=== PATIENT | female | born 1955 | race Two or more races ===

== ENCOUNTER 2020-05-06 10:06 | Outpatient (REF) | payer MEDICARE, MEDICAID, SELFPAY ==
[2020-05-06 11:04] LABS: Alanine Aminotransferase 47 U/L (0-31); Albumin Level 4.4 g/dL (3.5-5.0); Alkaline Phosphatase 72 U/L (39-117); Anion Gap 12 (12-20); Aspartate Amino Transferase 46 U/L (5-31); Bilirubin Total 0.6 mg/dL (0.0-1.0); Blood Urea Nitrogen 14 mg/dL (9-16); Calcium 9.7 mg/dL (8.4-10.2); Carbon Dioxide 29 mmol/L (22-29); Chloride 102 mmol/L (96-108); Cholesterol 144 mg/dL; Estimated Glomerular Filt Rate > 60; Glucose Fasting 126 mg/dL (60-99); HDL Cholesterol 34 mg/dL; LDL Cholesterol Calculated 71 mg/dl; Potassium 3.6 mmol/l (3.3-5.1); Sodium 139 mmol/L (135-145); Total Protein 7.8 g/dL (6.5-8.0); Triglycerides 195 mg/dL
[2020-05-06 11:25] LABS: Creatinine Urine 193.25 mg/dL; Microalbum/Creatinine Ratio Ur 5.6 ug/mg cr
[2020-05-06 11:26] LABS: Vitamin D 25-OH Total 25.1 ng/mL (>30)
== END 2020-05-06 10:07 | disposition home or self-care (01) ==
LOC: HO.LAB 10:06
PROVIDERS: PCP Internal Medicine; Visit Provider Internal Medicine
DX: E55.9 Vitamin D deficiency, unspecified (principal); E11.9 Type 2 diabetes mellitus without complications
CPT/HCPCS: 36415; 80053; 80061; 82043; 82306

== ENCOUNTER → 2020-06-09 14:46 | Outpatient (BNVA) | payer MEDICARE, MEDICAID, SELFPAY | PROVIDERS: PCP Internal Medicine; Visit Provider Urology | DX: Z76.89 Persons encountering health services in other specified circumstances (principal) | CPT/HCPCS: 99212 ==

== ENCOUNTER 2020-09-18 11:05 | Outpatient (REF) | payer MEDICARE, MEDICAID, SELFPAY | END 2020-09-18 11:06 | disposition home or self-care (01) | LOC: HO.LAB 11:05 | PROVIDERS: PCP Internal Medicine; Visit Provider Internal Medicine | DX: Z20.822 Contact with and (suspected) exposure to COVID-19 (principal) | CPT/HCPCS: 36415; C9803; U0003; U0005 ==

== ENCOUNTER 2020-09-23 10:14 | Outpatient (REF) | payer MEDICARE, MEDICAID, SELFPAY ==
--- NOTE | ~2020-09-23 | MM_ITS ---
EXAMINATION: MM SCREENING DIGITAL BREAST TOMOSYNTHESIS, BILATERAL CLINICAL INFORMATION: Screening. Asymptomatic. Benign left stereotactic biopsy for calcifications 09/30/2018 (fibrocystic changes with associated microcalcifications). Prior history benign right excisional biopsy. The lifetime risk of breast cancer based on the Tyrer-Cuzick Model is 5%. COMPARISON: Mammography: 09/18/2019, 09/25/2018, 09/12/2018, 08/23/2017, 06/26/2016 TECHNIQUE: Digital breast tomosynthesis is performed in both the craniocaudal and mediolateral oblique views along with computer-aided detection (CAD). Synthesized 2D images are generated from the tomosynthesis. FINDINGS: There are scattered areas of fibroglandular density (ACR BI-RADS breast composition Category b). Parenchymal pattern is similar to prior studies. There is biopsy clip marker again noted mid upper outer left breast. There is no interval mass or architectural abnormality or interval abnormal calcifications. The axilla and skin contours are unremarkable. No significant changes. MM/MM tomosynthesis screening BI IMPRESSION: No mammographic evidence of malignancy. ASSESSMENT: BI-RADS 2: Benign RECOMMENDATION: Routine annual mammography screening. This patient's information was entered into a reminder system with a target due date for their next mammogram.
== END 2020-09-23 10:15 | disposition home or self-care (01) ==
LOC: HO.MAMMO 10:14
PROVIDERS: PCP Internal Medicine; Visit Provider Internal Medicine
DX: Z12.31 Encounter for screening mammogram for malignant neoplasm of breast (principal)
CPT/HCPCS: 77063; 77067

== ENCOUNTER 2020-10-14 08:47 | Outpatient (REF) | payer MEDICARE, MEDICAID, SELFPAY ==
[2020-10-14 09:38] LABS: Alanine Aminotransferase 29 U/L (0-31); Albumin Level 4.3 g/dL (3.5-5.0); Alkaline Phosphatase 75 U/L (39-117); Anion Gap 14 (12-20); Aspartate Amino Transferase 28 U/L (5-31); Bilirubin Total 0.4 mg/dL (0.0-1.0); Blood Urea Nitrogen 17 mg/dL (9-16); Calcium 9.7 mg/dL (8.4-10.2); Carbon Dioxide 29 mmol/L (22-29); Chloride 101 mmol/L (96-108); Cholesterol 146 mg/dL; Estimated Glomerular Filt Rate 59; Glucose Fasting 125 mg/dL (60-99); HDL Cholesterol 36 mg/dL; LDL Cholesterol Calculated 74 mg/dl; Potassium 3.9 mmol/L (3.3-5.1); Sodium 140 mmol/L (135-145); Total Protein 7.6 g/dL (6.5-8.0); Triglycerides 182 mg/dL
== END 2020-10-14 08:48 | disposition home or self-care (01) ==
LOC: HO.LAB 08:47
PROVIDERS: PCP Internal Medicine; Visit Provider Internal Medicine
DX: E11.9 Type 2 diabetes mellitus without complications (principal)
CPT/HCPCS: 36415; 80053; 80061

== ENCOUNTER 2020-11-06 16:42 | Outpatient (REF) | payer MEDICARE, MEDICAID, SELFPAY ==
--- NOTE | ~2020-11-06 | MR_ITS ---
EXAMINATION: MR BRAIN WITHOUT AND WITH CONTRAST CLINICAL INFORMATION: Right acoustic neuroma and vertigo. COMPARISON: There are no prior studies available for comparison. TECHNIQUE: Multiplanar, multisequence MRI of the brain was obtained before and after the intravenous administration of 7 mL Gadavist. FINDINGS: The VII and VIII cranial nerve complexes are normal in course and caliber. No signal abnormality is visualized within the inner ear structures on the precontrast axial T1-weighted sequence. Fluid signal is preserved within the cochleae, semicircular canals, and vestibules on the high-resolution axial FIESTA sequence. No cerebellopontine angle lesion is noted. There is no abnormal labyrinthine or intracanalicular enhancement on postcontrast imaging. No diffusion abnormality is seen. There are scattered areas of increased FLAIR signal in the periventricular and subcortical white matter, most consistent with chronic microvascular ischemic changes. There is mild commensurate prominence of the ventricles and sulci consistent with diffuse volume loss. No mass effect or midline shift is evident. No extra-axial fluid collections are noted. The brainstem and cerebellum are normal. On postcontrast imaging, there is no abnormal parenchymal or leptomeningeal enhancement. There is a 0.9 cm area of low gradient signal which appears extra-axial in the anterolateral left frontal region. This does not demonstrate abnormal signal on other sequences or enhancement, and may be consistent with a small osteoma. Marrow signal, and midline structures are normal. The cerebellar tonsils have normal contour and position. There is asymmetry of the longus colli muscles, more prominent on the left. There is atlanto-occipital assimilation and basilar invagination. There is mild distortion of the ventral medulla from a tortuous left vertebral artery. The visualized portions of the major intracranial flow-voids at the level of the [place] of [place] are preserved. The dural venous sinus flow-voids are maintained. The mastoid air cells and paranasal sinuses are well-aerated. MR/MR head/brain wo/w con IMPRESSION: 1. There are no acute bleeds or infarcts. The CP angles and internal auditory canals appear normal. There are no intracranial masses or areas of abnormal enhancement. 2. There is diffuse volume loss, and there are chronic microvascular ischemic changes. 3. There is asymmetry of the longus colli muscles, more prominent on the left. There is atlanto-occipital assimilation and basilar invagination. There are spondylitic changes in the upper cervical spine. These findings may be consistent with sequelae of prior cervical spinal trauma. Correlate with prior clinical history.
== END 2020-11-06 16:43 | disposition home or self-care (01) ==
LOC: HO.MRI 16:42
PROVIDERS: Visit Provider Otolaryngology
DX: D33.3 Benign neoplasm of cranial nerves (principal); H81.4 Vertigo of central origin
CPT/HCPCS: 70553; A9585

== ENCOUNTER 2020-11-22 08:51 | Outpatient (REF) | payer MEDICARE, MEDICAID, SELFPAY ==
--- NOTE | 2020-11-22 15:18 | MHC.AU.HAS ---
Hearing Aid Evaluation Date of Visit: 11/22/20 Machinist Supervisor Used: Patient's family assisted with interpretation Historical Information: Description of Hearing: Left: Normal from 250-3000 Hz, mild at 1830-8563 Hz Right: Moderate rising to mild sensorineural hearing loss Summary: Patient has not previously worn amplification. She was referred to our clinic by ENT, Dr. Boyd. Patient reports that in May 2020, her right ear began to hurt. She started to experience right-sided hearing difficulty and tinnitus, which have persisted. Hearing aid options were discussed. Patient's family feels a rechargeable option would be best for her, as she would be able to handle it easier and would not have to worry about remembering to change the batteries. Hearing Aid Prescription: Based on the individual?s shared listening needs, communication environments, dexterity, desire for connectivity, and personal preferences, the following prescription for amplification has been made: Right ear: Smt Technician: etouches Model: [employer] P70-R Battery Size: Rechargeable Color: 01 Beige Peanut Picker: Size 1M Action Taken/Action Needed: Hearing Fitting to be scheduled when materials arrive Dr. Boyd's office was contacted to request a copy of the medical clearance. Primary Diagnosis: H90.3 Bilateral Sensorineural Hearing Loss Signature: Provider: Salvatore Faria, DEVORAH-A
== END 2020-11-22 08:52 | disposition home or self-care (01) ==
LOC: HO.HAP 08:51
PROVIDERS: Visit Provider Internal Medicine
DX: Z46.1 Encounter for fitting and adjustment of hearing aid (principal); H90.3 Sensorineural hearing loss, bilateral
CPT/HCPCS: 92590

== ENCOUNTER 2020-11-30 15:14 | Outpatient (REF) | payer MEDICARE, MEDICAID, SELFPAY ==
--- NOTE | 2020-11-30 16:02 | MHC.AU.HFA ---
Hearing Instrument Fitting- Adult- Binaural Date of Visit: 11/30/20 Roll Tension Tester Used: Family member assisted with Moldovan interpretation Hearing Instruments Dispensed: Right Ear: Tar Chaser: Phonak Model: Audeo P70-R Serial Number: [id number] Repair Warranty: 02/22/2024 Loss and Damage Warranty: 02/22/2024 Battery Size: Rechargeable Color: 01 Beige Informatics Nurse: Size 1M Type of Dome: Small Open Type of Wax Guard: Eve Summary of Fitting: Feedback manager retail run. Verifit performed and levels adjusted to better reach targets. Patient felt 100% target was too loud- lowered to 95% target. Increased occlusion compensation. Patient was pleased with the sound of the instrument. Hearing aid care and maintenance were discussed and practiced. Hearing aid was not paired to her phone at this time, as she is a monaural fitting. Patient reports that so far, the tinnitus in her right ear is less intense. If she does not experience sufficient relief, we will consider adding a tinnitus masking program at the next visit. Tap controls deactivated. Volume control is activated. Recommendations: Recommendations: A hearing instrument follow-up was scheduled. Diagnosis Code(s): Primary Diagnosis: H90.3 Bilateral Sensorineural Hearing Loss Signature: Provider: Salvatore Faria, DEVORAH-A
== END 2020-11-30 15:15 | disposition home or self-care (01) ==
LOC: HO.HAP 15:14
PROVIDERS: Visit Provider Otolaryngology
DX: Z46.1 Encounter for fitting and adjustment of hearing aid (principal); H90.3 Sensorineural hearing loss, bilateral
CPT/HCPCS: V5011; V5020; V5241; V5257

== ENCOUNTER 2020-12-15 15:47 | Outpatient (REF) | payer MEDICARE, MEDICAID, SELFPAY ==
--- NOTE | 2020-12-18 11:43 | MHC.AU.HFU ---
Hearing Instrument Follow-Up- Binaural Date of Visit: 12/15/20 Cigarette Machines Mechanic Used: Family member assisted with Tanzanian interpretation Right Ear: Prison Guard: [employer] Model: Audeo P70-R Serial Number: [id number] Repair Warranty: 02/22/2024 Loss and Damage Warranty: 02/22/2024 Battery Size: Rechargeable Color: 01 Beige Draw End Hand: Size 1M Type of Dome: Small Open Type of Wax Guard: [facility] Follow-Up Summary: Patient reports she has been doing well with the new hearing aid. She finds the sound to be clear and comfortable. She reports that it has been helping relieve her tinnitus the majority of the time. She experiences episodes of dizziness and nausea occasionally, which are accompanied by intense tinnitus. She experienced one of these episodes the other day, and found that the hearing aid was not enough to help the ringing. Patient was given a tinnitus masking program with white noise to try during one of those episodes. Demonstrated and practiced hitting the program button to go into/out of the tinnitus program. Recommendations: Recommendations: Hearing instrument follow-up or maintenance as needed. Diagnosis Code(s): Primary Diagnosis: H90.3 Bilateral Sensorineural Hearing Loss Signature: Provider: Salvatore Faria, DEVORAH-A
== END 2020-12-15 15:48 | disposition home or self-care (01) ==
LOC: HO.HAP 15:47
PROVIDERS: Visit Provider Internal Medicine
DX: Z13.89 Encounter for screening for other disorder (principal)

== ENCOUNTER 2021-02-19 07:59 | Outpatient (REF) | payer MEDICARE, MEDICAID, SELFPAY ==
[2021-02-19 09:06] LABS: Alanine Aminotransferase 31 U/L (0-31); Albumin Level 4.4 g/dL (3.5-5.0); Alkaline Phosphatase 72 U/L (39-117); Anion Gap 14 (12-20); Aspartate Amino Transferase 31 U/L (5-31); Bilirubin Total 0.5 mg/dL (0.0-1.0); Blood Urea Nitrogen 14 mg/dL (9-16); Calcium 9.6 mg/dL (8.4-10.2); Carbon Dioxide 25 mmol/L (22-29); Chloride 105 mmol/L (96-108); Cholesterol 122 mg/dL; Estimated Glomerular Filt Rate > 60; Glucose Fasting 133 mg/dL (60-99); HDL Cholesterol 31 mg/dL; LDL Cholesterol Calculated 66 mg/dl; Potassium 3.9 mmol/L (3.3-5.1); Sodium 140 mmol/L (135-145); Total Protein 7.7 g/dL (6.5-8.0); Triglycerides 128 mg/dL
[2021-02-23 06:28] LABS: Vitamin D 25-OH, D2 <4 ng/mL; Vitamin D 25-OH, D3 36 ng/mL; Vitamin D 25-OH, Total 36 ng/mL (30-100)
== END 2021-02-19 08:00 | disposition home or self-care (01) ==
LOC: HO.LAB 07:59
PROVIDERS: PCP Internal Medicine; Visit Provider Internal Medicine
DX: Z01.419 Encounter for gynecological examination (general) (routine) without abnormal findings (principal); E11.65 Type 2 diabetes mellitus with hyperglycemia; E78.5 Hyperlipidemia, unspecified; E55.9 Vitamin D deficiency, unspecified
CPT/HCPCS: 36415; 80053; 80061; 82043; 82306

== ENCOUNTER 2021-04-11 09:01 | Emergency (ER) | payer MEDICARE, MEDICAID, SELFPAY ==
[2021-04-11 09:13] VITALS: BP 129/81; PULSE 71; RESP 18; TEMP 36.9; O2SAT 98; BMI 34.8
--- NOTE | 2021-04-11 09:53 | ED_ITS ---
HPI - Female Genitourinary General Chief complaint: Urogenital-Female Stated complaint: flank pain Time Seen by Provider: 04/11/21 09:53 Source: patient Mode of arrival: ambulatory Limitations: no limitations History of Present Illness HPI Narrative: 65 y/o female with history of obesity, GERD, HTN, DM who presents to the ER c/o left lower and middle back pain for the last 3 days after she took the air conditioner out of the window by herself. She felt her back tense up and has been having pain since. She reports pain is worse with movement, coughing and sneezing. No numbness, tingling, weakness. No dysuria, hematuria, or frequency. fever or SOB. She took motrin this morning with some improvement in the pain. MD elicited complaint: back pain Onset (ago): day(s) (3) Location of symptoms: low back and flank Severity: moderate Severity scale (1-10): 5 Quality of pain: aching Consistency: constant Vaginal discharge: none Vaginal bleeding: none Urinary symptoms: Flank Pain Exacerbating factors: movement and palpation Relieving factors: other (rest, NSAID) Associated symptoms: denies other symptoms Treatment prior to arrival: none Sexual activity: No Related Data Home Medications Medication Instructions Recorded Confirmed latanoprost 0.005 % eye drops 1 drp OPHTHALMIC (EYE) BEDTIME 05/09/20 03/05/21 timolol maleate 0.5 % eye drops 1 drp OPHTHALMIC (EYE) QAM 05/09/20 03/05/21 ammonium lactate 12 % topical cream appl TOPICAL BID 02/22/21 03/05/21 fluocinonide 0.05 % topical TOPICAL BID PRN 02/22/21 03/05/21 ointment Previous Rx's Medication Instructions Recorded aspirin 81 mg tablet,delayed 81 mg PO DAILY 90 Days #90 tab 05/09/20 release lisinopril 2.5 mg tablet 2.5 mg PO DAILY 90 Days #90 tab 05/09/20 multivitamin-ferrous 1 tab PO DAILY 90 Days #90 tab 05/09/20 fumarate-folic acid 18 mg-400 mcg tablet (Centrum Women) lancets 28 gauge #100 ea 06/21/20 oxybutynin chloride 5 mg 5 mg PO DAILY #90 tab 06/27/20 tablet,extended release 24 hr carbamide peroxide 6.5 % ear drops 5 drp OTIC (EAR) LEFT Q12H 5 Days 07/09/20 (Debrox) #15 ml cholecalciferol (vitamin D3) 50 50 mcg PO DAILY #30 tab 07/21/20 mcg (2,000 unit) tablet pantoprazole 40 mg tablet,delayed 40 mg PO DAILY #90 tab 12/25/20 release blood sugar diagnostic (FreeStyle 1 strip MISCELLANEOUS DAILY 90 01/03/21 Lite Strips) Days #100 strip metformin 850 mg tablet 850 mg PO BID 90 Days #180 tab 01/22/21 cyclobenzaprine 5 mg tablet 5 mg PO TID PRN #14 tab 04/11/21 ibuprofen 600 mg tablet 600 mg PO Q8H PRN #14 tab 04/11/21 lidocaine 5 % topical patch 1 patch TOPICAL DAILY #15 ea 04/11/21 (Lidoderm) Allergies Allergy/AdvReac Type Severity Reaction Status Date / Time chlorzoxazone Allergy Intermediate RASH/SWELLING, Verified 03/05/21 10:50 [From Paraericka Spears DSC] rash Iodinated Contrast Media Allergy Intermediate THROAT Verified 03/05/21 10:50 [IV Dye, Iodine Containing] CLOSED Penicillins [PENICILLINS] Allergy Intermediate HIVES Verified 03/05/21 10:50 pollen extracts [POLLEN] Allergy Intermediate RASH Verified 03/05/21 10:50 From KEFLEX Allergy Severe HIVES Uncoded 03/05/21 10:50 Review of Systems Review of Systems: Constitutional: No Fever, No Chills Cardiovascular: No Chest Pain, No SOB Respiratory: No Cough Gastrointestinal: No Nausea, No Vomiting, No Diarrhea, No abdominal Pain Genitourinary: No Dysuria, No Urinary Frequency, No Hematuria Musculoskeletal: No joint pain, + Myalgias Skin: No Skin Lesions, No rash Neuro: No Weakness, No Numbness, No Dizziness, No Headache Psych: No Anxiety/Panic, No Depression Heme/Lymph: No Bruising, No Lymphadenopathy PMFSH Past Medical History Attestation statement: The following information was validated with the patient. Medical History Diabetes mellitus Dry skin Ear congestion Essential hypertension GERD (gastroesophageal reflux disease) Glaucoma Hearing loss in right ear Long-term use of aspirin therapy Obese Post-menopausal Urge urinary incontinence Well woman exam Surgical History (Updated 03/05/21 @ 12:36 by REYNALDO Crenshaw) H/O arthroscopy of right knee History of History of cholecystectomy History of colonoscopy History of knee replacement procedure of right knee History of nasal surgery Tubal ligation status Family History Family History Father Cancer Mother Hypertension Social History Social History Housing: House Alcohol intake: current Alcohol intake frequency: holidays/special occasions only Alcohol type: wine Patient Tobacco Use Status: Never used Tobacco Advance Directives: No Advance Directives Information Provided: No service: No Current occupational status: retired Physical Exam Vital Signs: Vital Signs: Last Vital Signs Temp 98.4 F 04/11/21 09:13 Pulse 71 04/11/21 09:13 Resp 18 04/11/21 09:13 BP 129/81 04/11/21 09:13 Pulse Ox 98 04/11/21 09:13 Body Mass Index 34.8 Appearance: Alert. Oriented X3. No acute distress. Eyes: normal inspection ENT: Pharynx normal. Neck: Normal inspection. Neck supple. CVS: Normal heart rate and rhythm. Pulses normal. Respiratory: No respiratory distress. Breath sounds normal. Abdomen: Soft and nontender. +BS x4 Back: normal inspection. left middle and lower back tenderness and palpable spasm, no spinal tenderness, no ecchymosis Skin: Skin warm and dry. Normal skin color. Normal skin turgor. No rashes. Extremities: No lower extremity edema. Neuro: Oriented X 3. No motor deficit. No sensory deficit. Course Course Course Narrative: 65 y/o female presenting with left middle and lower back pain s/p lifting 3 days ago. UA negative, no urinary symptoms. Palpable spasm and tenderness on exam. Will treat for muscle spasm and strain and have her f/u with PCP. Patient agrees with plan and understands importance of followup. Stable for d/c home. MDM - Female Genitourinary Lab Data Labs: Lab Results 04/11/21 Range/Units 09:45 Urine Color YELLOW Urine Appearance HAZY Urine pH 6.0 (5.0-8.0) Ur Specific Paicines 1.015 (1.005-1.025) Urine Protein NEG (NEG-TRACE) MG/DL Urine Glucose (UA) NEG (NEG) MG/DL Urine Ketones NEG (NEG) MG/DL Urine Blood NEG (NEG) Urine Nitrite NEG (NEG) Ur Leukocyte Esterase NEG (NEG) Discharge Plan Discharge Clinical Impression: Low back strain Qualifiers: Encounter type: initial encounter Qualified Code(s): S39.012A - Strain of muscle, fascia and tendon of lower back, initial encounter Patient Disposition: Home, Self-Care Instructions: Low Back Strain (ED), Lower Back Exercises (ED) Additional Instructions: Your pain is due to a muscle strain in your back. No bending, lifting or twisting. Use ice several times per day for 20 minutes at a time for the next 48 hours and then change to heat. Take medications as prescribed to help with pain and discomfort. Follow up with your Primary Care Doctor this week. If your pain worsens, if you develop new numbness, tingling, weakness, loss of function or incontinence call 911 or come back to the ER right away for evaluation. Prescriptions: New lidocaine [Lidoderm] 5 % adhesive patch,medicated 1 patch topical DAILY Qty: 15 RF: 0 ibuprofen 600 mg tablet 600 mg PO Q8H PRN (Reason: pain) Qty: 14 RF: 0 cyclobenzaprine 5 mg tablet 5 mg PO TID PRN (Reason: muscle spasm) Qty: 14 RF: 0 No Action (DME) lancets 28 gauge misc See Rx Instructions ea Not Applicable DAILY Qty: 100 RF: 2 oxybutynin chloride 5 mg tablet extended release 24hr 5 mg PO DAILY Qty: 90 RF: 2 cholecalciferol (vitamin D3) 50 mcg (2,000 unit) tablet 50 mcg PO DAILY Qty: 30 RF: 11 pantoprazole 40 mg tablet,delayed release (DR/EC) 40 mg PO DAILY Qty: 90 RF: 2 blood sugar diagnostic [FreeStyle Lite Strips] Strip 1 strip miscellaneous DAILY 90 Days Qty: 100 RF: 3 metformin 850 mg tablet 850 mg PO BID 90 Days Qty: 180 RF: 2 latanoprost 0.005 % drops 1 drp ophthalmic (eye) BEDTIME RF: 0 timolol maleate 0.5 % drops 1 drp ophthalmic (eye) QAM RF: 0 Centrum Women 18-400 mg-mcg tablet 1 tab PO DAILY 90 Days Qty: 90 RF: 4 lisinopril 2.5 mg tablet 2.5 mg PO DAILY 90 Days Qty: 90 RF: 4 aspirin 81 mg tablet,delayed release (DR/EC) 81 mg PO DAILY 90 Days Qty: 90 RF: 4 carbamide peroxide [Debrox] 6.5 % drops 5 drp otic (ear) left Q12H 5 Days Qty: 15 RF: 0 fluocinonide 0.05 % ointment topical BID PRNRF: 0 ammonium lactate 12 % cream topical BID RF: 0 Referrals: Melvi Paz MD [Primary Care Provider] - 2 days Interventions: ED Discharge Assessment Last Done: 04/11/21 10:33 Print Language: Upper Sorbian
[2021-04-11 09:55] LABS: Appearance Urine HAZY; Color Urine YELLOW; Glucose Urine UA NEG (NEG); Leukocyte Esterase Urine NEG (NEG); Nitrite Urine NEG (NEG); Specific Gravity - Urine 1.015 (1.005-1.025); Urine Blood NEG (NEG); Urine Ketones NEG (NEG); Urine Protein NEG (NEG-TRACE)
== END 2021-04-11 10:34 | disposition home or self-care (01) ==
PROVIDERS: Emergency Provider Emergency Medicine; PCP Internal Medicine
DX: S39.012A Strain of muscle, fascia and tendon of lower back, initial encounter (principal); R10.9 Unspecified abdominal pain; X58.XXXA Exposure to other specified factors, initial encounter; Y93.9 Activity, unspecified; Y92.9 Unspecified place or not applicable; Y99.9 Unspecified external cause status; Z79.899 Other long term (current) drug therapy
CPT/HCPCS: 81003; 99283

== ENCOUNTER → 2021-05-08 11:28 | Outpatient (BNVA) | payer MEDICARE, MEDICAID, SELFPAY | PROVIDERS: PCP Internal Medicine | DX: N32.81 Overactive bladder (principal) | CPT/HCPCS: 51798; 99212 ==

== ENCOUNTER 2021-07-03 07:10 | Outpatient (REF) | payer MEDICARE, MEDICAID, SELFPAY ==
[2021-07-03 08:56] LABS: Alanine Aminotransferase 42 U/L (0-31); Albumin Level 4.2 g/dL (3.5-5.0); Alkaline Phosphatase 74 U/L (39-117); Anion Gap 13 (12-20); Aspartate Amino Transferase 41 U/L (5-31); Bilirubin Total 0.5 mg/dL (0.0-1.0); Blood Urea Nitrogen 15 mg/dL (9-16); Calcium 9.6 mg/dL (8.4-10.2); Carbon Dioxide 27 mmol/L (22-29); Chloride 103 mmol/L (96-108); Cholesterol 153 mg/dL; Estimated Glomerular Filt Rate > 60; Glucose Fasting 142 mg/dL (60-99); HDL Cholesterol 33 mg/dL; LDL Cholesterol Calculated 85 mg/dl; Potassium 3.8 mmol/L (3.3-5.1); Sodium 139 mmol/L (135-145); Total Protein 7.3 g/dL (6.5-8.0); Triglycerides 175 mg/dL
[2021-07-03 09:12] LABS: Creatinine Urine 207.95 mg/dL; Microalbum/Creatinine Ratio Ur 5.7 ug/mg cr
[2021-07-07 14:51] LABS: Vitamin D 25-OH, D2 <4 ng/mL; Vitamin D 25-OH, D3 26 ng/mL; Vitamin D 25-OH, Total 26 ng/mL (30-100)
== END 2021-07-03 07:11 | disposition home or self-care (01) ==
LOC: HO.LAB 07:10
PROVIDERS: PCP Internal Medicine; Visit Provider Internal Medicine
DX: E11.65 Type 2 diabetes mellitus with hyperglycemia (principal); E55.9 Vitamin D deficiency, unspecified; E78.5 Hyperlipidemia, unspecified
CPT/HCPCS: 36415; 80053; 80061; 82043; 82306

== ENCOUNTER 2021-08-04 17:07 | Emergency (ER) | payer MEDICARE, MEDICAID, SELFPAY ==
--- NOTE | ~2021-08-04 | XR_ITS ---
EXAMINATION: XR CHEST CLINICAL INFORMATION: sob COMPARISON: 05/27/2016 TECHNIQUE: 2 views of the chest were obtained. FINDINGS: Lung volumes are low with bibasilar atelectasis. No consolidation, pneumothorax, or pleural effusion. Cardiac and mediastinal contours are normal. Degenerative spondylosis is present in the thoracic spine. No acute osseous findings. Cholecystectomy clips are present in the right upper quadrant. XR/XR chest 2V IMPRESSION: Low lung volumes with basilar atelectasis. No acute pulmonary findings.
[2021-08-04 17:14] VITALS: BP 166/86; PULSE 79; RESP 18; TEMP 36.4; O2SAT 100; BMI 28.3
--- NOTE | 2021-08-04 19:27 | ED.SOB ---
HPI - SOB/Dyspnea General Chief Complaint: Dyspnea Stated Complaint: covid + diff breathing Time Seen by Provider: 08/04/21 19:27 Source: patient Mode of arrival: ambulatory Limitations: no limitations History of Present Illness HPI Narrative: Patient already been vaccinated against COVID has not received a booster dose been having shortness of breath and home occasional dry cough for last 7 days tested positive 6 days ago for the COVID. Saturating 99% on ambulation no significant lung conditions in the past no fever no chills no loss of taste sensation Related Data Home Medications Medication Instructions Recorded Confirmed latanoprost 0.005 % eye drops 1 drp OPHTHALMIC (EYE) BEDTIME 05/09/20 07/04/21 timolol maleate 0.5 % eye drops 1 drp OPHTHALMIC (EYE) QAM 05/09/20 07/04/21 ammonium lactate 12 % topical cream appl TOPICAL BID 02/22/21 07/04/21 fluocinonide 0.05 % topical TOPICAL BID PRN 02/22/21 07/04/21 ointment Previous Rx's Medication Instructions Recorded lisinopril 2.5 mg tablet 2.5 mg PO DAILY 90 Days #90 tab 05/09/20 multivitamin-ferrous 1 tab PO DAILY 90 Days #90 tab 05/09/20 fumarate-folic acid 18 mg-400 mcg tablet (Centrum Women) cholecalciferol (vitamin D3) 50 50 mcg PO DAILY #30 tab 07/21/20 mcg (2,000 unit) tablet pantoprazole 40 mg tablet,delayed 40 mg PO DAILY #90 tab 12/25/20 release metformin 850 mg tablet 850 mg PO BID 90 Days #180 tab 01/22/21 cyclobenzaprine 5 mg tablet 5 mg PO TID PRN #30 tab 04/18/21 meloxicam 15 mg tablet 15 mg PO DAILY #14 tab 04/18/21 blood sugar diagnostic (FreeStyle 1 strip MISCELLANEOUS DAILY 90 06/11/21 Lite Strips) Days #100 strip lancets 28 gauge #100 ea 06/11/21 cholestyramine-aspartame 4 gram 4 g PO BID 30 Days #231 g 07/06/21 oral powder (Cholestyramine Light) aspirin 81 mg tablet,delayed 81 mg PO DAILY 90 Days #90 tab 07/20/21 release oxybutynin chloride 5 mg 5 mg PO DAILY #90 tab 07/20/21 tablet,extended release 24 hr albuterol sulfate 90 mcg/actuation 2 puff INHALATION Q4-6H PRN #8.5 g 08/04/21 aerosol inhaler (ProAir HFA) dexamethasone 6 mg tablet 6 mg PO DAILY #5 tab 08/04/21 (Decadron) Allergies Allergy/AdvReac Type Severity Reaction Status Date / Time chlorzoxazone Allergy Intermediate RASH/SWELLING, Verified 08/04/21 17:14 [From Parafon Forte DSC] rash Iodinated Contrast Media Allergy Intermediate THROAT Verified 08/04/21 17:14 [IV Dye, Iodine Containing] CLOSED Penicillins [PENICILLINS] Allergy Intermediate HIVES Verified 08/04/21 17:14 pollen extracts [POLLEN] Allergy Intermediate RASH Verified 08/04/21 17:14 From KEFLEX Allergy Severe HIVES Uncoded 07/04/21 10:58 Review of Systems Review of Systems: Yes all other systems are reviewed and are negative PMFSH Past Medical History Medical History Chronic diarrhea Diabetes mellitus Dry skin Ear congestion Essential hypertension Gastroparesis GERD (gastroesophageal reflux disease) Glaucoma Hearing loss in right ear Long-term use of aspirin therapy Obese Post-menopausal Urge urinary incontinence Well woman exam Surgical History H/O arthroscopy of right knee History of History of cholecystectomy History of colonoscopy History of knee replacement procedure of right knee History of nasal surgery Tubal ligation status Family History Family History Father Cancer Mother Hypertension Social History Social History Housing: House Alcohol intake: current Alcohol intake frequency: does not drink Alcohol type: wine Patient Tobacco Use Status: Never used Tobacco e-Cigarette/Vaping Use: Never Used Second Hand Smoke Exposure: No Use of substances other than those prescribed or required for medical reasons: No Advance Directives: No Advance Directives Information Provided: Yes service: No Current occupational status: retired Physical Exam Vital Signs: Vital Signs: Last Vital Signs Temp 98.6 F 08/04/21 19:44 Pulse 85 08/04/21 19:44 Resp 17 08/04/21 19:44 BP 173/83 H 08/04/21 19:44 Pulse Ox 96 08/04/21 19:44 BMI result Body Mass Index 28.3 Appearance: Alert. Oriented X3. No acute distress. ENT: Pharynx normal. Oral Mucosa moist CVS: Normal heart rate and rhythm. Pulses normal. Respiratory: No respiratory distress. Equal air entry bilateral, no wheezing/rales/rhonchi Abdomen: Soft and nontender. Bowel sounds are present, Skin: Skin warm and dry. Normal skin color. Normal skin turgor. Extremities: No lower extremity edema. No calf tenderness Neuro: Oriented X 3. MDM - SOB/Dyspnea MDM Narrative Medical decision making narrative: Patient COVID positive for 6 days subjective shortness of breath and dry cough chest x-ray negative for any infiltrate will discharge her home on albuterol inhaler and Decadron Discharge Plan Discharge Clinical Impression: COVID-19 Patient Disposition: Home, Self-Care Instructions: COVID-19 (Coronavirus Disease 2019) (ED) Additional Instructions: Social distancing as advised Take medication as prescribed Report to the ER if increased shortness of breath Prescriptions: New dexamethasone [Decadron] 6 mg tablet 6 mg PO DAILY Qty: 5 RF: 0 albuterol sulfate [ProAir HFA] 90 mcg/actuation HFA aerosol inhaler 2 puff inhalation Q4-6H PRN (Reason: Wheezing) Qty: 8.5 RF: 0 No Action cholecalciferol (vitamin D3) 50 mcg (2,000 unit) tablet 50 mcg PO DAILY Qty: 30 RF: 11 pantoprazole 40 mg tablet,delayed release (DR/EC) 40 mg PO DAILY Qty: 90 RF: 2 metformin 850 mg tablet 850 mg PO BID 90 Days Qty: 180 RF: 2 FreeStyle Lite Strips Strip 1 strip miscellaneous DAILY 90 Days Qty: 100 RF: 3 (DME) lancets 28 gauge misc See Rx Instructions ea Not Applicable DAILY Qty: 100 RF: 2 Cholestyramine Light 4 gram powder 4 g PO BID 30 Days Qty: 231 RF: 2 oxybutynin chloride 5 mg tablet extended release 24hr 5 mg PO DAILY Qty: 90 RF: 3 aspirin 81 mg tablet,delayed release (DR/EC) 81 mg PO DAILY 90 Days Qty: 90 RF: 4 latanoprost 0.005 % drops 1 drp ophthalmic (eye) BEDTIME RF: 0 timolol maleate 0.5 % drops 1 drp ophthalmic (eye) QAM RF: 0 Centrum Women 18-400 mg-mcg tablet 1 tab PO DAILY 90 Days Qty: 90 RF: 4 lisinopril 2.5 mg tablet 2.5 mg PO DAILY 90 Days Qty: 90 RF: 4 fluocinonide 0.05 % ointment topical BID PRNRF: 0 ammonium lactate 12 % cream topical BID RF: 0 cyclobenzaprine 5 mg tablet 5 mg PO TID PRN (Reason: muscle spasm) Qty: 30 RF: 0 meloxicam 15 mg tablet 15 mg PO DAILY Qty: 14 RF: 0 Print Language: [place]ican
[2021-08-04 19:44] VITALS: BP 173/83; PULSE 85; RESP 17; TEMP 37; O2SAT 96
[2021-08-04] MEDS: dexAMETHasone 6 MG TABLET PO (19:50)
[2021-08-04] MEDS: Albuterol Sulfate 90 MCG 8 GM INHALER 2 PUFF INHALE (19:50)
== END 2021-08-04 19:59 | disposition home or self-care (01) ==
PROVIDERS: Emergency Provider Internal Medicine; PCP Internal Medicine
DX: U07.1 COVID-19 (principal); R06.00 Dyspnea, unspecified; Z79.899 Other long term (current) drug therapy
CPT/HCPCS: 71046; 99284; J8540

== ENCOUNTER → 2021-09-26 07:53 | Outpatient (REF) | payer MEDICARE, MEDICAID, SELFPAY ==
--- NOTE | ~2021-09-26 | NM_ITS ---
EXAMINATION: RADIONUCLIDE SOLID FOOD GASTRIC EMPTYING 4-HOUR STUDY CLINICAL INFORMATION: Gastroparesis. COMPARISON: No previous gastric emptying study is available for comparison. TECHNIQUE: A standard meal consisting of 4 oz of Egg Beaters brand equivalent tagged with 854 microcuries Tc-99m Sulfur Colloid, 8 oz water and 2 slices of toast with jelly was administered orally to the patient. Images were obtained using a dual head gamma camera in the anterior and posterior projections over of the stomach immediately post ingestion and at hourly intervals up to 4 hours post ingestion. The anterior and posterior counts at each time interval were averaged using the geometric mean and expressed as percentage of the immediate post ingestion counts. FINDINGS: There is good visualization of activity in the stomach immediately post ingestion. As the study progresses, there is progressive emptying of the stomach and increasing small bowel activity visualized. However, at the end of the study there is moderate abnormal retention of activity in the stomach at 4 hours. Retention in the stomach at each time interval was: 1 hour 87% (normal 37%-90%) 2 hours 67% (normal 30%-60%) 3 hours 41% 4 hours 28% (normal 0%-10%) NM/NM gastric emptying study IMPRESSION: Abnormal study. There is moderately severe abnormal retention of solid food in the stomach at 4 hours.
== END ==
LOC: HO.NUCMED 07:53
PROVIDERS: PCP Internal Medicine; Visit Provider Internal Medicine
DX: K31.84 Gastroparesis (principal)
CPT/HCPCS: 78264; A9541

== ENCOUNTER 2021-09-29 09:43 | Outpatient (REF) | payer MEDICARE, MEDICAID, SELFPAY ==
--- NOTE | ~2021-09-29 | MM_ITS ---
EXAMINATION: MM SCREENING DIGITAL BREAST TOMOSYNTHESIS, BILATERAL CLINICAL INFORMATION: Screening. Asymptomatic. Benign left stereotactic biopsy for calcifications 09/30/2018 (fibrocystic changes with associated microcalcifications). Prior history benign right excisional biopsy. The lifetime risk of breast cancer based on the Tyrer-Cuzick Model is 4%. COMPARISON: Mammography: 09/23/2020, 09/18/2019, 09/30/2018, 09/25/2018, 09/12/2018, 08/23/2017, 06/26/2016, 05/08/2015. TECHNIQUE: Digital breast tomosynthesis is performed in both the craniocaudal and mediolateral oblique views along with computer-aided detection (CAD). Synthesized 2D images are generated from the tomosynthesis. FINDINGS: There are scattered areas of fibroglandular density (ACR BI-RADS breast composition Category b). There is some minor scarring on right consistent with the history excisional biopsy. Left breast has biopsy clip marker mid upper outer quadrant. Parenchymal pattern is similar to prior studies. There is no developing density or architectural abnormality. Axillary nodes are stable. Skin contours are smooth. There are no significant changes from prior studies. MM/MM tomosynthesis screening BI IMPRESSION: No mammographic evidence of malignancy. ASSESSMENT: BI-RADS 2: Benign RECOMMENDATION: Routine annual mammography screening. This patient's information was entered into a reminder system with a target due date for their next mammogram.
== END 2021-09-29 09:44 | disposition home or self-care (01) ==
LOC: HO.MAMMO 09:43
PROVIDERS: PCP Internal Medicine; Visit Provider Internal Medicine
DX: Z12.31 Encounter for screening mammogram for malignant neoplasm of breast (principal)
CPT/HCPCS: 77063; 77067

== ENCOUNTER → 2021-10-22 12:03 | Outpatient (BNVA) | payer MEDICARE, OTHER, SELFPAY | PROVIDERS: PCP Internal Medicine; Visit Provider Nurse Practitioner | DX: K91.5 Postcholecystectomy syndrome (principal); K31.84 Gastroparesis | CPT/HCPCS: 99202 ==

== ENCOUNTER 2021-11-05 15:39 | Emergency (ER) | payer MEDICARE, OTHER, SELFPAY ==
--- NOTE | ~2021-11-05 | XR_ITS ---
EXAMINATION: XR CHEST CLINICAL INFORMATION: Headache and dizziness COMPARISON: 08/04/2021 TECHNIQUE: 2 views of the chest were obtained. FINDINGS: Lung volumes are symmetric. Streaky retrocardiac left basilar opacity favors atelectasis. No additional consolidation is seen. No evidence of pneumothorax, pleural effusion, or pulmonary edema. The cardiomediastinal contour is unremarkable. Degenerative changes are noted in the spine. XR/XR chest 2V IMPRESSION: Streaky retrocardiac opacity more suggestive of atelectasis. No additional consolidation.
--- NOTE | ~2021-11-05 | CT_ITS ---
EXAMINATION: CT HEAD WITHOUT CONTRAST CLINICAL INFORMATION: Headache, dizziness COMPARISON: 11/06/2020 MRI TECHNIQUE: Contiguous axial imaging was performed from the skull base to vertex without intravenous administration of contrast. This CT examination was performed using dose optimization techniques as appropriate, variously including the following: *Automated exposure control *Adjustment of mA and/or kV according to patient size (this includes techniques or standardized protocols for targeted exams where dose is matched to indication/reason for exam; i.e. extremities or head) *Use of iterative reconstruction technique DLP: 678 mGy-cm FINDINGS: There is no evidence of acute intracranial hemorrhage or territorial infarction. No abnormal mass effect or midline shift is seen. Bone to white matter differentiation is well preserved. No extra-axial fluid collections are identified. The ventricles are normal in size. There is no abnormal attenuation within the brain parenchyma. Age-indeterminate right nasal bone fracture. Partially visualized mucous retention cyst in the right maxillary sinus. The mastoid air cells are well-aerated. CT/CT head/brain wo con IMPRESSION: No acute intracranial findings identified. Age-indeterminate right nasal bone fracture, which may be chronic.
[2021-11-05 17:25] VITALS: BP 169/93; PULSE 98; RESP 16; TEMP 36.6; O2SAT 97; BMI 31.1
[2021-11-05 20:49] LABS: MANUAL DIFF FLAG NO
[2021-11-05 20:51] LABS: Basophils Percent Auto 0.5 % (0-2); Eosinophils Absolute Auto 0.1 X10*3/uL (0.0-0.4); Eosinophils Percent Auto 1.9 % (0-4); Hematocrit 49.5 % (37.0-47.0); Hemoglobin 16.5 g/dl (12.0-16.0); Imm Gran Abs Auto 0.01 X10*3/uL (0.00-0.03); Imm Gran Pct Auto 0.2 % (0.0-0.4); Lymphocytes Absolute Auto 2.4 X10*3/uL (1.2-4.9); Lymphocytes Percent Auto 38.2 % (20-40); Mean Corpuscular HGB Conc 33.3 g/dl (31.0-35.0); Mean Platelet Volume 10.6 fL (9.4-12.3); Monocytes Percent Auto 15.4 % (2-11); Neutrophils Absolute Auto 2.8 x10*3/uL (2.0-8.3); Neutrophils Percent Auto 43.8 % (45-73); Platelet Count 229 X10*3/uL (160-400); Red Blood Count 5.89 X10*6/uL (4.20-5.50); Red Cell Distribution Width 13.2 % (11.0-16.0); White Blood Count 6.3 X10*3/uL (4.8-10.8)
[2021-11-05 20:54] LABS: Glucose, Whole Blood 120 mg/dL (60-115)
[2021-11-05 21:05] LABS: Influenza A Negative (Negative); Influenza B2 Negative (Negative)
[2021-11-05 21:06] LABS: Alanine Aminotransferase 38 U/L (0-31); Albumin Level 4.5 g/dL (3.5-5.0); Alkaline Phosphatase 69 U/L (39-117); Anion Gap 14 (12-20); Aspartate Amino Transferase 40 U/L (5-31); Bilirubin Direct 0.3 mg/dL (0.0-0.5); Bilirubin Total 0.6 mg/dL (0.0-1.0); Blood Urea Nitrogen 21 mg/dL (9-16); Calcium 9.6 mg/dL (8.4-10.2); Carbon Dioxide 19 mmol/L (22-29); Chloride 104 mmol/L (96-108); Creatinine Clr Calc Pharmacy 37.9; Estimated Glomerular Filt Rate 49; Glucose Random 128 mg/dL (60-115); Lipase 50 U/L (8-78); Potassium 4.1 mmol/L (3.3-5.1); Sodium 133 mmol/L (135-145); Total Protein 7.8 g/dL (6.5-8.0)
[2021-11-06 00:52] VITALS: BP 151/85; PULSE 87; RESP 15; TEMP 36.6; O2SAT 96
--- NOTE | 2021-11-06 01:12 | ECG_ITS ---
Test Reason : ABD PAIN Blood Pressure : / mmHG Vent. Rate : 082 BPM Atrial Rate : 082 BPM P-R Int : 146 ms QRS Dur : 066 ms QT Int : 374 ms P-R-T Axes : 031 -13 096 degrees QTc Int : 436 ms Normal sinus rhythm Minimal voltage criteria for LVH, may be normal variant ( R in aVL ) Inferior infarct , age undetermined Abnormal ECG When compared to the previous EKG of Inferior infarct changes noted Referred By: Grecia Campbell Electronically Signed By:BRANDY BEST MD
[2021-11-06 01:57] VITALS: BP 162/89; PULSE 81; RESP 16; O2SAT 96
[2021-11-06 02:57] LABS: Appearance Urine HAZY; Color Urine YELLOW; Glucose Urine UA NEG (NEG); Leukocyte Esterase Urine NEG (NEG); Nitrite Urine NEG (NEG); PH 5.5 (5.0-8.0); Specific Gravity - Urine >= 1.030 (1.005-1.025); Urine Blood NEG (NEG); Urine Ketones 40 MG/DL (NEG); Urine Protein NEG (NEG-TRACE)
[2021-11-06 03:04] VITALS: PULSE 79; RESP 21; O2SAT 94
[2021-11-06 06:07] VITALS: BP 151/84; PULSE 77; RESP 20; TEMP 36.7; O2SAT 98
--- NOTE | 2021-11-06 06:39 | ED.NAVMDI ---
HPI - Nausea/Vomiting/Diarrhea General Chief complaint: Nausea/Vomiting/Diarrhea Stated complaint: headache Time Seen by Provider: 11/06/21 00:33 Source: patient Mode of arrival: ambulatory Limitations: language barrier (Brazilian speaking only, physician vice president used) History of Present Illness HPI Narrative: 66-year-old female who presents emergency department for evaluation of headache, nausea, vomiting, diarrhea. The patient states she has been sick for approximately 3 days. She states that she has had a gradual onset of headache, the headache is located diffusely throughout her head, she describes the headache as a throbbing sensation which is worse with movement of her head. The pain is constant and is 10/10 at its worst. Patient states that she has had multiple episodes of vomiting per day with associated nausea. She states that she has had 6-10 episodes of loose, diarrheal stool. She denies any blood in the emesis or stool. She denied fever but states that she has had shaking chills. She complains of body aches and muscle pain. MD elicited complaint: nausea, vomiting, diarrhea and other (Headache) Onset (ago): day(s) (3) Description of vomiting: watery Description of diarrhea: watery Associated nausea: Yes Associated abdominal pain: Yes Location of pain: diffuse Pain consistency: intermittent Severity: moderate Pain scale (0-10): 5 Quality: cramping Exacerbating factors: none Relieving factors: none Associated symptoms: myalgias, fever/chills, headaches, loss of appetite and nausea/vomiting Related Data Home Medications Medication Instructions Recorded Confirmed latanoprost 0.005 % eye drops 1 drp OPHTHALMIC (EYE) BEDTIME 05/09/20 07/04/21 timolol maleate 0.5 % eye drops 1 drp OPHTHALMIC (EYE) QAM 05/09/20 07/04/21 ammonium lactate 12 % topical cream appl TOPICAL BID 02/22/21 07/04/21 fluocinonide 0.05 % topical TOPICAL BID PRN 02/22/21 07/04/21 ointment Previous Rx's Medication Instructions Recorded lisinopril 2.5 mg tablet 2.5 mg PO DAILY 90 Days #90 tab 05/09/20 multivitamin-ferrous 1 tab PO DAILY 90 Days #90 tab 05/09/20 fumarate-folic acid 18 mg-400 mcg tablet (Centrum Women) metformin 850 mg tablet 850 mg PO BID 90 Days #180 tab 01/22/21 cyclobenzaprine 5 mg tablet 5 mg PO TID PRN #30 tab 04/18/21 meloxicam 15 mg tablet 15 mg PO DAILY #14 tab 04/18/21 blood sugar diagnostic (FreeStyle 1 strip MISCELLANEOUS DAILY 90 06/11/21 Lite Strips) Days #100 strip lancets 28 gauge #100 ea 06/11/21 cholestyramine-aspartame 4 gram 4 g PO BID 30 Days #231 g 07/06/21 oral powder (Cholestyramine Light) aspirin 81 mg tablet,delayed 81 mg PO DAILY 90 Days #90 tab 07/20/21 release oxybutynin chloride 5 mg 5 mg PO DAILY #90 tab 07/20/21 tablet,extended release 24 hr albuterol sulfate 90 mcg/actuation 2 puff INHALATION Q4-6H PRN #8.5 g 08/04/21 aerosol inhaler (ProAir HFA) dexamethasone 6 mg tablet 6 mg PO DAILY #5 tab 08/04/21 (Decadron) cholecalciferol (vitamin D3) 50 50 mcg PO DAILY #30 tab 08/21/21 mcg (2,000 unit) tablet pantoprazole 40 mg tablet,delayed 40 mg PO DAILY #90 tab 09/19/21 release ondansetron 4 mg disintegrating 4 mg PO Q6-8H PRN #14 tab 11/06/21 tablet Allergies Allergy/AdvReac Type Severity Reaction Status Date / Time chlorzoxazone Allergy Intermediate RASH/SWELLING, Verified 11/05/21 17:29 [From Paraericka Spears [facility]] rash Iodinated Contrast Media Allergy Intermediate THROAT Verified 11/05/21 17:29 [IV Dye, Iodine Containing] CLOSED Penicillins [PENICILLINS] Allergy Intermediate HIVES Verified 11/05/21 17:29 pollen extracts [POLLEN] Allergy Intermediate RASH Verified 11/05/21 17:29 From KEFLEX Allergy Severe HIVES Uncoded 11/05/21 17:29 Review of Systems Gastrointestinal: Gastrointestinal: Reports nausea PMFSH Past Medical History Medical History Chronic diarrhea Diabetes mellitus Dry skin Ear congestion Essential hypertension Gastroparesis GERD (gastroesophageal reflux disease) Glaucoma Hearing loss in right ear Long-term use of aspirin therapy Obese Post-menopausal Urge urinary incontinence Well woman exam Surgical History H/O arthroscopy of right knee History of History of cholecystectomy History of colonoscopy History of knee replacement procedure of right knee History of nasal surgery Tubal ligation status Family History Family History Father Cancer Mother Hypertension Social History Social History Housing: House Alcohol intake: current Alcohol intake frequency: does not drink Alcohol type: wine Patient Tobacco Use Status: Never used Tobacco e-Cigarette/Vaping Use: Never Used Second Hand Smoke Exposure: No Advance Directives: No Advance Directives Information Provided: Yes service: No Current occupational status: retired Physical Exam Vital Signs: Vital Signs: Last Vital Signs Temp 98.1 F 11/06/21 06:07 Pulse 77 11/06/21 06:07 Resp 20 11/06/21 06:07 BP 151/84 H 11/06/21 06:07 Pulse Ox 98 11/06/21 06:07 BMI result Body Mass Index 31.1 Const: General: cooperative and no acute distress Orientation/consciousness: oriented to person and oriented to place Limitations: no limitations HEENT: Head: Yes normal to inspection, Yes normocephalic and Yes atraumatic Ears: external ears normal General nose exam: Normal external nose present Face and sinus: Yes normal facial exam Mouth: Normal oral and palatal mucosa present Throat: Yes posterior oropharynx normal Eyes: General: appearance normal, both eyes and all related structures Pupils: Equal, round and reactive pupils present Neck: Neck: Yes normal visual inspection, Yes no lymphadenopathy, Yes trachea midline and Yes supple Chest: Chest palpation & inspection: normal inspection of the chest and normal palpation of entire chest wall Resp: Effort & Inspection: normal respiratory effort and able to speak in complete sentences Auscultation: clear to auscultation bilaterally Cardio: Rate: regular rate Rhythm: regular rhythm Heart sounds: S1 normal heart sound present, S2 normal heart sound present and no murmurs GI: Inspection: Yes normal to inspection Palpation (GI): Soft to palpation, Tenderness to palpation present (GI) in the epigastrum (Moderate) and no guarding Auscultation: normal bowel sounds : General: Yes no CVA tenderness Back/Spine/Pelvis: Back: no CVA tenderness Skin: General skin exam: no rashes or lesions noted Neuro: General: oriented to person and oriented to place Cranial nerves: Yes CN's II-XII intact bilaterally and Yes Equal, round and reactive pupils present Cognition (Neuro): normal cognition Motor exam (neuro): 5/5 motor strength present throughout Extrem: General: Yes normal to inspection Psych: Appearance: grossly normal Speech and movement: Normal speech and movement present Affect: normal affect Attitude: cooperative Thought process: Normal thought process present Thought content: Normal thought content present Course Course Course Narrative: 66-year-old female who presents emergency department for evaluation headache, nausea, vomiting, diarrhea and abdominal pain x3 days. Vital signs did reveal an elevated blood pressure of 169/93 otherwise unremarkable. Patient's exam revealed epigastric tenderness otherwise was unremarkable. Laboratory evaluation: Revealed no significant abnormalities. Radiology evaluation: CT scan of the head was unremarkable. Chest x-ray revealed no acute abnormalities. The patient's presentation and examination is consistent with an acute viral illness. Patient was ordered to get normal saline IV x1 L, Reglan 10 mg IV, Toradol 15 mg IV, Benadryl 50 mg IV and normal saline x1 L. The patient will be discharged home after she receives this treatment. She was advised to take Tylenol and ibuprofen. She was also given a prescription for Zofran. MDM - Nausea/Vomiting/Diarrhea Lab Data Result diagrams: 11/05/21 20:46 11/05/21 20:46 Labs: Lab Results 11/05/21 11/05/21 11/05/21 Range/Units 20:46 20:46 20:46 WBC 6.3 (4.8-10.8) X10*3/uL RBC 5.89 H (4.20-5.50) X10*6/uL Hgb 16.5 H (12.0-16.0) g/dl Hct 49.5 H (37.0-47.0) % MCV 84.0 (80.0-98.0) fL MCH 28.0 (27.0-33.0) pg MCHC 33.3 (31.0-35.0) g/dl RDW 13.2 (11.0-16.0) % Plt Count 229 (160-400) X10*3/uL MPV 10.6 (9.4-12.3) fL Immature Gran % (Auto) 0.2 (0.0-0.4) % Neut % (Auto) 43.8 L (45-73) % Lymph % (Auto) 38.2 (20-40) % [place] % (Auto) 15.4 H (2-11) % Eos % (Auto) 1.9 (0-4) % Baso % (Auto) 0.5 (0-2) % Lymph # (Auto) 2.4 (1.2-4.9) X10*3/uL [place] # (Auto) 1.0 (0.1-1.2) X10*3/uL Eos # (Auto) 0.1 (0.0-0.4) X10*3/uL Baso # (Auto) 0.0 (0.0-0.2) X10*3/uL Abs Immat Gran (auto) 0.01 (0.00-0.03) X10*3/uL Absolute Neuts (auto) 2.8 (2.0-8.3) x10*3/uL Absolute Nucleated RBC 0.000 (0.0-0.012) X10*3/uL Nucleated RBC % (auto) 0.0 (0.0-0.2) /100WBC Sodium 133 L (135-145) mmol/L Potassium 4.1 (3.3-5.1) mmol/L Chloride 104 (96-108) mmol/L Carbon Dioxide 19 L (22-29) mmol/L Anion Gap 14 (12-20) BUN 21 H (9-16) mg/dL Creatinine 1.12 (0.5-1.4) mg/dL Estim Creat Clear Calc 37.9 Estimated GFR 49 POC Glucose (60-115) mg/dL Random Glucose 128 H (60-115) mg/dL Calcium 9.6 (8.4-10.2) mg/dL Total Bilirubin 0.6 (0.0-1.0) mg/dL Direct Bilirubin 0.3 (0.0-0.5) mg/dL AST 40 H (5-31) U/L ALT 38 H (0-31) U/L Alkaline Phosphatase 69 (39-117) U/L Total Protein 7.8 (6.5-8.0) g/dL Albumin 4.5 (3.5-5.0) g/dL Lipase 50 (8-78) U/L Urine Color Urine Appearance Urine pH (5.0-8.0) Ur Specific [place] (1.005-1.025) Urine Protein (NEG-TRACE) MG/DL Urine Glucose (UA) (NEG) MG/DL Urine Ketones (NEG) MG/DL Urine Blood (NEG) Urine Nitrite (NEG) Ur Leukocyte Esterase (NEG) Influenza Type A (ELI) Negative (Negative) Influenza Type B (ELI) Negative (Negative) Influenza A & B Note See Note 11/05/21 11/06/21 Range/Units 20:49 02:39 WBC (4.8-10.8) X10*3/uL RBC (4.20-5.50) X10*6/uL Hgb (12.0-16.0) g/dl Hct (37.0-47.0) % MCV (80.0-98.0) fL MCH (27.0-33.0) pg MCHC (31.0-35.0) g/dl RDW (11.0-16.0) % Plt Count (160-400) X10*3/uL MPV (9.4-12.3) fL Immature Gran % (Auto) (0.0-0.4) % Neut % (Auto) (45-73) % Lymph % (Auto) (20-40) % [place] % (Auto) (2-11) % Eos % (Auto) (0-4) % Baso % (Auto) (0-2) % Lymph # (Auto) (1.2-4.9) X10*3/uL [place] # (Auto) (0.1-1.2) X10*3/uL Eos # (Auto) (0.0-0.4) X10*3/uL Baso # (Auto) (0.0-0.2) X10*3/uL Abs Immat Gran (auto) (0.00-0.03) X10*3/uL Absolute Neuts (auto) (2.0-8.3) x10*3/uL Absolute Nucleated RBC (0.0-0.012) X10*3/uL Nucleated RBC % (auto) (0.0-0.2) /100WBC Sodium (135-145) mmol/L Potassium (3.3-5.1) mmol/L Chloride (96-108) mmol/L Carbon Dioxide (22-29) mmol/L Anion Gap (12-20) BUN (9-16) mg/dL Creatinine (0.5-1.4) mg/dL Estim Creat Clear Calc Estimated GFR POC Glucose 120 H (60-115) mg/dL Random Glucose (60-115) mg/dL Calcium (8.4-10.2) mg/dL Total Bilirubin (0.0-1.0) mg/dL Direct Bilirubin (0.0-0.5) mg/dL AST (5-31) U/L ALT (0-31) U/L Alkaline Phosphatase (39-117) U/L Total Protein (6.5-8.0) g/dL Albumin (3.5-5.0) g/dL Lipase (8-78) U/L Urine Color YELLOW Urine Appearance HAZY Urine pH 5.5 (5.0-8.0) Ur Specific [place] >= 1.030 H (1.005-1.025) Urine Protein NEG (NEG-TRACE) MG/DL Urine Glucose (UA) NEG (NEG) MG/DL Urine Ketones 40 (NEG) MG/DL Urine Blood NEG (NEG) Urine Nitrite NEG (NEG) Ur Leukocyte Esterase NEG (NEG) Influenza Type A (ELI) (Negative) Influenza Type B (ELI) (Negative) Influenza A & B Note Discharge Plan Discharge Clinical Impression: Viral syndrome, Headache, Vomiting, Diarrhea Patient Disposition: Home, Self-Care Instructions: Viral Syndrome (ED) Additional Instructions: Your blood work was unremarkable. The CT scan of your head was normal. Your chest x-ray was normal. Your influenza test was negative. Your symptoms are consistent with a viral illness. Take ibuprofen 200 mg pills, 3 pills every 6 hours as needed for pain. Take Tylenol (acetaminophen) 500 mg pills, 2 pills every 4 to 6 hours as needed for pain. Take Zofran ODT 4 mg pills, 1 pill dissolved in your mouth every 8 hours as needed for nausea and vomiting. For diarrhea I want you to take Imodium 2 mg pills. Take 2 pills after the 1st loose, diarrheal stool then 1 pill after each loose, diarrheal stool up to 8 pills per day. This usually stops diarrhea within 24 hours. Follow-up with your doctor in 2 days. Please return to the emergency department if your symptoms get worse or if you develop any symptoms that are concerning to you. Prescriptions: New ondansetron 4 mg tablet,disintegrating 4 mg PO Q6-8H PRN (Reason: nausea and vomiting) Qty: 14 0RF No Action metformin 850 mg tablet 850 mg PO BID 90 Days Qty: 180 2RF FreeStyle Lite Strips Strip 1 strip miscellaneous DAILY 90 Days Qty: 100 3RF (DME) lancets 28 gauge misc See Rx Instructions ea Not Applicable DAILY Qty: 100 2RF Rx Instructions: Use 1 lancet once a day Cholestyramine Light 4 gram powder 4 g PO BID 30 Days Qty: 231 2RF Rx Instructions: administer w/meal; avoid other meds within 1hr before or 4-6hr after dose oxybutynin chloride 5 mg tablet extended release 24hr 5 mg PO DAILY Qty: 90 3RF aspirin 81 mg tablet,delayed release (DR/EC) 81 mg PO DAILY 90 Days Qty: 90 4RF cholecalciferol (vitamin D3) 50 mcg (2,000 unit) tablet 50 mcg PO DAILY Qty: 30 11RF pantoprazole 40 mg tablet,delayed release (DR/EC) 40 mg PO DAILY Qty: 90 2RF dexamethasone [Decadron] 6 mg tablet 6 mg PO DAILY Qty: 5 0RF albuterol sulfate [ProAir HFA] 90 mcg/actuation HFA aerosol inhaler 2 puff inhalation Q4-6H PRN (Reason: Wheezing) Qty: 8.5 0RF latanoprost 0.005 % drops 1 drp ophthalmic (eye) BEDTIME 0RF timolol maleate 0.5 % drops 1 drp ophthalmic (eye) QAM 0RF Centrum Women 18-400 mg-mcg tablet 1 tab PO DAILY 90 Days Qty: 90 4RF lisinopril 2.5 mg tablet 2.5 mg PO DAILY 90 Days Qty: 90 4RF fluocinonide 0.05 % ointment topical BID PRN0RF ammonium lactate 12 % cream topical BID 0RF cyclobenzaprine 5 mg tablet 5 mg PO TID PRN (Reason: muscle spasm) Qty: 30 0RF meloxicam 15 mg tablet 15 mg PO DAILY Qty: 14 0RF Print Language: Brazilian
[2021-11-06] MEDS: diphenhydrAMINE HCL 50 MG/ML VIAL IVPUSH (07:12)
[2021-11-06] MEDS: Ketorolac Tromethamine 15 MG/ML VIAL IVPUSH (07:12)
[2021-11-06] MEDS: Metoclopramide HCl 10 MG/2 ML VIAL IVPUSH (07:13)
[2021-11-06] MEDS: 0.9 % Sodium Chloride 1,000 ML 999 ML IV (07:17)
[2021-11-06 08:01] VITALS: BP 130/63; PULSE 78; RESP 18; O2SAT 98
[2021-11-06 09:39] VITALS: BP 121/71; PULSE 79; RESP 16; O2SAT 98
== END 2021-11-06 10:00 | disposition home or self-care (01) ==
PROVIDERS: Emergency Provider Emergency Medicine Emergency Medical Services; PCP Internal Medicine
DX: B34.9 Viral infection, unspecified (principal); R11.2 Nausea with vomiting, unspecified; R51.9 Headache, unspecified; R19.7 Diarrhea, unspecified; E11.9 Type 2 diabetes mellitus without complications; I10 Essential (primary) hypertension; Z79.82 Long term (current) use of aspirin; Z79.899 Other long term (current) drug therapy
CPT/HCPCS: 70450; 71046; 80048; 80076; 81003; 82947; 83690; 85025; 87502; 93005; 96361; 96374; 96375; 99284; 99285; J1200; J1885; J2765

== ENCOUNTER → 2021-12-13 15:19 | Outpatient (BNVA) | payer MEDICARE, OTHER, SELFPAY | PROVIDERS: PCP Internal Medicine | DX: N32.81 Overactive bladder (principal) | CPT/HCPCS: 99212 ==

== ENCOUNTER → 2022-01-21 11:53 | Outpatient (BNVA) | payer MEDICARE, OTHER, SELFPAY | PROVIDERS: PCP Internal Medicine; Visit Provider Nurse Practitioner | DX: K91.5 Postcholecystectomy syndrome (principal); K31.84 Gastroparesis; K21.9 Gastro-esophageal reflux disease without esophagitis; Z79.899 Other long term (current) drug therapy | CPT/HCPCS: 99212 ==

== ENCOUNTER 2022-03-22 08:58 | Outpatient (REF) | payer MEDICARE, OTHER, SELFPAY ==
--- NOTE | ~2022-03-22 | MM_ITS ---
EXAMINATION: BONE DENSITOMETRY CLINICAL INDICATION: Menopause. COMPARISON: Previous BD dated 06/22/2019 and baseline BD dated 09/16/2007. TECHNIQUE: Using a [employer] DXA System (software version: 13.1) manufactured by [employer], dual-energy x-ray absorptiometry was performed of the lumbar spine and left hip. The images are of good technical quality. Summary results are attached. FINDINGS: AP SPINE L1-L4: Current: BMD 1.551 g/cm2, Z-score 4.6, T-score 3.1, normal, 7.8% increase from previous, 8.3% increase from baseline (<5% change is not significant). Prior: BMD 1.439 g/cm2. Baseline: BMD 1.432 g/cm2. LEFT FEMUR, NECK: Current: BMD 0.984 g/cm2, Z-score 1.1, T-score -0.4, normal. Prior: BMD 0.916 g/cm2. Baseline: BMD 1.025 g/cm2. LEFT FEMUR, TOTAL: Current: BMD 1.203 g/cm2, Z-score 2.8, T-score 1.6, normal, 7.7% increase from previous, 1.7% decrease from baseline (<5% change is not significant). Prior: BMD 1.117 g/cm2. Baseline: BMD 1.224 g/cm2. IDENTIFIED RISK FACTORS: Menopause. HISTORY OF FRACTURE: None listed. MEDICATIONS: Calcium, vitamin D. MM/XR DEXA axial skeleton IMPRESSION: 1. DIAGNOSIS: Normal bone density based on the lowest T-score value of -0.4 in the femoral neck applying World Health Organization criteria. 2. 10-YEAR FRACTURE RISK PREDICTION, FRAX: According to the guidelines, FRAX calculation should only be performed on patients in the osteopenia bone density category. Therefore, FRAX was not performed on this patient. 3. Treatment Recommendations: NOF guidelines recommend consideration for treatment in postmenopausal women and men age 50 and older presenting with the following: -A hip or vertebral (clinical or morphometric) fracture. -T-score less than or equal to -2.5 at the femoral neck or spine after appropriate evaluation to exclude secondary causes. -Low bone mass at the hip or spine and a 10-year fracture probability by FRAX of greater than or equal to 3% for hip fracture or greater than or equal to 20% for major osteoporotic fracture based on the [place] adapted WHO algorithm. 4. Other Recommendations: All treatment decisions require clinical judgment and consideration of individual patient factors, including patient preferences, comorbidities, previous drug use, risk factors not captured in the FRAX model (e.g. frailty, falls, vitamin D deficiency, increased bone turnover, interval significant decline in bone density) and possible under or overestimation of fracture risk by FRAX. FUTURE SCAN RECOMMENDATION: People with diagnosed cases of osteoporosis or at high risk for fracture should have regular bone mineral density tests. For patients eligible for Medicare, routine testing is allowed once every 2 years. The testing frequency can be increased to one year for patients who have rapidly progressing disease, those who are receiving or discontinuing medical therapy to restore bone mass, or have additional risk factors.
== END 2022-03-22 08:59 | disposition home or self-care (01) ==
LOC: HO.MAMMO 08:58
PROVIDERS: PCP Internal Medicine; Visit Provider Nurse Practitioner Family
DX: Z13.820 Encounter for screening for osteoporosis (principal); Z78.0 Asymptomatic menopausal state
CPT/HCPCS: 77080

== ENCOUNTER 2022-04-13 07:41 | Outpatient (REF) | payer OTHER, SELFPAY ==
[2022-04-13 08:48] LABS: Alanine Aminotransferase 25 U/L (0-31); Albumin Level 4.2 g/dL (3.5-5.0); Alkaline Phosphatase 62 U/L (39-117); Anion Gap 16 (12-20); Aspartate Amino Transferase 22 U/L (5-31); Bilirubin Total 0.4 mg/dL (0.0-1.0); Blood Urea Nitrogen 11 mg/dL (9-16); Calcium 9.4 mg/dL (8.4-10.2); Carbon Dioxide 25 mmol/L (22-29); Chloride 105 mmol/L (96-108); Cholesterol 146 mg/dL; Estimated Glomerular Filt Rate > 60; Glucose Fasting 120 mg/dL (60-99); HDL Cholesterol 35 mg/dL; LDL Cholesterol Calculated 74 mg/dl; Potassium 3.7 mmol/L (3.3-5.1); Sodium 142 mmol/L (135-145); Total Protein 7.2 g/dL (6.5-8.0); Triglycerides 187 mg/dL
[2022-04-13 09:10] LABS: Vitamin D 25-OH Total 34.4 ng/mL (>30)
[2022-04-13 09:21] LABS: Creatinine Urine 192.11 mg/dL; Microalbum/Creatinine Ratio Ur 8.3 ug/mg cr
== END 2022-04-13 07:42 | disposition home or self-care (01) ==
LOC: HO.LAB 07:41
PROVIDERS: PCP Internal Medicine; Visit Provider Internal Medicine
DX: E11.65 Type 2 diabetes mellitus with hyperglycemia (principal); E55.9 Vitamin D deficiency, unspecified; E78.5 Hyperlipidemia, unspecified
CPT/HCPCS: 36415; 80053; 80061; 82043; 82306

== ENCOUNTER → 2022-06-20 11:40 | Outpatient (BNVA) | payer MEDICARE, OTHER, SELFPAY | PROVIDERS: PCP Internal Medicine; Visit Provider Urology | DX: N32.81 Overactive bladder (principal); R35.1 Nocturia | CPT/HCPCS: Q3014 ==

== ENCOUNTER 2022-08-06 13:27 | Outpatient (REF) | payer OTHER, MEDICAID, SELFPAY ==
--- NOTE | ~2022-08-06 | US_ITS ---
EXAMINATION: MM DIAGNOSTIC DIGITAL BREAST TOMOSYNTHESIS, BILATERAL US DIAGNOSTIC ULTRASOUND BREAST, LEFT CLINICAL INFORMATION: Due for yearly. Patient notes recent pain upper outer left breast. No palpable mass or discharge. The lifetime risk of breast cancer based on the Tyrer-Cuzick Model is 5%. COMPARISON: Mammography: 09/29/2021, 09/23/2020, 09/18/2019, 09/30/2018, 09/25/2018, 09/12/2018 TECHNIQUE: Digital breast tomosynthesis is performed in both the craniocaudal and mediolateral oblique views along with computer-aided detection (CAD). Synthesized 2D images are generated from the tomosynthesis. Ultrasound left breast is targeted to the areas of clinical concern upper outer quadrant. Grayscale imaging and color Doppler are performed without and with harmonics. FINDINGS: There are scattered areas of fibroglandular density (ACR BI-RADS breast composition Category b). There are no significant masses, abnormal calcifications, or other abnormalities. Parenchymal pattern is similar to prior studies. There is no developing density or architectural abnormality. There is biopsy clip marker mid upper outer left breast again noted. The axilla and skin contours are unremarkable. No skin thickening or coarsening of the Sergey's ligaments. No significant changes. Ultrasound demonstrates no cystic or solid mass or architectural abnormality. No focal duct ectasia. No skin thickening or edema tracking in soft tissue planes. No hyperemia on color Doppler. Results are discussed with the patient at time of visit, using an automotive parts interpreter. US/US breast LT limited IMPRESSION: -No mammographic evidence of malignancy or inflammatory changes. -Unremarkable targeted left breast ultrasound. ASSESSMENT: BI-RADS 2: Benign RECOMMENDATION: 1. Patient's left breast pain should be managed based on the clinical impression. 2. Otherwise, routine annual screening mammography. This patient's information was entered into a reminder system with a target due date for their next mammogram.
== END 2022-08-06 13:28 | disposition home or self-care (01) ==
LOC: HO.MAMMO 13:27
PROVIDERS: Visit Provider Internal Medicine
DX: N64.4 Mastodynia (principal)
CPT/HCPCS: 76642; 77062; 77066

== ENCOUNTER → 2022-08-16 11:07 | Outpatient (BNVA) | payer OTHER, MEDICAID, SELFPAY | PROVIDERS: PCP Internal Medicine; Visit Provider Nurse Practitioner | DX: K91.5 Postcholecystectomy syndrome (principal); K21.9 Gastro-esophageal reflux disease without esophagitis; K31.84 Gastroparesis; Z86.010 Personal history of colon polyps; Z79.899 Other long term (current) drug therapy | CPT/HCPCS: 99212 ==

== ENCOUNTER → 2022-10-10 09:47 | Outpatient (BNVA) | payer OTHER, MEDICAID, SELFPAY | PROVIDERS: PCP Internal Medicine; Visit Provider Nurse Practitioner Family | DX: R35.1 Nocturia (principal); N32.81 Overactive bladder | CPT/HCPCS: 51798; 99212 ==

== ENCOUNTER 2022-11-13 16:31 | Emergency (ER) | payer OTHER, MEDICAID, SELFPAY ==
--- NOTE | ~2022-11-13 | XR_ITS ---
EXAMINATION: XR SHOULDER, RIGHT CLINICAL INFORMATION: Pain. No injury. COMPARISON: None available. TECHNIQUE: AP external rotation, Grashey, scapular Y, and axillary views of the right shoulder. FINDINGS: There is mild loss of right AC joint space with periarticular spurring. The glenohumeral joint space is maintained. No visible acute fracture, dislocation or subluxation seen. The soft tissues are normal. XR/XR shoulder RT min 2V IMPRESSION: Mild degenerative arthritic changes right AC joint. No visible acute fracture or dislocation seen.
[2022-11-13 16:48] VITALS: BP 201/91; PULSE 79; RESP 18; TEMP 36.3; O2SAT 97; BMI 29.2
--- NOTE | 2022-11-13 16:49 | ED_ITS ---
HPI - Extremity Injury (Upper) General Chief Complaint: Extremity Injury, Upper <Eloina Cheema NP - Last Filed: 11/13/22 16:53> Stated Complaint: shoulder/ arm pain <Eloina Cheema NP - Last Filed: 11/13/22 16:53> Time Seen by Provider: 11/13/22 18:29 <Eloina Cheema NP - Last Filed: 11/13/22 16:53> Source: patient <TIMOTHY De Luna - Last Filed: 11/13/22 20:21> Mode of arrival: ambulatory <TIMOTHY De Luna Last Filed: 11/13/22 20:21> Limitations: no limitations <TIMOTHY De Luna Last Filed: 11/13/22 20:21> History of Present Illness HPI narrative: This is a 67-year-old female past medical history significant for hypertension, diabetes presenting to the emergency department for evaluation of right-sided shoulder pain with radiation to neck worse with movement better rest. Patient tells me she awoke this morning and felt like she had a stiff neck. She feels like she is having muscle spasms overlying her right shoulder region. She is right-hand dominant, denies trauma to the area. Tells me this has never happened to her before. Patient denies fevers, chills, chest pain, shortness of breath, nausea, vomiting, headache, vision changes, dizziness, weakness, numbness, tingling. <TIMOTHY De Luna Last Filed: 11/13/22 20:21> Related Data Home Medications: Home Medications Medication Instructions Recorded Confirmed latanoprost 0.005 % eye drops 1 drp ophthalmic (eye) BEDTIME 05/09/20 07/23/22 timolol maleate 0.5 % eye drops 1 drp ophthalmic (eye) QAM 05/09/20 07/23/22 ammonium lactate 12 % topical cream appl topical BID 02/22/21 07/23/22 cholecalciferol (vitamin D3) 50 50 mcg PO DAILY 03/06/22 07/23/22 mcg (2,000 unit) tablet dorzolamide 22.3 mg-timolol 6.8 1 drp ophthalmic (eye) 10/10/22 mg/mL eye drops Previous Rx's Medication Instructions Recorded blood sugar diagnostic (OneTouch #100 ea 05/17/22 Ultra Test strips) blood-glucose meter (OneTouch #1 ea 05/17/22 Ultra2 Meter kit) [employer] glucometer #1 ea 05/17/22 cholestyramine-aspartame 4 gram 4 g PO BID 30 days #231 grams 08/16/22 oral powder (Cholestyramine Light) lancets (OneTouch UltraSoft #100 ea 08/16/22 Lancets) pantoprazole 40 mg tablet,delayed 40 mg PO DAILY #90 tabs 08/16/22 release multivitamin-ferrous 1 tab PO DAILY 90 days #90 tabs 09/23/22 fumarate-folic acid 18 mg-400 mcg tablet (Centrum Women) lisinopril 20 mg tablet 20 mg PO DAILY 90 days #90 tabs 10/12/22 metformin 850 mg tablet 850 mg PO BID 90 days #180 tabs 10/12/22 aspirin 81 mg tablet,delayed 81 mg PO DAILY 90 days #90 tabs 10/14/22 release oxybutynin chloride 10 mg 10 mg PO DAILY 90 days #90 tabs 11/07/22 tablet,extended release 24 hr cyclobenzaprine 10 mg tablet 10 mg PO BEDTIME PRN muscle spasm 11/13/22 #7 tabs ketorolac 10 mg tablet 10 mg PO TID PRN pain 5 days #15 11/13/22 tabs lidocaine 5 % topical patch 1 patch topical DAILY PRN pain #15 11/13/22 ea <Eloina Cheema NP - Last Filed: 11/13/22 16:53> Allergies/Adverse Reactions: Allergies Allergy/AdvReac Type Severity Reaction Status Date / Time chlorzoxazone Allergy Intermediate RASH/SWELLING, Verified 11/13/22 16:48 [From Parafon Forte DSC] rash Iodinated Contrast Media Allergy Intermediate THROAT Verified 11/13/22 16:48 [IV Dye, Iodine Containing] CLOSED Penicillins [PENICILLINS] Allergy Intermediate HIVES Verified 11/13/22 16:48 pollen extracts [POLLEN] Allergy Intermediate RASH Verified 11/13/22 16:48 From KEFLEX Allergy Severe HIVES Uncoded 10/10/22 10:26 <Eloina Cheema NP - Last Filed: 11/13/22 16:53> Review of Systems Review of Systems: Constitutional : No Weight loss, No Fever, No Chills, No Fatigue, No Malaise ENT/Mouth : No sore throat, No Rhinorrhea Eyes: No Eye Pain, No Swelling, No Redness Cardiovascular : No Chest Pain, No SOB, No Dyspnea on Exertion, No Orthopnea, No Edema, No Palpitations Respiratory : No Cough, No Sputum, No Wheezing Gastrointestinal : No Nausea, No Vomiting, No Diarrhea, No Constipation, No abdominal Pain, No Hematochezia, No Melena Genitourinary : No Dysuria, No Urinary Frequency, No Hematuria, Musculoskeletal : + joint pain, No Myalgias, No Joint Swelling Skin : No Skin Lesions, No rash Neuro : No Weakness, No Numbness, No Dizziness, No Headache Psych : No Anxiety/Panic, No Depression All other systems reviewed and are negative <TIMOTHY De Luna - Last Filed: 11/13/22 20:21> Yes all other systems are reviewed and are negative <TIMOTHY De Luna - Last Filed: 11/13/22 20:21> [facility] Past Medical History Attestation statement: The following information was validated with the patient. <TIMOTHY De Luna - Last Filed: 11/13/22 20:21> Source: old records reviewed and nursing notes reviewed <TIMOTHY De Luna - Last Filed: 11/13/22 20:21> Medical History: Medical History Chronic diarrhea COVID-19 Diabetes mellitus Dry skin Ear congestion Essential hypertension Gastroparesis GERD (gastroesophageal reflux disease) Glaucoma Hearing loss in right ear Hospital discharge follow-up Long-term use of aspirin therapy Obese Post-menopausal Urge urinary incontinence Viral gastroenteritis Well woman exam <Eloina Cheema NP - Last Filed: 11/13/22 16:53> Surgical History: Surgical History H/O arthroscopy of right knee History of History of cholecystectomy History of colonoscopy History of knee replacement procedure of right knee History of nasal surgery Tubal ligation status <Eloina Cheema NP - Last Filed: 11/13/22 16:53> Family History Family History: Family History Father Cancer Mother Hypertension <Eloina Cheema NP - Last Filed: 11/13/22 16:53> Social History Social History: Social History Housing: House Alcohol intake: current Alcohol intake frequency: holidays/special occasions only Alcohol type: wine Patient Tobacco Use Status: Never used Tobacco e-Cigarette/Vaping Use: Never Used Second Hand Smoke Exposure: No Advance Directives: No Advance Directives Information Provided: No service: No Current occupational status: retired Cognitive needs: No Hearing needs: No Vision needs: No <Eloina Cheema NP - Last Filed: 11/13/22 16:53> Physical Exam Vital Signs: Vital Signs: Last Vital Signs Temp 97.4 F 11/13/22 16:48 Pulse 74 11/13/22 18:32 Resp 18 11/13/22 16:48 BP 213/84 H 11/13/22 18:32 Pulse Ox 100 11/13/22 18:32 O2 Del Method Room Air 11/13/22 18:32 BMI result Body Mass Index 29.2 <Eloina Cheema NP - Last Filed: 11/13/22 16:53> Vital Signs: Last Vital Signs Temp 97.4 F 11/13/22 16:48 Pulse 74 11/13/22 18:32 Resp 18 11/13/22 16:48 BP 213/84 H 11/13/22 18:32 Pulse Ox 100 11/13/22 18:32 O2 Del Method Room Air 11/13/22 18:32 BMI result Body Mass Index 29.2 Patient noted to be hypertensive suspected secondary to pain <TIMOTHY De Luna - Last Filed: 11/13/22 20:21> Appearance: Alert.? Oriented X3.? No acute distress.? Head: Normocephalic, atraumatic, no step-offs or deformities Eyes: Pupils equal, round and reactive to light.? Neck: Normal inspection.? + right-sided cervical paraspinous tenderness, going all the way down to right deltoid region. CVS: Normal heart rate and rhythm.? Pulses normal.? Respiratory: No respiratory distress.? Breath sounds normal.? Abdomen: Soft and nontender.? Skin: Skin warm and dry.? Normal skin color.? Normal skin turgor.? Extremities: No lower extremity edema.? No calf ttp. 5/5 strength to bilateral upper and lower extremities +discomfort with range of motion of right shoulder particularly with overhead movements. Back: No midline tenderness, no C-spine tenderness, full range of motion, no CVA tenderness bilaterally Neuro: Oriented X 3.? No motor deficit.? No sensory deficit. CN 2-12 intact . 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 Ambulating with steady gait normal coordination. <TIMOTHY De Luna - Last Filed: 11/13/22 20:21> Course Course Course Narrative: This is a rapid medical exam. deferred additional HPI, ROS, PE to primary provider. 67 yo female w/ history of obesity, GERD, HTN, DM, right hand dominant here with atraumatic right shoulder with radiating to the neck worsened with movement of the right arm and movement of the head. VSS. Will check x-rays. <Eloina Cheema NP - Last Filed: 11/13/22 16:53> Reevaluation(s) Reevaluation #1: For showing mild degenerative arthritic changes to the right AC. No visible acute fracture dislocation. Toradol, morphine and lidocaine ordered. I did also order an EKG although I do not suspect that this is ACS. Educated patient on diagnosis and treatment plan, answered all question, patient verbalizes understanding. At this time patient will be discharged home, advised to return with new or worsening symptoms. Educated on worrisome signs and symptoms and when to return. At this time I feel comfortable discharge home. <TIMOTHY De Luna - Last Filed: 11/13/22 20:21> Time: 18:50 <TIMOTHY De Luna - Last Filed: 11/13/22 20:21> Reevaluation #2: Patient reports that her pain completely resolved with medications given here. <TIMOTHY De Luna - Last Filed: 11/13/22 20:21> Medications Administered Discontinued Medications Generic Name Dose Route Start Last Admin Trade Name Freq PRN Reason Stop Dose Admin Ketorolac Tromethamine 30 mg 11/13/22 18:45 11/13/22 18:59 Ketorolac Tromethamine 15 Mg/Ml Vial IM 11/13/22 18:46 30 mg ONCE ONE Administration Lidocaine 1 patch 11/13/22 18:45 11/13/22 18:58 Lidocaine 4 % Patch Adh..Patch TRANSDERMA 11/13/22 18:46 1 patch ONCE ONE Administration Protocol Morphine Sulfate 15 mg 11/13/22 18:45 11/13/22 18:58 Morphine Sulfate Immed Release 15 Mg Tablet PO 11/13/22 18:46 15 mg ONCE ONE Administration <Eloina Cheema NP - Last Filed: 11/13/22 16:53> Medications Administered Discontinued Medications Generic Name Dose Route Start Last Admin Trade Name Renetta PRN Reason Stop Dose Admin Ketorolac Tromethamine 30 mg 11/13/22 18:45 11/13/22 18:59 Ketorolac Tromethamine 15 Mg/Ml Vial IM 11/13/22 18:46 30 mg ONCE ONE Administration Lidocaine 1 patch 11/13/22 18:45 11/13/22 18:58 Lidocaine 4 % Patch Adh..Patch TRANSDERMA 11/13/22 18:46 1 patch ONCE ONE Administration Protocol Morphine Sulfate 15 mg 11/13/22 18:45 11/13/22 18:58 Morphine Sulfate Immed Release 15 Mg Tablet PO 11/13/22 18:46 15 mg ONCE ONE Administration <TIMOTHY De Luna - Last Filed: 11/13/22 20:21> Medical Decision Making Medical Decision Making [facility] [place] Narrative: 1845 67-year-old female presents with atraumatic right-sided shoulder/neck pain that started this morning and has been worsening, describes as a stiff neck. Physical exam significant for right-sided cervical paraspinous tenderness, going all the way down to right deltoid region. Patient has painful range of motion to right shoulder however it is full range of motion. No step-offs or deformities. No wrist drop. 2+ radial pulses equal bilateral. Neuro nonfocal. 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 Concerns for cervical spasm/spasm of deltoid muscle. Also concern for shoulder sprain/strain versus osteoarthritis versus torticollis. No signs of threatened limb, unlikely that this is an atypical presentation of ACS, unlikely stroke. No signs of fracture dislocations. Plan-imaging will be obtained <TIMOTHY De Luna - Last Filed: 11/13/22 20:21> Differential Diagnosis Differential Diagnoses: The differential diagnosis associated with the presentation includes <TIMOTHY De Luna - Last Filed: 11/13/22 20:21> Concerns for cervical spasm/spasm of deltoid muscle. Also concern for shoulder sprain/strain versus osteoarthritis. No signs of threatened limb, unlikely that this is an atypical presentation of ACS, unlikely stroke. No signs of fracture dislocations. <TIMOTHY De Luna - Last Filed: 11/13/22 20:21> Admission/Observation Consideration of admission/observation: Escalation of care including admission/observation considered <TIMOTHY De Luna - Last Filed: 11/13/22 20:21> Unlikely <TIMOTHY De Luna - Last Filed: 11/13/22 20:21> Lab Data MDM Lab Attestation statement: I reviewed the patient's lab results. <TIMOTHY De Luna - Last Filed: 11/13/22 20:21> Independent Interpretation I performed an independent interpretation of an: EKG (Extraocular rate of 83, NE normal, QRS normal, QT/QTC normal. EKG normal sinus rhythm no ST elevations or inversions concerning for ischemia.) and Plain X-Ray (XR/XR shoulder RT min 2V IMPRESSION: Mild degenerative arthritic changes right AC joint. No visible acute fracture or dislocation seen.) <TIMOTHY De Luna - Last Filed: 11/13/22 20:21> Radiology Impression Discussion of test interpretation with radiology: I have reviewed the radiologist's reading. <TIMOTHY De Luna - Last Filed: 11/13/22 20:21> Chronic Conditions Patient?s care impacted by: Diabetes and Hypertension <TIMOTHY De Luna - Last Filed: 11/13/22 20:21> Core Measures AMI core measures followed: Yes <TIMOTHY De Luna - Last Filed: 11/13/22 20:21> Measure exclusions: not indicated <TIMOTHY De Luna - Last Filed: 11/13/22 20:21> Critical Care Time Critical Care Time Critical Care Time: No <TIMOTHY De Luna - Last Filed: 11/13/22 20:21> Discharge Plan Discharge Clinical Impression: Cervical paraspinal muscle spasm, Osteoarthritis of AC (acromioclavicular) joint <Eloina Cheema NP - Last Filed: 11/13/22 16:53> Patient Disposition: Home, Self-Care <Eloina Cheema NP - Last Filed: 11/13/22 16:53> Instructions: Muscle Spasm (ED) <Eloina Cheema NP - Last Filed: 11/13/22 16:53> Additional Instructions: Take your medications as prescribed. If you were prescribed antibiotics today, it is important that you take your medication to their entirety, do not skip any doses, do not finish them early. Follow-up with your primary care provider this week. Follow-up with orthopedics if pain persists Return to the emergency department with new or worsening symptoms. Such as fevers, chills, chest pain, shortness of breath, nausea, vomiting, dizziness, headache, vision changes, lethargy In case of emergency call 911 Gross cesar medicamentos seg?n lo prescrito. Si le recetaron antibi?ticos hoy, es importante que tome trammell medicamento en trammell totalidad, no se salte ninguna dosis, no los termine antes de tiempo. Seguimiento con trammell proveedor de atenci?n primaria esta semana. Seguimiento con ortopedia si el dolor persiste Regrese al departamento de emergencias con s?ntomas nuevos o que empeoran. Chester fiebre, escalofr?os, dolor de pecho, dificultad para respirar, n?useas, v?mitos, mareos, dolor de joe, cambios en la visi?n, letargo En belinda de emergencia llama al 911 ?XR/XR shoulder RT min 2V IMPRESSION: Mild degenerative arthritic changes right AC joint. No visible acute fracture or dislocation seen. <Eloina Cheema NP - Last Filed: 11/13/22 16:53> Prescriptions: New cyclobenzaprine 10 mg tablet 10 mg PO BEDTIME PRN (Reason: muscle spasm) Qty: 7 0RF ketorolac 10 mg tablet 10 mg PO TID PRN (Reason: pain) 5 Days Qty: 15 0RF lidocaine 5 % adhesive patch,medicated 1 patch topical DAILY PRN (Reason: pain) Qty: 15 0RF Rx Instructions: leave on most painful area for up to 12 hrs No Action (DME) [employer] glucometer See Rx Instructions .Route .MEDSUPPLY Qty: 1 0RF Rx Instructions: As directed (DME) OneTouch Ultra Test Strip See Rx Instructions .Route Qty: 100 3RF Rx Instructions: Use 1 test strip once a day (DME) blood-glucose meter [OneTouch Ultra2 Meter] Kit See Rx Instructions .Route Qty: 1 0RF Rx Instructions: As directed (DME) lancets [OneTouch UltraSoft Lancets] Misc See Rx Instructions .Route Qty: 100 3RF Rx Instructions: Use 1 lancet once a day Centrum Women 18-400 mg-mcg tablet 1 tab PO DAILY 90 Days Qty: 90 4RF metformin 850 mg tablet 850 mg PO BID 90 Days Qty: 180 1RF lisinopril 20 mg tablet 20 mg PO DAILY 90 Days Qty: 90 1RF aspirin 81 mg tablet,delayed release (DR/EC) 81 mg PO DAILY 90 Days Qty: 90 4RF oxybutynin chloride 10 mg tablet extended release 24hr 10 mg PO DAILY 90 Days Qty: 90 1RF latanoprost 0.005 % drops 1 drp ophthalmic (eye) BEDTIME timolol maleate 0.5 % drops 1 drp ophthalmic (eye) QAM cholecalciferol (vitamin D3) 50 mcg (2,000 unit) tablet 50 mcg PO DAILY ammonium lactate 12 % cream topical BID dorzolamide-timolol 22.3-6.8 mg/mL drops 1 drp ophthalmic (eye) pantoprazole 40 mg tablet,delayed release (DR/EC) 40 mg PO DAILY Qty: 90 2RF Cholestyramine Light 4 gram powder 4 g PO BID 30 Days Qty: 231 6RF Rx Instructions: administer w/meal; avoid other meds within 1hr before or 4-6hr after dose <Eloina Cheema NP - Last Filed: 11/13/22 16:53> Referrals: [facility] [place] [facility] Surgeons [Provider Group] - 2 weeks Physician,Unknown J [Primary Care Provider] - 2 days <Eloina Cheema NP - Last Filed: 11/13/22 16:53>
[2022-11-13 18:32] VITALS: BP 213/84; PULSE 74; O2SAT 100
--- NOTE | 2022-11-13 18:44 | ECG_ITS ---
Test Reason : ARM PAIN Blood Pressure : / mmHG Vent. Rate : 073 BPM Atrial Rate : 073 BPM P-R Int : 158 ms QRS Dur : 070 ms QT Int : 382 ms P-R-T Axes : 033 -03 059 degrees QTc Int : 420 ms Normal sinus rhythm Minimal voltage criteria for LVH, may be normal variant ( R in aVL ) Cannot rule out Anterior infarct , age undetermined Abnormal ECG When compared with ECG of 06-NOV-2021 01:24, Criteria for Inferior infarct are no longer Present Referred By: Maikel Fair Electronically Signed By:BRANDY BEST MD
[2022-11-13] MEDS: Morphine Sulfate Immed Release 15 MG TABLET PO (18:58)
[2022-11-13] MEDS: Lidocaine 4 % Patch ADH..PATCH 1 PATCH TRANSDERMA (18:58)
[2022-11-13] MEDS: Ketorolac Tromethamine 15 MG/ML VIAL 30 MG IM (18:59)
--- NOTE | 2022-11-13 19:07 | PC.NURSE ---
pt medicated per OCT for 10 right shoulder pain
[2022-11-13 20:22] VITALS: BP 163/80; PULSE 72; RESP 16; TEMP 36.7; O2SAT 99
== END 2022-11-13 20:27 | disposition home or self-care (01) ==
PROVIDERS: Emergency Provider Emergency Medicine
DX: M19.011 Primary osteoarthritis, right shoulder (principal); M62.838 Other muscle spasm; M25.511 Pain in right shoulder; E11.9 Type 2 diabetes mellitus without complications; I10 Essential (primary) hypertension; K21.9 Gastro-esophageal reflux disease without esophagitis; M54.2 Cervicalgia
CPT/HCPCS: 73030; 93005; 96372; 99284; J1885

== ENCOUNTER 2022-11-23 07:51 | Outpatient (REF) | payer OTHER, MEDICAID, SELFPAY ==
[2022-11-23 08:02] LABS: MANUAL DIFF FLAG NO
[2022-11-23 08:33] LABS: Basophils Absolute Auto 0.1 X10*3/uL (0.0-0.2); Basophils Percent Auto 0.8 % (0-2); Eosinophils Absolute Auto 0.1 X10*3/uL (0.0-0.4); Eosinophils Percent Auto 1.8 % (0-4); Hematocrit 41.4 % (37.0-47.0); Hemoglobin 13.7 g/dl (12.0-16.0); Imm Gran Abs Auto 0.02 X10*3/uL (0.00-0.03); Imm Gran Pct Auto 0.3 % (0.0-0.4); Lymphocytes Percent Auto 44.7 % (20-40); Mean Corpuscular HGB Conc 33.1 g/dl (31.0-35.0); Mean Corpuscular Hemoglobin 28.1 pg (27.0-33.0); Mean Corpuscular Volume 84.8 fL (80.0-98.0); Mean Platelet Volume 11.2 fL (9.4-12.3); Monocytes Absolute Auto 0.5 X10*3/uL (0.1-1.2); Neutrophils Percent Auto 44.4 % (45-73); Platelet Count 245 X10*3/uL (160-400); Red Blood Count 4.88 X10*6/uL (4.20-5.50); Red Cell Distribution Width 13.3 % (11.0-16.0); White Blood Count 6.6 X10*3/uL (4.8-10.8)
[2022-11-23 08:51] LABS: Creatinine Urine 105.18 mg/dL; Microalbum/Creatinine Ratio Ur 17.1 ug/mg cr
[2022-11-23 08:56] LABS: Alanine Aminotransferase 24 U/L (0-31); Albumin Level 4.2 g/dL (3.5-5.0); Alkaline Phosphatase 71 U/L (39-117); Anion Gap 12 (12-20); Aspartate Amino Transferase 26 U/L (5-31); Bilirubin Total 0.5 mg/dL (0.0-1.0); Blood Urea Nitrogen 13 mg/dL (9-16); Calcium 9.2 mg/dL (8.4-10.2); Carbon Dioxide 29 mmol/L (22-29); Chloride 103 mmol/L (96-108); Cholesterol 147 mg/dL; Estimated Glomerular Filt Rate > 60; Glucose Fasting 106 mg/dL (60-99); HDL Cholesterol 33 mg/dL; Iron 92 mcg/dL (30-160); LDL Cholesterol Calculated 73 mg/dl; Percent Iron Saturation 30 % (15-50); Potassium 3.6 mmol/L (3.3-5.1); Sodium 140 mmol/L (135-145); Total Iron Binding Capacity 308 mcg/dL (228-428); Total Protein 7.2 g/dL (6.5-8.0); Triglycerides 205 mg/dL; Unsaturated Iron Binding 216 ug/dL
== END 2022-11-23 07:52 | disposition home or self-care (01) ==
LOC: HO.LAB 07:51
PROVIDERS: PCP Internal Medicine; Visit Provider Internal Medicine
DX: D58.2 Other hemoglobinopathies (principal); E78.5 Hyperlipidemia, unspecified; I10 Essential (primary) hypertension; E11.9 Type 2 diabetes mellitus without complications
CPT/HCPCS: 36415; 80053; 80061; 82043; 83540; 85025

== ENCOUNTER → 2023-01-08 09:33 | Outpatient (BNVA) | payer OTHER, MEDICAID, SELFPAY | PROVIDERS: PCP Internal Medicine; Visit Provider Nurse Practitioner Family | DX: N32.81 Overactive bladder (principal); N39.41 Urge incontinence; R35.1 Nocturia; Z79.899 Other long term (current) drug therapy | CPT/HCPCS: 51798; 99212 ==

== ENCOUNTER 2023-04-01 10:54 | Outpatient (AMB) | payer OTHER, MEDICAID, SELFPAY ==
[2023-04-01 10:59] VITALS: BP 149/77; PULSE 63; BMI 28.9
--- NOTE | 2023-04-01 10:59 | MHC.OFFVIS ---
Intake Vital Signs 04/01/23 10:59 Height 4 ft 11 in Weight 143 lb 4.807 oz BMI 28.9 BP 149/77 H Blood Pressure Location Rt brachial Position Sitting Pulse 63 Intake Visit Reasons: 6 month follow up post jensen Intake Note: Betsey presents in the office as a 6 month follow up of post jensen, and GERD. CC: She states she is no longer the powder any longer because she was getting constipated. She states she still has it in case she needs it. Patient reports feeling like food says in her esophagus and she gets nauseous. She also c/o having a very dry mouth. Business Support Associate Required: Yes Accompanied by: Self / Same As Patient Allergies chlorzoxazone [From Parafon Forte DSC] Allergy (Intermediate, Verified 04/16/23 14:25) RASH/SWELLING, rash Iodinated Contrast Media [IV Dye, Iodine Containing] Allergy (Intermediate, Verified 04/16/23 14:25) THROAT CLOSED Penicillins [PENICILLINS] Allergy (Intermediate, Verified 04/16/23 14:25) HIVES pollen extracts [POLLEN] Allergy (Intermediate, Verified 04/16/23 14:25) RASH From KEFLEX Allergy (Severe, Uncoded 04/16/23 14:25) HIVES HPI 6 month follow up post jensen HPI Details Assessment & Plan (1) Gastroparesis: ?Comment: abnormal study 2021 but pt absolutely denies sx, will watch. ?Code(s): K31.84 - Gastroparesis ?Plan: Japanese #Julienne Live She is not feeing well today my BP went high and it is all over the place, she requests water and we bring it for her. Her GI problems are good, but she is only taking the carafate about twice a week as if she takes it more she will be constipated. This is ok. She continues on her protonix with good GERD control. Had scope in 2018 and will be due again in 2023 r/t HX TA. ROV 6 mos. (2) Post-cholecystectomy syndrome: ?Code(s): K91.5 - Postcholecystectomy syndrome (3) GERD (gastroesophageal reflux disease): ?Code(s): K21.9 - Gastro-esophageal reflux disease without esophagitis ?Qualifiers: ?Esophagitis presence:?esophagitis presence not specified? Qualified Code(s):?K21.9 - Gastro-esophageal reflux disease without esophagitis (4) Tubular adenoma of colon: ?Comment: TA removed [address] Brenner repeat 2023 ?Code(s): D12.6 - Benign neoplasm of colon, unspecified ? ? ? Medications: Refilled pantoprazole 40 mg? PO DAILY 90 tabs 2RF ? ? cholestyramine-asp artame 4 gram (Cho lestyramine Light) ?? administer w/m eal; avoid other m eds within 1hr bef ore or 4-6hr after dose 4 grams? PO BID 30 days 231 grams 6R F K91.5 - Postcholec ystectomy syndrome ? TODAY'S VISIT Japanese #Robyn Live She continues on her protonix and carafate (she takes the carafate prn). BUT she is having sx of dyspepsia and severe GERD and vomiting. We have a GES in 2021 showing abnormal emptying, so I think we need to start a trial of reglan. I will also give her famotidine to take PRN She is complaining of increasing dry mouth recently and she has to carry water with her. I review her medications and this is most likely caused by her oxybutinin bid, I say this to reassure her that this is likely not a serious sx. She had serious nocturnal urination. HOwever, she is having trouble with the anticholinergic effects effecting her vaginal secretions and this is causing trouble with intimacy. I suggest that she ask to see a urologist as they have the most current knowledge about newer OAB medications w/o this s/e profile. ROV 4 weeks. [facility] Medical History Viral gastroenteritis Hospital discharge follow-up COVID-19 Gastroparesis Chronic diarrhea Post-menopausal Hearing loss in right ear Obese Well woman exam Dry skin Ear congestion Long-term use of aspirin therapy Urge urinary incontinence GERD (gastroesophageal reflux disease) Essential hypertension Glaucoma Diabetes mellitus Surgical History History of colonoscopy Tubal ligation status History of knee replacement procedure of right knee History of cholecystectomy H/O arthroscopy of right knee History of nasal surgery History of Family History Father Cancer Mother Hypertension Social History Housing: House Alcohol intake: current Alcohol intake frequency: holidays/special occasions only Alcohol type: wine Patient Tobacco Use Status: Never used Tobacco e-Cigarette/Vaping Use: Never Used Second Hand Smoke Exposure: No service: No Current occupational status: retired Cognitive needs: No Hearing needs: No Vision needs: No Female Reproductive History Menstrual Age of Menarche: 11 Review of Systems Const Denies fatigue, Denies fever(s), Denies night sweats, Reports poor appetite and Denies weight loss ENT Reports Normal hearing present, Denies dental pain, Denies dysphagia, Denies hearing loss, Denies mouth pain, Denies odynophagia, Denies throat swelling, Denies tongue swelling and Reports other (Dentition adequate) Card Reports no additional complaints Resp Reports no additional complaints GI Denies abdominal pain, Denies melena, Denies bloating, Denies hematochezia, Denies constipation, Denies GI cramping, Denies dysphagia, Denies excessive flatus, Reports early satiety, Reports heartburn, Denies diarrhea, Reports nausea, Denies odynophagia, Reports vomiting and Denies hematemesis Skin/Breast Denies pruritus, Denies lesions, Denies rash and Denies jaundice Neuro Reports Normal hearing present and Denies Abnormal speech present Endo Denies fatigue Aller/Immun Denies throat swelling and Denies tongue swelling Physical Exam Vital Signs: Last Vital Signs Pulse 63 04/01/23 10:59 BP 149/77 H 04/01/23 10:59 BMI result Body Mass Index 28.9 Const General: cooperative, no acute distress, well developed and well groomed Nutritional Appearance: average body habitus and well nourished Orientation/consciousness: oriented to person, oriented to place and oriented to time Limitations: language barrier HEENT Head: Yes normocephalic and Yes atraumatic Eyes General: appearance normal, both eyes and all related structures Pupils: Equal, round and reactive pupils present Neck Neck: Yes normal visual inspection and Yes no lymphadenopathy Thyroid: Thyroid normal Resp Effort & Inspection: normal respiratory effort and able to speak in complete sentences Auscultation: clear to auscultation bilaterally Cardio Rate: regular rate Rhythm: regular rhythm Heart sounds: Normal, physiologic split S2 sound present Peripheral pulses: radial pulses present and posterior tibial pulses present GI Inspection: No distended and No Abdominal panniculus present Palpation (GI): Soft to palpation, nontender, no guarding, not rigid and No hepatosplenomegaly present Percussion: Yes normal to percussion Auscultation: normal bowel sounds Rectal Exam - Female: deferred Skin General skin exam: no rashes or lesions noted, turgor normal, skin not dry, no jaundice, No spider nevi and no striae Rashes: no rashes Nails: normal Neuro General: oriented to person, oriented to place and oriented to time Cranial nerves: Yes Equal, round and reactive pupils present and Yes Normal hearing present Speech: No Abnormal speech present Extrem General: Yes normal to inspection, No clubbing, No cyanosis and No edema Psych Appearance: grossly normal and well kempt Mental Status: mental status grossly normal Speech and movement: Normal speech and movement present Affect: normal affect Attitude: cooperative Thought process: Normal thought process present and not confabulating Thought content: Normal thought content present Insight: Limited insight present (Psych) Judgement: Limited judgement present (Psych) Assessment & Plan Assessment & Plan (1) Post-cholecystectomy syndrome: Code(s): K91.5 - Postcholecystectomy syndrome Plan: Japanese #Robyn Live She continues on her protonix and carafate (she takes the carafate prn). BUT she is having sx of dyspepsia and severe GERD and vomiting. We have a GES in 2021 showing abnormal emptying, so I think we need to start a trial of reglan. I will also give her famotidine to take PRN She is complaining of increasing dry mouth recently and she has to carry water with her. I review her medications and this is most likely caused by her oxybutinin bid, I say this to reassure her that this is likely not a serious sx. She had serious nocturnal urination. HOwever, she is having trouble with the anticholinergic effects effecting her vaginal secretions and this is causing trouble with intimacy. I suggest that she ask to see a urologist as they have the most current knowledge about newer OAB medications w/o this s/e profile. ROV 4 weeks. (2) Gastroparesis: Comment: abnormal study 2021 but pt absolutely denies sx, will watch. Code(s): K31.84 - Gastroparesis (3) GERD (gastroesophageal reflux disease): Code(s): K21.9 - Gastro-esophageal reflux disease without esophagitis Qualifiers: Esophagitis presence: esophagitis presence not specified Qualified Code(s): K21.9 - Gastro-esophageal reflux disease without esophagitis (4) Overactive bladder: Code(s): N32.81 - Overactive bladder (5) Adverse effect of anticholinergic: Comment: dry mouth and vaginal secretions, consider changing oab medication Code(s): T44.3X5A - Adverse effect of other parasympatholytics [anticholinergics and antimuscarinics] and spasmolytics, initial encounter Medications: New famotidine (Pepcid) 40 mg PO DAILY PRN 30 tabs 3RF heartburn metoclopramide HCl (Reglan) 5 mg PO .tidac 90 tabs 3RF K31.84 - Gastroparesis, K21.9 - Gastro-esophageal reflux disease without esophagitis Coding Level of Care Code Est Pt Level 3 (78129) Diagnoses Post-cholecystectomy syndrome K91.5 Gastroparesis K31.84 Gastroesophageal reflux disease, unspecified whether esophagitis present K21.9 Esophagitis presence: esophagitis presence not specified Overactive bladder N32.81 Adverse effect of anticholinergic T44.3X5A
== END 2023-04-01 11:38 | disposition home or self-care (01) ==
PROVIDERS: PCP Internal Medicine; Visit Provider Nurse Practitioner
DX: K91.5 Postcholecystectomy syndrome (principal); K31.84 Gastroparesis; K21.9 Gastro-esophageal reflux disease without esophagitis; N32.81 Overactive bladder; T44.3X5A Adverse effect of other parasympatholytics [anticholinergics and antimuscarinics] and spasmolytics, initial encounter
CPT/HCPCS: 99213

== ENCOUNTER → 2023-04-01 10:54 | Outpatient (BNVA) | payer OTHER, MEDICAID, SELFPAY | PROVIDERS: PCP Internal Medicine; Visit Provider Nurse Practitioner | DX: K91.5 Postcholecystectomy syndrome (principal); K31.84 Gastroparesis; K21.9 Gastro-esophageal reflux disease without esophagitis; N32.81 Overactive bladder; R68.2 Dry mouth, unspecified; T44.3X5A Adverse effect of other parasympatholytics [anticholinergics and antimuscarinics] and spasmolytics, initial encounter | CPT/HCPCS: 99212 ==

== ENCOUNTER 2023-04-16 14:18 | Outpatient (AMB) | payer OTHER, MEDICAID, SELFPAY ==
[2023-04-16 14:20] VITALS: BP 132/74; BMI 29.1
--- NOTE | 2023-04-16 14:20 | A.OFFVIS_ITS ---
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 Central Office Equipment Installer Required: Yes Central Office Equipment Installer Language: Mineralogy Professor Name: Lilly Art Information Interpreted: non-clinical & clinical Psychology Intern: Psychology Intern Present (Lilly) Allergies chlorzoxazone [From Parafon Forte DSC] Allergy (Intermediate, Verified 04/16/23 14:25) RASH/SWELLING, rash Iodinated Contrast Media [IV Dye, Iodine Containing] Allergy (Intermediate, Verified 04/16/23 14:25) THROAT CLOSED Penicillins [PENICILLINS] Allergy (Intermediate, Verified 04/16/23 14:25) HIVES pollen extracts [POLLEN] Allergy (Intermediate, Verified 04/16/23 14:25) RASH From KEFLEX Allergy (Severe, Uncoded 04/16/23 14:25) HIVES Is last menstrual period known: No Post menopausal: Yes HPI HPI Comments History of Present Illness Details Presenting for annual exam. No complaints. Last Pap/HPV was in 12/19 was negative, no history of abnormal Pap smear last 25 years Last Mammogram was in 08/26 was BI-RADS 2 Last Colonoscopy was 4 years ago, next screening colonoscopy will be due in a year according to the patient Last DEXA scan was in in 03/25, no evidence of osteoporosis PFSH Medical History Viral gastroenteritis Hospital discharge follow-up COVID-19 Gastroparesis Chronic diarrhea Post-menopausal Hearing loss in right ear Obese Well woman exam Dry skin Ear congestion Long-term use of aspirin therapy Urge urinary incontinence GERD (gastroesophageal reflux disease) Essential hypertension Glaucoma Diabetes mellitus Surgical History History of colonoscopy Tubal ligation status History of knee replacement procedure of right knee History of cholecystectomy H/O arthroscopy of right knee History of nasal surgery History of Family History Father Cancer Mother Hypertension Social History Housing: House Alcohol intake: current Alcohol intake frequency: holidays/special occasions only Alcohol type: wine Patient Tobacco Use Status: Never used Tobacco e-Cigarette/Vaping Use: Never Used Second Hand Smoke Exposure: No service: No Current occupational status: retired Cognitive needs: No Hearing needs: No Vision needs: No Female Reproductive History Menstrual Age of Menarche: 11 control method: permanent sterilization Total pregnancies: 3 Full term: 3 Number of Living Children: 3 Date of last pap smear: 12/05/17 (negative) History of abnormal pap smear: No Date of Mammogram: 08/06/22 Date of last Bone Density Screenin03/22/22 Review of Systems Const All systems reviewed & are unremarkable except as noted in HPI and below Card Reports as per HPI Resp Reports as per HPI GI Reports as per HPI and Reports no additional complaints Reports as per HPI Physical Exam Vital Signs: Last Vital Signs BP 132/74 04/16/23 14:20 BMI result Body Mass Index 29.1 Const General: cooperative, healthy appearing and comfortable Chest Chest palpation & inspection: normal inspection of the chest and normal palpation of entire chest wall Breast/axilla inspection: normal inspection of the breasts and normal inspection of the axillae Breast/axilla palpation: normal palpation of the breasts, normal palpation of the axillae and no axillary lymphadenopathy Resp Effort & Inspection: normal respiratory effort Auscultation: clear to auscultation bilaterally Percussion: percussion normal Cardio Palpation: normal PMI Rate: regular rate Rhythm: regular rhythm Heart sounds: no murmurs and no rubs Peripheral pulses: Peripheral pulses 2+ throughout GI Inspection: Yes normal to inspection Palpation (GI): Soft to palpation, nontender, no guarding, not rigid and No hepatosplenomegaly present Percussion: Yes normal to percussion Auscultation: normal bowel sounds Rectal Exam - Female: deferred General: Yes bladder normal to palpation External Female Exam: No lesion Speculum Exam - Vagina: normal appearance of the vagina, normal palpation, normal vaginal discharge and not erythematous Speculum Exam - Cervix: normal appearance of the cervix and normal palpation Bimanual exam- vagina & uterus: normal bimanual exam, normal palpation, uterine size normal, bladder normal to palpation, consistency normal and normal palpation Bimanual Exam- Adnexa, other: normal adnexae, no masses and no tenderness Assessment & Plan Assessment & Plan (1) Well woman exam: Code(s): Z01.419 - Encounter for gynecological examination (general) (routine) without abnormal findings Plan: Co testing not indicated since the patient 's age is above 65 with no history of abnormal Pap smears last 25 years. Counseled the patient about the recommended dietary allowance of 1200 mg of Calcium & 800 IU of vitamin D. instructions given the patient to schedule next screen Mammogram in 08/27, The patient was instructed to perform monthly self-breast exams and to schedule an annual exam in a year; all questions answered and the patient verbalized understanding. Orders: Orders MM screening mammo BI 4 Months Z12.31 - Encounter for screening mammogram for malignant neoplasm of breast Coding Level of Care Code Est Pt Prev Care >65y(97807) Diagnoses Well woman exam Z01.419
== END 2023-04-16 15:50 | disposition home or self-care (01) ==
PROVIDERS: Visit Provider Obstetrics & Gynecology
DX: Z01.419 Encounter for gynecological examination (general) (routine) without abnormal findings (principal)
CPT/HCPCS: G0101

== ENCOUNTER → 2023-04-16 14:18 | Outpatient (BNVA) | payer OTHER, SELFPAY | PROVIDERS: Visit Provider Obstetrics & Gynecology | DX: Z01.419 Encounter for gynecological examination (general) (routine) without abnormal findings (principal) | CPT/HCPCS: G0101 ==

== ENCOUNTER 2023-05-20 08:42 | Emergency (ER) | payer OTHER, MEDICAID, SELFPAY ==
[2023-05-20 08:53] VITALS: BP 190/96; PULSE 78; RESP 16; TEMP 36.8; O2SAT 96; BMI 29.0
--- NOTE | 2023-05-20 09:35 | ED_ITS ---
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 She reports on 05/17 she was having upper back pain and a stiff neck on the left side when she woke up. She took some medicine, it got better but then moved to the right side. She reports significant increase in pain with any ROM of the neck or palpation of the area. She denies any headache, fever, chills, radiation of pain to her extremities. She reports history of similar pain a few months ago for which she got muscle relaxers and used a heating pad with resolution. MD complaint: neck pain and upper back pain Onset (ago): day(s) Place: home Radiation: right lateral Severity: severe Quality: sharp, aching and spasming Duration: progressively worsening Relieving factors: heat therapy and remaining still Exacerbating factors: movement of neck Context: unknown Associated symptoms: none Treatments prior to arrival: none Related Data Home Medications Medication Instructions Recorded Confirmed latanoprost 0.005 % eye drops 1 drp ophthalmic (eye) BEDTIME 05/09/20 11/26/22 ammonium lactate 12 % topical cream appl topical BID 02/22/21 11/26/22 dorzolamide 22.3 mg-timolol 6.8 1 drp ophthalmic (eye) 10/10/22 11/26/22 mg/mL eye drops Previous Rx's Medication Instructions Recorded blood-glucose meter ([employer] #1 ea 05/17/22 Ultra2 Meter kit) cholestyramine-aspartame 4 gram 4 g PO BID 30 days #231 grams 08/16/22 oral powder (Cholestyramine Light) lancets ([employer] UltraSoft #100 ea 08/16/22 Lancets) lisinopril 20 mg tablet 20 mg PO DAILY 90 days #90 tabs 10/12/22 aspirin 81 mg tablet,delayed 81 mg PO DAILY 90 days #90 tabs 10/14/22 release rosuvastatin 5 mg tablet 5 mg PO DAILY 90 days #90 tabs 11/26/22 oxybutynin chloride 10 mg 10 mg PO BID 90 days #180 tabs 01/08/23 tablet,extended release 24 hr famotidine 40 mg tablet (Pepcid) 40 mg PO DAILY PRN heartburn #30 04/01/23 tabs metoclopramide HCl 5 mg tablet 5 mg PO .tidac #90 tabs 04/01/23 (Reglan) metformin 850 mg tablet 850 mg PO BID 90 days #180 tabs 04/03/23 blood sugar diagnostic (OneTouch #100 strips 04/27/23 Ultra Test strips) pantoprazole 40 mg tablet,delayed 40 mg PO DAILY #90 tabs 05/13/23 release cyclobenzaprine 10 mg tablet 10 mg PO TID PRN muscle spasm #14 05/20/23 tabs ibuprofen 600 mg tablet 600 mg PO Q8H PRN pain #10 tabs 05/20/23 lidocaine 5 % topical patch 1 patch topical DAILY #15 ea 05/20/23 Allergies Allergy/AdvReac Type Severity Reaction Status Date / Time chlorzoxazone Allergy Intermediate RASH/SWELLING, Verified 04/16/23 14:25 [From Parafon Forte DSC] rash Iodinated Contrast Media Allergy Intermediate THROAT Verified 04/16/23 14:25 [IV Dye, Iodine Containing] CLOSED Penicillins [PENICILLINS] Allergy Intermediate HIVES Verified 04/16/23 14:25 pollen extracts [POLLEN] Allergy Intermediate RASH Verified 04/16/23 14:25 From KEFLEX Allergy Severe HIVES Uncoded 04/16/23 14:25 Review of Systems Review of Systems: Yes all other systems are reviewed and are negative [facility] Past Medical History Medical History Viral gastroenteritis Hospital discharge follow-up COVID-19 Gastroparesis Chronic diarrhea Post-menopausal Hearing loss in right ear Obese Well woman exam Dry skin Ear congestion Long-term use of aspirin therapy Urge urinary incontinence GERD (gastroesophageal reflux disease) Essential hypertension Glaucoma Diabetes mellitus Surgical History History of colonoscopy Tubal ligation status History of knee replacement procedure of right knee History of cholecystectomy H/O arthroscopy of right knee History of nasal surgery History of Family History Family History Father Cancer Mother Hypertension Social History Social History Housing: House Alcohol intake: current Alcohol intake frequency: holidays/special occasions only Alcohol type: wine Patient Tobacco Use Status: Never used Tobacco e-Cigarette/Vaping Use: Never Used Second Hand Smoke Exposure: No Advance Directives: Yes Advance Directives Information Provided: No Advance Directives on File: No service: No Current occupational status: retired Cognitive needs: No Hearing needs: No Vision needs: No Physical Exam Vital Signs: Vital Signs: Last Vital Signs Temp 98.2 F 05/20/23 08:53 Pulse 76 05/20/23 09:53 Resp 16 05/20/23 08:53 BP 174/93 H 05/20/23 09:53 Pulse Ox 96 05/20/23 08:53 O2 Del Method Room Air 05/20/23 08:53 BMI result Body Mass Index 29.0 Appearance: Alert. Oriented X3. No acute distress. HEENT: normal inspection Neck: appears stiff with limited ROM due to pain. right lateral neck w/ soft tissue tenderness and palpable spasm. no midline tenderness. very limited ROM. upper trapezius bilaterally w/ tenderness and spasm CVS: Normal heart rate and rhythm. Pulses normal. Respiratory: No respiratory distress. Lungs CTAB Skin: Skin warm and very dry. no acute rashes Extremities: no joint swelling. normal passive and active ROM of bilateral shoulders and elbows Neuro: Oriented X 3. No motor deficit. No sensory deficit. Course Reevaluation(s) Reevaluation #1: pain improved on re-evaluation stable for d/c home Medications Administered Discontinued Medications Generic Name Dose Route Start Last Admin Trade Name Freq PRN Reason Stop Dose Admin Acetaminophen 975 mg 05/20/23 09:29 05/20/23 09:44 Acetaminophen 325 Mg Tablet PO 05/20/23 09:30 975 mg ONCE ONE Administration Cyclobenzaprine HCl 10 mg 05/20/23 09:29 05/20/23 09:45 Cyclobenzaprine Hcl 10 Mg Tablet PO 05/20/23 09:30 10 mg ONCE ONE Administration Lidocaine 1 patch 05/20/23 09:29 05/20/23 09:43 Lidocaine 4 % Patch Adh..Patch TRANSDERMA 05/20/23 09:30 1 patch ONCE ONE Administration Protocol Medical Decision Making Medical Decision Making MDM Narrative: 67 yo female presenting with acute onset of right sided neck pain and stiffness x4 days. No trauma. Exam and clinical presentation are c/w muscle strain/spasm. will treat accordingly w/ muscle relaxer, nsaid and topical agents. stable for d/c home. encouraged f/u with PCP Differential Diagnosis Differential Diagnoses: The differential diagnosis associated with the presentation includes cervical strain, cervical spasm, lymphadenopathy, cervical fracture, osteoarthritis, DJD, no clinical evidence of meningitis Independent Historian Clinical information obtained from an independent historian. History obtained from or confirmed by: Other (adult daughter at bedside) External Record Review External record reviewed: Outpatient record, Prior outpatient labs and Prior outpatient radiology Tests considered The following testing was considered but not selected: XR neck considered but no evidence of cervical radiculopathy or trauma Prescription Management I considered prescription management with: Pain Medication and Other (muscle relaxer) Critical Care Time Critical Care Time Critical Care Time: No Discharge Plan Discharge Clinical Impression: Cervical muscle strain Qualifiers: Encounter type: initial encounter Qualified Code(s): S16.1XXA - Strain of muscle, fascia and tendon at neck level, initial encounter Patient Disposition: Home, Self-Care Instructions: Cervical Strain (DC) Additional Instructions: Your pain is most likely due to muscle strain and spasm. Use a heating pad to the area on low-medium heat several times per day Gently massage the area and work on range of motion of the neck as able. Take medications as prescribed to help with pain and discomfort. Follow up with your Primary Care Doctor this week. If you develop new or worsening symptoms call 911 or come back to the ER for further evaluation. Lo m?s probable es que trammell dolor se deba a tensi?n y espasmos musculares. Use phoebe almohadilla t?rmica en el ?maria elena a massimo medio-bajo varias veces al d?a. Masajee suavemente el ?maria elena y trabaje en el rango de movimiento del rui tanto raimundo pueda. Power los medicamentos recetados para ayudar con el dolor y el malestar. Hillary un seguimiento con trammell m?dico de atenci?n primaria esta semana. Si desarrolla s?ntomas nuevos o que empeoran, llame al 911 o regrese a la sylvia de emergencias para phoebe evaluaci?n adicional. Prescriptions: New cyclobenzaprine 10 mg tablet 10 mg PO TID PRN (Reason: muscle spasm) Qty: 14 0RF ibuprofen 600 mg tablet 600 mg PO Q8H PRN (Reason: pain) Qty: 10 0RF lidocaine 5 % adhesive patch,medicated 1 patch topical DAILY Qty: 15 0RF Rx Instructions: leave on most painful area for up to 12 hrs No Action (DME) blood-glucose meter [OneTouch Ultra2 Meter] Kit See Rx Instructions .Route Qty: 1 0RF Rx Instructions: As directed (DME) lancets [OneTouch UltraSoft Lancets] Misc See Rx Instructions .Route Qty: 100 3RF Rx Instructions: Use 1 lancet once a day lisinopril 20 mg tablet 20 mg PO DAILY 90 Days Qty: 90 1RF aspirin 81 mg tablet,delayed release (DR/EC) 81 mg PO DAILY 90 Days Qty: 90 4RF metformin 850 mg tablet 850 mg PO BID 90 Days Qty: 180 1RF (DME) OneTouch Ultra Test Strip See Rx Instructions .ROUTE .COMPLEX Qty: 100 0RF Dose Instruction: USE TO TEST ONCE DAILY Rx Instructions: USE TO TEST ONCE DAILY pantoprazole 40 mg tablet,delayed release (DR/EC) 40 mg PO DAILY Qty: 90 3RF latanoprost 0.005 % drops 1 drp ophthalmic (eye) BEDTIME ammonium lactate 12 % cream topical BID rosuvastatin 5 mg tablet 5 mg PO DAILY 90 Days Qty: 90 1RF dorzolamide-timolol 22.3-6.8 mg/mL drops 1 drp ophthalmic (eye) oxybutynin chloride 10 mg tablet extended release 24hr 10 mg PO BID 90 Days Qty: 180 6RF Cholestyramine Light 4 gram powder 4 g PO BID 30 Days Qty: 231 6RF Rx Instructions: administer w/meal; avoid other meds within 1hr before or 4-6hr after dose famotidine [Pepcid] 40 mg tablet 40 mg PO DAILY PRN (Reason: heartburn) Qty: 30 3RF metoclopramide HCl [Reglan] 5 mg tablet 5 mg PO .tidac Qty: 90 3RF Referrals: Melvi Paz MD [Primary Care Provider] - Stand Alone Forms: Work/School Release Interventions: ED Discharge Assessment Last Done: 05/20/23 10:18 Discharge Date/Time: 05/20/23 10:19 Print Language: [place]
[2023-05-20] MEDS: Lidocaine 4 % Patch ADH..PATCH 1 PATCH TRANSDERMA (09:43)
[2023-05-20] MEDS: Acetaminophen 325 MG TABLET 975 MG PO (09:44)
[2023-05-20] MEDS: Cyclobenzaprine HCl 10 MG TABLET PO (09:45)
[2023-05-20 09:53] VITALS: BP 174/93; PULSE 76
== END 2023-05-20 10:19 | disposition home or self-care (01) ==
PROVIDERS: Emergency Provider Emergency Medicine Emergency Medical Services; PCP Internal Medicine
DX: S16.1XXA Strain of muscle, fascia and tendon at neck level, initial encounter (principal); X58.XXXA Exposure to other specified factors, initial encounter; E11.9 Type 2 diabetes mellitus without complications; I10 Essential (primary) hypertension; E78.5 Hyperlipidemia, unspecified; Z79.82 Long term (current) use of aspirin; Y93.9 Activity, unspecified; Y92.9 Unspecified place or not applicable; Y99.9 Unspecified external cause status; Z79.84 Long term (current) use of oral hypoglycemic drugs; Z79.899 Other long term (current) drug therapy
CPT/HCPCS: 99283

== ENCOUNTER 2023-06-05 12:43 | Outpatient (AMB) | payer OTHER, MEDICAID, SELFPAY ==
[2023-06-05 12:52] VITALS: BP 130/70; PULSE 71; O2SAT 98; BMI 28.3
--- NOTE | 2023-06-05 12:52 | MHC.PC.OV ---
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: No Accompanied by: Grand Child Allergies chlorzoxazone [From Parafon Forte DSC] Allergy (Intermediate, Verified 06/05/23 13:05) RASH/SWELLING, rash Iodinated Contrast Media [IV Dye, Iodine Containing] Allergy (Intermediate, Verified 06/05/23 13:05) THROAT CLOSED Penicillins [PENICILLINS] Allergy (Intermediate, Verified 06/05/23 13:05) HIVES pollen extracts [POLLEN] Allergy (Intermediate, Verified 06/05/23 13:05) RASH From KEFLEX Allergy (Severe, Uncoded 06/05/23 13:05) HIVES Medication List - Last Reconciled 06/05/23 by Melvi Lawrence MD ammonium lactate 12% appl topical BID aspirin 81 mg PO DAILY 90 days blood sugar diagnostic ([employer] Ultra Test strips) USE TO TEST ONCE DAILY blood-glucose meter ([employer] Ultra2 Meter kit) As directed cholestyramine-aspartame 4 gram (Cholestyramine Light) 4 grams PO BID 30 days cyclobenzaprine 10 mg PO TID PRN dorzolamide-timolol 22.3-6.8 mg/mL 1 drp ophthalmic (eye) famotidine (Pepcid) 40 mg PO DAILY PRN ibuprofen 600 mg PO Q8H PRN lancets ([employer] UltraSoft Lancets) Use 1 lancet once a day latanoprost 0.005% 1 drp ophthalmic (eye) BEDTIME lidocaine 5% 1 patch topical DAILY lisinopril 20 mg PO DAILY 90 days metformin 850 mg PO BID 90 days metoclopramide HCl (Reglan) 5 mg PO .tidac oxybutynin chloride ER 10 mg PO BID 90 days pantoprazole 40 mg PO DAILY rosuvastatin 5 mg PO DAILY 90 days Tobacco use date assessed: 11/26/22 Fall risk assessment: No Falls in past year Last assessed Fall Risk: 06/05/23 Dental Screening Dental Screen Date: 06/05/23 Did you have a dental visit in the last 12 months?: No Did you have a dental problem in the last 6 months where you did not have access to dental care?: No Was dental information given to patient?: Patient has dentist HPI HPI Comments History of Present Illness Details This is a 67-year-old female with diabetes mellitus type 2, hypertension and hyperlipidemia that comes accompanied by granddaughter complaining of neck pain and spasm that happens occasionally. A1c within goal. Blood pressure stable. LDL within goal. Neck pain has been relief in the past by muscle relaxer. Went to ER due to this matter and at the moment neck pain has improved. No chest pain or shortness of breath. [facility] Medical History (Updated 06/06/23 @ 13:32 by Melvi Lawrence MD) Viral gastroenteritis Hospital discharge follow-up COVID-19 Gastroparesis Chronic diarrhea Post-menopausal Hearing loss in right ear Obese Well woman exam Dry skin Ear congestion Long-term use of aspirin therapy Urge urinary incontinence GERD (gastroesophageal reflux disease) Essential hypertension Glaucoma Diabetes mellitus Surgical History History of colonoscopy Tubal ligation status History of knee replacement procedure of right knee History of cholecystectomy H/O arthroscopy of right knee History of nasal surgery History of Family History Father Cancer Mother Hypertension Social History Housing: House Alcohol intake: current Alcohol intake frequency: holidays/special occasions only Alcohol type: wine Patient Tobacco Use Status: Never used Tobacco e-Cigarette/Vaping Use: Never Used Second Hand Smoke Exposure: No service: No Current occupational status: retired Cognitive needs: No Hearing needs: No Vision needs: No Female Reproductive History Menstrual Age of Menarche: 11 Questionnaire Thrive Questionnaire Date Thrive assessed: 11/26/22 DIANE-7 AMB Questionnaire DIANE-7 Date DIANE - 7 assessed: 11/26/22 Source: Developed by Drs. Travon Rosales, Toña Wood, Francisco Marie and colleagues, with an educational yu from [employer]. Review of Systems Const All systems reviewed & are unremarkable except as noted in HPI and below Eyes Reports no additional complaints, Denies change in vision and Denies other visual disturbances Card Denies chest pain at rest, Denies chest pain with activity, Denies edema, Denies irregular heart rhythm, Denies claudication, Denies dyspnea, Denies dyspnea on exertion, Denies orthopnea, Denies paroxysmal nocturnal dyspnea and Denies slow heart rate Resp Denies cough, Denies dyspnea and Denies dyspnea on exertion GI Denies abdominal pain, Denies change in bowel habits, Denies excessive flatus, Denies nausea and Denies vomiting Denies urinary incontinence, Denies urinary hesitancy and Denies urinary urgency Musc Denies abnormal gait, Denies atrophy, Denies deformity and Denies limited range of motion Skin/Breast Denies bleeding lesions, Denies changing lesions and Denies rash Neuro Denies abnormal gait and Denies lack of coordination Physical exam (Primary Care) Vital Signs: Last Vital Signs Pulse 71 06/05/23 12:52 BP 130/70 06/05/23 12:52 Pulse Ox 98 06/05/23 12:52 Oxygen Delivery Method Room Air 06/05/23 12:52 BMI result Body Mass Index 28.3 Tobacco/Smoking Status: Tobacco use Status Tobacco use date assessed 11/26/22 06/05/23 12:55 Patient Tobacco Use Status Never used Tobacco 06/05/23 12:55 e-Cigarette/Vaping Use Never Used 06/05/23 12:55 Thrive Assessment: Date of Thrive Assessment Date Thrive assessed 11/26/22 06/05/23 12:55 Eyes General: appearance normal, both eyes and all related structures Eyelids: Yes eyelids normal Conjunctivae: conjunctivae normal Neck Neck: Yes normal visual inspection and Yes supple Resp Effort & Inspection: normal respiratory effort Auscultation: clear to auscultation bilaterally Cardio Jugular venous distension: no JVD Rate: regular rate Rhythm: regular rhythm Heart sounds: S1 normal heart sound present and S2 normal heart sound present Extrem General: Yes full ROM Office Procedures Flu Questionnaire Does the patient have a severe egg allergy?: No Does the patient have severe life threatening allergies?: No Does the patient have a fever or illness today?: No Has the patient ever had Guillain-Kemmerer Syndrome?: No Has the patient ever had any past reaction to a flu shot?: No Results AMB Hemoglobin A1c AMB Hemoglobin A1c 6.8 % Last Edit by YOUSIF Aguilar on 06/05/23 12:59 Immunizations flu vacc [id number] 6mos up(PF) 60 mcg(15 mcgx4)/0.5 mL IM syringe Performing Provider: Melvi Lawrence MD [facility] [place] [facility] Administered by: YOUSIF Aguilar on 06/05/23 13:13 Dose Route Admin Location Dispensed Lot Number Expiration Date NDC Pickle Water Pump Operator 0.5 mL IM Left Deltoid 0.5 mL [id number] 02/01/24 [id number] QCoefficient VIS Given Date VIS Provided VIS Publication Date 06/05/23 Single Vaccine 21 Eligibility Eligibility Date Funding Source Not VFC Eligible 06/05/23 Private Results Reviewed Results Reviewed: Laboratory Last Values Hgb A1c (Clinic) 6.8 % (4.0-6.0) H 06/05/23 12:56 Assessment and Plan Assessment & Plan (1) Diabetes mellitus: Code(s): E11.9 - Type 2 diabetes mellitus without complications Qualifiers: Diabetes mellitus type: type 2 Diabetes mellitus clinical research management associate insulin use: without clinical research management associate use Diabetes mellitus complication status: with hyperglycemia Qualified Code(s): E11.65 - Type 2 diabetes mellitus with hyperglycemia Plan: Continue metformin. A1c goal is equal or less than 7%. (2) Essential hypertension: Code(s): I10 - Essential (primary) hypertension Plan: Continue lisinopril. Blood pressure goal is equal or less than 130/80. (3) Hyperlipidemia LDL goal <70: Code(s): E78.5 - Hyperlipidemia, unspecified Plan: Continue statins. LDL goal is less than 70. (4) Neck muscle spasm: Code(s): M62.838 - Other muscle spasm Plan: Continue cyclobenzaprine as needed. Orders: Orders Influenza [id number] Immunization 06/05/23 Z23 - Encounter for immunization AMB Hemoglobin A1c 06/05/23 E11.9 - Type 2 diabetes mellitus without complications Medications: Refilled cyclobenzaprine 10 mg PO TID PRN 14 tabs 0RF muscle spasm Coding Level of Care Code Est Pt Level 4 (70707) Diagnoses Type 2 diabetes mellitus with hyperglycemia, without long-term current use of insulin E11.65 Diabetes mellitus type: type 2 Diabetes mellitus fpc insulin use: without fpc use Diabetes mellitus complication status: with hyperglycemia Essential hypertension I10 Hyperlipidemia LDL goal <70 E78.5 Neck muscle spasm M62.838 Time Spent (min) 22
== END 2023-06-05 13:17 | disposition home or self-care (01) ==
PROVIDERS: PCP Internal Medicine; Visit Provider Internal Medicine
DX: E11.9 Type 2 diabetes mellitus without complications (principal); Z23 Encounter for immunization
CPT/HCPCS: 83036; 90471; 90686; 99214

== ENCOUNTER 2023-08-12 12:49 | Outpatient (REF) | payer OTHER, SELFPAY ==
--- NOTE | ~2023-08-12 | MM_ITS ---
EXAMINATION: MM SCREENING DIGITAL BREAST TOMOSYNTHESIS, BILATERAL CLINICAL INFORMATION: Screening. Asymptomatic. COMPARISON: Mammography: This study is compared with prior exams dating back to 2019. TECHNIQUE: Digital breast tomosynthesis is performed in both the craniocaudal and mediolateral oblique views along with computer-aided detection (CAD). Synthesized 2D images are generated from the tomosynthesis. FINDINGS: There are scattered areas of fibroglandular density (ACR BI-RADS breast composition Category b). There are no significant masses, abnormal calcifications, or other abnormalities. There is tissue marker present in the left breast from prior benign percutaneous biopsy. MM/MM tomosynthesis screening BI IMPRESSION: No mammographic evidence of malignancy. ASSESSMENT: BI-RADS BI-RADS 2 - Benign Findings RECOMMENDATION: Routine annual mammography screening. 1 year F/U This examination should not preclude the clinical evaluation of a suspicious palpable abnormality. This patient's information was entered into a reminder system with a target due date for their next mammogram.
== END 2023-08-12 12:50 | disposition home or self-care (01) ==
LOC: HO.MAMMO 12:49
PROVIDERS: PCP Internal Medicine; Referring Provider Obstetrics & Gynecology; Visit Provider Internal Medicine
DX: Z12.31 Encounter for screening mammogram for malignant neoplasm of breast (principal)
CPT/HCPCS: 77063; 77067

== ENCOUNTER → 2023-08-12 13:00 | Outpatient (BNV) | payer OTHER, SELFPAY | PROVIDERS: PCP Internal Medicine; Referring Provider Obstetrics & Gynecology; Visit Provider Radiology Diagnostic Radiology | DX: Z12.31 Encounter for screening mammogram for malignant neoplasm of breast (principal) | CPT/HCPCS: 77063; 77067 ==

== ENCOUNTER 2023-09-27 13:40 | Emergency (ER) | payer OTHER, MEDICAID, SELFPAY ==
--- NOTE | ~2023-09-27 | XR_ITS ---
EXAMINATION: XR CHEST CLINICAL INFORMATION: Shortness of breath COMPARISON: 11/06/2022 chest radiograph TECHNIQUE: 2 views of the chest were obtained. FINDINGS: Again there is streaky left basilar opacity, likely atelectasis. No pleural effusion. No pneumothorax. Degenerative changes of the midthoracic spine. XR/XR chest 2V IMPRESSION: Unchanged streaky left basilar opacity, likely atelectasis.
[2023-09-27 13:43] VITALS: BP 192/104; PULSE 75; RESP 48; TEMP 36.4; O2SAT 99; BMI 27.0
--- NOTE | 2023-09-27 13:48 | ECG_ITS ---
Test Reason : SOB Blood Pressure : / mmHG Vent. Rate : 069 BPM Atrial Rate : 069 BPM P-R Int : 166 ms QRS Dur : 064 ms QT Int : 386 ms P-R-T Axes : 048 003 072 degrees QTc Int : 413 ms Normal sinus rhythm Normal ECG When compared with ECG of 13-NOV-2022 18:50, No significant change was found Referred By: Generic ED Physician Electronically Signed By:BRANDY BEST MD
--- NOTE | 2023-09-27 13:57 | ED_ITS ---
HPI - General Adult General Chief complaint: General Medical Stated complaint: unable to breathe Time Seen by Provider: 09/27/23 16:12 Source: patient, family, RN notes reviewed, old records reviewed and paraprofessional interpreter Mode of arrival: ambulatory Limitations: language barrier History of Present Illness HPI narrative: 68-year-old female with past medical history significant for hypertension, diabetes, GERD, hyperlipidemia presents for evaluation of shortness of breath. Patient reports around noon today she had a sudden onset shortness of breath She states that time she was ?doing nothing. ? She denied any other associated symptoms including chest pain, fevers, chills, cough, abdominal pain, leg swelling Patient states her symptoms lasted for about 2 hours before completely resolving. Patient states that she did notice that her blood pressure was high as well She has been brought to the hospital in the past for elevated blood pressure Currently the patient states that she has no complaints and feels well Denies any recent travel Denies any history of DVT or PE Related Data Home Medications Medication Instructions Recorded Confirmed latanoprost 0.005 % eye drops 1 drp ophthalmic (eye) BEDTIME 05/09/20 06/05/23 ammonium lactate 12 % topical cream appl topical BID 02/22/21 06/05/23 dorzolamide 22.3 mg-timolol 6.8 1 drp ophthalmic (eye) 10/10/22 06/05/23 mg/mL eye drops Previous Rx's Medication Instructions Recorded blood-glucose meter ([employer] #1 ea 05/17/22 Ultra2 Meter kit) cholestyramine-aspartame 4 gram 4 g PO BID 30 days #231 grams 08/16/22 oral powder (Cholestyramine Light) lancets ([employer] UltraSoft #100 ea 08/16/22 Lancets) aspirin 81 mg tablet,delayed 81 mg PO DAILY 90 days #90 tabs 10/14/22 release oxybutynin chloride 10 mg 10 mg PO BID 90 days #180 tabs 01/08/23 tablet,extended release 24 hr metoclopramide HCl 5 mg tablet 5 mg PO .tidac #90 tabs 04/01/23 (Reglan) metformin 850 mg tablet 850 mg PO BID 90 days #180 tabs 04/03/23 pantoprazole 40 mg tablet,delayed 40 mg PO DAILY #90 tabs 05/13/23 release ibuprofen 600 mg tablet 600 mg PO Q8H PRN pain #10 tabs 05/20/23 lidocaine 5 % topical patch 1 patch topical DAILY #15 ea 05/20/23 cyclobenzaprine 10 mg tablet 10 mg PO TID PRN muscle spasm #14 06/05/23 tabs famotidine 40 mg tablet 40 mg PO DAILY PRN for heartburn 07/29/23 #30 tabs blood sugar diagnostic (OneTouch #100 strips 08/12/23 Ultra Test strips) lisinopril 20 mg tablet 20 mg PO DAILY 90 days #90 tabs 08/30/23 rosuvastatin 5 mg tablet 5 mg PO DAILY 90 days #90 tabs 08/30/23 Allergies Allergy/AdvReac Type Severity Reaction Status Date / Time chlorzoxazone Allergy Intermediate RASH/SWELLING, Verified 09/27/23 13:43 [From Parafon Forte DSC] rash Iodinated Contrast Media Allergy Intermediate THROAT Verified 09/27/23 13:43 [IV Dye, Iodine Containing] CLOSED Penicillins [PENICILLINS] Allergy Intermediate HIVES Verified 09/27/23 13:43 pollen extracts [POLLEN] Allergy Intermediate RASH Verified 09/27/23 13:43 From KEFLEX Allergy Severe HIVES Uncoded 06/05/23 13:05 Review of Systems 2 Constitutional: Constitutional: Denies chills and Denies fever(s) Eyes: Eyes: Denies blurry vision ENT: Denies vertigo Cardiovascular: Cardiovascular: Denies chest pain and Reports dyspnea Respiratory: Respiratory: Denies chest congestion, Denies cough and Reports dyspnea Gastrointestinal: Gastrointestinal: Denies abdominal pain, Denies nausea and Denies vomiting Musculoskeletal: Musculoskeletal: Denies back pain Integumentary/Breasts: Skin/Breast: Denies rash Neurologic: Denies vertigo PMFSH Past Medical History Medical History Viral gastroenteritis Hospital discharge follow-up COVID-19 Gastroparesis Chronic diarrhea Post-menopausal Hearing loss in right ear Obese Well woman exam Dry skin Ear congestion Long-term use of aspirin therapy Urge urinary incontinence GERD (gastroesophageal reflux disease) Essential hypertension Glaucoma Diabetes mellitus Surgical History History of colonoscopy Tubal ligation status History of knee replacement procedure of right knee History of cholecystectomy H/O arthroscopy of right knee History of nasal surgery History of Family History Family History Father Cancer Mother Hypertension Social History Social History Housing: House Alcohol intake: never Patient Tobacco Use Status: Never used Tobacco Smoked in Last 30 Days: No e-Cigarette/Vaping Use: Never Used Second Hand Smoke Exposure: No Use of substances other than those prescribed or required for medical reasons: No Advance Directives: No Advance Directives Information Provided: Yes service: No Current occupational status: retired Cognitive needs: No Hearing needs: No Vision needs: No Physical Exam ED Vital Signs: Vital Signs - 24 hr 09/27/23 13:43 09/27/23 14:24 Temperature 97.6 F Pulse Rate 75 69 Respiratory Rate 48 H Blood Pressure 192/104 H 149/113 H Pulse Oximetry 99 98 Oxygen Delivery Method Room Air Room Air BMI result Body Mass Index 27.0 Const General: healthy appearing, comfortable, no acute distress, alert and awake Nutritional Appearance: well nourished Orientation/consciousness: patient oriented x3 HENMT Head: Yes normocephalic and Yes atraumatic Eyes Eyelids: Yes eyelids normal Conjunctivae: conjunctivae normal Sclerae: sclerae normal Corneas: corneas normal Pupils: Equal, round and reactive pupils present EOM: EOMs intact bilaterally Resp Effort & Inspection: normal respiratory effort, able to speak in complete sentences and not labored Auscultation: wheezes (Very faint expiratory wheeze) Cardio Rate: regular rate Rhythm: regular rhythm GI Inspection: No distended Palpation (GI): Soft to palpation, not firm, nontender, no guarding and not rigid Skin General skin exam: elasticity normal Neuro General: patient oriented x3 Cranial nerves: Yes Equal, round and reactive pupils present and Yes Bilaterally intact EOM present Cognition (Neuro): normal cognition Extrem Other: Moving all extremities well without any obvious deformities Course Course Course Narrative: This is an RME: Additional HPI, ROS, PE not included below will be deferred to primary provider. Patient is a 68-year-old female who presents to the emergency department being carried in by her . Reports that before she got into the shower she began feeling suddenly short of breath which progressed and has associated nausea. She called for her who then brought her to the emergency department. She reports feeling weak and dizzy. She denies any chest pain. She is noted to be tachypneic, taking short shallow respirations when instructed for slow deep breathing she does not follow these instructions, is noted to be hyperventilating. No hypoxia. Lung sounds are clear. Difficulty in obtaining much more history from patient. Plan: Labs, viral testing, EKG, CXR Reevaluation(s) Reevaluation #1: Patient remains asymptomatic, repeat troponin was still undetectable. Chest x- ray shows no focal infiltrates but some chronic atelectasis is unchanged. The patient is stable for discharge time Time: 17:43 Medical Decision Making Medical Decision Making [facility] Narrative: 68-year-old female presents for evaluation of sudden-onset shortness of breath. At time of my evaluation, her symptoms have completely resolved, her vital signs have been stable. She was tachypneic to 40 on arrival but this resolved without any intervention. It is possible that anxiety is the cause of her symptoms. Her EKG is nonischemic, initial troponin was negative, we will get a repeat troponin despite the fact that she has never had any chest pain. Her D- dimer was negative so less likely be PE. She has no risk factors for DVT/PE as well. Plan for chest x-ray however low suspicion for fluid overload or focal infiltrate Differential Diagnosis Differential Diagnoses: The differential diagnosis associated with the presentation includes Dyspnea Anxiety ACS less likely PE less likely Pneumonia CHF Lab Data [facility] Lab Attestation statement: I reviewed the patient's lab results. No leukocytosis or anemia. Normal platelet count. No significant electrolyte abnormalities. The patient's CO2 is low at 21 which is likely related to the patient's hyperventilating. Renal function within normal limits. Troponin less than 2.7, D-dimer less than 150 09/27/23 14:04 09/27/23 14:04 Labs: Lab Results 09/27/23 09/27/23 Range/Units 14:04 17:00 WBC 8.9 (4.8-10.8) X10*3/uL RBC 5.57 H (4.20-5.50) X10*6/uL Hgb 15.8 (12.0-16.0) g/dl Hct 45.8 (37.0-47.0) % MCV 82.2 (80.0-98.0) fL MCH 28.4 (27.0-33.0) pg MCHC 34.5 (31.0-35.0) g/dl RDW 13.4 (11.0-16.0) % Plt Count 237 (160-400) X10*3/uL MPV 11.6 (9.4-12.3) fL Immature Gran % (Auto) 0.2 (0.0-0.4) % Neut % (Auto) 43.0 L (45-73) % Lymph % (Auto) 46.9 H (20-40) % [place] % (Auto) 8.2 (2-11) % Eos % (Auto) 1.1 (0-4) % Baso % (Auto) 0.6 (0-2) % Lymph # (Auto) 4.2 (1.2-4.9) X10*3/uL [place] # (Auto) 0.7 (0.1-1.2) X10*3/uL Eos # (Auto) 0.1 (0.0-0.4) X10*3/uL Baso # (Auto) 0.1 (0.0-0.2) X10*3/uL Abs Immat Gran (auto) 0.02 (0.00-0.03) X10*3/uL Absolute Neuts (auto) 3.8 (2.0-8.3) x10*3/uL Absolute Nucleated RBC 0.000 (0.0-0.012) X10*3/uL Nucleated RBC % (auto) 0.0 (0.0-0.2) /100WBC PT 14.3 H (11.1-13.3) SEC INR 1.2 H (0.9-1.1) D-Dimer High Sensitivty < 150 NG/ML Sodium 143 (135-145) mmol/L Potassium 3.4 (3.3-5.1) mmol/L Chloride 105 (96-108) mmol/L Carbon Dioxide 21 L (22-29) mmol/L Anion Gap 20 (12-20) BUN 13 (9-16) mg/dL Creatinine 0.98 (0.5-1.4) mg/dL Estim Creat Clear Calc 41.5 Estimated GFR 56 Random Glucose 131 H (60-115) mg/dL Calcium 10.4 H D (8.4-10.2) mg/dL Total Bilirubin 0.4 (0.0-1.0) mg/dL Direct Bilirubin 0.2 (0.0-0.5) mg/dL AST 19 (5-31) U/L ALT 17 (0-31) U/L Alkaline Phosphatase 65 (39-117) U/L Troponin I High Sens < 2.7 < 2.7 (<3.5-17.0) ng/L Total Protein 8.4 H (6.5-8.0) g/dL Albumin 4.7 (3.5-5.0) g/dL Influenza Type A (PCR) NEGATIVE (Negative) Influenza Type B (PCR) NEGATIVE (Negative) RSV RNA Qual (PCR) NEGATIVE (Negative) SARS-CoV-2 RNA (RT-PCR) NEGATIVE (Negative) Independent Interpretation I performed an independent interpretation of an: EKG (Normal sinus rhythm with rate of [address] segment elevation or depressions, no ectopy.) and Plain X-Ray (No infiltrates or overt fluid overload) Radiology Impression Discussion of test interpretation with radiology: I have reviewed the radiologist's reading. (Unchanged atelectasis) Discharge Plan Discharge Clinical Impression: Acute dyspnea, Hypertension Patient Disposition: Home, Self-Care Instructions: Dyspnea (ED), Chronic Hypertension (ED) Additional Instructions: Your workup in the ER today was reassuring. Include your blood work, EKG, chest x-ray. You tested negative for influenza and COVID-19 Your blood pressure was elevated on arrival but this improved without any treatment in the ER Fall this up with your primary doctor Return for new or worsening symptoms Prescriptions: No Action (DME) blood-glucose meter [OneTouch Ultra2 Meter] Kit See Rx Instructions .Route Qty: 1 0RF Rx Instructions: As directed (DME) lancets [OneTouch UltraSoft Lancets] Misc See Rx Instructions .Route Qty: 100 3RF Rx Instructions: Use 1 lancet once a day aspirin 81 mg tablet,delayed release (DR/EC) 81 mg PO DAILY 90 Days Qty: 90 4RF metformin 850 mg tablet 850 mg PO BID 90 Days Qty: 180 1RF pantoprazole 40 mg tablet,delayed release (DR/EC) 40 mg PO DAILY Qty: 90 3RF famotidine 40 mg tablet 40 mg PO DAILY PRN (Reason: for heartburn) Qty: 30 3RF (DME) OneTouch Ultra Test Strip See Rx Instructions .ROUTE .COMPLEX Qty: 100 0RF Dose Instruction: USE TO TEST ONCE DAILY Rx Instructions: USE TO TEST ONCE DAILY rosuvastatin 5 mg tablet 5 mg PO DAILY 90 Days Qty: 90 1RF lisinopril 20 mg tablet 20 mg PO DAILY 90 Days Qty: 90 1RF ibuprofen 600 mg tablet 600 mg PO Q8H PRN (Reason: pain) Qty: 10 0RF lidocaine 5 % adhesive patch,medicated 1 patch topical DAILY Qty: 15 0RF Rx Instructions: leave on most painful area for up to 12 hrs latanoprost 0.005 % drops 1 drp ophthalmic (eye) BEDTIME ammonium lactate 12 % cream topical BID cyclobenzaprine 10 mg tablet 10 mg PO TID PRN (Reason: muscle spasm) Qty: 14 0RF dorzolamide-timolol 22.3-6.8 mg/mL drops 1 drp ophthalmic (eye) oxybutynin chloride 10 mg tablet extended release 24hr 10 mg PO BID 90 Days Qty: 180 6RF Cholestyramine Light 4 gram powder 4 g PO BID 30 Days Qty: 231 6RF Rx Instructions: administer w/meal; avoid other meds within 1hr before or 4-6hr after dose metoclopramide HCl [Reglan] 5 mg tablet 5 mg PO .tidac Qty: 90 3RF
[2023-09-27 14:07] LABS: MANUAL DIFF FLAG NO
[2023-09-27 14:09] LABS: Basophils Absolute Auto 0.1 X10*3/uL (0.0-0.2); Basophils Percent Auto 0.6 % (0-2); Eosinophils Absolute Auto 0.1 X10*3/uL (0.0-0.4); Eosinophils Percent Auto 1.1 % (0-4); Hematocrit 45.8 % (37.0-47.0); Hemoglobin 15.8 g/dl (12.0-16.0); Imm Gran Abs Auto 0.02 X10*3/uL (0.00-0.03); Imm Gran Pct Auto 0.2 % (0.0-0.4); Lymphocytes Absolute Auto 4.2 X10*3/uL (1.2-4.9); Lymphocytes Percent Auto 46.9 % (20-40); Mean Corpuscular HGB Conc 34.5 g/dl (31.0-35.0); Mean Corpuscular Hemoglobin 28.4 pg (27.0-33.0); Mean Corpuscular Volume 82.2 fL (80.0-98.0); Mean Platelet Volume 11.6 fL (9.4-12.3); Monocytes Absolute Auto 0.7 X10*3/uL (0.1-1.2); Monocytes Percent Auto 8.2 % (2-11); Neutrophils Absolute Auto 3.8 x10*3/uL (2.0-8.3); Platelet Count 237 X10*3/uL (160-400); Red Blood Count 5.57 X10*6/uL (4.20-5.50); Red Cell Distribution Width 13.4 % (11.0-16.0); White Blood Count 8.9 X10*3/uL (4.8-10.8)
[2023-09-27 14:14] LABS: INTERNATIONAL NORM RATIO 1.2 (0.9-1.1); Prothrombin Time 14.3 SEC (11.1-13.3)
[2023-09-27 14:24] VITALS: BP 149/113; PULSE 69; O2SAT 98
[2023-09-27 14:27] LABS: Alanine Aminotransferase 17 U/L (0-31); Albumin Level 4.7 g/dL (3.5-5.0); Alkaline Phosphatase 65 U/L (39-117); Anion Gap 20 (12-20); Aspartate Amino Transferase 19 U/L (5-31); Bilirubin Direct 0.2 mg/dL (0.0-0.5); Bilirubin Total 0.4 mg/dL (0.0-1.0); Blood Urea Nitrogen 13 mg/dL (9-16); Calcium 10.4 mg/dL (8.4-10.2); Carbon Dioxide 21 mmol/L (22-29); Chloride 105 mmol/L (96-108); Creatinine Clr Calc Pharmacy 41.5; Estimated Glomerular Filt Rate 56; Glucose Random 131 mg/dL (60-115); Potassium 3.4 mmol/L (3.3-5.1); Sodium 143 mmol/L (135-145); Total Protein 8.4 g/dL (6.5-8.0)
[2023-09-27 14:39] LABS: Troponin-I High Sensitivity < 2.7 ng/L (<3.5-17.0)
[2023-09-27 14:46] LABS: Influenza A PCR NEGATIVE (Negative); Influenza B PCR NEGATIVE (Negative); Resp Syncy Virus RNA Qual PCR NEGATIVE (Negative); SARS COV2 PCR INHOUSE NEGATIVE (Negative)
[2023-09-27 14:50] LABS: D Dimer High Sensitivity < 150 NG/ML
[2023-09-27 16:00] VITALS: BP 142/98; PULSE 64; RESP 16; O2SAT 98
[2023-09-27 17:35] LABS: Troponin-I High Sensitivity < 2.7 ng/L (<3.5-17.0)
[2023-09-27 18:00] VITALS: BP 137/84; PULSE 69; RESP 16; O2SAT 99
== END 2023-09-27 18:20 | disposition home or self-care (01) ==
PROVIDERS: Nurse Practitioner Family; Physician Assistant; Emergency Provider Emergency Medicine; PCP Internal Medicine
DX: R06.00 Dyspnea, unspecified (principal); I10 Essential (primary) hypertension; R06.02 Shortness of breath; E11.9 Type 2 diabetes mellitus without complications; Z11.52 Encounter for screening for COVID-19; Z20.828 Contact with and (suspected) exposure to other viral communicable diseases
CPT/HCPCS: 0241U; 36415; 71046; 80048; 80076; 84484; 85025; 85379; 85610; 93005; 99284

== ENCOUNTER → 2023-09-27 13:48 | Outpatient (BNV) | payer OTHER, SELFPAY | PROVIDERS: Emergency Provider Emergency Medicine; PCP Internal Medicine; Visit Provider Internal Medicine Cardiovascular Disease | DX: R06.02 Shortness of breath (principal) | CPT/HCPCS: 93010 ==

== ENCOUNTER 2023-10-14 16:19 | Outpatient (AMB) | payer OTHER, SELFPAY ==
[2023-10-14 16:37] VITALS: BP 162/82; PULSE 66; RESP 17; O2SAT 100; BMI 29.0
--- NOTE | 2023-10-14 16:37 | MHC.PC.OV ---
Vital Signs 10/14/23 16:37 10/14/23 18:08 Height 4 ft 10.7 in Weight 142 lb 4 oz BMI 29.0 BP 162/82 H 160/80 H Blood Pressure Location Lt brachial Lt brachial Position Sitting Sitting Respiration 17 Pulse 66 Pulse Source Pulse Oximeter Pulse Oximetry (%) 100 Oxygen Delivery Method Room Air Intake Visit Reasons: [facility] [place] trouble breathing Intake Note: Patient is here to follow-up after a visit the emergency department at [facility] [place] on 09/27/23. Repeater Operator Required: No Accompanied by: Spouse Allergies chlorzoxazone [From Parafon Forte DSC] Allergy (Intermediate, Verified 10/14/23 16:39) RASH/SWELLING, rash Iodinated Contrast Media [IV Dye, Iodine Containing] Allergy (Intermediate, Verified 10/14/23 16:39) THROAT CLOSED Penicillins [PENICILLINS] Allergy (Intermediate, Verified 10/14/23 16:39) HIVES pollen extracts [POLLEN] Allergy (Intermediate, Verified 10/14/23 16:39) RASH From KEFLEX Allergy (Severe, Uncoded 10/14/23 16:39) HIVES Medication List - Last Reconciled 10/14/23 by Melvi Lawrence MD ammonium lactate 12% appl topical BID aspirin 81 mg PO DAILY 90 days blood sugar diagnostic ([employer] Ultra Test strips) USE TO TEST ONCE DAILY blood-glucose meter ([employer] Ultra2 Meter kit) As directed cholestyramine-aspartame 4 gram (Cholestyramine Light) 4 grams PO BID 30 days cyclobenzaprine 10 mg PO TID PRN dorzolamide-timolol 22.3-6.8 mg/mL 1 drp ophthalmic (eye) famotidine 40 mg PO DAILY PRN ibuprofen 600 mg PO Q8H PRN lancets ([employer] UltraSoft Lancets) Use 1 lancet once a day latanoprost 0.005% 1 drp ophthalmic (eye) BEDTIME lidocaine 5% 1 patch topical DAILY lisinopril 20 mg PO DAILY 90 days metformin 850 mg PO BID 90 days metoclopramide HCl (Reglan) 5 mg PO .tidac oxybutynin chloride ER 10 mg PO BID 90 days pantoprazole 40 mg PO DAILY rosuvastatin 5 mg PO DAILY 90 days Tobacco use date assessed: 10/14/23 Fall risk assessment: No Falls in past year Last assessed Fall Risk: 10/14/23 Dental Screening Dental Screen Date: 10/14/23 Did you have a dental visit in the last 12 months?: No Did you have a dental problem in the last 6 months where you did not have access to dental care?: No Was dental information given to patient?: Patient has dentist HPI HPI Comments History of Present Illness Details This is a 68-year-old female with diabetes mellitus type 2, hypertension, hyperlipidemia and GERD that comes today complaining of headaches associated with elevated blood pressure. I will increase lisinopril from mg to 30 mg. A1c within goal. LDL within goal. GERD stable with PPIs. She is accompanied by . COUNTS INCLUDE 234 BEDS AT THE [facility] Medical History Viral gastroenteritis Hospital discharge follow-up COVID-19 Gastroparesis Chronic diarrhea Post-menopausal Hearing loss in right ear Obese Well woman exam Dry skin Ear congestion Long-term use of aspirin therapy Urge urinary incontinence GERD (gastroesophageal reflux disease) Essential hypertension Glaucoma Diabetes mellitus Surgical History History of colonoscopy Tubal ligation status History of knee replacement procedure of right knee History of cholecystectomy H/O arthroscopy of right knee History of nasal surgery History of Family History Father Cancer Mother Hypertension Social History Housing: House Alcohol intake: never Patient Tobacco Use Status: Never used Tobacco e-Cigarette/Vaping Use: Never Used Second Hand Smoke Exposure: No service: No Current occupational status: retired Cognitive needs: No Hearing needs: No Vision needs: No Female Reproductive History Menstrual Age of Menarche: 11 Questionnaire PHQ-9 Over the last 2 weeks, how often have you been bothered by any of the following problems? 1. Little interest or pleasure in doing things: not at all 2. Feeling down, depressed, or hopeless: not at all 3. Trouble falling or staying asleep, or sleeping too much: not at all 4. Feeling tired or having little energy: not at all 5. Poor appetite or overeating: not at all 6. Feeling bad about yourself - or that you are a failure or have let yourself or your family down: not at all 7. Trouble concentrating on things, such as reading the newspaper or watching television: not at all 8. Moving or speaking so slowly that other people could have noticed. Or the opposite - being so fidgety or restless that you have been moving around a lot more than usual: not at all 9. Thoughts that you would be better off or of hurting yourself in some way: not at all Total score: 0 Depression Screening Interpretation: Negative Depression Screening Done: Yes 05110 - PHQ-9 Billing: Yes Source: Developed by Drs. Travon Rosales, Toña Wood, Francisco Marie and colleagues, with an educational yu from [employer]. Thrive Questionnaire Date Thrive assessed: 10/14/23 I am a: Patient What is your living situation today?: I have a steady place to live Within the past 12 months, did the food you bought not last and you didn't have the money to get more?: Never true Within the past 12 months, did you worry whether your food would run out before you got money to buy more?: Never true Do you have trouble paying for medicines?: No Do you have trouble getting transportation to medical appointments?: No Do you have trouble paying your heating and electricity bill?: No Do you have trouble taking care of your child, family member or friend?: No Do you have trouble with day-to-day activities such as bathing, preparing meals, shopping, managing finances, etc.?: No Are you currently unemployed and looking for a job?: No Are you interested in more education?: No Please select the resources that you would like help with: None Currently or been in a relationship where the following occur: no concerns reported THRIVE Score: 0 AUDIT C Alcohol Use Questionnaire (AUDIT-C) 1. How often do you have a drink containing alcohol?: Monthly or less 2. How many drinks containing alcohol do you have on a typical day when you are drinking?: 1 or 2 3. How often do you have six or more drinks on one occasion?: Never Total Score: 1 Score Reviewed/Action Taken: No DIANE-7 AMB Questionnaire DIANE-7 Date DIANE - 7 assessed: 10/14/23 Feeling nervous, anxious, or on edge: 0 = Not at all Not being able to stop or control worryin = Not at all Worrying too much about different things: 0 = Not at all Trouble relaxin = Not at all Being so restless that it is hard to sit still: 0 = Not at all Becoming easily annoyed or irritable: 0 = Not at all Feeling afraid as if something awful might happen: 0 = Not at all Total DIANE-7 score (0-4 normal; 5-9 mild; 10-14 moderate; 15-21 severe): 0 Source: Developed by Drs. Travon Rosales, Toña Wood, Francisco Marie and colleagues, with an educational yu from [employer]. DIANE-7 Assessment Billing DIANE-7 Assessment Tool: DIANE-7 Assessment 14428 Review of Systems Const All systems reviewed & are unremarkable except as noted in HPI and below Eyes Reports no additional complaints, Denies change in vision and Denies other visual disturbances Card Denies chest pain at rest, Denies chest pain with activity, Denies edema, Denies irregular heart rhythm, Denies claudication, Denies dyspnea, Denies dyspnea on exertion, Denies orthopnea, Denies paroxysmal nocturnal dyspnea and Denies slow heart rate Resp Denies cough, Denies dyspnea and Denies dyspnea on exertion GI Denies abdominal pain, Denies change in bowel habits, Denies excessive flatus, Denies nausea and Denies vomiting Denies urinary incontinence, Denies urinary hesitancy and Denies urinary urgency Musc Denies abnormal gait, Denies atrophy, Denies deformity and Denies limited range of motion Skin/Breast Denies bleeding lesions, Denies changing lesions and Denies rash Neuro Denies abnormal gait and Denies lack of coordination Physical exam (Primary Care) Vital Signs: Last Vital Signs Pulse 66 10/14/23 16:37 Resp 17 10/14/23 16:37 BP 162/82 H 10/14/23 16:37 Pulse Ox 100 10/14/23 16:37 Oxygen Delivery Method Room Air 10/14/23 16:37 BMI result Body Mass Index 29.0 Tobacco/Smoking Status: Tobacco use Status Tobacco use date assessed 10/14/23 10/14/23 16:46 Patient Tobacco Use Status Never used Tobacco 10/14/23 16:43 e-Cigarette/Vaping Use Never Used 10/14/23 16:43 PHQ-9: PHQ-9 Score PHQ-9: Total score 0 10/14/23 17:13 Depression Screening Interpretation: Negative Thrive Assessment: Date of Thrive Assessment Date Thrive assessed 10/14/23 10/14/23 16:46 Currently or been in a relationship where the following occur: no concerns reported Eyes General: appearance normal, both eyes and all related structures Eyelids: Yes eyelids normal Conjunctivae: conjunctivae normal Neck Neck: Yes normal visual inspection and Yes supple Resp Effort & Inspection: normal respiratory effort Auscultation: clear to auscultation bilaterally Cardio Jugular venous distension: no JVD Rate: regular rate Rhythm: regular rhythm Heart sounds: S1 normal heart sound present and S2 normal heart sound present Extrem General: Yes full ROM Assessment and Plan Assessment & Plan (1) Diabetes mellitus: Code(s): E11.9 - Type 2 diabetes mellitus without complications Qualifiers: Diabetes mellitus type: type 2 Diabetes mellitus snf insulin use: without snf use Diabetes mellitus complication status: with hyperglycemia Qualified Code(s): E11.65 - Type 2 diabetes mellitus with hyperglycemia Plan: Continue metformin. A1c goal is equal or less than 7%. (2) Essential hypertension: Code(s): I10 - Essential (primary) hypertension Plan: Increase lisinopril from 20 mg to 30 mg. Blood pressure goal is equal or less than 130/80. (3) GERD (gastroesophageal reflux disease): Code(s): K21.9 - Gastro-esophageal reflux disease without esophagitis Qualifiers: Esophagitis presence: esophagitis presence not specified Qualified Code(s): K21.9 - Gastro-esophageal reflux disease without esophagitis Plan: Continue PPIs. (4) Hyperlipidemia LDL goal <70: Code(s): E78.5 - Hyperlipidemia, unspecified Plan: Continue statins. LDL goal is less than 70. Orders: Orders Lipid Panel Today E78.5 - Hyperlipidemia, unspecified Microalbumin, Random (w Creat) Today E11.9 - Type 2 diabetes mellitus without complications Comprehensive [place]. Panel Fast Today R35.1 - Nocturia Medications: New lisinopril 30 mg PO DAILY 90 tabs 0RF 90 days Discontinued lisinopril Discontinued Reason: No Longer Medically Relevant 20 mg PO DAILY 90 days 90 tabs 1RF Coding Level of Care Code Est Pt Level 4 (70352) Diagnoses Type 2 diabetes mellitus with hyperglycemia, without long-term current use of insulin E11.65 Diabetes mellitus type: type 2 Diabetes mellitus snf insulin use: without continuous churn buttermaker use Diabetes mellitus complication status: with hyperglycemia Essential hypertension I10 Gastroesophageal reflux disease, unspecified whether esophagitis present K21.9 Esophagitis presence: esophagitis presence not specified Hyperlipidemia LDL goal <70 E78.5 Additional Codes DIANE-7 Assessment Billing - DIANE-7 Assessment Tool: DIANE-7 Assessment 28344 ([id number]) Time Spent (min) 25
[2023-10-14 18:08] VITALS: BP 160/80
== END 2023-10-14 17:04 | disposition home or self-care (01) ==
PROVIDERS: PCP Internal Medicine; Visit Provider Internal Medicine
DX: E11.65 Type 2 diabetes mellitus with hyperglycemia (principal); I10 Essential (primary) hypertension; K21.9 Gastro-esophageal reflux disease without esophagitis; E78.5 Hyperlipidemia, unspecified
CPT/HCPCS: 99214

== ENCOUNTER 2023-11-17 07:56 | Outpatient (REF) | payer OTHER, SELFPAY ==
[2023-11-17 09:05] LABS: Alanine Aminotransferase 12 U/L (0-31); Albumin Level 4.2 g/dL (3.5-5.0); Alkaline Phosphatase 50 U/L (39-117); Anion Gap 15 (12-20); Aspartate Amino Transferase 15 U/L (5-31); Bilirubin Total 0.5 mg/dL (0.0-1.0); Blood Urea Nitrogen 16 mg/dL (9-16); Calcium 9.3 mg/dL (8.4-10.2); Carbon Dioxide 28 mmol/L (22-29); Chloride 103 mmol/L (96-108); Cholesterol 96 mg/dL (<200); Estimated Glomerular Filt Rate > 60; Glucose Fasting 125 mg/dL (60-99); HDL Cholesterol 34 mg/dL (>40); LDL Cholesterol Calculated 40 mg/dL (<100); Potassium 3.5 mmol/L (3.3-5.1); Sodium 142 mmol/L (135-145); Total Protein 7.5 g/dL (6.5-8.0); Triglycerides 114 mg/dL (<150)
[2023-11-17 09:14] LABS: Creatinine Urine 101.77 mg/dL; Microalbum/Creatinine Ratio Ur 8.8 ug/mg cr (<30)
[2023-11-17 09:21] LABS: Vitamin D 25-OH Total 27.5 ng/mL (>30)
== END 2023-11-17 07:57 | disposition home or self-care (01) ==
LOC: HO.LAB 07:56
PROVIDERS: PCP Internal Medicine; Visit Provider Internal Medicine
DX: E78.5 Hyperlipidemia, unspecified (principal); E55.9 Vitamin D deficiency, unspecified; E11.9 Type 2 diabetes mellitus without complications; R35.1 Nocturia
CPT/HCPCS: 36415; 80053; 80061; 82043; 82306; 82570

== ENCOUNTER 2023-11-18 10:48 | Outpatient (AMB) | payer OTHER, MEDICAID, SELFPAY ==
--- NOTE | 2023-11-18 10:55 | MHC.PC.OV ---
Vital Signs 11/18/23 11:01 Height 4 ft 10.7 in Weight 142 lb BMI 29.0 BP 136/88 Blood Pressure Location Lt brachial Position Sitting Intake Visit Reasons: pe Intake Note: Patient here for a physical exam Reticle Printer Required: No Accompanied by: Karsten/ Spouse Allergies chlorzoxazone [From Parafon Forte DSC] Allergy (Intermediate, Verified 11/18/23 11:13) RASH/SWELLING, rash Iodinated Contrast Media [IV Dye, Iodine Containing] Allergy (Intermediate, Verified 11/18/23 11:13) THROAT CLOSED Penicillins [PENICILLINS] Allergy (Intermediate, Verified 11/18/23 11:13) HIVES pollen extracts [POLLEN] Allergy (Intermediate, Verified 11/18/23 11:13) RASH From KEFLEX Allergy (Severe, Uncoded 11/18/23 11:13) HIVES Medication List - Last Reconciled 11/18/23 by Melvi Lawrence MD ammonium lactate 12% appl topical BID aspirin 81 mg PO DAILY 90 days blood sugar diagnostic ([employer] Ultra Test strips) USE TO TEST ONCE DAILY blood-glucose meter (Girls Guide To Ultra2 Meter kit) As directed cholestyramine-aspartame 4 gram (Cholestyramine Light) 4 grams PO BID 30 days cyclobenzaprine 10 mg PO TID PRN dorzolamide-timolol 22.3-6.8 mg/mL 1 drp ophthalmic (eye) famotidine 40 mg PO DAILY PRN ibuprofen 600 mg PO Q8H PRN lancets (Pax8Touch Delica Plus Lancet) USE 1 LANCET ONCE A DAY latanoprost 0.005% 1 drp ophthalmic (eye) BEDTIME lidocaine 5% 1 patch topical DAILY lisinopril 30 mg PO DAILY 90 days metformin 850 mg PO BID 90 days metoclopramide HCl (Reglan) 5 mg PO .tidac oxybutynin chloride ER 10 mg PO BID 90 days pantoprazole 40 mg PO DAILY rosuvastatin 5 mg PO DAILY 90 days Tobacco use date assessed: 10/14/23 Fall risk assessment: No Falls in past year Last assessed Fall Risk: 11/18/23 Dental Screening Dental Screen Date: 10/14/23 HPI HPI Comments History of Present Illness Details This is a 68-year-old female with diabetes mellitus type 2 that comes for her physical exam accompanied by her . A1c within goal. Last mammogram was August 2023 and was normal. Last colonoscopy was 2018 showing tubular adenoma and will be referred to Gastroenterology this year for that matter. Last bone density was March 2022 that will be repeated March 2024. Denies any chest pain or shortness of breath. Complains of dry eyes and dry mouth. Last diabetic eye exam was less than a year ago. Has persistent headaches almost every day for over 2 weeks and she said it is associated with some elevated blood pressure. I will increase lisinopril from 30 mg to 40 mg due to blood pressure at home being over 140/90. Blood pressure will be recheck in 3 weeks by nurse navigator. [facility] Medical History (Updated 11/18/23 @ 11:41 by Melvi Lawrence MD) Elevated hemoglobin Viral gastroenteritis Hospital discharge follow-up COVID-19 Gastroparesis Chronic diarrhea Post-menopausal Hearing loss in right ear Obese Well woman exam Dry skin Ear congestion Long-term use of aspirin therapy Urge urinary incontinence GERD (gastroesophageal reflux disease) Essential hypertension Glaucoma Diabetes mellitus Surgical History History of colonoscopy Tubal ligation status History of knee replacement procedure of right knee History of cholecystectomy H/O arthroscopy of right knee History of nasal surgery History of Family History Father Cancer Mother Hypertension Social History (Updated 11/18/23 @ 11:17 by Melvi Lawrence MD) Housing: House Alcohol intake: never Patient Tobacco Use Status: Never used Tobacco e-Cigarette/Vaping Use: Never Used Second Hand Smoke Exposure: No service: No Current occupational status: retired Cognitive needs: No Hearing needs: No Vision needs: No Female Reproductive History Menstrual Age of Menarche: 11 Questionnaire Thrive Questionnaire Date Thrive assessed: 10/14/23 AUDIT C Alcohol Use Questionnaire (AUDIT-C) 1. How often do you have a drink containing alcohol?: Monthly or less 2. How many drinks containing alcohol do you have on a typical day when you are drinking?: 1 or 2 3. How often do you have six or more drinks on one occasion?: Never Total Score: 1 Score Reviewed/Action Taken: No DIANE-7 AMB Questionnaire DIANE-7 Date DIANE - 7 assessed: 10/14/23 Source: Developed by Drs. Travon Rosales, Toña Wood, Francisco Marie and colleagues, with an educational yu from [employer]. Review of Systems Const All systems reviewed & are unremarkable except as noted in HPI and below Eyes Reports no additional complaints, Denies change in vision and Denies other visual disturbances Card Denies chest pain at rest, Denies chest pain with activity, Denies edema, Denies irregular heart rhythm, Denies claudication, Denies dyspnea, Denies dyspnea on exertion, Denies orthopnea, Denies paroxysmal nocturnal dyspnea and Denies slow heart rate Resp Denies cough, Denies dyspnea and Denies dyspnea on exertion GI Denies abdominal pain, Denies change in bowel habits, Denies excessive flatus, Denies nausea and Denies vomiting Denies urinary incontinence, Denies urinary hesitancy and Denies urinary urgency Physical exam (Primary Care) Vital Signs: Last Vital Signs BP 136/88 11/18/23 11:01 BMI result Body Mass Index 29.0 Tobacco/Smoking Status: Tobacco use Status Tobacco use date assessed 10/14/23 11/18/23 10:56 Patient Tobacco Use Status Never used Tobacco 11/18/23 10:56 e-Cigarette/Vaping Use Never Used 11/18/23 10:56 Thrive Assessment: Date of Thrive Assessment Date Thrive assessed 10/14/23 11/18/23 10:56 Const Orientation/consciousness: patient oriented x3 HENUT Head: Yes normal to inspection, Yes normocephalic and Yes atraumatic Ears: external ears normal Eyes General: appearance normal, both eyes and all related structures Eyelids: Yes eyelids normal Conjunctivae: conjunctivae normal Neck Neck: Yes normal visual inspection and Yes supple Resp Effort & Inspection: normal respiratory effort Auscultation: clear to auscultation bilaterally Cardio Jugular venous distension: no JVD Rate: regular rate Rhythm: regular rhythm Heart sounds: S1 normal heart sound present and S2 normal heart sound present GI Inspection: Yes normal to inspection Palpation (GI): Soft to palpation and nontender Auscultation: normal bowel sounds Skin General skin exam: no rashes or lesions noted Neuro General: patient oriented x3 and no focal motor deficits Extrem General: Yes full ROM Psych Appearance: grossly normal Results AMB Hemoglobin A1c AMB Hemoglobin A1c 6.8 % Last Edit by YOUSIF Aguilar on 11/18/23 11:06 Results Reviewed Results Reviewed: Laboratory Last Values Hgb A1c (Clinic) 6.8 % (4.0-6.0) H 11/18/23 10:55 Assessment and Plan Assessment & Plan (1) Adult general medical exam: Code(s): Z00.00 - Encounter for general adult medical examination without abnormal findings Plan: Repeat in a year. (2) Diabetes mellitus: Code(s): E11.9 - Type 2 diabetes mellitus without complications Qualifiers: Diabetes mellitus type: type 2 Diabetes mellitus shelter insulin use: without shelter use Diabetes mellitus complication status: with hyperglycemia Qualified Code(s): E11.65 - Type 2 diabetes mellitus with hyperglycemia Plan: Continue metformin. A1c goal is equal or less than 7%. Orders: Orders Sjogren's Antibodies 4 Months R68.2 - Dry mouth, unspecified Lipid Panel 4 Months E11.65 - Type 2 diabetes mellitus with hyperglycemia, E78.5 - Hyperlipidemia, unspecified Comprehensive Gustavus. Panel Fast 4 Months E11.65 - Type 2 diabetes mellitus with hyperglycemia AMB Hemoglobin A1c Today E11.65 - Type 2 diabetes mellitus with hyperglycemia MR head/brain wo con Today R51.9 - Headache, unspecified Microalbumin, Random (w Creat) 4 Months E11.65 - Type 2 diabetes mellitus with hyperglycemia, E11.9 - Type 2 diabetes mellitus without complications Vitamin D 25-OH Total 4 Months E55.9 - Vitamin D deficiency, unspecified XR DEXA axial skeleton 4 Months N95.9 - Unspecified menopausal and perimenopausal disorder Referrals Neurology Referral R51.9 - Headache, unspecified Gastroenterology Referral D12.6 - Benign neoplasm of colon, unspecified Medications: New lisinopril 40 mg PO DAILY 30 days 30 tabs 2RF Refilled aspirin 81 mg PO DAILY 90 days 90 tabs 4RF Z79.82 - vermin exterminator (current) use of aspirin Discontinued lisinopril Discontinued Reason: Order 30 mg PO DAILY 90 days 90 tabs 0RF Coding Level of Care Code Est Pt Prev Care >65y(28267) Diagnoses Adult general medical exam Z00.00 Type 2 diabetes mellitus with hyperglycemia, without long-term current use of insulin E11.65 Diabetes mellitus type: type 2 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
[2023-11-18 11:01] VITALS: BP 136/88; BMI 29.0
== END 2023-11-18 11:31 | disposition home or self-care (01) ==
PROVIDERS: PCP Internal Medicine; Visit Provider Internal Medicine
DX: Z00.00 Encounter for general adult medical examination without abnormal findings (principal); E11.65 Type 2 diabetes mellitus with hyperglycemia
CPT/HCPCS: 83036; 99397

== ENCOUNTER 2023-12-26 13:10 | Outpatient (REF) | payer OTHER, SELFPAY ==
--- NOTE | ~2023-12-26 | MR_ITS ---
EXAMINATION: MR BRAIN WITHOUT CONTRAST CLINICAL INFORMATION: Headache COMPARISON: MRI of the brain with and without contrast 11/06/2020 TECHNIQUE: Multiplanar multisequence MR imaging of the brain was obtained without intravenous contrast. FINDINGS: There is no acute infarct on diffusion-weighted imaging. There is no intracranial hemorrhage on iron-sensitive imaging. No extra-axial collection or mass effect/herniation. Patchy periventricular and deep white matter T2 FLAIR hyperintensities consistent with mild to moderate underlying microangiopathy. No hydrocephalus. Mild generalized cerebral volume loss with commensurate sulcal and ventricular prominence. The major flow voids at the skull base are preserved. The midline structures are normal. The cerebellar tonsils are normally positioned. 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 Degenerative changes in the upper cervical spine. Marrow signal is within normal limits. The visualized soft tissues are without significant abnormality. No signal abnormality within the paranasal sinuses or within the mastoid air cells. MR/MR head/brain wo con IMPRESSION: 1. No acute intracranial abnormality. 2. Mild to moderate chronic white matter microangiopathy and mild generalized cerebral volume loss. 3. 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
== END 2023-12-26 13:11 | disposition home or self-care (01) ==
LOC: HO.MRI 13:10
PROVIDERS: PCP Internal Medicine; Visit Provider Internal Medicine
DX: R51.9 Headache, unspecified (principal)
CPT/HCPCS: 70551

== ENCOUNTER 2024-01-13 09:37 | Outpatient (AMB) | payer OTHER, MEDICAID, SELFPAY ==
--- NOTE | 2024-01-13 09:52 | MHC.OFFVIS ---
Intake Visit Reasons: 1 year PVR Intake Note: Patient presents for follow up visit on : OAB and Incontinence Urology Medications: Oxybutynin Blood Thinner: aspirin PVR: 0ml's Electric Operator Required: Yes Electric Operator Name: TERE LOZADADARWIN Accompanied by: Self / Same As Patient Allergies chlorzoxazone [From Parafon Forte DSC] Allergy (Intermediate, Verified 01/13/24 10:18) RASH/SWELLING, rash Iodinated Contrast Media [IV Dye, Iodine Containing] Allergy (Intermediate, Verified 01/13/24 10:18) THROAT CLOSED Penicillins [PENICILLINS] Allergy (Intermediate, Verified 01/13/24 10:18) HIVES pollen extracts [POLLEN] Allergy (Intermediate, Verified 01/13/24 10:18) RASH From KEFLEX Allergy (Severe, Uncoded 01/13/24 10:18) HIVES Medication List - Last Reconciled 01/13/24 by REYNALDO Perez-OH ammonium lactate 12% appl topical BID aspirin 81 mg PO DAILY 90 days blood sugar diagnostic ([employer] Ultra Test strips) USE TO TEST ONCE DAILY blood-glucose meter ([employer] Ultra2 Meter kit) As directed cholestyramine-aspartame 4 gram (Cholestyramine Light) 4 grams PO BID 30 days cyclobenzaprine 10 mg PO TID PRN dorzolamide-timolol 22.3-6.8 mg/mL 1 drp ophthalmic (eye) famotidine 40 mg PO DAILY PRN ibuprofen 600 mg PO Q8H PRN lancets (ResiModelTouch Delica Plus Lancet) USE 1 LANCET ONCE A DAY latanoprost 0.005% 1 drp ophthalmic (eye) BEDTIME lidocaine 5% 1 patch topical DAILY lisinopril 40 mg PO DAILY 30 days metformin 850 mg PO BID 90 days metoclopramide HCl (Reglan) 5 mg PO .tidac oxybutynin chloride ER 10 mg PO BID 90 days pantoprazole 40 mg PO DAILY rosuvastatin 5 mg PO DAILY 90 days HPI Comments Details: Betsey is a very pleasant 68-year-old Latvian-speaking female patient of Dr. Conor Lawrence. She has a past medical history of gastroparesis, GERD, hypertension, glaucoma, diabetes, and hearing loss. She presents to the office today for follow-up of her over active bladder symptoms. In discussion with the patient today she reports to be doing and feeling well. She discusses her compliance with oxybutynin 10 mg b.i.d. she reports to be happy with current voiding parameters on oxybutynin. She otherwise offers no issues or concerns at this time. In office urinalysis results reviewed with the patient today. PVR 0 mL. When asked she denies urinary urgency, urinary frequency, incontinence, nocturia, hematuria, dysuria, foul smelling urine, changes to urinary stream, flank pain, fever, and or chills. She is happy with her current voiding parameters while on oxybutynin. Discussed and stressed the importance of managing diabetes for improvement in urinary symptoms as well as overall health and well-being. She otherwise offers no other issues or concerns at this time. [facility] Medical History Elevated hemoglobin Viral gastroenteritis Hospital discharge follow-up COVID-19 Gastroparesis Chronic diarrhea Post-menopausal Hearing loss in right ear Obese Well woman exam Dry skin Ear congestion Long-term use of aspirin therapy Urge urinary incontinence GERD (gastroesophageal reflux disease) Essential hypertension Glaucoma Diabetes mellitus Surgical History History of colonoscopy Tubal ligation status History of knee replacement procedure of right knee History of cholecystectomy H/O arthroscopy of right knee History of nasal surgery History of Family History Father Cancer Mother Hypertension Social History Housing: House Alcohol intake: never Patient Tobacco Use Status: Never used Tobacco e-Cigarette/Vaping Use: Never Used Second Hand Smoke Exposure: No service: No Current occupational status: retired Cognitive needs: No Hearing needs: No Vision needs: No Female Reproductive History Menstrual Age of Menarche: 11 Review of Systems Const Reports no additional complaints Eyes Reports as per HPI ENT Reports as per HPI Card Reports as per HPI Resp Reports no additional complaints GI Reports as per HPI Reports as per HPI Musc Reports no additional complaints Neuro Reports no additional complaints Psych Reports no additional complaints Endo Reports as per HPI Nuno/Lymph Reports no additional complaints Aller/Immun Reports no additional complaints Physical Exam Const General: cooperative, healthy appearing, comfortable, no acute distress, well developed, alert and awake Orientation/consciousness: patient oriented x3 Limitations: no limitations HEENT Head: Yes normal to inspection, Yes normocephalic and Yes atraumatic Ears: hearing grossly normal bilaterally Eyes General: appearance normal, both eyes and all related structures Neck Neck: Yes normal visual inspection and Yes trachea midline Chest Chest palpation & inspection: normal inspection of the chest Resp Effort & Inspection: normal respiratory effort and able to speak in complete sentences Cardio Rate: regular rate GI Inspection: Yes normal to inspection General: Yes no CVA tenderness Back/Spine/Pelvis Back: no CVA tenderness Skin General skin exam: no rashes or lesions noted Neuro General: patient oriented x3 Extrem General: Yes normal to inspection Psych Appearance: grossly normal and well kempt Mental Status: mental status grossly normal Speech and movement: Normal speech and movement present and Clear speech present Affect: normal affect Attitude: cooperative Thought process: Normal thought process present Thought content: Normal thought content present Insight: Fair insight present (Psych) Judgement: Fair judgement present (Psych) Office Procedures Post Void Residual Post Residual Void Post Void Residual (PVR): 0 [id number]-[id number] Void Residual by ultrasound Results AMB Urinalysis, Automated UA Leukoctes 0 Tapan/uL Last Edit by [employer] on 01/13/24 10:04 UA Nitrite Negative Last Edit by [employer] on 01/13/24 10:04 UA Urobilinogen 0.2 mg/dL Last Edit by [employer] on 01/13/24 10:04 UA Protein 0 mg/dL Last Edit by [employer] on 01/13/24 10:04 UA pH 6.0 Last Edit by [employer] on 01/13/24 10:04 UA Blood 0 Adama/uL Last Edit by [employer] on 01/13/24 10:04 UA Specific Ayr 1.015 Last Edit by [employer] on 01/13/24 10:04 UA Ketone Negative Last Edit by [employer] on 01/13/24 10:04 UA Bilirubin 0 mg/dL Last Edit by [employer] on 01/13/24 10:04 UA Glucose 0 mg/dL Last Edit by [employer] on 01/13/24 10:04 Results Reviewed Results Reviewed: Laboratory Last Values Urine pH (Auto) 6.0 06/11/24 09:54 Specific Ayr (Auto) 1.015 01/13/24 09:54 Urine Protein (Auto) 0 mg/dL 01/13/24 09:54 Glucose (UA)(Auto) 0 mg/dL 01/13/24 09:54 Urine Ketones (Auto) Negative 01/13/24 09:54 Urine Blood (Auto) 0 Adama/uL 01/13/24 09:54 Urine Nitrite (Auto) Negative 01/13/24 09:54 Urine Bilirubin (Auto) 0 mg/dL 01/13/24 09:54 Urine Urobilinogen (Auto) 0.2 mg/dL 01/13/24 09:54 Leukocyte Esterase (Auto) 0 Tapan/uL 01/13/24 09:54 Assessment & Plan Assessment & Plan (1) Overactive bladder: Code(s): N32.81 - Overactive bladder Category: Medical (2) Urge urinary incontinence: Code(s): N39.41 - Urge incontinence Category: Medical Plan In office urinalysis results reviewed with the patient today; as noted above. PVR 0 mL. Patient reports be happy with current voiding parameters with current medication measurement of oxybutynin 10 mg b.i.d.; refill provided. She currently denies any bothersome urinary issues or concerns. Discussed at length importance of managing diabetes for improvement in lower urinary tract symptoms as well as overall health and well-being. Follow-up in 1 year with PVR; or sooner with any issues, concerns, and or questions. Orders: Orders AMB Post Void Residual by ultrasound Today N32.81 - Overactive bladder AMB Urinalysis Automated Today Z13.9 - Encounter for screening, unspecified Medications: Refilled oxybutynin chloride ER 10 mg PO BID 90 days 180 tabs 4RF N32.81 - Overactive bladder Patient Instructions: The patient had an opportunity to ask questions regarding the treatment plan. All questions were answered. Physical exam, labs, and imaging were discussed and reviewed in detail. As well as risks, benefits, and discussion of treatment choices. No major barriers to understanding were identified. The patient expressed understanding and agreement with the above treatment plan. The patient was made aware they should contact our office by phone for worsening of their current condition, the appearance of new symptoms, or with any questions or concerns. Compliance is encouraged with any medications and follow up testing that is ordered. It is a privilege to be allowed the opportunity to participate in? your urological care.? Again, if you have any questions or concerns If you have any questions or concerns please do not hesitate to contact me. The office is [phone]. This note is constructed using voice recognition software. While every effort has been made to ensure accuracy medical billing and coding specialist errors may have been included. Yours sincerely, MELISSA Perez Coding Level of Care Code Est Pt Level 3 (68573) Diagnoses Overactive bladder N32.81 Urge urinary incontinence N39.41 CPT Codes Post Residual Void - PVR CPT Code: 47938-Yknf Void Residual by ultrasound ([id number])
== END 2024-01-13 10:28 | disposition home or self-care (01) ==
PROVIDERS: PCP Internal Medicine; Visit Provider Nurse Practitioner Family
DX: N32.81 Overactive bladder (principal); N39.41 Urge incontinence; Z13.9 Encounter for screening, unspecified
CPT/HCPCS: 99213

== ENCOUNTER → 2024-01-13 09:37 | Outpatient (BNVA) | payer OTHER, MEDICAID, SELFPAY | PROVIDERS: PCP Internal Medicine; Visit Provider Nurse Practitioner Family | DX: N32.81 Overactive bladder (principal); N39.41 Urge incontinence; Z79.82 Long term (current) use of aspirin; Z79.899 Other long term (current) drug therapy | CPT/HCPCS: 51798; 81003; 99212 ==

== ENCOUNTER 2024-03-24 10:43 | Outpatient (REF) | payer OTHER, SELFPAY ==
--- NOTE | ~2024-03-24 | MM_ITS ---
EXAMINATION: BONE DENSITOMETRY CLINICAL INDICATION: Menopause. COMPARISON: Previous BD dated 03/22/2022 and baseline BD dated 09/16/2007. TECHNIQUE: Using a [employer] DXA System (software version: 13.1) manufactured by [employer], dual-energy x-ray absorptiometry was performed of the lumbar spine and left hip. The images are of good technical quality. Summary results are attached. FINDINGS: LEFT FEMUR, NECK: Current: BMD 0.999 g/cm2, Z-score 1.4, T-score -0.3, normal. Prior: BMD 0.984 g/cm2. Baseline: BMD 1.025 g/cm2. LEFT FEMUR, TOTAL: Current: BMD 1.236 g/cm2, Z-score 3.2, T-score 1.8, normal, 2.7% increase from previous, 1.0% increase from baseline (<5% change is not significant). Prior: BMD 1.203 g/cm2. Baseline: BMD 1.224 g/cm2. AP SPINE L1-L4: Current: BMD 1.596 g/cm2, Z-score 5.1, T-score 3.4, normal, 2.9% increase from previous, 11.5% increase from baseline (<5% change is not significant). Prior: BMD 1.551 g/cm2. Baseline: BMD 1.432 g/cm2. IDENTIFIED RISK FACTORS: Early menopause, secondary osteoporosis. HISTORY OF FRACTURE: None listed. MEDICATIONS: None listed. MM/XR DEXA axial skeleton IMPRESSION: 1. DIAGNOSIS: Normal bone density based on the lowest T-score value of -0.3 in the femoral neck applying World Health Organization criteria. 2. 10-YEAR FRACTURE RISK PREDICTION, FRAX: According to the guidelines, FRAX calculation should only be performed on patients in the osteopenia bone density category. Therefore, FRAX was not performed on this patient. 3. Treatment Recommendations: NOF guidelines recommend consideration for treatment in postmenopausal women and men age 50 and older presenting with the following: -A hip or vertebral (clinical or morphometric) fracture. -T-score less than or equal to -2.5 at the femoral neck or spine after appropriate evaluation to exclude secondary causes. -Low bone mass at the hip or spine and a 10-year fracture probability by FRAX of greater than or equal to 3% for hip fracture or greater than or equal to 20% for major osteoporotic fracture based on the [place] adapted WHO algorithm. 4. Other Recommendations: All treatment decisions require clinical judgment and consideration of individual patient factors, including patient preferences, comorbidities, previous drug use, risk factors not captured in the FRAX model (e.g. frailty, falls, vitamin D deficiency, increased bone turnover, interval significant decline in bone density) and possible under or overestimation of fracture risk by FRAX. FUTURE SCAN RECOMMENDATION: People with diagnosed cases of osteoporosis or at high risk for fracture should have regular bone mineral density tests. For patients eligible for Medicare, routine testing is allowed once every 2 years. The testing frequency can be increased to one year for patients who have rapidly progressing disease, those who are receiving or discontinuing medical therapy to restore bone mass, or have additional risk factors. Electronically signed by: Antonio Ardon MD 03/31/2024 08:59 AM EDT
== END 2024-03-24 10:44 | disposition home or self-care (01) ==
LOC: HO.MAMMO 10:43
PROVIDERS: PCP Internal Medicine; Visit Provider Internal Medicine
DX: Z13.820 Encounter for screening for osteoporosis (principal); Z78.0 Asymptomatic menopausal state
CPT/HCPCS: 77080

== ENCOUNTER 2024-03-25 10:41 | Outpatient (AMB) | payer OTHER, SELFPAY ==
--- NOTE | 2024-03-25 10:44 | MHC.PC.OV ---
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 Accompanied by: Self / Same As Patient Allergies chlorzoxazone [From Parafon Forte DSC] Allergy (Intermediate, Verified 03/25/24 11:04) RASH/SWELLING, rash Iodinated Contrast Media [IV Dye, Iodine Containing] Allergy (Intermediate, Verified 03/25/24 11:04) THROAT CLOSED Penicillins [PENICILLINS] Allergy (Intermediate, Verified 03/25/24 11:04) HIVES pollen extracts [POLLEN] Allergy (Intermediate, Verified 03/25/24 11:04) RASH From KEFLEX Allergy (Severe, Uncoded 03/25/24 11:04) HIVES Medication List - Last Reconciled 03/25/24 by Melvi Lawrence MD ammonium lactate 12% appl topical BID aspirin 81 mg PO DAILY 90 days blood sugar diagnostic (Bridg Ultra Test strips) USE TO TEST ONCE DAILY blood-glucose meter (Bridg Ultra2 Meter kit) As directed cholestyramine-aspartame 4 gram (Cholestyramine Light) 4 grams PO BID 30 days cyclobenzaprine 10 mg PO TID PRN dorzolamide-timolol 22.3-6.8 mg/mL 1 drp ophthalmic (eye) famotidine 40 mg PO DAILY PRN ibuprofen 600 mg PO Q8H PRN lancets (OctonotcoTouch Delica Plus Lancet) USE 1 LANCET ONCE A DAY latanoprost 0.005% 1 drp ophthalmic (eye) BEDTIME lidocaine 5% 1 patch topical DAILY lisinopril 40 mg PO DAILY 30 days metformin 850 mg PO BID 90 days metoclopramide HCl (Reglan) 5 mg PO .tidac oxybutynin chloride ER 10 mg PO BID 90 days pantoprazole 40 mg PO DAILY rosuvastatin 5 mg PO DAILY 90 days Tobacco use date assessed: 10/14/23 Fall risk assessment: No Falls in past year Last assessed Fall Risk: 03/25/24 Dental Screening Dental Screen Date: 03/25/24 Did you have a dental visit in the last 12 months?: No Did you have a dental problem in the last 6 months where you did not have access to dental care?: No Was dental information given to patient?: Patient has dentist HPI HPI Comments History of Present Illness Details This is a 68-year-old female with diabetes mellitus type 2, hypertension, hyperlipidemia and elevated hemoglobin that comes today complaining of neck muscle spasm. She had atelectasis in last chest x-ray and complains of pain that starts from the mid back to the front of the chest that happens occasionally associated with slight shortness on breath. Will order chest CT. A1c within goal. Blood pressure elevated and I will add amlodipine and recheck in 3 weeks by nurse navigator. Last LDL was within goal and this will be repeated. Last hemoglobin was elevated and this will also be repeated. Brain MRI showed no acute findings. [facility] Medical History (Updated 03/25/24 @ 11:16 by Melvi Lawrence MD) Elevated hemoglobin Viral gastroenteritis Hospital discharge follow-up COVID-19 Gastroparesis Chronic diarrhea Post-menopausal Hearing loss in right ear Obese Well woman exam Dry skin Ear congestion Long-term use of aspirin therapy Urge urinary incontinence GERD (gastroesophageal reflux disease) Essential hypertension Glaucoma Diabetes mellitus Surgical History History of colonoscopy Tubal ligation status History of knee replacement procedure of right knee History of cholecystectomy H/O arthroscopy of right knee History of nasal surgery History of Family History Father Cancer Mother Hypertension Social History (Updated 03/25/24 @ 11:08 by Melvi Lawrence MD) Housing: House Alcohol intake: current Alcohol intake frequency: holidays/special occasions only Alcohol type: wine Patient Tobacco Use Status: Never used Tobacco e-Cigarette/Vaping Use: Never Used Second Hand Smoke Exposure: No service: No Current occupational status: retired Cognitive needs: No Hearing needs: No Vision needs: No Female Reproductive History Menstrual Age of Menarche: 11 Questionnaire Thrive Questionnaire Date Thrive assessed: 10/14/23 DIANE-7 AMB Questionnaire DIANE-7 Date DIANE - 7 assessed: 10/14/23 Source: Developed by Drs. Travon Rosales, Toña Wood, Francisco Marie and colleagues, with an educational yu from [employer]. Review of Systems Const All systems reviewed & are unremarkable except as noted in HPI and below Card Denies chest pain at rest, Denies chest pain with activity, Denies edema, Denies irregular heart rhythm, Denies claudication, Denies dyspnea, Denies dyspnea on exertion, Denies orthopnea, Denies paroxysmal nocturnal dyspnea and Denies slow heart rate Resp Denies cough, Denies dyspnea and Denies dyspnea on exertion GI Denies abdominal pain, Denies change in bowel habits, Denies excessive flatus, Denies nausea and Denies vomiting Denies urinary incontinence, Denies urinary hesitancy and Denies urinary urgency Musc Denies abnormal gait, Denies atrophy, Denies deformity and Denies limited range of motion Skin/Breast Denies bleeding lesions, Denies changing lesions and Denies rash Neuro Denies abnormal gait and Denies lack of coordination Physical exam (Primary Care) Vital Signs: Last Vital Signs BP 154/76 H 03/25/24 10:47 BMI result Body Mass Index 28.6 Tobacco/Smoking Status: Tobacco use Status Tobacco use date assessed 10/14/23 03/25/24 10:45 Patient Tobacco Use Status Never used Tobacco 03/25/24 11:08 e-Cigarette/Vaping Use Never Used 03/25/24 11:08 Thrive Assessment: Date of Thrive Assessment Date Thrive assessed 10/14/23 03/25/24 10:45 Resp Effort & Inspection: normal respiratory effort Auscultation: clear to auscultation bilaterally Cardio Jugular venous distension: no JVD Rate: regular rate Rhythm: regular rhythm Heart sounds: S1 normal heart sound present and S2 normal heart sound present Extrem General: Yes full ROM Results AMB Hemoglobin A1c AMB Hemoglobin A1c 6.7 % Last Edit by YOUSIF Aguilar on 03/25/24 10:56 Results Reviewed Results Reviewed: Laboratory Last Values Hgb A1c (Clinic) 6.7 % (4.0-6.0) H 03/25/24 10:43 Assessment and Plan Assessment & Plan (1) Elevated hemoglobin: Code(s): D58.2 - Other hemoglobinopathies Plan: Repeat hemoglobin. (2) Atelectasis: Code(s): J98.11 - Atelectasis Plan: CT of the chest ordered. (3) Neck muscle spasm: Code(s): M62.838 - Other muscle spasm Plan: Start baclofen as needed. (4) Diabetes mellitus: Code(s): E11.9 - Type 2 diabetes mellitus without complications Qualifiers: Diabetes mellitus type: type 2 Diabetes mellitus custodial insulin use: without custodial use Diabetes mellitus complication status: with hyperglycemia Qualified Code(s): E11.65 - Type 2 diabetes mellitus with hyperglycemia Plan: Continue metformin. A1c goal is equal or less than 7%. (5) Essential hypertension: Code(s): I10 - Essential (primary) hypertension Plan: Continue lisinopril. Start amlodipine. Blood pressure goal is equal less than 130/80. Recheck blood pressure with nurse navigator in 3 weeks. (6) Hyperlipidemia LDL goal <70: Code(s): E78.5 - Hyperlipidemia, unspecified Plan: Continue statins. Repeat lipid panel. LDL goal is less than 70. Orders: Orders AMB Hemoglobin A1c Today E11.65 - Type 2 diabetes mellitus with hyperglycemia Comprehensive [place]. Panel Fast Today E78.5 - Hyperlipidemia, unspecified Lipid Panel Today E78.5 - Hyperlipidemia, unspecified Microalbumin, Random (w Creat) Today E11.9 - Type [address] complications [address] chest wo con - High Res Today J98.11 - Atelectasis Complete Blood Count Auto Diff Today D58.2 - Other hemoglobinopathies Medications: New baclofen 10 mg PO TID 90 tabs 0RF 30 days amlodipine 2.5 mg PO DAILY 90 tabs 0RF 90 days Coding Level of Care Code Est Pt Level 4 (69400) Complex EM visit Add On G2211 Diagnoses Elevated hemoglobin D58.2 Atelectasis J98.11 Neck muscle spasm M62.838 Type 2 diabetes mellitus with hyperglycemia, without long-term current use of insulin E11.65 Diabetes mellitus type: type 2 Diabetes mellitus magazine supervisor insulin use: without magazine supervisor use Diabetes mellitus complication status: with hyperglycemia Essential hypertension I10 Hyperlipidemia LDL goal <70 E78.5 Time Spent (min) 22
[2024-03-25 10:47] VITALS: BP 154/76; BMI 28.6
== END 2024-03-25 11:23 | disposition home or self-care (01) ==
PROVIDERS: PCP Internal Medicine; Visit Provider Internal Medicine
DX: D58.2 Other hemoglobinopathies (principal); J98.11 Atelectasis; M62.838 Other muscle spasm; E11.65 Type 2 diabetes mellitus with hyperglycemia; I10 Essential (primary) hypertension; E78.5 Hyperlipidemia, unspecified
CPT/HCPCS: 83036; 99214; G2211

== ENCOUNTER 2024-04-21 09:40 | Outpatient (AMB) | payer OTHER, SELFPAY ==
--- NOTE | 2024-04-21 10:04 | A.OFFVIS_ITS ---
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 Support Technician Required: Yes Dealer Support Technician Language: Building Construction Inspector Services: Dealer Support Technician Present (in person) Dealer Support Technician Name: Lilly DODD Information Interpreted: non-clinical & clinical Emission Specialist: Emission Specialist Present (Lilly DODD) Accompanied by: Self / Same As Patient Allergies chlorzoxazone [From Parafon Forte DSC] Allergy (Intermediate, Verified 04/21/24 10:14) RASH/SWELLING, rash Iodinated Contrast Media [IV Dye, Iodine Containing] Allergy (Intermediate, Verified 04/21/24 10:14) THROAT CLOSED Penicillins [PENICILLINS] Allergy (Intermediate, Verified 04/21/24 10:14) HIVES pollen extracts [POLLEN] Allergy (Intermediate, Verified 04/21/24 10:14) RASH From KEFLEX Allergy (Severe, Uncoded 04/21/24 10:14) HIVES Post menopausal: Yes HPI Comments Details: Presenting for annual exam. No complaints. Last Pap/HPV was in 12/19 was negative, the patient had 2 normal Paps in 2009 and 2009 Last Mammogram was BI-RADS 2 in 08/27 Last Colonoscopy was in 10/20 Last DEXA scan was in 03/27 with no evidence of osteoporosis [facility] Medical History (Updated 04/21/24 @ 10:24 by Donavon Marc MD) Well woman exam Elevated hemoglobin Viral gastroenteritis Hospital discharge follow-up COVID-19 Gastroparesis Chronic diarrhea Post-menopausal Hearing loss in right ear Obese Dry skin Ear congestion Long-term use of aspirin therapy Urge urinary incontinence GERD (gastroesophageal reflux disease) Essential hypertension Glaucoma Diabetes mellitus Surgical History History of colonoscopy Tubal ligation status History of knee replacement procedure of right knee History of cholecystectomy H/O arthroscopy of right knee History of nasal surgery History of Family History Father Cancer Mother Hypertension Social History Housing: House Alcohol intake: current Alcohol intake frequency: holidays/special occasions only Alcohol type: wine Patient Tobacco Use Status: Never used Tobacco e-Cigarette/Vaping Use: Never Used Second Hand Smoke Exposure: No service: No Current occupational status: retired Cognitive needs: No Hearing needs: No Vision needs: No Female Reproductive History Menstrual Age of Menarche: 11 Date of last pap smear: 12/05/17 Date of Mammogram: 08/12/23 Date of last Bone Density Screenin03/24/24 Review of Systems Const All systems reviewed & are unremarkable except as noted in HPI and below Card Reports as per HPI Resp Reports as per HPI GI Reports as per HPI and Reports no additional complaints Reports as per HPI Physical Exam Vital Signs: Last Vital Signs BP 130/70 04/21/24 10:13 BMI result Body Mass Index 29.3 Const General: cooperative, healthy appearing and comfortable Chest Chest palpation & inspection: normal inspection of the chest and normal palpation of entire chest wall Breast/axilla inspection: normal inspection of the breasts and normal inspection of the axillae Breast/axilla palpation: normal palpation of the breasts, normal palpation of the axillae and no axillary lymphadenopathy Resp Effort & Inspection: normal respiratory effort Auscultation: clear to auscultation bilaterally Percussion: percussion normal Cardio Palpation: normal PMI Rate: regular rate Rhythm: regular rhythm Heart sounds: no murmurs and no rubs Peripheral pulses: Peripheral pulses 2+ throughout GI Inspection: Yes normal to inspection Palpation (GI): Soft to palpation, nontender, no guarding, not rigid and No hepatosplenomegaly present Percussion: Yes normal to percussion Auscultation: normal bowel sounds Rectal Exam - Female: deferred General: Yes bladder normal to palpation External Female Exam: No lesion Speculum Exam - Vagina: normal appearance of the vagina, normal palpation, normal vaginal discharge and not erythematous Speculum Exam - Cervix: normal appearance of the cervix and normal palpation Bimanual exam- vagina & uterus: normal bimanual exam, normal palpation, uterine size normal, bladder normal to palpation, consistency normal and normal palpation Bimanual Exam- Adnexa, other: normal adnexae, no masses and no tenderness Assessment & Plan Assessment & Plan (1) Well woman exam: Code(s): Z01.419 - Encounter for gynecological examination (general) (routine) without abnormal findings Category: Medical Plan: Co testing not indicated since the patient 's age is above 65 with no history of abnormal Pap smears last 25 years. Counseled the patient about the recommended dietary allowance of 1200 mg of Calcium & 800 IU of vitamin D. Instructions given the patient to schedule next screening Mammogram in 08/28. The patient has an appointment in few months for a repeat screening colonoscopy . The patient was instructed to perform monthly self-breast exams and to schedule a 2 week DEXA scan follow-up appointment and an annual exam in a year; All questions answered and the patient verbalized understanding. Coding Level of Care Code Est Pt Prev Care >65y(96627) Diagnoses Well woman exam Z01.419
[2024-04-21 10:13] VITALS: BP 130/70; BMI 29.3
== END 2024-04-21 10:41 | disposition home or self-care (01) ==
LOC: HO.HWS 09:41
PROVIDERS: PCP Internal Medicine; Visit Provider Obstetrics & Gynecology
DX: Z01.419 Encounter for gynecological examination (general) (routine) without abnormal findings (principal)
CPT/HCPCS: 99397

== ENCOUNTER → 2024-04-21 09:40 | Outpatient (BNVA) | payer OTHER, SELFPAY | PROVIDERS: PCP Internal Medicine; Visit Provider Obstetrics & Gynecology ==

== ENCOUNTER 2024-04-30 15:28 | Outpatient (REF) | payer OTHER, SELFPAY ==
--- NOTE | ~2024-04-30 | CT_ITS ---
EXAMINATION: CT CHEST WITHOUT CONTRAST CLINICAL INFORMATION: Atelectasis. COMPARISON: No prior chest CT. Chest x-ray dated 11/06/2021. TECHNIQUE: Multidetector volumetric CT imaging of the chest was done. Axial MIP volume rendering provided. Sagittal and coronal reformatted images were obtained. This CT examination was performed using dose optimization techniques as appropriate, variously including the following: *Automated exposure control *Adjustment of mA and/or kV according to patient size (this includes techniques or standardized protocols for targeted exams where dose is matched to indication/reason for exam; i.e. extremities or head) *Use of iterative reconstruction technique DLP: 134 mGy-cm FINDINGS: Of note, the study is partially expiratory, and there is moderate respiratory motion artifact present obscuring fine details of the lungs and lower lobes especially. PULMONARY NODULES: -5 mm groundglass nodule subpleural left lower lobe (series 11, image 93). -No additional pulmonary nodules. LUNGS: -There are mosaic changes of attenuation in the lower lobes bilaterally, with respiratory motion artifact, and mild associated changes of air trapping/microatelectasis. -Aside from expiratory state and air trapping, lungs appear clear bilaterally. No consolidations, or effusions. -No pneumothorax. -No pleural effusion or mass. -No evidence of interstitial lung disease grossly. MEDIASTINUM: -There are a few prominent mediastinal lymph nodes present, nonspecific. For example, a prevascular lymph node measures 9 mm in short axis (series 11, image 57). A paratracheal lymph node measures 8 mm in short axis (series 11, image 48). These are nonspecific and presumably reactive. -Remainder of the mediastinal structures are normal in appearance. No mediastinal masses. -Heart size is top normal. No pericardial effusion. CORONARY ARTERY CALCIFICATION: -None visualized on this study. PLEURA: -There is no pleural effusion. No pleural mass or thickening. AXILLA/CHEST WALL: -No masses or lymphadenopathy. UPPER ABDOMEN: -Cholecystectomy. Remainder of upper abdominal structures appear normal. OSSEOUS STRUCTURES: -No suspicious lytic or blastic bone lesion. -Moderate degenerative spondylosis of the spine. CT/CT chest wo con - High Res IMPRESSION: 1. Limited examination due to partial expiratory state and respiratory motion. Mosaic attenuation in the lower lungs predominantly suggests air trapping although may be on the basis of partial expiratory state. Otherwise, differential for mosaic attenuation includes vascular (such as chronic PE, shunting,) and airspace etiologies (obstructive lung disease). If necessary, repeat examination with full inspiration may be of benefit. 2. No evidence of interstitial lung disease. 3. No pleural abnormalities. 4. A few prominent but non-pathologically enlarged mediastinal lymph nodes, presumably reactive. Fleischner guidelines were followed. Electronically signed by: Bronson Copeland MD 07/02/2024 04:00 PM VIDHI
== END 2024-04-30 15:29 | disposition home or self-care (01) ==
LOC: HO.CT 15:28
PROVIDERS: PCP Internal Medicine; Visit Provider Internal Medicine
DX: J98.11 Atelectasis (principal)
CPT/HCPCS: 71250

== ENCOUNTER → 2024-04-30 15:30 | Outpatient (BNV) | payer OTHER, SELFPAY | PROVIDERS: PCP Internal Medicine; Visit Provider Radiology Diagnostic Radiology | DX: J98.11 Atelectasis (principal) | CPT/HCPCS: 71250 ==

== ENCOUNTER 2024-05-25 14:45 | Outpatient (AMB) | payer OTHER, SELFPAY ==
--- NOTE | 2024-05-25 14:50 | MHC.OFFVIS ---
Vital Signs 05/25/24 14:51 Height 4 ft 10 in Weight 145 lb BMI 30.3 BP 126/72 Blood Pressure Location Rt brachial Position Sitting Intake Visit Reasons: INP-Headache, unspecified Intake Note: Patient presents for headache. patient has headaches about once a day as before. she states after hypertension med was increased the headaches decreased. Allergies chlorzoxazone [From Parafon Forte DSC] Allergy (Intermediate, Verified 05/25/24 15:16) RASH/SWELLING, rash Iodinated Contrast Media [IV Dye, Iodine Containing] Allergy (Intermediate, Verified 05/25/24 15:16) THROAT CLOSED Penicillins [PENICILLINS] Allergy (Intermediate, Verified 05/25/24 15:16) HIVES pollen extracts [POLLEN] Allergy (Intermediate, Verified 05/25/24 15:16) RASH From KEFLEX Allergy (Severe, Uncoded 05/25/24 15:16) HIVES Medication List - Last Reconciled 05/25/24 by REYNALDO Bates amlodipine 2.5 mg PO DAILY 90 days ammonium lactate 12% appl topical BID aspirin 81 mg PO DAILY 90 days baclofen 10 mg PO TID 30 days blood sugar diagnostic (Taykey Ultra Test strips) USE TO TEST ONCE DAILY blood-glucose meter (Taykey Ultra2 Meter kit) As directed cholestyramine-aspartame 4 gram (Cholestyramine Light) 4 grams PO BID 30 days cyclobenzaprine 10 mg PO TID PRN dorzolamide-timolol 22.3-6.8 mg/mL 1 drp ophthalmic (eye) famotidine 40 mg PO DAILY PRN ibuprofen 600 mg PO Q8H PRN lancets (RustoriaTouch Delica Plus Lancet) USE 1 LANCET ONCE A DAY latanoprost 0.005% 1 drp ophthalmic (eye) BEDTIME lidocaine 5% 1 patch topical DAILY lisinopril 40 mg PO DAILY 30 days metformin 850 mg PO BID 90 days metoclopramide HCl (Reglan) 5 mg PO .tidac oxybutynin chloride ER 10 mg PO BID 90 days pantoprazole 40 mg PO DAILY rosuvastatin 5 mg PO DAILY 90 days HPI Comments Details: Right-handed 68-yr-old female presents for new pt evaluation of headache disorder. Pt is accompanied by her dtr. Pt reports she started having headaches at age 17 when she was accident struck in the head by a ball of hardened dough (that was being thrown around by some staff at a bakery she was walking by)- she did have dizziness but went onto school, but had to leave when she realized she could not do her math test. She never received tx for this. The headaches worsened over the next couple of years, the headaches worsened. Earlier this year, pt was having very frequent headaches, but once her lisinopril dose was increased, her headaches decreased to one day a week. Dtr notes that pt's BP tends to higher the day after pt has a headache. PMH and ROS are notable for:? General: left eye glaucoma, blurry vision, dysphagia. Musculoskeletal disorders or injury: some neck tightness, tingling in her fingers and toes. difficulty walking s/p right knee surgery. History of concussion/head injury: as above Mood d/o: Anxiety, Depression, CV disease: HTN HLD Endocrine or metabolic d/o: Diabetes : hy/oi kidney stones GI d/o: GERD Family history of migraine or other headache disorder: dtr has menstrual BETANCOURT. Pertinent denials include: Sleep d/o, Respiratory d/o, Clotting or hematology d/o, History of seizure, syncope, or drop attacks, Constipation, Lifestyle considerations: Sleep routine: Usual bedtime: 10pm and wake-up time: 7am Sleep difficulties: some fragmented sleep, nocturia, Snoring Caffeine use: 1 cups per day Substance use: Denies any use of Tobacco, Marijuana, Alcohol Exercise:?none Employment:?n/a Headache questionnaire:? Typical headache characteristics: Prodrome symptoms: Denies Aura: denies Pain intensity: begins moderate and becomes severe Location, quality, characteristics: Right sounding throbbing/pounding. Associated symptoms: photophobia, phonophobia, nausea, a little off-balnce, activity intolerance, Postdrome: denies Triggers: denies Time of day: No specific time of day- but headache can come early in the day and then come back later in the day Duration and Frequency: states 1 hr with tx and rest, 2 hrs w/o tx but w/ rest, but returns later in the day. 1-2 days per week. How does headache impact your life? has to lay down. Current acute medication use/interventions: Using Ibuprofen 200-400mg 2 x's per day. Current preventative medication use: none. Non-pharmacological interventions: rest She has an order for metoclopramide for GI s/s, but she never tried it as she had not had GI work-up. 12/26/23, MR/MR head/brain wo con IMPRESSION: 1. No acute intracranial abnormality. 2. Mild to moderate chronic white matter microangiopathy and mild generalized cerebral volume loss. 3. 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 [facility] Medical History Well woman exam Elevated hemoglobin Viral gastroenteritis Hospital discharge follow-up COVID-19 Gastroparesis Chronic diarrhea Post-menopausal Hearing loss in right ear Obese Dry skin Ear congestion Long-term use of aspirin therapy Urge urinary incontinence GERD (gastroesophageal reflux disease) Essential hypertension Glaucoma Diabetes mellitus Surgical History History of colonoscopy Tubal ligation status History of knee replacement procedure of right knee History of cholecystectomy H/O arthroscopy of right knee History of nasal surgery History of Family History Father Cancer Mother Hypertension Social History Housing: House Alcohol intake: current Alcohol intake frequency: holidays/special occasions only Alcohol type: wine Patient Tobacco Use Status: Never used Tobacco e-Cigarette/Vaping Use: Never Used Second Hand Smoke Exposure: No service: No Current occupational status: retired Cognitive needs: No Hearing needs: No Vision needs: No Female Reproductive History Menstrual Age of Menarche: 11 Physical Exam Vital Signs: Last Vital Signs BP 126/72 05/25/24 14:51 BMI result Body Mass Index 30.3 Const Orientation/consciousness: patient oriented x3 Resp Effort & Inspection: normal respiratory effort and able to speak in complete sentences Neuro Other: No palpable scalp tenderness. Mild forward head posture. Bilateral cervical muscle tightness. General: patient oriented x3 Cranial nerves: Yes CN's II-XII intact bilaterally Cognition (Neuro): normal cognition Gait exam (Neuro): Antalgic gait present Motor exam (neuro): 5/5 motor strength present throughout Deep tendon reflexes (DTR's): Right triceps reflex intensity grade: 2+, Left triceps reflex intensity grade: 2+, Rt Biceps (C5, C6): 2+, Left biceps reflex intensity grade: 2+, Right brachioradialis reflex intensity grade: 2+, Left brachioradialis reflex intensity grade: 2+, Right patellar reflex intensity grade: 1+ and Left patellar reflex intensity grade: 2+ Coordination: [id number] test normal and Romberg test negative Pupils: Normal pupillary reactivity/response: bilateral Psych Appearance: grossly normal Mental Status: mental status grossly normal Speech and movement: Normal speech and movement present Affect: normal affect Attitude: cooperative Thought process: Normal thought process present Assessment & Plan Assessment & Plan (1) Migraine without aura: Code(s): G43.009 - Migraine without aura, not intractable, without status migrainosus Category: Medical (2) Neck muscle spasm: Code(s): M62.838 - Other muscle spasm Category: Medical (3) Atlanto-occipital malformation: Comment: Brain MRI 2023: Stable appearance of the craniocervical junction with atlantooccipital assimilation and mild basilar invagination with indentation of the cervicomedullary junction. Code(s): Q76.49 - Other congenital malformations of spine, not associated with scoliosis Category: Medical Plan Pt advised to undergo: XR c-spine w/ flex/ext to better assess for atlanto-occipital instability. PT eval & tx. Future considerations: HST. For overall headache management: Optimize good self-care, including but not limited to maintaining a healthy diet, adequate fluid intake, adequate sleep, and engaging in regular physical activity. Track headaches, especially after any treatment regimen changes. Track BP on day of and day after migraine attacks to see if there is a relationship between the two. For acute headache treatment: Discussed importance of taking acute medications at the first sign of headache, however stressed importance of avoiding acute medication overuse (especially with combined headache medications). Trial Rimegepant ODT (Nurtec ODT) 75mg, 1 tab at onset of headache.. Max of 1 tabs (75mg) per 24 hours. May adjunct with OTC Tylenol 650-1000mg q 4-6 hours. Potential adverse effects, include but are not limited to fatigue, nausea, dry mouth, constipation. Would limit NSAID use d/t HTN. Previous acute migraine medication trials: Ibuprofen. Acute migraine medication contraindications: All triptans and DHE d/t HTN, HLD. For headache prevention medication: Preventative medications should be taken routinely as prescribed for best effect, it may take several weeks for full effect to take effect. Pt preference is for more conservative tx approach at this time. Start Riboflavin 400mg qam Start Magnesium 400mg qhs- hold for loose stools. Continue Lisinopril 40mg qd- ordered primarily for HTN. Previous migraine prevention medication trials: none other Migraine prevention medication contraindications: Topiramate d/t h/o kidney stones. Will follow-up upon review of above and patient to follow-up in clinic in 6 months or sooner prn. Orders: Orders XR cervical spine w flex/ext Today M54.2 - Cervicalgia PT Evaluation and Treatment Today G43.009 - Migraine without aura, not intractable, without status migrainosus, M62.838 - Other muscle spasm, Q76.49 - Other congenital malformations of spine, not associated with scoliosis Medications: New riboflavin (vitamin B2) 400 mg PO DAILY 30 days 30 tabs 6RF rimegepant (Nurtec ODT) 75 mg PO ONCE 30 days PRN 16 tabs 3RF migraine headache MDD 1 tab magnesium oxide may hold for loose stools 400 mg PO BEDTIME 30 days 30 tabs 6RF Coding Level of Care Code New Pt Level 4 (10137) Diagnoses Migraine without aura G43.009 Neck muscle spasm M62.838 Atlanto-occipital malformation Q76.49
[2024-05-25 14:51] VITALS: BP 126/72; BMI 30.3
== END 2024-05-25 16:32 | disposition home or self-care (01) ==
PROVIDERS: PCP Internal Medicine; Visit Provider Nurse Practitioner Family
DX: G43.009 Migraine without aura, not intractable, without status migrainosus (principal); M62.838 Other muscle spasm; Q76.49 Other congenital malformations of spine, not associated with scoliosis
CPT/HCPCS: 99204

== ENCOUNTER → 2024-05-25 14:45 | Outpatient (BNVA) | payer OTHER, SELFPAY | PROVIDERS: PCP Internal Medicine; Visit Provider Nurse Practitioner Family | DX: G43.009 Migraine without aura, not intractable, without status migrainosus (principal); M62.838 Other muscle spasm; Q76.49 Other congenital malformations of spine, not associated with scoliosis | CPT/HCPCS: 99202 ==

== ENCOUNTER → 2024-05-28 10:04 | Outpatient (BNVA) | payer OTHER, SELFPAY | PROVIDERS: PCP Internal Medicine; Visit Provider Nurse Practitioner ==

== ENCOUNTER 2024-07-09 08:19 | Day surgery (SDC) | payer OTHER, SELFPAY ==
[2024-07-07 16:13] VITALS: BMI 28.9
--- NOTE | 2024-07-08 09:36 | HO.ANESPROP2 ---
Documented by User: Anayeli Addison NP 07/08/24 09:37 HPI - Anesthesia Eval Consult details Narrative: 69yo F for Upper Endoscopy and Colonoscopy PMF Active Problems Active Problems: All Active Problems Atlanto-occipital malformation (Acute) Migraine without aura (Acute) Elevated hemoglobin (Acute) Atelectasis (Acute) Dry mouth (Acute) Persistent headaches (Acute) Neck muscle spasm (Acute) Adverse effect of anticholinergic (Acute) Hyperlipidemia LDL goal <70 (Acute) Tubular adenoma of colon (Acute) Breast pain, left (Acute) Nocturia (Acute) Post-cholecystectomy syndrome (Acute) Gastroparesis (Acute) Chronic diarrhea (Acute) Overactive bladder (Acute) Pain of back and lower extremity (Acute) Post-menopausal (Acute) Hearing loss in right ear (Acute) Obese (Acute) Dry skin (Acute) Urge urinary incontinence (Acute) GERD (gastroesophageal reflux disease) (Acute) Essential hypertension (Acute) Long-term use of aspirin therapy (Acute) Diabetes mellitus (Acute) Past Medical History Medical History Adult general medical exam Ear congestion Well woman exam Viral gastroenteritis Hospital discharge follow-up Elevated hemoglobin COVID-19 Gastroparesis Chronic diarrhea Post-menopausal Hearing loss in right ear Obese Dry skin Long-term use of aspirin therapy Urge urinary incontinence GERD (gastroesophageal reflux disease) Essential hypertension Glaucoma Diabetes mellitus Family History Family History Father Cancer Mother Hypertension Surgical History Surgical History History of colonoscopy Tubal ligation status History of knee replacement procedure of right knee History of cholecystectomy H/O arthroscopy of right knee History of nasal surgery History of Social History Social History Housing: House Are you a primary transition of care specialist to a significant other at home: No Do you presently have visiting nurse or other home services: No Alcohol intake: current Alcohol intake frequency: holidays/special occasions only Alcohol type: wine Patient Tobacco Use Status: Never used Tobacco e-Cigarette/Vaping Use: Never Used Second Hand Smoke Exposure: No service: No Current occupational status: retired Cognitive needs: No Hearing needs: No Vision needs: No Meds Allergies Allergy/AdvReac Type Severity Reaction Status Date / Time chlorzoxazone Allergy Intermediate RASH/SWELLING, Verified 05/28/24 10:16 [From Parafon Forte DSC] rash Iodinated Contrast Media Allergy Intermediate THROAT Verified 05/28/24 10:16 [IV Dye, Iodine Containing] CLOSED Penicillins [PENICILLINS] Allergy Intermediate HIVES Verified 05/28/24 10:16 pollen extracts [POLLEN] Allergy Intermediate RASH Verified 05/28/24 10:16 From KEFLEX Allergy Severe HIVES Uncoded 05/28/24 10:16 Home Medications ?Medication ?Instructions ?Recorded ?Confirmed ?Last Taken ?Type latanoprost 0.005 % eye drops 1 drp ophthalmic (eye) BEDTIME 05/09/20 05/25/24 Unknown History ammonium lactate 12 % topical cream appl topical BID 02/22/21 05/25/24 Unknown History dorzolamide 22.3 mg-timolol 6.8 1 drp ophthalmic (eye) 10/10/22 05/25/24 Unknown History mg/mL eye drops Exam Height,Weight and Vital Signs: Height 4 ft 11 in Weight 64.864 kg Assessment and Plan Assessment Anesthesia Assessment: Chart Reviewed Documented by User: Terrie Stratton MD 07/09/24 09:00 [facility] Past Medical History Medical History Adult general medical exam Ear congestion Well woman exam Viral gastroenteritis Hospital discharge follow-up Elevated hemoglobin COVID-19 Gastroparesis Chronic diarrhea Post-menopausal Hearing loss in right ear Obese Dry skin Long-term use of aspirin therapy Urge urinary incontinence GERD (gastroesophageal reflux disease) Essential hypertension Glaucoma Diabetes mellitus Family History Family History Father Cancer Mother Hypertension Surgical History Surgical History History of colonoscopy Tubal ligation status History of knee replacement procedure of right knee History of cholecystectomy H/O arthroscopy of right knee History of nasal surgery History of History of Problems with Anesthesia: No Social History Social History Housing: House Are you a primary transition of care specialist to a significant other at home: No Do you presently have visiting nurse or other home services: No Alcohol intake: current Alcohol intake frequency: holidays/special occasions only Alcohol type: wine Patient Tobacco Use Status: Never used Tobacco e-Cigarette/Vaping Use: Never Used Second Hand Smoke Exposure: No service: No Current occupational status: retired Cognitive needs: No Hearing needs: No Vision needs: No Meds Allergies Allergy/AdvReac Type Severity Reaction Status Date / Time chlorzoxazone Allergy Intermediate RASH/SWELLING, Verified 05/28/24 10:16 [From Parafon Forte DSC] rash Iodinated Contrast Media Allergy Intermediate THROAT Verified 05/28/24 10:16 [IV Dye, Iodine Containing] CLOSED Penicillins [PENICILLINS] Allergy Intermediate HIVES Verified 05/28/24 10:16 pollen extracts [POLLEN] Allergy Intermediate RASH Verified 05/28/24 10:16 From KEFLEX Allergy Severe HIVES Uncoded 05/28/24 10:16 Home Medications ?Medication ?Instructions ?Recorded ?Confirmed ?Last Taken ?Type latanoprost 0.005 % eye drops 1 drp ophthalmic (eye) BEDTIME 05/09/20 05/25/24 Unknown History ammonium lactate 12 % topical cream appl topical BID 02/22/21 05/25/24 Unknown History dorzolamide 22.3 mg-timolol 6.8 1 drp ophthalmic (eye) 10/10/22 05/25/24 Unknown History mg/mL eye drops Exam Airway Mallampati Class: II TM Dist: >3cm Neck ROM: Full Loose/Missing/Broken Teeth: No Heart: RRR Lungs: CTA Assessment and Plan Assessment Anesthesia Assessment: Anesthesia Plan Discussed Final Anesthetic Review History of Problems with Anesthesia: No NPO: Yes ASA Class: II Final Preanesthetic Review: Meds/Allgs Chart Reviewed, Consent Obtained/Reviewed and Anes Risks/Benef Reviewed Patient Risk: Low Procedure Risk: Intermediate Anesthetic Plan Anesthetic Plan: MAC: Disposition: Standard PACU
[2024-07-09] MEDS: Lactated Ringers 1,000 ML 100 ML IVCONT (08:31)
--- NOTE | 2024-07-09 08:40 | MHC.SHP ---
Pre-Procedural Eval Section A - 24 Hr Update-Section A only Date of Service: 07/09/24 Section B - Complete if H&P > 30 days Chief Complaint: gerd,screening Details of Present Illness: see H&P no changes Relevant Family History (Specify if Yes): No Relevant Social History: None Present Medications: see Short Stay Collaborative assessment Medical History: No relevant PMH History of Previous Operations: No relevant previous surgery Allergies: Allergies Allergy/AdvReac Type Severity Reaction Status Date / Time chlorzoxazone Allergy Intermediate RASH/SWELLING, Verified 05/28/24 10:16 [From Parafon Forte DSC] rash Iodinated Contrast Media Allergy Intermediate THROAT Verified 05/28/24 10:16 [IV Dye, Iodine Containing] CLOSED Penicillins [PENICILLINS] Allergy Intermediate HIVES Verified 05/28/24 10:16 pollen extracts [POLLEN] Allergy Intermediate RASH Verified 05/28/24 10:16 From KEFLEX Allergy Severe HIVES Uncoded 05/28/24 10:16 Review of Systems Sugical H&P ROS: Negative: Constitution, Cardiovascular, Respiratory, Neurological, Psychiatric, Hem-Onc, Allergic/Immunologic, Gastrointestinal, Genitourinary, Musculoskeletal, Integumentary, Endocrine and Eyes/Ears/Nose/Throat Exam Surgical H&P Exam: Normal: HEENT, Normal: Heart, Normal: Lungs, Normal: Extremities, Normal: Abdomen, Normal: Skin and Normal: Neurological Plan Diagnosis/Plan: Unchanged I have reviewed the history and physical and performed a pertinent physical examination on my patient. No changes have occurred unless specified. Time Spent With Patient Time: Total time managing care of this patient today ____ minutes.
[2024-07-09 08:43] VITALS: BP 120/78; PULSE 79; RESP 18; TEMP 36.7; O2SAT 97
[2024-07-09 08:45] VITALS: BMI 28.1
[2024-07-09 08:49] LABS: Glucose, Whole Blood 135 mg/dL (60-115)
[2024-07-09 09:29] VITALS: BP 95/52; PULSE 65; RESP 12; TEMP 36.6; O2SAT 97
[2024-07-09 09:44] VITALS: BP 114/69; PULSE 65; RESP 16; TEMP 36.6; O2SAT 97
--- NOTE | 2024-07-09 09:50 | OP_ITS ---
DATE OF SERVICE: 07/09/2024 SURGEON: Balta Crowe MD INDICATIONS: 1. Gastroesophageal reflux disease. 2. Colon cancer screening. PREOPERATIVE DIAGNOSIS: POSTOPERATIVE DIAGNOSIS: PROCEDURE PERFORMED: Upper endoscopy with biopsy, colonoscopy to the terminal ileum with snare polypectomy and biopsy. ESTIMATED BLOOD LOSS: COMPLICATIONS: ANESTHESIA: Monitored anesthesia care. ASSISTANTS: SPECIMENS: DESCRIPTION OF PROCEDURE: A history and physical was performed. The risks and benefits of the procedure were explained to the patient. Informed consent was obtained. The patient was placed in the left lateral decubitus position. The Olympus video gastroscope was introduced into the esophagus, stomach, and duodenum. Examination was performed. The scope was removed. She was repositioned for colonoscopy. A digital rectal exam was performed and was found to be normal. The Olympus pediatric video colonoscope was introduced into the rectum and advanced to the cecum. The cecum was identified by transillumination, palpation, and identification of ileocecal valve. Examination was performed. The scope was removed. She tolerated the procedure well and was returned to the recovery area in stable condition. FINDINGS: Upper endoscopy: 1. Esophagus: The esophagus was normal. There was an irregular EG junction. This was biopsied. There was no esophagitis. 2. Stomach: The stomach showed no evidence of masses, ulcers, or polyps. Antral biopsies were obtained to rule out H pylori. 3. Duodenum: The bulb and second portion were normal. Colonoscopy: The terminal ileum was examined and appeared normal. The visualized colonic mucosa was within normal limits without evidence of masses or ulcers. A less than 5 mm sessile polyp in the cecum was removed with a biopsy forceps. In the right colon was a 6 mm polyp, which was removed with a hot snare and recovered via suction. In the descending/sigmoid at 35 cm was a 6 mm polyp, which was removed with a snare. This polyp could not be recovered. Retroflexed examination showed small to moderate-sized internal hemorrhoids. IMPRESSION: 1. Gastroesophageal reflux disease. 2. Colon polyps. RECOMMENDATION: Follow up the biopsy results. MD OH Cheng/MARGARITA / [phone]
== END 2024-07-09 10:36 | disposition home or self-care (01) ==
PROVIDERS: PCP Internal Medicine; Visit Provider Internal Medicine Gastroenterology
PROC: (CPT 45385; principal; 2024-07-09 10:00)
DX: Z12.11 Encounter for screening for malignant neoplasm of colon (principal); D12.0 Benign neoplasm of cecum; D12.2 Benign neoplasm of ascending colon; K64.8 Other hemorrhoids; Z86.0101 Personal history of adenomatous and serrated colon polyps; K22.89 Other specified disease of esophagus; K21.9 Gastro-esophageal reflux disease without esophagitis; E11.9 Type 2 diabetes mellitus without complications; I10 Essential (primary) hypertension; Z79.82 Long term (current) use of aspirin; Z79.84 Long term (current) use of oral hypoglycemic drugs; Z79.02 Long term (current) use of antithrombotics/antiplatelets; Z79.899 Other long term (current) drug therapy
CPT/HCPCS: 45385; 45380; 43239; 82947; 88305; 88313; 88342; J2003; J2704

== ENCOUNTER 2024-08-16 13:50 | Outpatient (AMB) | payer MEDICARE, MEDICAID, SELFPAY ==
--- NOTE | 2024-08-16 13:57 | A.OFFPC_ITS ---
Vital Signs 08/16/24 13:58 Height 4 ft 11 in Weight 142 lb BMI 28.7 BP 108/70 Blood Pressure Location Lt brachial Position Sitting Intake Visit Reasons: 4 month follow up DM Intake Note: Patient here for a 4 month follow up DM Christmas Bell Ringer Required: No Accompanied by: Self / Same As Patient Allergies chlorzoxazone [From Parafon Forte DSC] Allergy (Intermediate, Verified 08/16/24 14:20) RASH/SWELLING, rash Iodinated Contrast Media [IV Dye, Iodine Containing] Allergy (Intermediate, Verified 08/16/24 14:20) THROAT CLOSED Penicillins [PENICILLINS] Allergy (Intermediate, Verified 08/16/24 14:20) HIVES pollen extracts [POLLEN] Allergy (Intermediate, Verified 08/16/24 14:20) RASH From KEFLEX Allergy (Severe, Uncoded 08/16/24 14:20) HIVES Medication List - Last Reconciled 08/16/24 by Melvi Lawrence MD amlodipine 2.5 mg PO DAILY 90 days ammonium lactate 12% appl topical BID aspirin 81 mg PO DAILY 90 days baclofen 10 mg PO TID 30 days blood sugar diagnostic (HItviews Ultra Test strips) USE TO TEST ONCE DAILY blood-glucose meter (HItviews Ultra2 Meter kit) As directed cholestyramine-aspartame 4 gram (Cholestyramine Light) 4 grams PO BID 30 days cyclobenzaprine 10 mg PO TID PRN dorzolamide-timolol 22.3-6.8 mg/mL 1 drp ophthalmic (eye) famotidine 40 mg PO DAILY PRN ibuprofen 600 mg PO Q8H PRN lancets (PenboostTouch Delica Plus Lancet) USE 1 LANCET ONCE A DAY latanoprost 0.005% 1 drp ophthalmic (eye) BEDTIME lidocaine 5% 1 patch topical DAILY lisinopril 40 mg PO DAILY 30 days magnesium oxide 400 mg PO BEDTIME 30 days metformin 850 mg PO BID 90 days metoclopramide HCl (Reglan) 5 mg PO .tidac oxybutynin chloride ER 10 mg PO BID 90 days pantoprazole 40 mg PO DAILY riboflavin (vitamin B2) 400 mg PO DAILY 30 days rimegepant (Nurtec ODT) 75 mg PO ONCE PRN 30 days MDD 1 tab rosuvastatin 5 mg PO DAILY 90 days Tobacco use date assessed: 08/16/24 Fall risk assessment: No Falls in past year Last assessed Fall Risk: 08/16/24 Dental Screening Dental Screen Date: 08/16/24 Did you have a dental visit in the last 12 months?: No Did you have a dental problem in the last 6 months where you did not have access to dental care?: No Was dental information given to patient?: Patient has dentist HPI HPI Comments History of Present Illness Details The patient is a 69-year-old female presenting with a follow-up visit for management of type 2 diabetes mellitus, hypertension, GERD, and hyperlipidemia. She reports previous treatment with oral hypoglycemic agents, noting her most recent glycated hemoglobin (A1c) level was 6.4%, improved from 6.7% previously. She has hypertension managed with amlodipine and lisinopril but reports a lapse in medication access due to insurance issues. Her last cholesterol panel showed well-controlled levels with an LDL of 40 mg/dL on rosuvastatin 5 mg. She experiences chronic diarrhea, typically managed with cholestyramine powder, but notes she is not currently taking it. Gastroesophageal reflux disease is treated with pantoprazole, although she has experienced sensitivity in her stomach recently. Urinary incontinence is managed with oxybutinin, which she describes taking irregularly due to disrupted sleep patterns. The patient also discusses a history of migraines, previously treated but complicated by a lack of insurance. She reports an increased frequency of nausea but confirms normal gastroenterology evaluations. Environmental allergies include pollen, and drug allergies include chlorzoxazone, contrast agents, penicillin, and Keflex. There is no current availability of medical coverage, resulting in difficulties maintaining medication regimens and follow-up plans. [facility] Medical History Adult general medical exam Ear congestion Well woman exam Viral gastroenteritis Hospital discharge follow-up Elevated hemoglobin COVID-19 Gastroparesis Chronic diarrhea Post-menopausal Hearing loss in right ear Obese Dry skin Long-term use of aspirin therapy Urge urinary incontinence GERD (gastroesophageal reflux disease) Essential hypertension Glaucoma Diabetes mellitus Surgical History History of colonoscopy Tubal ligation status History of knee replacement procedure of right knee History of cholecystectomy H/O arthroscopy of right knee History of nasal surgery History of Family History Father Cancer Mother Hypertension Social History Housing: House Are you a primary career development coordinator/teacher to a significant other at home: No Do you presently have visiting nurse or other home services: No Alcohol intake: current Alcohol intake frequency: holidays/special occasions only Alcohol type: wine Patient Tobacco Use Status: Never used Tobacco e-Cigarette/Vaping Use: Never Used Second Hand Smoke Exposure: No service: No Current occupational status: retired Cognitive needs: No Hearing needs: No Vision needs: No Female Reproductive History Menstrual Age of Menarche: 11 Questionnaire PHQ-9 Over the last 2 weeks, how often have you been bothered by any of the following problems? 1. Little interest or pleasure in doing things: not at all 2. Feeling down, depressed, or hopeless: not at all 3. Trouble falling or staying asleep, or sleeping too much: not at all 4. Feeling tired or having little energy: not at all 5. Poor appetite or overeating: not at all 6. Feeling bad about yourself - or that you are a failure or have let yourself or your family down: not at all 7. Trouble concentrating on things, such as reading the newspaper or watching television: not at all 8. Moving or speaking so slowly that other people could have noticed. Or the opposite - being so fidgety or restless that you have been moving around a lot more than usual: not at all 9. Thoughts that you would be better off or of hurting yourself in some way: not at all Total score: 0 Depression Screening Interpretation: Negative Depression Screening Done: Yes 76420 - PHQ-9 Billing: Yes Source: Developed by Drs. Travon Rosales, Toña Wood, Francisco Marie and colleagues, with an educational yu from [employer]. Thrive Questionnaire Date Thrive assessed: 08/16/24 I am a: Patient What is your living situation today?: I have a steady place to live Within the past 12 months, did the food you bought not last and you didn't have the money to get more?: Never true Within the past 12 months, did you worry whether your food would run out before you got money to buy more?: Never true Do you have trouble paying for medicines?: No Do you have trouble getting transportation to medical appointments?: No Do you have trouble paying your heating and electricity bill?: No Do you have trouble taking care of your child, family member or friend?: No Do you have trouble with day-to-day activities such as bathing, preparing meals, shopping, managing finances, etc.?: No Are you currently unemployed and looking for a job?: No Are you interested in more education?: No Please select the resources that you would like help with: None Currently or been in a relationship where the following occur: No concerns reported THRIVE Score: 0 AUDIT C Alcohol Use Questionnaire (AUDIT-C) 1. How often do you have a drink containing alcohol?: Monthly or less 2. How many drinks containing alcohol do you have on a typical day when you are drinking?: 1 or 2 3. How often do you have six or more drinks on one occasion?: Never Total Score: 1 Score Reviewed/Action Taken: No DIANE-7 AMB Questionnaire DIANE-7 Date DIANE - 7 assessed: 08/16/24 Feeling nervous, anxious, or on edge: 0 = Not at all Not being able to stop or control worryin = Not at all Worrying too much about different things: 0 = Not at all Trouble relaxin = Not at all Being so restless that it is hard to sit still: 0 = Not at all Becoming easily annoyed or irritable: 0 = Not at all Feeling afraid as if something awful might happen: 0 = Not at all Total DIANE-7 score (0-4 normal; 5-9 mild; 10-14 moderate; 15-21 severe): 0 Source: Developed by Drs. Travon Rosales, Toña Wood, Francisco Marie and colleagues, with an educational yu from [employer]. DIANE-7 Assessment Billing DIANE-7 Assessment Tool: DIANE-7 Assessment 78767 Review of Systems Const All systems reviewed & are unremarkable except as noted in HPI and below Card Denies chest pain at rest, Denies chest pain with activity, Denies edema, Denies irregular heart rhythm, Denies claudication, Denies dyspnea, Denies dyspnea on exertion, Denies orthopnea, Denies paroxysmal nocturnal dyspnea and Denies slow heart rate Resp Denies cough, Denies dyspnea and Denies dyspnea on exertion GI Denies abdominal pain, Denies change in bowel habits, Denies excessive flatus, Denies nausea and Denies vomiting Neuro Denies behavioral changes and Denies lack of coordination Psych Denies behavioral changes Physical exam (Primary Care) Vital Signs: Last Vital Signs BP 108/70 08/16/24 13:58 BMI result Body Mass Index 28.7 Tobacco/Smoking Status: Tobacco use Status Tobacco use date assessed 08/16/24 08/16/24 14:07 Patient Tobacco Use Status Never used Tobacco 08/16/24 14:07 e-Cigarette/Vaping Use Never Used 08/16/24 14:07 PHQ-9: PHQ-9 Score PHQ-9: Total score 0 08/16/24 14:21 Depression Screening Interpretation: Negative Thrive Assessment: Date of Thrive Assessment Date Thrive assessed 08/16/24 08/16/24 14:07 Currently or been in a relationship where the following occur: No concerns reported Resp Effort & Inspection: normal respiratory effort Auscultation: clear to auscultation bilaterally Cardio Jugular venous distension: no JVD Rate: regular rate Rhythm: regular rhythm Heart sounds: S1 normal heart sound present and S2 normal heart sound present Extrem General: Yes full ROM Office Procedures Flu Questionnaire Does the patient have a severe egg allergy?: No Results AMB Hemoglobin A1c AMB Hemoglobin A1c 6.4 % Last Edit by YOUSIF Aguilar on 08/16/24 14:2 2 Immunizations Fluarix Triv [id number] (PF) 45 mcg (15 mcg x 3)/0.5 mL IM syringe Performing Provider: Melvi Lawrence MD [facility] Documented (not given) by: YOUSIF Aguilar on 08/16/24 14:21 Reason Not Given: Patient Refused Results Reviewed Results Reviewed: Laboratory Last Values Hgb A1c (Clinic) 6.4 % (4.0-6.0) H 08/16/24 13:56 Coding Level of Care Code Est Pt Level 4 (37726) Complex EM visit Add On G2211 Diagnoses Type 2 diabetes mellitus with hyperglycemia, without long-term current use of insulin E11.65 Diabetes mellitus type: type 2 Diabetes mellitus intermediate teacher insulin use: without intermediate teacher use Diabetes mellitus complication status: with hyperglycemia Essential hypertension I10 Gastroesophageal reflux disease, unspecified whether esophagitis present K21.9 Esophagitis presence: esophagitis presence not specified Hyperlipidemia LDL goal <70 E78.5 Additional Codes DIANE-7 Assessment Billing - DIANE-7 Assessment Tool: DIANE-7 Assessment 49906 ([id number]) PHQ-9 - 01003 - PHQ-9 Billing: Yes ([id number]) Time Spent (min) 22 Assessment & Plan Assessment & Plan (1) Diabetes mellitus: Code(s): E11.9 - Type 2 diabetes mellitus without complications Category: Medical Qualifiers: Diabetes mellitus type: type 2 Diabetes mellitus penitentiary insulin use: without intermediate teacher use Diabetes mellitus complication status: with hyperg lycemia Qualified Code(s): E11.65 - Type 2 diabetes mellitus with hyperglycemia (2) Essential hypertension: Code(s): I10 - Essential (primary) hypertension Category: Medical (3) GERD (gastroesophageal reflux disease): Code(s): K21.9 - Gastro-esophageal reflux disease without esophagitis Category: Medical Qualifiers: Esophagitis presence: esophagitis presence not specified Qualified Code(s): K21.9 - Gastro-esophageal reflux disease without esophagitis (4) Hyperlipidemia LDL goal <70: Code(s): E78.5 - Hyperlipidemia, unspecified Category: Medical Plan - Evaluate current medication regimen for diabetes to ensure optimal glycemic control. - Adjust antihypertensive therapy to stabilize blood pressure, considering recent medication lapses. - Continue rosuvastatin for hyperlipidemia management with periodic lipid panel monitoring. - Address chronic diarrhea by considering reintroduction of cholestyramine or alternative therapies. - Reinforce consistent use of pantoprazole for GERD symptoms, seeking potential dietary triggers. - Assess necessity for migraine treatment modification pending insurance reinstatement. - Discuss alternative strategies for managing urinary incontinence to minimize sleep disturbances. Patient was informed and verbally consented to the use of an ambient scribe for clinic note documentation during this visit. During our discussion, I emphasized the importance of adherence to current medications and addressed potential barriers, including insurance challenges. We reviewed the benefits and risks of each prescribed medication, particularly in managing chronic conditions like diabetes, hypertension, and hyperlipidemia. I advised the patient to contact her insurance provider to resolve coverage issues and revisit therapy adjustments as needed. We discussed the management challenges related to urinary incontinence and GERD, addressing possible dietary influences. I encouraged open communication regarding changes in symptoms or adherence difficulties, emphasizing ongoing monitoring of her diabetes, blood pressure, and lipid levels. Orders: Orders Influenza [id number] Immunization Today Z23 - Encounter for immunization AMB Hemoglobin A1c Today E11.65 - Type 2 diabetes mellitus with hyperglycemia Lipid Panel Today E78.5 - Hyperlipidemia, unspecified Microalbumin, Random (w Creat) Today R80.9 - Proteinuria, unspecified Vitamin D 25-OH Total Today E55.9 - Vitamin D deficiency, unspecified Comprehensive [place]. 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 - Follow a balanced diet, avoiding trigger foods that may exacerbate GERD. - Regularly monitor blood glucose and blood pressure at home if possible. - Contact insurance provider to clarify coverage eligibility. - Return for follow-up in November to reassess management plans and lab work. - Report any signs of medication intolerance or worsening symptoms immediately. - Implement lifestyle modifications addressing both migraines and sleep patterns.
[2024-08-16 13:58] VITALS: BP 108/70; BMI 28.7
== END 2024-08-16 14:33 | disposition home or self-care (01) ==
PROVIDERS: PCP Internal Medicine; Visit Provider Internal Medicine
DX: E11.65 Type 2 diabetes mellitus with hyperglycemia (principal); I10 Essential (primary) hypertension; K21.9 Gastro-esophageal reflux disease without esophagitis; E78.5 Hyperlipidemia, unspecified; Z23 Encounter for immunization

== ENCOUNTER → 2024-08-16 13:50 | Outpatient (BNVA) | payer MEDICARE, MEDICAID, SELFPAY | PROVIDERS: PCP Internal Medicine; Visit Provider Internal Medicine | DX: E11.65 Type 2 diabetes mellitus with hyperglycemia (principal); I10 Essential (primary) hypertension; K21.9 Gastro-esophageal reflux disease without esophagitis; E78.5 Hyperlipidemia, unspecified | CPT/HCPCS: 83036; 90471; 96127; 99212 ==

== ENCOUNTER 2024-11-03 13:00 | Outpatient (REF) | payer OTHER, SELFPAY ==
--- OUTSIDE RECORDS SUMMARY | 2024-11-03 15:36 | XMS_ITS ---
Author Organization [facility] Address [address] [place] [address] Care Team Providers Care Assembler Seat Name Role Phone Melvi Paz Primary Care Provider Unavailab Balta Anglin Jr Unavailable Allergies Allergen (clinical drug ingredient) [...] Problem Status W/U Status Risk Notes Problem 982229949 Gastroesophageal reflux disease, unspecified whether esophagitis present (K21.9) Active confirmed Problem 791161053 Colon cancer screening (Z12.11) Active confirmed Vital Signs Temperature 97.5 degrees Fahrenheit 05/31/20 24 Blood pressure systolic 000 mm Hg 05/31/20 24 Blood pressure diastolic 00 mm Hg 024 Height 59 in 05/31/2024 Weight 143 lbs 05/31/2024 BMI 28.88 kg/m2 05/31/2024 Encounters Encounter Location Date Provider Diagnosis [facility] [address] [place] [address] 05/31/2024 Balta Crowe Jr Gastroesophageal reflux disease, [...] AWAIS GRAY VDOB: [birth year] (68 yo F)Acc No.[id number]:05/31/2024 Progress Notes Patient:?AWAIS GRAY V Provider:?Balta Crowe MD :1955???Age:68 Y???Sex:Female D ate:05/31/2024 Address:[address] [place], [place] [id number] Pcp:Melvi Lawrence Subjective: * Chief Complaints: * [...] MD Date:?1 Generated for Immanuel vidal/Jose Antonio/eTransmitting on:?11/03/2024 03:36 PM EDT History and Physical Notes * [...]
--- OUTSIDE RECORDS SUMMARY | 2024-11-03 15:36 | XMS_ITS ---
Author Organization [facility] Address [address] [place] [address] Care Team Providers Care Radar Operator Name Role Phone Melvi Paz Primary Care Provider Unavailab Balta Anglin Jr REASON FOR VISIT pathology Encounters Encounter Location Date Provider Diagnosis [facility] [address] [place] [address] 07/20/2024 Balta Crowe Jr Plan Of Treatment No Information Progress Notes * AWAIS GRAY VDOB: [birth year] (69 yo F)Acc No.[id number]:07/20/2024 Patient:?AWAIS GRAY V :1955???Age:69 Y???Sex:Female Address:[address] [place] [id number] * true * Date:? Generated for Immanuel vidal/Jose Antonio/eTransmitting on:?11/03/2024 03:36 PM EDT
--- OUTSIDE RECORDS SUMMARY | 2024-11-03 15:36 | XMS_ITS | Encounter Summary ---
Author Organization [employer] Address [address] [facility] 7 [place] [address] Care Team Providers Care Manager Hospice Name Role Phone Unavailable Primary Care Provider Unavailabl e Encounter Details Date Type Department Care Team (Latest Contact Info) Description 08/18/2018 Abstract [facility] CON[facility] Dental, Provider, DDS Social History [...]
--- OUTSIDE RECORDS SUMMARY | 2024-11-03 15:37 | XMS_ITS | Encounter Summary ---
Author Organization [employer] Address [address] [facility] 7 [place] [address] Care Team Providers Care Marble Installer Supervisor Name Role Phone Unavailable Primary Care Provider Unavailabl e Encounter Details Date Type Department Care Team (Latest Contact Info) Description 06/17/2022 Abstract [facility] CONVERSIONS Dental, Provider, DDS Social History Tobacco [...]
--- OUTSIDE RECORDS SUMMARY | 2024-11-03 15:37 | XMS_ITS | Patient Health Record ---
Author Organization [facility] Address [address] [place] [address] Care Team Providers Care Green Building Design Specialist Name Role Phone Melvi Paz Primary Care Provider Balta Rosen Jr Unavailable Allergies Allergen (clinical drug ingredient) Drug/Non Drug Allergy documented on EMR Reaction Allergy Type Onset Date Status Parafon Forte DSC Unknown Drug Allergy Active chlorzoxazone Chlorzoxazone Unknown Drug Allergy Active cephalexin Cephalexin Unknown Drug Allergy Activ e IVP dye (uncoded) Unknown Allergy Ac tive Results Component Value Reference Range Notes Glucose, Whole Blood Reviewed date:07/09/2024 02:59:54 PM Interpretation: Performing Lab:[facility], [address] [place] [phone] Notes/Report: Glucose, Whole Blood 135 60-115 mg/dL METER # : [id number] Pathology Reviewed date:07/14/2024 08:33:38 AM Interpretation: Performing Lab:[facility], [address] [place] [phone] Notes/Report: ------ Name: Awais Stout Age/Sex: 69/F : 1955 Unit#: [id number] Attend Dr: Balta Crowe MD Re07/09/24 Status : [facility] Location: [facility] Disch: ------ SPEC : [id number] REC STATUS: SUSANA GUZMÁN NUM: [id number] GRACE: 07/09/[address] [facility] [address]: Balta Crowe MD ENTERED: 07/09/24 53 [...] Awais Stout Age/Sex: 69/F : 1955 Unit#: [id number] Attend Dr: Balta Crowe MD Re07/09/24 Status : [facility] Location: [facility] Disch: ------ SPEC : [id number] RECD : 07/09/24 STATUS: SUSANA GUZMÁN NUM: [id number] GRACE: 07/09/[address] [facility] [address]: Balta Crowe MD ENTERED: 07/09/24- 53 [...] on B1. Copies To: Balta Crowe MD [facility] [address] [place] [address] Melvi Paz MD [facility] [place] Primary Care,[place] [address] [place] [address] ------ Signed (signature on file) Jackelyn [place] 07/12/24 1304 ------ END OF REPORT Pathology Reviewed date:07/20/2024 03:48:54 PM Interpretation: Performing Lab:[facility], [address] [place] [phone] Notes/Report: ------ Name: Bright CorralestadeoAwais branham Age/Sex: 69/F : 1955 Unit#: [id number] Attend Dr: Balta Croew MD Re07/09/24 Status : [facility] Location: [facility] Disch: ------ SPEC : [id number] RECD : 07/09/24 STATUS: SUSANA GUZMÁN NUM: [id number] GRACE: 07/09/[address] [facility] [address]: Balta Crowe MD ENTERED: 07/09/24 53 [...] appropriately. Addendum Signed (signature on file) Jackelyn [place] 07/14/241741 ------ Diagnosis A. Gastric antrum, b [...] Awais Stout Age/Sex: 69/F : 1955 Unit#: [id number] Attend Dr: Balta Crowe MD Re07/09/24 Status : [facility] Location: [facility] Disch: ------ SPEC : [id number] RECD : 07/09/24 STATUS: SUSANA GUZMÁN NUM: [id number] GRACE: 07/09/[address] [facility] [address]: Balta Crowe MD ENTERED: 07/09/24-10 53 [...] on B1. Copies To: Balta Crowe MD [facility] [address] [place] [address] Melvi Paz MD [facility] Primary Care,[place] [address] [place] [address] CONTINUED ON NEXT PAGE ------ Name: Awais Stout Age/Sex: 69/F : 1955 Unit#: [id number] Attend Dr: Balta Crowe MD Re07/09/24 Status : [facility] Location: [facility] Disch: ------ SPEC : [id number] RECD : 07/09/24 STATUS: SUSANA GUZMÁN NUM: [id number] GRACE: 07/09/[address] [facility] [address]: Balta Crowe MD ENTERED: 07/09/24 53 SP TYPE: Surgical OTHR DR: Melvi Paz MD ORDERED: HE Stain/12 , Gross Micro L4/4, IHC, Special st. 2, H. pylori, AB/PAS ------ Signed (signature on file) Jackelyn [place] 07/12/24 1304 ------ END OF REPORT Reason [...] Problem Status W/U Status Risk Notes Problem 607100289 Colon cancer screening (Z12.11) Active confirmed Problem 25212108 Rectal bleeding (K62.5) Active confirmed Problem 563780034 snf curren t use of aspirin (Z79.82) Active confirmed Problem Gastroesophageal reflux disease (535565984) Gastroesophageal reflux disease (K21.9) Active confirmed Problem 183852631 Encounter for long-term (current) use of high-risk medication (Z79.899) Active confirmed Problem 563866404 Gastroesophageal reflux disease, unspecified whether esophagitis present (K21.9) Active confirmed Vital Signs Temperature 97.5 degrees Fahrenheit 05/31/2024 Blood pressure diastolic 00 mm Hg 05/31/2024 Height 59 in 05/31/2024 Blood pressure systolic 000 mm Hg 05/31/2024 Weight 143 lbs 05/31/2024 BMI 28.88 kg/m2 05/31/2024 Encounters Encounter Location Date Provider Diagnosis [facility] Outpatient [address] [place] [phone] 07/09/2024 Balta Crowe Jr Colon cancer screening Z12.11 ; Personal history of colonic polyps Z86.0100 ; Colon polyps K63.5 and Gastroesophageal reflux disease K21.9 [facility] [address] [place] [phone] 05/31/2024 Balta Crowe Jr Gastroesophageal reflux disease, unspecified whether esophagitis present K21.9 and Colon cancer screening Z12.11 [facility] [address] [place] [phone] 01/01/2024 Balta Crowe Jr [facility] [address] [place] [phone] 02/18/2024 Balta rCowe Jr [facility] [address] [place] [phone] 07/20/2024 Balta Hillord Assessments Encounter Date Diagnosis [...] Insured Coverage Start Date Coverage End Date [facility] [address] [address] [place] [phone] [id number] AWAIS GRAY Self - patient is the insured Medical (General) History Medical History History ICD Code Colonoscopy 2019, tubular adenoma, five- year followup glaucoma benign breast biopsy onychomycosis urinary incontinence diabetes mellitus hypertension esophageal reflux Surgical History Surgery Date(Month/Year) right knee replacement
--- OUTSIDE RECORDS SUMMARY | 2024-11-03 15:37 | XMS_ITS | Encounter Summary ---
Author Organization [employer] Address [address] [facility] 7 [place] [address] Care Team Providers Care Geriatric Nurse Assistant Name Role Phone Unavailable Primary Care Provider Unavailabl e Encounter Details Date Type Department Care Team (Latest Contact Info) Description 06/01/2021 Abstract [facility] CONVERSIONS Dental, Provider, DDS Social History Tobacco [...]
--- OUTSIDE RECORDS SUMMARY | 2024-11-03 15:37 | XMS_ITS | Clinical Summary ---
Author Organization [employer] Address [address] [place] [address] 7[address] [place] [address] Care Team Providers Care Bead Cutter Name Role Phone Unavailable Primary Care Provider [...]
--- OUTSIDE RECORDS SUMMARY | 2024-11-03 15:37 | XMS_ITS ---
Author Organization [facility] Address [address] [place] [address] Care Team Providers Care Paper Bag Machine Operator Name Role Phone Melvi Paz Primary Care Provider Balta Rosen Jr REASON FOR VISIT screening,gerd Problems Problem Type SNOMED Code ICD Code Onset Dates Problem Status W/U Status Risk Notes Problem Gastroesophageal reflux disease (783055751) Gastroesophageal reflux disease (K21.9) Active confirmed Encounters Encounter Location Date Provider Diagnosis [facility] Out[place] [address], [place] [phone] 07/09/2024 Balta Crowe Jr Colon cancer screening [...] AWAIS GRAY VDOB: [birth year] (69 yo F)Acc No.[id number]:07/09/2024 EGD and COL/MAC Patient:?AWAIS GRAY V Provider:?Balta Crowe MD :1955???Age:69 Y???Sex:Female D ate:07/09/2024 Address:[address] [place] [address], [facility] Pcp:Melvi Lawrence Subjective: * Chief Complaints: * ???1. Screening,gerd. * Medical History:? Objective: * Vitals:? Assessment: * Assessment: 1.?Colon cancer screening - Z12.11 (Primary)???2.?Personal history of colonic polyps - Z86.0100???3.?Colon polyps - K63.5???4.?Gastroesophageal reflux disease - K21.9??? Plan: * Treatment: * Procedure Codes:?05111 LESIO N REMOVAL COLONOSCOPY, 16841 COLONOSCOPY AND BIOPSY, Modifiers: 58 , 0529F INTRVL 3+YRS PTS CLNSCP DOCD, 45060 UPPER GI ENDOSCOPY, BIOPSY * * The named appointment provid er may or may not be the originator of this progress note, and it is not deemed complete until electronically signed by the appointment provider. Sign off status: Pending * Provider:?Balta Crowe MD Date:?1 09/09/2023 Generated for Immanuel vidal/Jose Antonio/eTransmitting on:?11/03/2024 03:36 PM EDT
== END 2024-11-03 13:01 | disposition home or self-care (01) ==
LOC: HO.MAMMO 13:00
PROVIDERS: PCP Internal Medicine; Visit Provider Internal Medicine
DX: Z12.31 Encounter for screening mammogram for malignant neoplasm of breast (principal)
CPT/HCPCS: 77063; 77067

== ENCOUNTER → 2024-11-03 13:15 | Outpatient (BNV) | payer OTHER, SELFPAY | PROVIDERS: PCP Internal Medicine; Visit Provider Internal Medicine | DX: Z12.31 Encounter for screening mammogram for malignant neoplasm of breast (principal) | CPT/HCPCS: 77063; 77067 ==

== ENCOUNTER 2024-11-23 08:16 | Outpatient (REF) | payer OTHER, SELFPAY ==
--- OUTSIDE RECORDS SUMMARY | 2024-11-23 08:34 | XMS_ITS ---
Author Organization [facility] Address [address] [place] [address] Care Team Providers Care Senior Copywriter Name Role Phone Melvi Paz Primary Care [...] Problem Status W/U Status Risk Notes Problem 945436912 Gastroesophageal reflux disease, unspecified whether esophagitis present (K21.9) Active confirmed Problem 270939099 Colon cancer screening (Z12.11) Active confirmed Vital Signs Temperature 97.5 degrees Fahrenheit 05/31/20 24 Blood pressure systolic 000 mm Hg 05/31/20 24 Blood pressure diastolic 00 mm Hg 024 Height 59 in 05/31/2024 Weight 143 lbs 05/31/2024 BMI 28.88 kg/m2 05/31/2024 Encounters Encounter Location Date Provider Diagnosis [facility] [address] [place] [address] 05/31/2024 Balta Crowe Jr Gastroesophageal reflux disease, [...] AWAIS GRAY VDOB: [birth year] (68 yo F)Acc No.[id number]:05/31/2024 Progress Notes Patient:?AWAIS GRAY V Provider:?Balta Crowe MD :1955???Age:68 Y???Sex:Female D ate:05/31/2024 Address:[address] [place], [place] [phone] Pcp:Melvi Lawrence Subjective: * Chief Complaints: * [...] MD Date:?1 Generated for Immanuel vidal/Jose Antonio/eTransmitting on:?11/23/2024 08:34 AM EDT History and Physical Notes * HPI [...]
--- OUTSIDE RECORDS SUMMARY | 2024-11-23 08:34 | XMS_ITS | Encounter Summary ---
Author Organization [employer] Address [address] [facility] 7 [place] [address] Care Team Providers Care Client Delivery Manager Name Role Phone Unavailable Primary Care Provider Unavailabl e Encounter Details Date Type Department Care Team (Latest Contact Info) Description 08/18/[address] [facility] CONVERSIONS Dental, Provider, DDS Social History [...]
--- OUTSIDE RECORDS SUMMARY | 2024-11-23 08:34 | XMS_ITS ---
Author Organization [facility] Address [address] [place] [address] Care Team Providers Care Extractor Machine Operator Name Role Phone Melvi Paz Primary Care Provider Unavailab Balta Anglin Jr [phone] REASON FOR VISIT pathology Encounters Encounter Location Date Provider Diagnosis [facility] [address] [place] [address] 07/20/2024 Balta Crowe Jr Plan Of Treatment No Information Progress Notes * AWAIS GRAY VDOB: [birth year] (69 yo F)Acc No.[id number]:07/20/2024 Patient:?AWAIS GRAY V :1955???Age:69 Y???Sex:Female Address:[address] [place] [address] * true * Date:? Generated for Alleni young/Jose Antonio/eTransmitting on:?11/23/2024 08:33 AM EDT
--- OUTSIDE RECORDS SUMMARY | 2024-11-23 08:34 | XMS_ITS | Patient Health Record ---
Author Organization [facility] Address [address] [place] [address] Care Team Providers Care Radiological Technician Name Role Phone Melvi Paz Primary [...] Blood Reviewed date:07/09/2024 02:59:54 PM Interpretation: Performing Lab:[facility], [address] [place] [phone] Notes/Report: Glucose, Whole Blood 135 60-115 mg/dL METER # : [id number] Pathology Reviewed date:07/14/2024 08:33:38 AM Interpretation: Performing Lab:[facility], [address] [place] [phone] Notes/Report: ------ Name: Awais Stout Age/Sex: 69/F : 1955 Unit#: [id number] Attend Dr: Balta Crowe MD Re07/09/24 Status : [facility] Location: [facility] Disch: ------ SPEC : [id number] REC STATUS: SUSANA GUZMÁN NUM: [id number] GRACE: 07/09/[address] [facility] [address]: Balta Crowe MD ENTERED: [...] Awais Stout Age/Sex: 69/F : 1955 Unit#: [id number] Attend Dr: Balta Crowe MD Re07/09/24 Status : [facility] Location: [facility] Disch: ------ SPEC : [id number] RECD : 07/09/24 STATUS: SUSANA GUZMÁN NUM: [id number] GRACE: 07/09/[address] [facility] [address]: Balta Crowe MD ENTERED: [...] on B1. Copies To: Balta Crowe MD [facility] [address] [place] [address] Melvi Paz MD [facility] [place] [address] [place] [address] ------ Signed (signature on file) Jackelyn Ringwood 07/12/24 1304 ------ END OF REPORT Pathology Reviewed date:07/20/2024 03:48:54 PM Interpretation: Performing Lab:[facility], [address] [place] [phone] Notes/Report: ------ Name: Bright CorralestadeoAwais branham Age/Sex: 69/F : 1955 Unit#: [id number] Attend Dr: Balta Crowe MD Re07/09/24 Status : [facility] [place]: [facility] Disch: ------ SPEC : [id number] RECD : 07/09/24 STATUS: SUSANA GUZMÁN NUM: [id number] GRACE: 07/09/[address] [facility] [address]: Balta Crowe MD ENTERED: [...] appropriately. Addendum Signed (signature on file) Jackelyn Ringwood 07/14/241741 ------ Diagnosis A. Gastric antrum, b [...] Awais Stout Age/Sex: 69/F : 1955 Unit#: [id number] Attend Dr: Balta Crowe MD Re07/09/24 Status : [facility] Location: [facility] Disch: ------ SPEC : [id number] RECD : 07/09/24 STATUS: SUSANA GUZMÁN NUM: [id number] GRACE: 07/09/[address] [facility] [address]: Balta Crowe MD ENTERED: [...] on B1. Copies To: Balta Crowe MD [facility] [address] [place] [address] Melvi Paz MD [facility] Primary Care,[place] [address] [place] [address] CONTINUED ON NEXT PAGE ------ Name: Awais Stout Age/Sex: 69/F : 1955 Unit#: [id number] Attend Dr: Balta Crowe MD Re07/09/24 Status : [facility] Location: [facility] Disch: ------ SPEC : [id number] RECD : 07/09/24 STATUS: SUSANA GUZMÁN NUM: [id number] GRACE: 07/09/[address] [facility] [address]: Balta Crowe MD ENTERED: 07/09/24 53 SP TYPE: Surgical OTHR DR: Melvi Paz MD ORDERED: HE Stain/12 , Gross Micro L4/4, IHC, Special st. 2, H. pylori, AB/PAS ------ Signed (signature on file) Jackelyn Ringwood 07/12/24 1304 ------ END OF REPORT Reason [...] Problem Status W/U Status Risk Notes Problem 205922827 Colon cancer screening (Z12.11) Active confirmed Problem 61261186 Rectal bleeding (K62.5) Active confirmed Problem 818309085 meterman curren t use of aspirin (Z79.82) Active confirmed Problem Gastroesophageal reflux disease (104284900) Gastroesophageal reflux disease (K21.9) Active confirmed Problem 331686627 Encounter for long-term (current) use of high-risk medication (Z79.899) Active confirmed Problem 161755754 Gastroesophageal reflux disease, unspecified whether esophagitis present (K21.9) Active confirmed Vital Signs Temperature 97.5 degrees Fahrenheit 05/31/2024 Blood pressure diastolic 00 mm Hg 05/31/2024 Height 59 in 05/31/2024 Blood pressure systolic 000 mm Hg 05/31/2024 Weight 143 lbs 05/31/2024 BMI 28.88 kg/m2 05/31/2024 Encounters Encounter Location Date Provider Diagnosis [facility] Out[place] [address] [place] [phone] 07/09/2024 Balta Crowe Jr Colon cancer screening Z12.11 ; Personal history of colonic polyps Z86.0100 ; Colon polyps K63.5 and Gastroesophageal reflux disease K21.9 [facility] [address] [place] [address] 05/31/2024 Balta Crowe Jr Gastroesophageal reflux disease, unspecified whether esophagitis present K21.9 and Colon cancer screening Z12.11 [facility] [address] [place] [address] 01/01/2024 Balta Crowe Jr [facility] [address] [place] [address] 02/18/2024 Balta Crowe Jr [facility] [address] [place] [address] 07/20/2024 Balta Hillord Assessments Encounter Date Diagnosis [...] Insured Coverage Start Date Coverage End Date [facility] [address] [address] [place] [address] [id number] AWAIS GRAY Self - patient is the insured Medical (General) History Medical History History ICD Code Colonoscopy 2019, tubular adenoma, five- year followup glaucoma benign breast biopsy onychomycosis urinary incontinence diabetes mellitus hypertension esophageal reflux Surgical History Surgery Date(Month/Year) right knee replacement
--- OUTSIDE RECORDS SUMMARY | 2024-11-23 08:34 | XMS_ITS | Encounter Summary ---
Author Organization [employer] Address [address] [facility] 7 [place] [address] Care Team Providers Care Inside Sales Advisor Name Role Phone Unavailable Primary Care Provider Unavailabl e Encounter Details Date Type Department Care Team (Latest Contact Info) Description 06/01/2021 Abstract [facility] CONVERSIONS Dental, Provider, DDS Social History [...]
--- OUTSIDE RECORDS SUMMARY | 2024-11-23 08:34 | XMS_ITS | Clinical Summary ---
Author Organization [employer] Address [address] [place] [address] [address] [place] [address] Care Team Providers Care Stitch Cleaner Name Role Phone Unavailable Primary Care Provider [...]
--- OUTSIDE RECORDS SUMMARY | 2024-11-23 08:34 | XMS_ITS | Encounter Summary ---
Author Organization [employer] Address [address] [facility] 7 [place] [address] Care Team Providers Care Coke Drawer Name Role Phone Unavailable Primary Care Provider Unavailabl e Encounter Details Date Type Department Care Team (Latest Contact Info) Description 06/17/2022 Abstract [facility] CONVERSIONS Dental, Provider, DDS Social History Tobacco [...]
--- OUTSIDE RECORDS SUMMARY | 2024-11-23 08:34 | XMS_ITS ---
Author Organization [facility] Address [address] [place] [address] Care Team Providers Care Manager Pulmonary Name Role Phone Melvi Paz Primary Care Provider Balta Rosen Jr REASON FOR VISIT screening,gerd Problems Problem Type SNOMED Code ICD Code Onset Dates Problem Status W/U Status Risk Notes Problem Gastroesophageal reflux disease (409859032) Gastroesophageal reflux disease (K21.9) Active confirmed Encounters Encounter Location Date Provider Diagnosis [facility] Out[place] [address] [place], [place] [phone] 07/09/2024 Balta Crowe Jr Colon cancer screening [...] AWAIS GRAY VDOB: [birth year] (69 yo F)Acc No.[id number]:07/09/2024 EGD and COL/MAC Patient:?AWAIS GRAY V Provider:?Balta Crowe MD :1955???Age:69 Y???Sex:Female D ate:07/09/2024 Address:[address] [place] [address], [facility] Pcp:Melvi Lawrence Subjective: * Chief Complaints: * ???1. Screening,gerd. * Medical History:? Objective: * Vitals:? Assessment: * Assessment: 1.?Colon cancer screening - Z12.11 (Primary)???2.?Personal history of colonic polyps - Z86.0100???3.?Colon polyps - K63.5???4.?Gastroesophageal reflux disease - K21.9??? Plan: * Treatment: * Procedure Codes:?57966 LESIO N REMOVAL COLONOSCOPY, 28543 COLONOSCOPY AND BIOPSY, Modifiers: 58 , 0529F INTRVL 3+YRS PTS CLNSCP DOCD, 69832 UPPER GI ENDOSCOPY, BIOPSY * * The named appointment provid er may or may not be the originator of this progress note, and it is not deemed complete until electronically signed by the appointment provider. Sign off status: Pending * Provider:?Balta Crowe MD Date:?1 09/09/2023 Generated for Immanuel vidal/Jose Antonio/eTransmitting on:?11/23/2024 08:34 AM EDT
[2024-11-23 08:41] LABS: MANUAL DIFF FLAG NO
[2024-11-23 09:05] LABS: Basophils Percent Auto 0.6 % (0-2); Eosinophils Absolute Auto 0.1 X10*3/uL (0.0-0.4); Eosinophils Percent Auto 2.1 % (0-4); Hematocrit 41.9 % (37.0-47.0); Hemoglobin 14.1 g/dl (12.0-16.0); Imm Gran Abs Auto 0.01 X10*3/uL (0.00-0.03); Imm Gran Pct Auto 0.2 % (0.0-0.4); Lymphocytes Absolute Auto 2.7 X10*3/uL (1.2-4.9); Lymphocytes Percent Auto 43.6 % (20-40); Mean Corpuscular HGB Conc 33.7 g/dl (31.0-35.0); Mean Corpuscular Hemoglobin 28.7 pg (27.0-33.0); Mean Corpuscular Volume 85.2 fL (80.0-98.0); Monocytes Absolute Auto 0.7 X10*3/uL (0.1-1.2); Monocytes Percent Auto 10.9 % (2-11); Neutrophils Absolute Auto 2.7 x10*3/uL (2.0-8.3); Neutrophils Percent Auto 42.6 % (45-73); Platelet Count 237 X10*3/uL (160-400); Red Blood Count 4.92 X10*6/uL (4.20-5.50); Red Cell Distribution Width 13.5 % (11.0-16.0); White Blood Count 6.2 X10*3/uL (4.8-10.8)
[2024-11-23 10:03] LABS: Alanine Aminotransferase 20 U/L (0-31); Albumin Level 4.4 g/dL (3.5-5.0); Alkaline Phosphatase 57 U/L (39-117); Anion Gap 12 (12-20); Aspartate Amino Transferase 26 U/L (5-31); Bilirubin Total 0.4 mg/dL (0.0-1.0); Blood Urea Nitrogen 16 mg/dL (9-16); Calcium 9.7 mg/dL (8.4-10.2); Carbon Dioxide 25 mmol/L (22-29); Chloride 106 mmol/L (96-108); Cholesterol 80 mg/dL (<200); Estimated Glomerular Filt Rate > 60; Glucose Fasting 125 mg/dL (60-99); HDL Cholesterol 29 mg/dL (>40); LDL Cholesterol Calculated 27 mg/dL (<100); Potassium 4.1 mmol/L (3.3-5.1); Sodium 139 mmol/L (135-145); Total Protein 7.5 g/dL (6.5-8.0); Triglycerides 122 mg/dL (<150); Vitamin D 25-OH Total 28.6 ng/mL (>30)
[2024-11-23 10:03] LABS: Creatinine Urine 172.43 mg/dL; Microalbum/Creatinine Ratio Ur 6.3 ug/mg cr (<30)
[2024-11-24 21:59] LABS: Antibody to SS-A Antigen <1.0 NEG AI (<1.0 NEG); Antibody to SS-B Antigen <1.0 NEG AI (<1.0 NEG)
== END 2024-11-23 08:17 | disposition home or self-care (01) ==
LOC: HO.LAB 08:16
PROVIDERS: PCP Internal Medicine; Visit Provider Internal Medicine
DX: Q80.9 Congenital ichthyosis, unspecified (principal); E78.5 Hyperlipidemia, unspecified; D58.2 Other hemoglobinopathies; R80.9 Proteinuria, unspecified; E55.9 Vitamin D deficiency, unspecified; R68.2 Dry mouth, unspecified; K31.84 Gastroparesis; R11.0 Nausea; K91.5 Postcholecystectomy syndrome; K21.9 Gastro-esophageal reflux disease without esophagitis
CPT/HCPCS: 36415; 80053; 80061; 82043; 82306; 82570; 85025; 86235; 99212

== ENCOUNTER 2024-11-23 14:01 | Outpatient (AMB) | payer OTHER, SELFPAY ==
[2024-11-23 14:03] VITALS: BP 136/72; PULSE 84; BMI 28.7
--- NOTE | 2024-11-23 14:03 | A.OFFVIS_ITS ---
Vital Signs 11/23/24 14:03 Height 4 ft 11 in Weight 141 lb 15.643 oz BMI 28.7 BP 136/72 Blood Pressure Location Lt brachial Position Sitting Pulse 84 Intake Visit Reasons: GERD follow up Intake Note: Betsey presents to in office follow up of GERD. CC: Patient states that she did not come any longer to follow up because her doctor sent her to Dr. Crowe's office to have colonoscopy and EGD done. Per patient they did not follow up with her after that. She also describes her stools to be pasty and frequent. Patient also c/o burning sensation from esophagus and sometimes having nausea after drinking water. Design Studio Consultant Required: Yes Accompanied by: Self / Same As Patient Allergies chlorzoxazone [From Parafon Forte DSC] Allergy (Intermediate, Verified 11/23/24 14:18) RASH/SWELLING, rash Iodinated Contrast Media [IV Dye, Iodine Containing] Allergy (Intermediate, Verified 11/23/24 14:18) THROAT CLOSED Penicillins [PENICILLINS] Allergy (Intermediate, Verified 11/23/24 14:18) HIVES pollen extracts [POLLEN] Allergy (Intermediate, Verified 11/23/24 14:18) RASH From KEFLEX Allergy (Severe, Uncoded 08/16/24 14:20) HIVES HPI HPI GERD follow up: Details: English #Robyn Live SHe continues on her protonix and carafate (she takes the carafate prn). BUT she is having sx of dyspepsia and severe GERD and vomiting. We have a GES in 2021 showing abnormal emptying, so I think we need to start a trial of reglan. I will also give her famotidine to take PRN She is complaining of increasing dry mouth recently and she has to carry water with her. I review her medications and this is most likely caused by her oxybutinin bid, I say this to reassure her that this is likely not a serious sx. She had serious nocturnal urination. HOwever, she is having trouble with the anticholinergic effects effecting her vaginal secretions and this is caus ing trouble with intimacy. I suggest that she ask to see a urologist as they have the most current knowlege about newer OAB medications w/o this s/e profile. ROV 4 weeks. ? Assessment & Plan (1) Post-cholecystectomy syndrome: Code(s): K91.5 - Postcholecystectomy syndrome (2) Gastroparesis: Comment: abnormal study 2021 but pt absolutely denies sx, will watch. Code(s): K31.84 - Gastroparesis (3) GERD (gastroesophageal reflux disease): Code(s): K21.9 - Gastro-esophageal reflux disease without esophagitis Qualifiers: Esophagitis presence: esophagitis presence not specified Qualified Code(s): K21.9 - Gastro-esophageal reflux disease without esophagitis (4) Overactive bladder: Code(s): N32.81 - Overactive bladder (5) Adverse effect of anticholinergic: Comment: dry mouth and vaginal secretions, consider changing oab medication Code(s): T44.3X5A - Adverse effect of other parasympatholytics [anticholinergics and antimuscarinics] and spasmolytics, initial encounter Medications: New famotidine (Pepcid) 40 mg PO DAILY PRN 30 tabs 3RF heartburn metoclopramide HCl (Reglan) 5 mg PO .tidac 90 tabs 3RF K21.9 - Gastro-esophageal reflux disease without esophagitis, K31.84 - Gastroparesis EGD/colonoscopy 07/14/24 FINDINGS: Upper endoscopy: 1. Esophagus: The esophagus was normal. There was an irregular EG junction. This was biopsied. There was no esophagitis. 2. Stomach: The stomach showed no evidence of masses, ulcers, or polyps. Antral biopsies were obtained to rule out H pylori. 3. Duodenum: The bulb and second portion were normal. Colonoscopy: The terminal ileum was examined and appeared normal. The visualized colonic mucosa was within normal limits without evidence of masses or ulcers. A less than 5 mm sessile polyp in the cecum was removed with a biopsy forceps. In the right colon was a 6 mm polyp, which was removed with a hot snare and recovered via suction. In the descending/sigmoid at 35 cm was a 6 mm polyp, which was removed with a snare. This polyp could not be recovered. Retroflexed examination showed small to moderate-sized internal hemorrhoids. IMPRESSION: 1. Gastroesophageal reflux disease. 2. Colon polyps. Addendum #1 Immunostain for H. pylori on A is negative. Additional level with AB/PAS on B is negative for intestinal metaplasia. Controls stain appropriately. Electronically Signed By: Jackelyn Begum 07/14/24 [id number] Diagnosis A. Gastric antrum, biopsy: Gastric antral mucosa with mild reactive changes and minimal chronic inactive gastritis; negative for intestinal metaplasia and dysplasia. B. Esophagogastric junction, biopsy: Squamocolumnar mucosa with mild inflammation and multilayered epithelium; no intestinal metaplasia seen on initial levels; negative for dy splasia (see comment). C. Colon, cecal polyp: Tubular adenoma; negative for high-grade dysplasia and carcinoma. D. Colon, right, polyp: Tubular adenoma; negative for high-grade dysplasia and carcinoma. Comment: (A): Immunostain for H. pylori pending; addendum to follow. (B): Multilayered epithelium may be associated with Pichardo's esophagus and follow-up is warranted. Additional level with AB/PAS stain pending; addendum to follow TODAY'S VISIT English #Melvi Live PATIENT HAS BEEN LOST TO FOLLOW-UP SINCE 03/2023. It appears that she has had an EGD/colonoscopy in the interim with Dr. Crowe 07/2024, but she was disappointed that they did not follow up with me to help my sx. She says her PCP sent her to The wrong doctor. She has been having nausea with everything that she eats and even water, but this is on and off and not related to type of food eaten. She feels like she has a ball in her gastric area. She has been told in the past that the food stays in my stomach. She is also c/o dry mouth like I can't produce saliva. But she does produce saliva when she eats. She thought it was her GB, but now she does not have a GB. She has generally soft stools but only will move a small amount at a time. All of her sx are c/w gastroparesis which we have evidence of in her GES performed in the past. Will start reglan 5mg qid. She also has intermittent sharp, brief pain in the RLQ that she can not tie to BM or eating, but will occur even if she is sitting. It is difficult to say if this is bowel or musculoskeletal given the brief timing of the pain. ROV 3 weeks. [facility] Medical History Adult general medical exam Ear congestion Well woman exam Viral gastroenteritis Hospital discharge follow-up Elevated hemoglobin COVID-19 Gastroparesis Chronic diarrhea Post-menopausal Hearing loss in right ear Obese Dry skin Long-term use of aspirin therapy Urge urinary incontinence GERD (gastroesophageal reflux disease) Essential hypertension Glaucoma Diabetes mellitus Surgical History History of esophagogastroduodenoscopy (EGD) History of colonoscopy Tubal ligation status History of knee replacement procedure of right knee History of cholecystectomy H/O arthroscopy of right knee History of nasal surgery History of Family History Father Cancer Mother Hypertension Social History Housing: House Are you a primary medical care evaluation specialist to a significant other at home: No Do you presently have visiting nurse or other home services: No Alcohol intake: current Alcohol intake frequency: holidays/special occasions only Alcohol type: wine Patient Tobacco Use Status: Never used Tobacco e-Cigarette/Vaping Use: Never Used Second Hand Smoke Exposure: No service: No Current occupational status: retired Cognitive needs: No Hearing needs: No Vision needs: No Female Reproductive History Menstrual Age of Menarche: 11 Review of Systems Const Denies fatigue, Denies fever(s), Denies night sweats, Denies poor appetite and Denies weight loss Eyes Reports requires corrective lenses ENT Reports Normal hearing present, Denies dental pain, Denies dysphagia, Denies hearing loss, Denies mouth pain, Denies odynophagia, Denies throat swelling, Denies tongue swelling and Reports other (Dentition adequate) GI Details: Denies abdominal pain, Denies melena, Denies bloating, Denies hematochezia, Denies constipation, Denies GI cramping, Denies dysphagia, Denies excessive flatus, Denies early satiety, Denies heartburn, Denies diarrhea, Denies nausea, Denies odynophagia, Denies vomiting and Denies hematemesis Skin/Breast Denies pruritus, Denies lesions, Denies rash and Denies jaundice Neuro Reports Normal hearing present and Denies Abnormal speech present Endo Denies fatigue Aller/Immun Denies throat swelling and Denies tongue swelling Physical Exam Vital Signs: Last Vital Signs Pulse 84 11/23/24 14:03 BP 136/72 11/23/24 14:03 BMI result Body Mass Index 28.7 Const General: cooperative, no acute distress, well developed and well groomed Nutritional Appearance: well nourished, obese and overweight Orientation/consciousness: oriented to person, oriented to place and oriented to time Limitations: No language barrier, ambulation with cane, ambulation with walker and wheelchair HEENT Head: Yes normocephalic and Yes atraumatic Eyes General: appearance normal, both eyes and all related structures Pupils: Equal, round and reactive pupils present Neck Neck: Yes normal visual inspection and Yes no lymphadenopathy Thyroid: Thyroid normal Resp Effort & Inspection: normal respiratory effort and able to speak in complete sentences Auscultation: clear to auscultation bilaterally Cardio Rate: regular rate Rhythm: regular rhythm Heart sounds: Normal, physiologic split S2 sound present Peripheral pulses: radial pulses present and posterior tibial pulses present GI Inspection: No distended, No Abdominal panniculus present and Yes obesity Palpation (GI): Soft to palpation, Tenderness to palpation present (GI) in the epigastrum, no guarding, not rigid and No hepatosplenomegaly present Percussion: Yes normal to percussion Auscultation: normal bowel sounds Rectal Exam - Female: deferred Skin Other: ichtiosis patterns of skin General skin exam: decreased turgor, dry skin, no jaundice, No spider nevi and no striae Rashes: no rashes Nails: normal Neuro General: oriented to person, oriented to place and oriented to time Cranial nerves: Yes Equal, round and reactive pupils present and Yes Normal hearing present Speech: No Abnormal speech present Extrem General: Yes normal to inspection, No clubbing, No cyanosis and No edema Psych Thought process: Normal thought process present and not confabulating Thought content: Normal thought content present Insight: Good insight present (Psych) Judgement: Good judgement present (Psych) Results Reviewed Results Reviewed: EGD/colonoscopy 07/14/24 FINDINGS: Upper endoscopy: 1. Esophagus: The esophagus was normal. There was an irregular EG junction. This was biopsied. There was no esophagitis. 2. Stomach: The stomach showed no evidence of masses, ulcers, or polyps. Antral biopsies were obtained to rule out H pylori. 3. Duodenum: The bulb and second portion were normal. Colonoscopy: The terminal ileum was examined and appeared normal. The visualized colonic mucosa was within normal limits without evidence of masses or ulcers. A less than 5 mm sessile polyp in the cecum was removed with a biopsy forceps. In the right colon was a 6 mm polyp, which was removed with a hot snare and recovered via suction. In the descending/sigmoid at 35 cm was a 6 mm polyp, which was removed with a snare. This polyp could not be recovered. Retroflexed examination showed small to moderate-sized internal hemorrhoids. IMPRESSION: 1. Gastroesophageal reflux disease. 2. Colon polyps. Addendum #1 Immunostain for H. pylori on A is negative. Additional level with AB/PAS on B is negative for intestinal metaplasia. Controls stain appropriately. Electronically Signed By: Jackelyn Begum 07/14/24 [id number] Diagnosis A. Gastric antrum, biopsy: Gastric antral mucosa with mild reactive changes and minimal chronic inactive gastritis; negative for intestinal metaplasia and dysplasia. B. Esophagogastric junction, biopsy: Squamocolumnar mucosa with mild inflammation and multilayered epithelium; no intestinal metaplasia seen on initial levels; negative for dysplasia (see comment). C. Colon, cecal polyp: Tubular adenoma; negative for high-grade dysplasia and carcinoma. D. Colon, right, polyp: Tubular adenoma; negative for high-grade dysplasia and carcinoma. Comment: (A): Immunostain for H. pylori pending; addendum to follow. (B): Multilayered epithelium may be associated with Pichardo's esophagus and follow-up is warranted. Additional level with AB/PAS stain pending; addendum to follow Assessment & Plan Assessment & Plan (1) Gastroparesis: Comment: abnormal study 2021 but pt absolutely denies sx, will watch. Code(s): K31.84 - Gastroparesis Category: Medical (2) Nausea: Code(s): R11.0 - Nausea Category: Medical (3) Post-cholecystectomy syndrome: Code(s): K91.5 - Postcholecystectomy syndrome Category: Medical (4) GERD (gastroesophageal reflux disease): Code(s): K21.9 - Gastro-esophageal reflux disease without esophagitis Category: Medical Qualifiers: Esophagitis presence: esophagitis presence not specified Qualified Code(s): K21.9 - Gastro-esophageal reflux disease without esophagitis (5) Ichthyosis: Code(s): Q80.9 - Congenital ichthyosis, unspecified Category: Medical Plan English #Melvi Live PATIENT HAS BEEN LOST TO FOLLOW-UP SINCE 03/2023. It appears that she has had an EGD/colonoscopy in the interim with Dr. Crowe 07/2024, but she was disappointed that they did not follow up with me to help my sx. She says her PCP sent her to The wrong doctor. She has been having nausea with everything that she eats and even water, but this is on and off and not related to type of food eaten. She feels like she has a ball in her gastric area. She has been told in the past that the food stays in my stomach. She is also c/o dry mouth like I can't produce saliva. But she does produce saliva when she eats. She thought it was her GB, but now she does not have a GB. She has generally soft stools but only will move a small amount at a time. All of her sx are c/w gastroparesis which we have evidence of in her GES performed in the past. Will start reglan 5mg qid. She also has intermittent sharp, brief pain in the RLQ that she can not tie to BM or eating, but will occur even if she is sitting. It is difficult to say if this is bowel or musculoskeletal given the brief timing of the pain. ROV 3 weeks. Orders: Orders Rheumatoid Factor Today Q80.9 - Congenital ichthyosis, unspecified MELVI Reflex Titer and Pattern Today Q80.9 - Congenital ichthyosis, unspecified C Reactive Protein Today Q80.9 - Congenital ichthyosis, unspecified Erythrocyte Sedimentation Rate Today Q80.9 - Congenital ichthyosis, unspecified Cyclic Citrullinated Peptide Today Q80.9 - Congenital ichthyosis, unspecified Medications: Refilled metoclopramide HCl (Reglan) 5 mg PO .tidac 120 tabs 6RF K21.9 - Gastro- esophageal reflux disease without esophagitis, K31.84 - Gastroparesis pantoprazole 40 mg PO DAILY 90 tabs 0RF Coding Level of Care Code Est Pt Level 4 (41708) Diagnoses Gastroparesis K31.84 Nausea R11.0 Post-cholecystectomy syndrome K91.5 Gastroesophageal reflux disease, unspecified whether esophagitis present K21.9 Esophagitis presence: esophagitis presence not specified Ichthyosis Q80.9 Time Spent (min) 40
--- OUTSIDE RECORDS SUMMARY | 2024-11-23 16:49 | XMS_ITS | Encounter Summary ---
Author Organization [employer] Address [address] [facility] 7 [place] [address] Care Team Providers Care Mcat Tutor Name Role Phone Unavailable Primary Care Provider Unavailabl e Encounter Details Date Type Department Care Team (Latest Contact Info) Description 06/01/2021 Abstract [facility] CONVERSIONS Dental, Provider, DDS Social History [...]
--- OUTSIDE RECORDS SUMMARY | 2024-11-23 16:49 | XMS_ITS | Encounter Summary ---
Author Organization [facility] Address [address] [facility] [address] [place] [address] Care Team Providers Care Pressure Tester Name Role Phone Unavailable Primary Care Provider Unavailabl e Encounter Details Date Type Department Care Team (Latest Contact Info) Description 08/18/2018 Abstract [facility] CONVERSIONS Dental, Provider, DDS Social History [...]
--- OUTSIDE RECORDS SUMMARY | 2024-11-23 16:49 | XMS_ITS | Encounter Summary ---
Author Organization [facility] Address [address] [facility] [address] [place] [address] Care Team Providers Care Clinical Trials Nurse Name Role Phone Unavailable Primary Care Provider Unavailabl e Encounter Details Date Type Department Care Team (Latest Contact Info) Description 06/17/2022 Abstract [facility] CONVERSIONS Dental, Provider, DDS Social History [...]
--- OUTSIDE RECORDS SUMMARY | 2024-11-23 16:49 | XMS_ITS | Clinical Summary ---
Author Organization [facility] Address [address] [place] [address] [address] [place] [address] Care Team Providers Care Medical Care Administrator Name Role Phone Unavailable Primary Care Provider [...]
== END 2024-11-23 15:20 | disposition home or self-care (01) ==
LOC: HO.HGI 14:02
PROVIDERS: PCP Internal Medicine; Visit Provider Nurse Practitioner
DX: K31.84 Gastroparesis (principal); R11.0 Nausea; K91.5 Postcholecystectomy syndrome; K21.9 Gastro-esophageal reflux disease without esophagitis; Q80.9 Congenital ichthyosis, unspecified
CPT/HCPCS: 99214

== ENCOUNTER 2024-11-25 09:43 | Outpatient (AMB) | payer OTHER, SELFPAY ==
[2024-11-25 09:58] VITALS: BP 116/74; BMI 28.3
--- NOTE | 2024-11-25 09:58 | A.OFFPC_ITS ---
Vital Signs 11/25/24 09:58 Height 4 ft 11 in Weight 140 lb BMI 28.3 BP 116/74 Blood Pressure Location Lt brachial Position Sitting Intake Visit Reasons: Annual Exam Intake Note: Patient here for an annual physical exam Nylon Hot Wire Cutter Required: No Accompanied by: Self / Same As Patient Allergies chlorzoxazone [From Parafon Forte DSC] Allergy (Intermediate, Verified 11/25/24 10:20) RASH/SWELLING, rash Iodinated Contrast Media [IV Dye, Iodine Containing] Allergy (Intermediate, Verified 11/25/24 10:20) THROAT CLOSED Penicillins [PENICILLINS] Allergy (Intermediate, Verified 11/25/24 10:20) HIVES pollen extracts [POLLEN] Allergy (Intermediate, Verified 11/25/24 10:20) RASH From KEFLEX Allergy (Severe, Uncoded 11/25/24 10:20) HIVES Medication List - Last Reconciled 11/25/24 by Melvi Lawrence MD amlodipine 2.5 mg PO DAILY 90 days ammonium lactate 12% appl topical BID aspirin 81 mg PO DAILY 90 days baclofen 10 mg PO TID 30 days blood sugar diagnostic (Zevan Limiteduch Ultra Test strips) USE TO TEST ONCE DAILY blood-glucose meter (Enviable Abode Ultra2 Meter kit) As directed dorzolamide-timolol 22.3-6.8 mg/mL 1 drp ophthalmic (eye) famotidine 40 mg PO DAILY PRN lancets (Concur TechnologiesTouch Delica Plus Lancet) USE 1 LANCET ONCE A DAY latanoprost 0.005% 1 drp ophthalmic (eye) BEDTIME lidocaine 5% 1 patch topical DAILY lisinopril 40 mg PO DAILY 30 days magnesium oxide 400 mg PO BEDTIME 30 days metformin 850 mg PO BID 90 days metoclopramide HCl (Reglan) 5 mg PO .tidac oxybutynin chloride ER 10 mg PO BID 90 days pantoprazole 40 mg PO DAILY rosuvastatin 5 mg PO DAILY 90 days Tobacco use date assessed: 08/16/24 Fall risk assessment: No Falls in past year Last assessed Fall Risk: 11/25/24 Dental Screening Dental Screen Date: 08/16/24 HPI HPI Comments History of Present Illness Details The patient is a 69-year-old female presenting for her annual physical examination. She has a medical history of well-controlled essential hypertension, type 2 diabetes mellitus with a recent Hemoglobin A1c of 6.6%, and managed hyperlipidemia with an LDL level below 50 mg/dL. She experienced gastroesophageal reflux disease, managed with pantoprazole, and urinary incontinence, treated with oxybutynin. Her surgical history includes a colonoscopy last year that identified a tubular adenoma, right knee replacement, and prior arthroscopy. Also has elevated hemoglobin that has been stable. The patient reported allergies to several substances including paraffin, contras t agents, penicillin, pollen, and cephalexin. She discontinued magnesium supplements due to associated insomnia, noting it disrupted her sleep pattern. Socially, she infrequently consumes alcohol and prefers wine during special occasions. Planned cataract surgery is scheduled for April. - Annual physical examination conducted - Recent Hemoglobin A1c at 6.6% - LDL cholesterol level below 50 mg/dL - Mammogram completed this month with no rmal results - DEXA scan in 2023 demonstrated normal results; follow-up requested in 2025 - Cataract surgery planned for April - Colonoscopy last year with tubular sydnee noma finding - Vaccination updates needed (pneumonia and tetanus) - Discussed discontinuation of magnesium due to insomnia [facility] Medical History (Updated 11/25/24 @ 12:54 by Melvi Lawrence MD) Adult general medical exam Ear congestion Well woman exam Viral gastroenteritis Hospital discharge follow-up Elevated hemoglobin COVID-19 Gastroparesis Chronic diarrhea Post-menopausal Hearing loss in right ear Obese Dry skin Long-term use of aspirin therapy Urge urinary incontinence GERD (gastroesophageal reflux disease) Essential hypertension Glaucoma Diabetes mellitus Surgical History History of esophagogastroduodenoscopy (EGD) History of colonoscopy Tubal ligation status History of knee replacement procedure of right knee History of cholecystectomy H/O arthroscopy of right knee History of nasal surgery History of Family History Father Cancer Mother Hypertension Social History Housing: House Are you a primary professional healthcare representative to a significant other at home: No Do you presently have visiting nurse or other home services: No Alcohol intake: current Alcohol intake frequency: holidays/special occasions only Alcohol type: wine Patient Tobacco Use Status: Never used Tobacco e-Cigarette/Vaping Use: Never Used Second Hand Smoke Exposure: No service: No Current occupational status: retired Cognitive needs: No Hearing needs: No Vision needs: No Female Reproductive History Menstrual Age of Menarche: 11 Questionnaire PHQ-9 Over the last 2 weeks, how often have you been bothered by any of the following problems? 1. Little interest or pleasure in doing things: not at all 2. Feeling down, depressed, or hopeless: not at all 3. Trouble falling or staying asleep, or sleeping too much: not at all 4. Feeling tired or having little energy: not at all 5. Poor appetite or overeating: not at all 6. Feeling bad about yourself - or that you are a failure or have let yourself or your family down: not at all 7. Trouble concentrating on things, such as reading the newspaper or watching television: not at all 8. Moving or speaking so slowly that other people could have noticed. Or the opposite - being so fidgety or restless that you have been moving around a lot more than usual: not at all 9. Thoughts that you would be better off or of hurting yourself in some way: not at all Total score: 0 Depression Screening Interpretation: Negative Depression Screening Done: Yes 85902 - PHQ-9 Billing: Yes Source: Developed by Toña Cooper Kurt Kroenke and colleagues, with an educational yu from [employer]. Thrive Questionnaire Date Thrive assessed: 08/16/24 DIANE-7 AMB Questionnaire DIANE-7 Date DIANE - 7 assessed: 08/16/24 Source: Developed by Toña Cooper Kurt Kroenke and colleagues, with an educational yu from [employer]. Review of Systems Const All systems reviewed & are unremarkable except as noted in HPI and below Card Denies chest pain at rest, Denies chest pain with activity, Denies edema, Denies irregular heart rhythm, Denies claudication, Denies dyspnea, Denies dyspnea on exertion, Denies orthopnea, Denies paroxysmal nocturnal dyspnea and Denies slow heart rate Resp Denies cough, Denies dyspnea and Denies dyspnea on exertion GI Denies abdominal pain, Denies change in bowel habits, Denies excessive flatus, Denies nausea and Denies vomiting Neuro Denies lack of coordination Physical exam (Primary Care) Vital Signs: Last Vital Signs BP 116/74 11/25/24 09:58 BMI result Body Mass Index 28.3 Tobacco/Smoking Status: Tobacco use Status Tobacco use date assessed 08/16/24 11/25/24 10:07 Patient Tobacco Use Status Never used Tobacco 11/25/24 10:07 e-Cigarette/Vaping Use Never Used 11/25/24 10:07 PHQ-9: PHQ-9 Score PHQ-9: Total score 0 11/25/24 10:42 Depression Screening Interpretation: Negative Thrive Assessment: Date of Thrive Assessment Date Thrive assessed 08/16/24 11/25/24 10:07 HENMT Head: Yes normal to inspection, Yes normocephalic and Yes atraumatic Ears: external ears normal Eyes General: appearance normal, both eyes and all related structures Eyelids: Yes eyelids normal Conjunctivae: conjunctivae normal Neck Neck: Yes normal visual inspection and Yes supple Resp Effort & Inspection: normal respiratory effort Auscultation: clear to auscultation bilaterally Cardio Jugular venous distension: no JVD Rate: regular rate Rhythm: regular rhythm Heart sounds: S1 normal heart sound present and S2 normal heart sound present GI Inspection: Yes normal to inspection Palpation (GI): Soft to palpation and nontender Auscultation: normal bowel sounds Skin General skin exam: no rashes or lesions noted Neuro General: no focal motor deficits Extrem General: Yes full ROM Psych Appearance: grossly normal Results AMB Hemoglobin A1c AMB Hemoglobin A1c 6.6 % Last Edit by YOUSIF Aguilar on 11/25/24 10:0 9 Immunizations pneumoc 20-felicita conj-dip cr(PF) 0.5 mL IM syringe Performing Provider: Melvi Lawrence MD Per[facility] Administered by: YOUSIF Aguilar on 11/25/24 10:43 Dose Route Admin Location Dispensed Lot Number Expiration Date [facility] Blood Bank Calendar Control Clerk 0.5 mL IM Right Deltoid 0.5 mL [id number] 09/04/25 eVropaETH/PFIZER VIS Given Date VIS Provided VIS Publication Date 11/25/24 Single Vaccine 22 Eligibility Eligibility Date Funding Source Not [facility] Eligible 11/25/24 Private Boostrix Tdap 2.5 Lf unit-8 mcg-5 Lf/0.5 mL intramuscular syringe Performing Provider: Melvi Lawrence MD Performing Location: [facility] Administered by: YOUSIF Aguilar on 11/25/24 10:43 Dose Route Admin Location Dispensed Lot Number Expiration Date NDC Blood Bank Calendar Control Clerk 0.5 mL IM Left Deltoid 0.5 mL [id number] 03/30/27 [id number] [employer] VIS Given Date VIS Provided VIS Publication Date 11/25/24 Single Vaccine 24 Eligibility Eligibility Date Funding Source Not [facility] Eligible 11/25/24 Private Results Reviewed Results Reviewed: Laboratory Last Values Hgb A1c (Clinic) 6.6 % (4.0-6.0) H 11/25/24 09:57 Coding Level of Care Code Est Pt Prev Care >65y(79203) Diagnoses Physical exam Z00.00 Type 2 diabetes mellitus with hyperglycemia, without long-term current use of insulin E11.65 Diabetes mellitus type: type 2 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 insulin use: without long-term use Diabetes mellitus complication status: with hyperglycemia Elevated hemoglobin D58.2 Additional Codes PHQ-9 - 27891 - PHQ-9 Billing: Yes ([id number]) Time Spent (min) 32 Assessment & Plan Assessment & Plan (1) Physical exam: Code(s): Z00.00 - Encounter for general adult medical examination without abnormal findings Category: Medical (2) Diabetes mellitus: Code(s): E11.9 - Type 2 diabetes mellitus without complications Category: Medical Qualifiers: Diabetes mellitus type: type 2 Diabetes mellitus long-term insulin use: without long-term use Diabetes mellitus complication status: with hyperglycemia Qualified Code(s): E11.65 - Type 2 diabetes mellitus with hyperglycemia (3) Elevated hemoglobin: Code(s): D58.2 - Other hemoglobinopathies Category: Medical Plan The patient's chronic conditions?type 2 diabetes, hypertension, and hyperlipidemia?are currently managed well with medication, and no changes to the regimen are recommended at this time. Cataract surgery is confirmed for April. Future colonoscopy due to the prior adenoma was discussed. Until then, the management continues with attentiveness to symptom changes. Magnesium supplementation was discontinued due to its impact on sleep. Attention to vaccinations is necessary, specifically pneumonia and tetanus. Adjustments to continue as needed based on follow-ups and additional vaccines discussed. Patient was informed and verbally consented to the use of an ambient scribe for clinic note documentation during this visit. During the consultation, the patient and I discussed the ongoing management of her chronic conditions, notably type 2 diabetes, hypertension, and hyperlipidemia. I emphasized the current stability of her glucose levels and lipid profile. The scheduled cataract surgery was reaffirmed with a comprehensive explanation of procedure details and expectations. Attention was given to her history of colon adenoma, underlining the relevance of timely follow-up procedures. Concern regarding magnesium supplementation and its contribution to insomnia led to a consensus to discontinue its use. We addressed the importance of updated immunization, specifically discussing options for pneumonia and tetanus vaccination, balancing convenience and patient preference. The patient expressed understanding and agreement with the current management plan and potential interventions discussed during the visit. Follow-up plans and cautionary advice regarding symptom emergence were outlined. Orders: Orders TDaP Immunization Today Z23 - Encounter for immunization Pneumococcal 20 Immunization Today Z23 - Encounter for immunization AMB Hemoglobin A1c Today E11.65 - Type 2 diabetes mellitus with hyperglycemia Medications: Refilled rosuvastatin 5 mg PO DAILY 90 tabs 1RF 90 days E78.5 - Hyperlipidemia, unspecified Discontinued magnesium oxide may hold for loose stools Discontinued Reason: Patient Refused 400 mg PO BEDTIME 30 days 30 tabs 6RF Patient Instructions: - Continue current medications for diabetes, hypertension, and hyperlipidemia as prescribed - Scheduled cataract surgery into April; ensure pre-operative instructions are followed - Discontinue magnesium supplements due to sleep disturbances - Schedule for pneumonia and tetanus vaccinations; decide if both will be administered together or at separate visits - Monitor for any changes in symptoms or side effects of medications; report any concerning symptoms immediately - Plan for regular follow-up visits for ongoing management and preventive care
--- OUTSIDE RECORDS SUMMARY | 2024-11-25 10:49 | XMS_ITS | Encounter Summary ---
Author Organization [employer] Address [address] [facility] 7 [place] [address] Care Team Providers Care Hack Saw Operator Name Role Phone Unavailable Primary Care Provider Unavailabl e Encounter Details Date Type Department Care Team (Latest Contact Info) Description 08/18/2018 Abstract [facility] CONVERSIONS Dental, Provider, DDS Social History [...]
--- OUTSIDE RECORDS SUMMARY | 2024-11-25 10:49 | XMS_ITS | Encounter Summary ---
Author Organization [employer] Address [address] [facility] 7 [place] [address] Care Team Providers Care Conversion Developer Name Role Phone Unavailable Primary Care Provider Unavailabl e Encounter Details Date Type Department Care Team (Latest Contact Info) Description 06/01/2021 Abstract [facility] CONVERSIONS Dental, Provider, DDS Social [...]
--- OUTSIDE RECORDS SUMMARY | 2024-11-25 10:49 | XMS_ITS | Clinical Summary ---
Author Organization [employer] Address [address] [place] [address] 7[address] [place] [address] Care Team Providers Care Punchboard Assembler Name Role Phone Unavailable Primary Care Provider [...]
--- OUTSIDE RECORDS SUMMARY | 2024-11-25 10:49 | XMS_ITS ---
Author Organization [facility] Address [address] [place] [address] Care Team Providers Care Check Viewer Name Role Phone Melvi Paz Primary Care Provider Unavailab Balta Anglin Jr [phone] REASON FOR VISIT pathology Encounters Encounter Location Date Provider Diagnosis [facility] [address] [place] [address] 07/20/2024 Balta Crowe Jr Plan Of Treatment No Information Progress Notes * AWAIS GRAY VDOB: [birth year] (69 yo F)Acc No.[id number]:07/20/2024 Patient:?AWAIS GRAY V :1955???Age:69 Y???Sex:Female Address:[address] [place] [address] * true * Date:? Generated for Alleni young/Jose Antonio/eTransmitting on:?11/25/2024 10:48 AM EDT
--- OUTSIDE RECORDS SUMMARY | 2024-11-25 10:49 | XMS_ITS | Encounter Summary ---
Author Organization [employer] Address [address] [facility] 7 [place] [address] Care Team Providers Care Software Developer Name Role Phone Unavailable Primary Care Provider Unavailabl e Encounter Details Date Type Department Care Team (Latest Contact Info) Description 06/17/2022 Abstract [facility] CONVERSIONS Dental, Provider, DDS Social History Tobacco [...]
--- OUTSIDE RECORDS SUMMARY | 2024-11-25 10:49 | XMS_ITS ---
Author Organization [facility] Address [address] [place] [address] Care Team Providers Care Staff Development Educator Name Role Phone Melvi Paz Primary Care Provider Balta Rosen Jr REASON FOR VISIT screening,gerd Problems Problem Type SNOMED Code ICD Code Onset Dates Problem Status W/U Status Risk Notes Problem Gastroesophageal reflux disease (196326483) Gastroesophageal reflux disease (K21.9) Active confirmed Encounters Encounter Location Date Provider Diagnosis [facility] Outpatient [address] [place], [place] [id number] 07/09/2024 Balta Crowe Jr Colon cancer screening [...] AWAIS GRAY VDOB: [birth year] (69 yo F)Acc No.[id number]:07/09/2024 EGD and COL/MAC Patient:?AWAIS GRAY V Provider:?Balta Crowe MD :1955???Age:69 Y???Sex:Female D ate:07/09/2024 Address:[address] [place] [address], [facility] Pcp:Melvi Lawrence Subjective: * Chief Complaints: * ???1. Screening,gerd. * Medical History:? Objective: * Vitals:? Assessment: * Assessment: 1.?Colon cancer screening - Z12.11 (Primary)???2.?Personal history of colonic polyps - Z86.0100???3.?Colon polyps - K63.5???4.?Gastroesophageal reflux disease - K21.9??? Plan: * Treatment: * Procedure Codes:?40472 LESIO N REMOVAL COLONOSCOPY, 38158 COLONOSCOPY AND BIOPSY, Modifiers: 58 , 0529F INTRVL 3+YRS PTS CLNSCP DOCD, 39222 UPPER GI ENDOSCOPY, BIOPSY * * The named appointment provid er may or may not be the originator of this progress note, and it is not deemed complete until electronically signed by the appointment provider. Sign off status: Pending * Provider:?Balta Crowe MD Date:?1 09/09/2023 Generated for Immanuel vidal/Jose Antonio/eTransmitting on:?11/25/2024 10:48 AM EDT
--- OUTSIDE RECORDS SUMMARY | 2024-11-25 10:49 | XMS_ITS | Patient Health Record ---
Author Organization [facility] Address [address] [place] [address] Care Team Providers Care Butt Presser Name Role Phone Melvi Paz Primary Care Provider Balta Rosen Jr Unavailable [phone] Allergies Allergen (clinical drug ingredient) Drug/Non Drug Allergy documented on EMR Reaction Allergy Type Onset Date Status Parafon Forte DSC Unknown Drug Allergy Active chlorzoxazone Chlorzoxazone Unknown Drug Allergy Active cephalexin Cephalexin Unknown Drug Allergy Activ e IVP dye (uncoded) Unknown Allergy Ac tive Results Component Value Reference Range Notes Glucose, Whole Blood Reviewed date:07/09/2024 02:59:54 PM Interpretation: Performing Lab:[facility], [address] [place] [phone] Notes/Report: Glucose, Whole Blood 135 60-115 mg/dL METER # : [id number] Pathology Reviewed date:07/14/2024 08:33:38 AM Interpretation: Performing Lab:[facility], [address] [place] [phone] Notes/Report: ------ Name: Awais Stout Age/Sex: 69/F : 1955 Unit#: [id number] Attend Dr: Balta Crowe MD Re07/09/24 Status : [facility] Location: [facility] Disch: ------ SPEC : [id number] REC STATUS: SUASNA GUZMÁN NUM: [id number] GRACE: 07/09/24 [facility] DR: Balta Crowe MD ENTERED: [...] Awais Stout Age/Sex: 69/F : 1955 Unit#: [id number] Attend Dr: Balta Crowe MD Re07/09/24 Status : [facility] Location: [facility] Disch: ------ SPEC : [id number] RECD : 07/09/24 STATUS: SUSANA GUZMÁN NUM: [id number] GRACE: 07/09/24 [facility] DR: Balta Crowe MD ENTERED: [...] on B1. Copies To: Balta Crowe MD [facility] [address] [place] [address] Melvi Paz MD [facility] Primary Care,[place] [address] [place] [address] ------ Signed (signature on file) Jackelyn Lancaster 07/12/24 1304 ------ END OF REPORT Pathology Reviewed date:07/20/2024 03:48:54 PM Interpretation: Performing Lab:[facility], [address] [place] [phone] Notes/Report: ------ Name: Bright CorralestadeoAwais branham Age/Sex: 69/F : 1955 Unit#: [id number] Attend Dr: Balta Crowe MD Re07/09/24 Status : [facility] Location: [facility] Disch: ------ SPEC : [id number] RECD : 07/09/24 STATUS: SUSANA GUZMÁN NUM: [id number] GRACE: 07/09/24 [facility] DR: Balta Crowe MD ENTERED: [...] appropriately. Addendum Signed (signature on file) Jackelyn Lancaster 07/14/241741 ------ Diagnosis A. Gastric antrum, b [...] Awais Stout Age/Sex: 69/F : 1955 Unit#: [id number] Attend Dr: Balta Crowe MD Re07/09/24 Status : [facility] Location: [facility] Disch: ------ SPEC : [id number] RECD : 07/09/24 STATUS: SUSANA GUZMÁN NUM: [id number] GRACE: 07/09/24 [facility] DR: Balta Crowe MD ENTERED: [...] Copies To: Balta Crowe MD [facility] [address] [place] [address] Melvi Paz MD [facility] Primary Care,[place] [address] [place] [address] CONTINUED ON NEXT PAGE ------ Name: Awais Stout Age/Sex: 69/F : 1955 Unit#: [id number] Attend Dr: Balta Crowe MD Re07/09/24 Status : [facility] Location: [facility] Disch: ------ SPEC : [id number] RECD : 07/09/24 STATUS: SUSANA GUZMÁN NUM: [id number] GRACE: 07/09/24 [facility] DR: Balta Crowe MD ENTERED: 07/09/24 53 SP TYPE: Surgical OTHR DR: Melvi Paz MD ORDERED: HE Stain/12 , Gross Micro L4/4, IHC, Special st. 2, H. pylori, AB/PAS ------ Signed (signature on file) Jackelyn Lancaster 07/12/24 1304 ------ END OF REPORT Reason [...] Problem Status W/U Status Risk Notes Problem 856749355 Colon cancer screening (Z12.11) Active confirmed Problem 56187774 Rectal bleeding (K62.5) Active confirmed Problem 792146700 electronic tester curren t use of aspirin (Z79.82) Active confirmed Problem Gastroesophageal reflux disease (555338518) Gastroesophageal reflux disease (K21.9) Active confirmed Problem 244053887 Encounter for long-term (current) use of high-risk medication (Z79.899) Active confirmed Problem 961699853 Gastroesophageal reflux disease, unspecified whether esophagitis present (K21.9) Active confirmed Vital Signs Temperature 97.5 degrees Fahrenheit 05/31/2024 Blood pressure diastolic 00 mm Hg 05/31/2024 Height 59 in 05/31/2024 Blood pressure systolic 000 mm Hg 05/31/2024 Weight 143 lbs 05/31/2024 BMI 28.88 kg/m2 05/31/2024 Encounters Encounter Location Date Provider Diagnosis [facility] Outpatient [address] [place] [phone] 07/09/2024 Balta Crowe Jr Colon cancer screening Z12.11 ; Personal history of colonic polyps Z86.0100 ; Colon polyps K63.5 and Gastroesophageal reflux disease K21.9 [facility] [address] [place] [phone] 05/31/2024 Balta Crowe Jr Gastroesophageal reflux disease, unspecified whether esophagitis present K21.9 and Colon cancer screening Z12.11 [facility] [address] [place] [phone] 01/01/2024 Balta Crowe Jr [facility] [address] [place] [phone] 02/18/2024 Balta Crowe Jr [facility] [address] [place] [phone] 07/20/2024 Balta Hillord Assessments Encounter Date Diagnosis [...] Insured Coverage Start Date Coverage End Date [facility] [address] [address] [place] [phone] AWAIS GRAY Self - patient is the insured Medical (General) History Medical History History ICD Code Colonoscopy 2019, tubular adenoma, five- year followup glaucoma benign breast biopsy onychomycosis urinary incontinence diabetes mellitus hypertension esophageal reflux Surgical History Surgery Date(Month/Year) right knee replacement
--- OUTSIDE RECORDS SUMMARY | 2024-11-25 10:49 | XMS_ITS ---
Author Organization [facility] Address [address] [place] [address] Care Team Providers Care Gearcase Assembler Name Role Phone Melvi Paz Primary Care [...] Problem Status W/U Status Risk Notes Problem [id number] Gastroesophageal reflux disease, unspecified whether esophagitis present (K21.9) Active confirmed Problem 790552387 Colon cancer screening (Z12.11) Active confirmed Vital Signs Temperature 97.5 degrees Fahrenheit 05/31/20 24 Blood pressure systolic 000 mm Hg 05/31/20 24 Blood pressure diastolic 00 mm Hg 024 Height 59 in 05/31/2024 Weight 143 lbs 05/31/2024 BMI 28.88 kg/m2 05/31/2024 Encounters Encounter Location Date Provider Diagnosis [facility] [address] [place] [address] 05/31/2024 Balta Crowe Jr Gastroesophageal reflux disease, [...] Follow Up: prn, Reason: Progress Notes * AWIAS GRAY VDOB: [birth year] (68 yo F)Acc No.[id number]:05/31/2024 Progress Notes Patient:?AWAIS GRAY V Provider:?Balta Crowe MD :1955???Age:68 Y???Sex:Female D ate:05/31/2024 Address:[address] [place], [place] [id number] Pcp:Melvi Lawrence Subjective: * Chief Complaints: * [...] MD Date:?1 Generated for Immanuel vidal/Jose Antonio/eTransmitting on:?11/25/2024 10:48 AM EDT History and Physical Notes * [...]
== END 2024-11-25 10:43 | disposition home or self-care (01) ==
PROVIDERS: PCP Internal Medicine; Visit Provider Internal Medicine
DX: Z00.00 Encounter for general adult medical examination without abnormal findings (principal); E11.65 Type 2 diabetes mellitus with hyperglycemia; D58.2 Other hemoglobinopathies; Z23 Encounter for immunization

== ENCOUNTER → 2024-11-25 09:43 | Outpatient (BNVA) | payer OTHER, SELFPAY | PROVIDERS: PCP Internal Medicine; Visit Provider Internal Medicine | DX: I10 Essential (primary) hypertension (principal); E11.9 Type 2 diabetes mellitus without complications; E78.5 Hyperlipidemia, unspecified; K21.9 Gastro-esophageal reflux disease without esophagitis; R32 Unspecified urinary incontinence; E11.65 Type 2 diabetes mellitus with hyperglycemia; D58.2 Other hemoglobinopathies; Z23 Encounter for immunization; Z79.899 Other long term (current) drug therapy | CPT/HCPCS: 83036; 90471; 90472; 90677; 90715; 96127 ==

== ENCOUNTER 2024-11-26 09:08 | Outpatient (REF) | payer OTHER, SELFPAY ==
[2024-11-26 10:20] LABS: Alanine Aminotransferase 24 U/L (0-31); Albumin Level 4.6 g/dL (3.5-5.0); Alkaline Phosphatase 67 U/L (39-117); Anion Gap 11 (12-20); Aspartate Amino Transferase 25 U/L (5-31); Bilirubin Total 0.5 mg/dL (0.0-1.0); Blood Urea Nitrogen 14 mg/dL (9-16); C Reactive Protein < 0.10 mg/dL (< or = 0.50); Calcium 10.3 mg/dL (8.4-10.2); Carbon Dioxide 26 mmol/L (22-29); Chloride 106 mmol/L (96-108); Cholesterol 88 mg/dL (<200); Estimated Glomerular Filt Rate > 60; Glucose Fasting 169 mg/dL (60-99); HDL Cholesterol 33 mg/dL (>40); LDL Cholesterol Calculated 24 mg/dL (<100); Potassium 3.9 mmol/L (3.3-5.1); Sodium 139 mmol/L (135-145); Triglycerides 156 mg/dL (<150)
[2024-11-26 10:25] LABS: Rheumatoid Factor < 13.0 IU/mL (<15.0)
[2024-11-26 10:36] LABS: Erythrocyte Sedimentation Rate 13 MM/HR (0-20)
[2024-11-26 10:43] LABS: Vitamin D 25-OH Total 28.9 ng/mL (>30)
[2024-11-26 10:51] LABS: Creatinine Urine 143.01 mg/dL; Microalbum/Creatinine Ratio Ur 6.2 ug/mg cr (<30)
[2024-11-28 12:48] LABS: Anti Nuclear Antibody Screen NEGATIVE (NEGATIVE)
[2024-12-02 15:18] LABS: Cyclic Citrullinated Peptide <16 UNITS
== END 2024-11-26 09:09 | disposition home or self-care (01) ==
LOC: HO.LAB 09:08
PROVIDERS: PCP Internal Medicine; Visit Provider Nurse Practitioner
DX: E78.5 Hyperlipidemia, unspecified (principal); E55.9 Vitamin D deficiency, unspecified; Q80.9 Congenital ichthyosis, unspecified; E11.65 Type 2 diabetes mellitus with hyperglycemia
CPT/HCPCS: 36415; 80053; 80061; 82043; 82306; 82570; 85652; 86038; 86140; 86200; 86431

== ENCOUNTER 2024-12-15 10:35 | Outpatient (AMB) | payer OTHER, SELFPAY ==
--- NOTE | 2024-12-15 10:45 | MHC.OFFVIS ---
Vital Signs 12/15/24 10:46 Height 4 ft 11 in Weight 144 lb 2.917 oz BMI 29.1 Intake Visit Reasons: 3wks db per november Intake Note: Patient presents for follow up Install And Repair Technician Services: Install And Repair Technician Offered & Declined Install And Repair Technician Name: Karsten Information Interpreted: non-clinical & clinical Allergies chlorzoxazone [From Parafon Forte DSC] Allergy (Intermediate, Verified 12/15/24 10:47) RASH/SWELLING, rash Iodinated Contrast Media [IV Dye, Iodine Containing] Allergy (Intermediate, Verified 12/15/24 10:47) THROAT CLOSED Penicillins [PENICILLINS] Allergy (Intermediate, Verified 12/15/24 10:47) HIVES pollen extracts [POLLEN] Allergy (Intermediate, Verified 12/15/24 10:47) RASH From KEFLEX Allergy (Severe, Uncoded 12/15/24 10:47) HIVES HPI HPI 3wks db per november: Details: Assessment & Plan (1) Gastroparesis: Comment: abnormal study 2021 but pt absolutely denies sx, will watch. 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 It appears that she has had an EGD/colonoscopy in the interim with Dr. Crowe 07/2024, but she was disappointed that they did not follow up with me to help my sx. She says her PCP sent her to The wrong doctor. She has been having nausea with everything that she eats and even water, but this is on and off and not related to type of food eaten. She feels like she has a ball in her gastric area. She has been told in the past that the food stays in my stomach. She is also c/o dry mouth like I can't produce saliva. But she does produce saliva when she eats. She thought it was her GB, but now she does not have a GB. She has generally soft stools but only will move a small amount at a time. All of her sx are c/w gastroparesis which we have evidence of in her GES performed in the past. Will start reglan 5mg qid. She also has intermittent sharp, brief pain in the RLQ that she can not tie to BM or eating, but will occur even if she is sitting. It is difficult to say if this is bowel or musculoskeletal given the brief timing of the pain. ROV 3 weeks. Orders: Orders Rheumatoid Factor Today Q80.9 - Congenital ichthyosis, unspecified MELVI Reflex Titer and Pattern Today Q80.9 - Congenital ichthyosis, unspecified C Reactive Protein Today Q80.9 - Congenital ichthyosis, unspecified Erythrocyte Sedimentation Rate Today Q80.9 - Congenital ichthyosis, unspecified Cyclic Citrullinated Peptide Today Q80.9 - Congenital ichthyosis, unspecified Medications: Refilled metoclopramide HCl (Reglan) 5 mg PO .tidac 120 tabs 6RF K21.9 - Gastro-esophageal reflux disease without esophagitis, K31.84 - Gastroparesis pantoprazole 40 mg PO DAILY 90 tabs 0RF LABS: Laboratory Tests 08/16/24 11/23/24 11/26/24 13:56 08:38 09:21 ESR 13 Estimated GFR > 60 Fasting Glucose 125 H Hgb A1c (Clinic) 6.4 H Calcium 9.7 Total Bilirubin 0.4 AST 26 ALT 20 Alkaline Phosphatase 57 Rheumatoid Factor < 13.0 Cycl Citrul Peptide IgG <16 MELVI Screen NEGATIVE TODAY'S VISIT [place] # translates per pt request. No signs of rheum disease, so RLQ pain is of uncertain cause. Will give trial of bentyl to see if it is bowel spasm. Her sx resolved with reglan 5mg and her GERD is well controlled, she also continues on her pantoprazole. ROV 3 mos. [facility] Medical History (Updated 12/15/24 @ 11:30 by RONAL Roa) Post-cholecystectomy syndrome Chronic diarrhea Nausea Physical exam Adult general medical exam Ear congestion Well woman exam Viral gastroenteritis Hospital discharge follow-up Elevated hemoglobin COVID-19 Gastroparesis Post-menopausal Hearing loss in right ear Obese Dry skin Long-term use of aspirin therapy Urge urinary incontinence GERD (gastroesophageal reflux disease) Essential hypertension Glaucoma Diabetes mellitus Surgical History History of esophagogastroduodenoscopy (EGD) History of colonoscopy Tubal ligation status History of knee replacement procedure of right knee History of cholecystectomy H/O arthroscopy of right knee History of nasal surgery History of Family History Father Cancer Mother Hypertension Social History Housing: House Are you a primary restorative care technician to a significant other at home: No Do you presently have visiting nurse or other home services: No Alcohol intake: current Alcohol intake frequency: holidays/special occasions only Alcohol type: wine Patient Tobacco Use Status: Never used Tobacco e-Cigarette/Vaping Use: Never Used Second Hand Smoke Exposure: No service: No Current occupational status: retired Cognitive needs: No Hearing needs: No Vision needs: No Female Reproductive History Menstrual Age of Menarche: 11 Review of Systems Const Denies fatigue, Denies fever(s), Denies night sweats, Denies poor appetite and Denies weight loss ENT Reports Normal hearing present, Denies dental pain, Denies dysphagia, Denies hearing loss, Denies mouth pain, Denies odynophagia, Denies throat swelling, Denies tongue swelling and Reports other (Dentition adequate) Card Reports no additional complaints Resp Reports no additional complaints GI Details: Reports abdominal pain, Denies melena, Denies bloating, Denies hematochezia, Denies constipation, Denies GI cramping, Denies dysphagia, Denies excessive flatus, Reports early satiety, Reports heartburn, Denies diarrhea, Denies nausea, Denies odynophagia, Denies vomiting and Denies hematemesis Skin/Breast Denies pruritus, Denies lesions, Denies rash and Denies jaundice Neuro Reports Normal hearing present and Denies Abnormal speech present Endo Denies fatigue Aller/Immun Denies throat swelling and Denies tongue swelling Physical Exam Vital Signs: BMI result Body Mass Index 29.1 Const General: cooperative, no acute distress, well developed and well groomed Nutritional Appearance: well nourished and obese Orientation/consciousness: oriented to person, oriented to place and oriented to time Limitations: language barrier HEENT Head: Yes normocephalic and Yes atraumatic Eyes General: appearance normal, both eyes and all related structures Pupils: Equal, round and reactive pupils present Neck Neck: Yes normal visual inspection and Yes no lymphadenopathy Thyroid: Thyroid normal Resp Effort & Inspection: normal respiratory effort and able to speak in complete sentences Auscultation: clear to auscultation bilaterally Cardio Rate: regular rate Rhythm: regular rhythm Heart sounds: Normal, physiologic split S2 sound present Peripheral pulses: radial pulses present and posterior tibial pulses present GI Inspection: No distended, No Abdominal panniculus present and Yes obesity Palpation (GI): Soft to palpation, nontender, no guarding, not rigid and No hepatosplenomegaly present Percussion: Yes normal to percussion Auscultation: normal bowel sounds Rectal Exam - Female: deferred Skin General skin exam: no rashes or lesions noted, turgor normal, skin not dry, no jaundice, No spider nevi and no striae Rashes: no rashes Nails: normal Neuro General: oriented to person, oriented to place and oriented to time Cranial nerves: Yes Equal, round and reactive pupils present and Yes Normal hearing present Speech: No Abnormal speech present Extrem General: Yes normal to inspection, No clubbing, No cyanosis and No edema Psych Appearance: grossly normal and well kempt Mental Status: mental status grossly normal Speech and movement: Normal speech and movement present Affect: normal affect Attitude: cooperative Thought process: Normal thought process present and not confabulating Thought content: Normal thought content present Insight: Fair insight present (Psych) Judgement: Fair judgement present (Psych) Results Reviewed Results Reviewed: Laboratory Tests 08/16/24 11/23/24 11/26/24 13:56 08:38 09:21 ESR 13 Estimated GFR > 60 Fasting Glucose 125 H Hgb A1c (Clinic) 6.4 H Calcium 9.7 Total Bilirubin 0.4 AST 26 ALT 20 Alkaline Phosphatase 57 Rheumatoid Factor < 13.0 Cycl Citrul Peptide IgG <16 MELVI Screen NEGATIVE Assessment & Plan Assessment & Plan (1) Abdominal cramping: Code(s): R10.9 - Unspecified abdominal pain Category: Medical (2) Gastroparesis: Comment: abnormal study 2021 but pt absolutely denies sx, will watch. Code(s): K31.84 - Gastroparesis Category: Medical (3) GERD (gastroesophageal reflux disease): Code(s): K21.9 - Gastro-esophageal reflux disease without esophagitis Category: Medical Qualifiers: Esophagitis presence: esophagitis presence not specified Qualified Code(s): K21.9 - Gastro-esophageal reflux disease without esophagitis Plan [place] # translates per pt request. No signs of rheum disease, so RLQ pain is of uncertain cause. Will give trial of bentyl to see if it is bowel spasm. Her sx resolved with reglan 5mg and her GERD is well controlled, she also continues on her pantoprazole. ROV 3 mos. Medications: New dicyclomine 20 mg PO QID PRN 120 tabs 3RF abdominal pain 30 days R10.9 - Unspecified abdominal pain Refilled metoclopramide HCl (Reglan) 5 mg PO .tidac 120 tabs 6RF K21.9 - Gastro-esophageal reflux disease without esophagitis, K31.84 - Gastroparesis pantoprazole 40 mg PO DAILY 90 tabs 0RF Discontinued famotidine Discontinued Reason: Doctor's Order 40 mg PO DAILY PRN 30 tabs 3RF for heartburn Coding Level of Care Code Est Pt Level 3 (07070) Diagnoses Abdominal cramping R10.9 Gastroparesis K31.84 Gastroesophageal reflux disease, unspecified whether esophagitis present K21.9 Esophagitis presence: esophagitis presence not specified
[2024-12-15 10:46] VITALS: BMI 29.1
--- OUTSIDE RECORDS SUMMARY | 2024-12-15 11:39 | XMS_ITS | Patient Health Record ---
Author Organization [facility] Address [address] [place] [address] Care Team Providers Care Electronic Health Records Specialist Name Role Phone Melvi Paz Primary [...] Blood Reviewed date:07/09/2024 02:59:54 PM Interpretation: Performing Lab:[facility], [address] [place] [phone] Notes/Report: Glucose, Whole Blood 135 60-115 mg/dL METER # : [id number] Pathology Reviewed date:07/14/2024 08:33:38 AM Interpretation: Performing Lab:[facility], [address] [place] [phone] Notes/Report: ------ Name: Awais Stout Age/Sex: 69/F : 1955 Unit#: [id number] Attend Dr: Balta Crowe MD Re07/09/24 Status : [facility] Location: [facility] Disch: ------ SPEC : [id number] STATUS: SUSANA GUZMÁN NUM: [id number] GRACE: 07/09/[address] [facility] [address]: Balta Crowe MD ENTERED: 07/09/24 [...] Awais Stout Age/Sex: 69/F : 1955 Unit#: [id number] Attend Dr: Balta Crowe MD Re07/09/24 Status : [facility] Location: [facility] Disch: ------ SPEC : [id number] RECD : 07/09/24 STATUS: SUSANA GUZMÁN NUM: [id number] GRACE: 07/09/[address] [facility] [address]: Balta Crowe MD ENTERED: 07/09/24- [...] on B1. Copies To: Balta Crowe MD [facility] [address] [place] [address] Melvi Paz MD [facility] Primary Care,[place] [address] [place] [address] ------ Signed (signature on file) Jackelyn Hugoton 07/12/24 1304 ------ END OF REPORT Pathology Reviewed date:07/20/2024 03:48:54 PM Interpretation: Performing Lab:[facility], [address] [place] [phone] Notes/Report: ------ Name: Bright CorralestadeoAwais branham Age/Sex: 69/F : 1955 Unit#: [id number] Attend Dr: Balta Crowe MD Re07/09/24 [place] : [facility] [place] [facility] Disch: ------ SPEC : [id number] RECD : 07/09/24 STATUS: SUSANA GUZMÁN NUM: [id number] GRACE: 07/09/[address] [facility] [address]: Balta Crowe MD ENTERED: 07/09/24 [...] appropriately. Addendum Signed (signature on file) Jackelyn Kel 07/14/241741 ------ Diagnosis A. Gastric antrum, b [...] Awais Stout Age/Sex: 69/F : 1955 Unit#: [id number] Attend Dr: Balta Crowe MD Re07/09/24 Status : [facility] Location: [facility] Disch: ------ SPEC : [id number] RECD : 07/09/24 STATUS: SUSANA GUMZÁN NUM: [id number] GRACE: 07/09/[address] [facility] [address]: Balta Crowe MD ENTERED: 07/09/24-10 [...] on B1. Copies To: Balta Crowe MD [facility] [address] [place] [address] Melvi Paz MD [facility] Primary Care,[place] [address] [place] [address] CONTINUED ON NEXT PAGE ------ Name: Awais Stout Age/Sex: 69/F : 1955 Unit#: [id number] Attend Dr: Balta Crowe MD Re07/09/24 Status : [facility] Location: [facility] Disch: ------ SPEC : [id number] RECD : 07/09/24 STATUS: SUSANA GUZMÁN NUM: [id number] GRACE: 07/09/[address] [facility] [address]: Balta Crowe MD ENTERED: 07/09/24 53 SP TYPE: Surgical OTHR DR: Melvi Paz MD ORDERED: HE Stain/12 , Gross Micro L4/4, IHC, Special st. 2, H. pylori, AB/PAS ------ Signed (signature on file) Jackelyn Hugoton 07/12/24 1304 ------ END OF REPORT Reason [...] Problem Status W/U Status Risk Notes Problem 081565766 Colon cancer screening (Z12.11) Active confirmed Problem 61736495 Rectal bleeding (K62.5) Active confirmed Problem 582757211 skilled nursing curren t use of aspirin (Z79.82) Active confirmed Problem Gastroesophageal reflux disease (K21.9) Active confirmed Problem 556070758 Encounter for long-term (current) use of high-risk medication (Z79.899) Active confirmed Problem 321265588 Gastroesophageal reflux disease, unspecified whether esophagitis present (K21.9) Active confirmed Vital Signs Temperature 97.5 degrees Fahrenheit 05/31/2024 Blood pressure diastolic 00 mm Hg 05/31/2024 Height 59 in 05/31/2024 Blood pressure systolic 000 mm Hg 05/31/2024 Weight 143 lbs 05/31/2024 BMI 28.88 kg/m2 05/31/2024 Encounters Encounter Location Date Provider Diagnosis [facility] Outpatient [address] [place] [phone] 07/09/2024 Balta Crowe Jr Colon cancer screening Z12.11 ; Personal history of colonic polyps Z86.0100 ; Colon polyps K63.5 and Gastroesophageal reflux disease K21.9 [facility] [address] [place] [phone] 05/31/2024 Balta Crowe Jr Gastroesophageal reflux disease, unspecified whether esophagitis present K21.9 and Colon cancer screening Z12.11 [facility] [address] [place] [phone] 01/01/2024 Balta Crowe Jr [facility] [address] [place] [phone] 02/18/2024 Balta Crowe Jr [facility] [address] [place] [phone] 07/20/2024 Balta Crowe Jr Assessments Encounter Date Diagnosis (ICD Code) Assessment [...] Insured Coverage Start Date Coverage End Date [facility] [address] [place] [phone] [id number] AWAIS GRAY Self - patient is the insured Medical (General) History Medical History History ICD Code Colonoscopy 2019, tubular adenoma, five- year followup glaucoma benign breast biopsy onychomycosis urinary incontinence diabetes mellitus hypertension esophageal reflux Surgical History Surgery Date(Month/Year) right knee replacement
--- OUTSIDE RECORDS SUMMARY | 2024-12-15 11:39 | XMS_ITS ---
Author Organization [facility] Address [address] [place] [address] Care Team Providers Care Branch Store Manager Name Role Phone Melvi Paz Primary Care [...] Problem Status W/U Status Risk Notes Problem 066611190 Gastroesophageal reflux disease, unspecified whether esophagitis present (K21.9) Active confirmed Problem 986083340 Colon cancer screening (Z12.11) Active confirmed Vital Signs Temperature 97.5 degrees Fahrenheit 05/31/20 24 Blood pressure systolic 000 mm Hg 05/31/20 24 Blood pressure diastolic 00 mm Hg 024 Height 59 in 05/31/2024 Weight 143 lbs 05/31/2024 BMI 28.88 kg/m2 05/31/2024 Encounters Encounter Location Date Provider Diagnosis [facility] [address] [place] [address] 05/31/2024 Balta Crowe Jr Gastroesophageal reflux disease, [...] AWAIS GRAY VDOB: [birth year] (68 yo F)Acc No.[id number]:05/31/2024 Progress Notes Patient:?AWAIS GRAY V Provider:?Balta Crowe MD :1955???Age:68 Y???Sex:Female D ate:05/31/2024 Address:[address] [place], [place] [id number] Pcp:Melvi Lawrence Subjective: * Chief Complaints: * [...] MD Date:?1 Generated for Immanuel vidal/Jose Antonio/eTransmitting on:?12/15/2024 11:38 AM EDT History and Physical Notes * [...]
--- OUTSIDE RECORDS SUMMARY | 2024-12-15 11:39 | XMS_ITS ---
Author Organization [facility] Address [address] [place] [address] Care Team Providers Care Artificial Snow Making Machine Operator Name Role Phone Melvi Paz Primary Care Provider Unavailab Balta Anglin Jr REASON FOR VISIT pathology Encounters Encounter Location Date Provider Diagnosis [facility] [address] [place] [address] 07/20/2024 Balta Crowe Jr Plan Of Treatment No Information Progress Notes * AWAIS GRAY VDOB: [birth year] (69 yo F)Acc No.[id number]:07/20/2024 Patient:?AWAIS GRAY V :1955???Age:69 Y???Sex:Female Address:[address] [place] [address] * true * Date:? Generated for Immanuel vidal/Jose Antonio/eTransmitting on:?12/15/2024 11:38 AM EDT
--- OUTSIDE RECORDS SUMMARY | 2024-12-15 11:39 | XMS_ITS ---
Author Organization [facility] Address [address] [place] [address] Care Team Providers Care Agricultural Adviser Name Role Phone Melvi Paz Primary Care Provider Balta oRsen Jr REASON FOR VISIT screening,gerd Problems Problem Type SNOMED Code ICD Code Onset Dates Problem Status W/U Status Risk Notes Problem Gastroesophageal reflux disease (K21.9) Active confirmed Encounters Encounter Location Date Provider Diagnosis [facility] Outpatient [address] [place], [place] [phone] 07/09/2024 Balta Crowe Jr Colon cancer screening [...] AWAIS GRAY VDOB: [birth year] (69 yo F)Acc No.[id number]:07/09/2024 EGD and COL/MAC Patient:?AWAIS GRAY V Provider:?Balta Crowe MD :1955???Age:69 Y???Sex:Female D ate:07/09/2024 Address:[address] [place] [address], [facility] [id number] Pcp:Melvi Lawrence Subjective: * Chief Complaints: * ???1. Screening,gerd. * Medical History:? Objective: * Vitals:? Assessment: * Assessment: 1.?Colon cancer screening - Z12.11 (Primary)???2.?Personal history of colonic polyps - Z86.0100???3.?Colon polyps - K63.5???4.?Gastroesophageal reflux disease - K21.9??? Plan: * Treatment: * Procedure Codes:?10105 LESIO N REMOVAL COLONOSCOPY, 11512 COLONOSCOPY AND BIOPSY, Modifiers: 59 , 0529F INTRVL 3+YRS PTS CLNSCP DOCD, 42120 UPPER GI ENDOSCOPY, BIOPSY * * The named appointment provid er may or may not be the originator of this progress note, and it is not deemed complete until electronically signed by the appointment provider. Sign off status: Pending * Provider:?Balta Crowe MD Date:?1 09/09/2023 Generated for Immanuel vidal/Jose Antonio/eTransmitting on:?12/15/2024 11:38 AM EDT
== END 2024-12-15 11:33 | disposition home or self-care (01) ==
LOC: HO.HGI 10:36
PROVIDERS: PCP Internal Medicine; Visit Provider Nurse Practitioner
DX: R10.9 Unspecified abdominal pain (principal); K31.84 Gastroparesis; K21.9 Gastro-esophageal reflux disease without esophagitis
CPT/HCPCS: 99213

== ENCOUNTER → 2024-12-15 10:35 | Outpatient (BNVA) | payer OTHER, SELFPAY | PROVIDERS: PCP Internal Medicine; Visit Provider Nurse Practitioner | DX: G43.009 Migraine without aura, not intractable, without status migrainosus (principal); M62.838 Other muscle spasm; Q76.49 Other congenital malformations of spine, not associated with scoliosis; M54.2 Cervicalgia; R11.0 Nausea; K31.84 Gastroparesis; K91.5 Postcholecystectomy syndrome; K21.9 Gastro-esophageal reflux disease without esophagitis; Q80.9 Congenital ichthyosis, unspecified; R10.9 Unspecified abdominal pain | CPT/HCPCS: 99212 ==

== ENCOUNTER 2024-12-15 14:42 | Outpatient (AMB) | payer OTHER, SELFPAY ==
--- NOTE | 2024-12-15 15:18 | A.OFFVIS_ITS ---
Vital Signs 12/15/24 15:20 Height 4 ft 11 in Weight 145 lb BMI 29.3 BP 124/68 Blood Pressure Location Rt brachial Position Sitting Pulse 76 Pulse Source Pulse Oximeter Pulse Oximetry (%) 96 Oxygen Delivery Method Room Air Intake Visit Reasons: Follow up General Operations Manager Required: No General Operations Manager Name: Daughter translated Allergies chlorzoxazone [From Parafon Forte DSC] Allergy (Intermediate, Verified 12/15/24 15:22) RASH/SWELLING, rash Iodinated Contrast Media [IV Dye, Iodine Containing] Allergy (Intermediate, Verified 12/15/24 15:22) THROAT CLOSED Penicillins [PENICILLINS] Allergy (Intermediate, Verified 12/15/24 15:22) HIVES pollen extracts [POLLEN] Allergy (Intermediate, Verified 12/15/24 15:22) RASH cephalexin Allergy (Mild, Verified 12/15/24 15:22) Rash From KEFLEX Allergy (Severe, Uncoded 12/15/24 10:47) HIVES Medication List - Last Reconciled 12/15/24 by REYNALDO Bates amlodipine 2.5 mg PO DAILY 90 days ammonium lactate 12% appl topical BID aspirin 81 mg PO DAILY 90 days baclofen 10 mg PO TID 30 days blood sugar diagnostic (Sun[employer]uch Ultra Test strips) USE TO TEST ONCE DAILY blood-glucose meter (Sunseauch Ultra2 Meter kit) As directed dicyclomine 20 mg PO QID PRN 30 days dorzolamide-timolol 22.3-6.8 mg/mL 1 drp ophthalmic (eye) lancets (OneTouch Delica Plus Lancet) USE 1 LANCET ONCE A DAY latanoprost 0.005% 1 drp ophthalmic (eye) BEDTIME lidocaine 5% 1 patch topical DAILY lisinopril 40 mg PO DAILY 30 days metformin 850 mg PO BID 90 days metoclopramide HCl (Reglan) 5 mg PO .tidac oxybutynin chloride ER 10 mg PO BID 90 days pantoprazole 40 mg PO DAILY rosuvastatin 5 mg PO DAILY 90 days HPI Comments Details: Right-handed 69-year-old female presents for follow-up of migraine. The headaches have improved, she is having only an occasional headache proximally 4 times a month. She never started as needed Nurtec. Pt reports the Magnesium prevents her from sleeping. She states the Riboflavin is helpful, but has not had recently as she needs a refill. She states she always has neck tightness. She has not have the neck x-ray yet. She has not started PT yet. 05/25/2024 initial HPI: Right-handed 68-yr-old female presents for new pt evaluation of headache disorder. Pt is accompanied by her dtr. Pt reports she started having headaches at age 17 when she was accident struck in the head by a ball of hardened dough (that was being thrown around by some staff at a bakery she was walking by)- she did have dizziness but went onto school, but had to leave when she realized she could not do her math test. She never received tx for this. The headaches worsened over the next couple of years, the headaches worsened. Earlier this year, pt was having very frequent headaches, but once her lisinopril dose was increased, her headaches decreased to one day a week. Dtr notes that pt's BP tends to higher the day after pt has a headache. PMH and ROS are notable for:? General: left eye glaucoma, blurry vision, dysphagia. Musculoskeletal disorders or injury: some neck tightness, tingling in her fingers and toes. difficulty walking s/p right knee surgery. History of concussion/head injury: as above Mood d/o: Anxiety, Depression, CV disease: HTN HLD Endocrine or metabolic d/o: Diabetes : hy/oi kidney stones GI d/o: GERD Family history of migraine or other headache disorder: dtr has menstrual BETANCOURT. Pertinent denials include: Sleep d/o, Respiratory d/o, Clotting or hematology d/o, History of seizure, syncope, or drop attacks, Constipation, Lifestyle considerations: Sleep routine: Usual bedtime: 10pm and wake-up time: 7am Sleep difficulties: some fragmented sleep, nocturia, Snoring Caffeine use: 1 cups per day Substance use: Denies any use of Tobacco, Marijuana, Alcohol Exercise:?none Employment:?n/a Headache questionnaire:? Typical headache characteristics: Prodrome symptoms: Denies Aura: denies Pain intensity: begins moderate and becomes severe Location, quality, characteristics: Right sounding throbbing/pounding. Associated symptoms: photophobia, phonophobia, nausea, a little off-balance, activity intolerance, Postdrome: denies Triggers: denies Time of day: No specific time of day- but headache can come early in the day and then come back later in the day Duration and Frequency: states 1 hr with tx and rest, 2 hrs w/o tx but w/ rest, but returns later in the day. 1-2 days per week. How does headache impact your life? has to lay down. Current acute medication use/interventions: Using Ibuprofen 200-400mg 2 x's per day. Current preventative medication use: none. Non-pharmacological interventions: rest She has an order for metoclopramide for GI s/s, but she never tried it as she had not had GI work-up. 12/26/23, MR/MR head/brain wo con IMPRESSION: 1. No acute intracranial abnormality. 2. Mild to moderate chronic white matter microangiopathy and mild generalized cerebral volume loss. 3. 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 [facility] Medical History (Updated 12/17/24 @ 15:15 by REYNALDO Bates) Post-cholecystectomy syndrome Chronic diarrhea Nausea Physical exam Adult general medical exam Ear congestion Well woman exam Viral gastroenteritis Hospital discharge follow-up Elevated hemoglobin COVID-19 Gastroparesis Post-menopausal Hearing loss in right ear Obese Dry skin Long-term use of aspirin therapy Urge urinary incontinence GERD (gastroesophageal reflux disease) Essential hypertension Glaucoma Diabetes mellitus Surgical History History of esophagogastroduodenoscopy (EGD) History of colonoscopy Tubal ligation status History of knee replacement procedure of right knee History of cholecystectomy H/O arthroscopy of right knee History of nasal surgery History of Family History Father Cancer Mother Hypertension Social History Housing: House Are you a primary occasional caregiver to a significant other at home: No Do you presently have visiting nurse or other home services: No Alcohol intake: current Alcohol intake frequency: holidays/special occasions only Alcohol type: wine Patient Tobacco Use Status: Never used Tobacco e-Cigarette/Vaping Use: Never Used Second Hand Smoke Exposure: No service: No Current occupational status: retired Cognitive needs: No Hearing needs: No Vision needs: No Female Reproductive History Menstrual Age of Menarche: 11 Physical Exam Vital Signs: Last Vital Signs Pulse 76 12/15/24 15:20 BP 124/68 12/15/24 15:20 Pulse Ox 96 12/15/24 15:20 Oxygen Delivery Method Room Air 12/15/24 15:20 BMI result Body Mass Index 29.3 Const Orientation/consciousness: patient oriented x3 Resp Effort & Inspection: normal respiratory effort and able to speak in complete sentences Neuro General: patient oriented x3 Cranial nerves: Yes CN's II-XII intact bilaterally Cognition (Neuro): normal cognition Gait exam (Neuro): Antalgic gait present Motor exam (neuro): 5/5 motor strength present throughout Pupils: Normal pupillary reactivity/response: bilateral Psych Appearance: grossly normal Mental Status: mental status grossly normal Speech and movement: Normal speech and movement present Affect: normal affect Attitude: cooperative Thought process: Normal thought process present Assessment & Plan Assessment & Plan (1) Migraine without aura: Code(s): G43.009 - Migraine without aura, not intractable, without status migrainosus Category: Medical Qualifiers: Status migrainosus presence: without status migrainosus Intractability: not intractable Qualified Code(s): G43.009 - Migraine without aura, not intractable, without status migrainosus (2) Neck muscle spasm: Code(s): M62.838 - Other muscle spasm Category: Medical (3) Atlanto-occipital malformation: Comment: Brain MRI 2023: Stable appearance of the craniocervical junction with atlantooccipital assimilation and mild basilar invagination with indentation of the cervicomedullary junction. Code(s): Q76.49 - Other congenital malformations of spine, not associated with scoliosis Category: Medical Plan Pt is again advised to undergo: XR c-spine w/ flex/ext to better assess for atlanto-occipital instability. PT eval & tx. Future considerations: HST. For overall headache management: * Optimize good self-care, including but not limited to maintaining a healthy diet, adequate fluid intake, adequate sleep, and engaging in regular physical activity. * Track headaches, especially after any treatment regimen changes. * Track BP on day of and day after migraine attacks to see if there is a relationship between the two. For acute headache treatment: Discussed importance of taking acute medications at the first sign of headache, however stressed importance of avoiding acute medication overuse (especially with combined headache medications). Trial Rimegepant ODT (Nurtec ODT) 75mg, 1 tab at onset of headache.. Max of 1 tabs (75mg) per 24 hours. May adjunct with OTC Tylenol 650-1000mg q 4-6 hours. Potential adverse effects, include but are not limited to fatigue, nausea, dry mouth, constipation. Limit NSAID use d/t HTN. Previous acute migraine medication trials: Ibuprofen. Acute migraine medication contraindications: All triptans and DHE d/t unstable HTN, HLD. For headache prevention medication: Preventative medications should be taken routinely as prescribed for best effect, it may take several weeks for full effect to take effect. Pt preference is for more conservative tx approach at this time. Resume Riboflavin 400mg qam Try taking Magnesium 400mg daily in the morning- hold for loose stools. Continue Lisinopril 40mg qd- ordered primarily for HTN. Previous migraine prevention medication trials: none other Migraine prevention medication contraindications: Topiramate d/t h/o kidney stones. Will follow-up upon review of above and patient to follow-up in clinic in 6 months or sooner prn. Orders: Orders XR cervical spine w flex/ext 12/15/24 M54.2 - Cervicalgia PT Evaluation and Treatment 12/15/24 G43.009 - Migraine without aura, not intractable, without status migrainosus, Q76.49 - Other congenital malformations of spine, not associated with scoliosis Medications: Changed From riboflavin (vitamin B2) 400 mg PO DAILY 30 days 30 tabs 6RF To riboflavin (vitamin B2) 400 mg PO DAILY 90 tabs 3RF 90 days From magnesium oxide may hold for loose stools 400 mg PO BEDTIME 30 days 30 tabs 6RF To magnesium oxide In the morning per pt preference. may hold for loose stools 400 mg PO DAILY 90 tabs 3RF 90 days Refilled rimegepant (Nurtec ODT) 75 mg PO ONCE PRN 16 tabs 6RF migraine headache 30 days MDD 1 tab Coding Level of Care Code Est Pt Level 4 (50267) Diagnoses Migraine without aura and without status migrainosus, not intractable G43.009 Status migrainosus presence: without status migrainosus Intractability: not intractable Neck muscle spasm M62.838 Atlanto-occipital malformation Q76.49
[2024-12-15 15:20] VITALS: BP 124/68; PULSE 76; O2SAT 96; BMI 29.3
== END 2024-12-15 15:54 | disposition home or self-care (01) ==
LOC: HO.HSMS 14:43
PROVIDERS: PCP Internal Medicine; Visit Provider Nurse Practitioner Family
DX: G43.009 Migraine without aura, not intractable, without status migrainosus (principal); M62.838 Other muscle spasm; Q76.49 Other congenital malformations of spine, not associated with scoliosis
CPT/HCPCS: 99214

== ENCOUNTER 2025-01-10 10:29 | Outpatient (AMB) | payer OTHER, MEDICAID, SELFPAY ==
--- NOTE | 2025-01-10 10:30 | A.OFFVIS_ITS ---
Intake Visit Reasons: 1YR/PVR Intake Note: Patient presents for follow up visit on : OAB and Incontinence Urology Medications: Oxybutynin Blood Thinner: aspirin PVR: 10ml's Magnet Maker Required: Yes Magnet Maker Services: Magnet Maker Present Magnet Maker Name: LUDY ECKERTCONNOR Accompanied by: Unknown Allergies chlorzoxazone [From Parafon Forte DSC] Allergy (Intermediate, Verified 01/10/25 10:48) RASH/SWELLING, rash Iodinated Contrast Media [IV Dye, Iodine Containing] Allergy (Intermediate, Verified 01/10/25 10:48) THROAT CLOSED Penicillins [PENICILLINS] Allergy (Intermediate, Verified 01/10/25 10:48) HIVES pollen extracts [POLLEN] Allergy (Intermediate, Verified 01/10/25 10:48) RASH cephalexin Allergy (Mild, Verified 01/10/25 10:48) Rash From KEFLEX Allergy (Severe, Uncoded 01/10/25 10:48) HIVES Medication List - Last Reconciled 01/10/25 by REYNALDO Perez- amlodipine 2.5 mg PO DAILY 90 days ammonium lactate 12% appl topical BID aspirin 81 mg PO DAILY 90 days baclofen 10 mg PO TID 30 days blood sugar diagnostic ([employer] Ultra Test strips) USE TO TEST ONCE DAILY blood-glucose meter ([employer] Ultra2 Meter kit) As directed dicyclomine 20 mg PO QID PRN 30 days dorzolamide-timolol 22.3-6.8 mg/mL 1 drp ophthalmic (eye) lancets (TribeTouch Delica Plus Lancet) USE 1 LANCET ONCE A DAY latanoprost 0.005% 1 drp ophthalmic (eye) BEDTIME lidocaine 5% 1 patch topical DAILY lisinopril 40 mg PO DAILY 30 days magnesium oxide 400 mg PO DAILY 90 days metformin 850 mg PO BID 90 days metoclopramide HCl (Reglan) 5 mg PO .tidac oxybutynin chloride ER 10 mg PO BID 90 days pantoprazole 40 mg PO DAILY riboflavin (vitamin B2) 400 mg PO DAILY 90 days rimegepant (Nurtec ODT) 75 mg PO ONCE PRN 30 days MDD 1 tab rosuvastatin 5 mg PO DAILY 90 days HPI Comments Details: Betsey is a very pleasant 69-year-old Latvian-speaking female patient of Dr. Conor Lawrence. She has a past medical history of gastroparesis, GERD, hypertension, glaucoma, diabetes, and hearing loss. She presents to the office today for follow-up of her over active bladder symptoms. In discussion with the patient today she reports to be doing and feeling well. She discusses her compliance wit h oxybutynin 10 mg b.i.d. she reports to be happy with current voiding parameters on oxybutynin. She otherwise offers no issues or concerns at this time. In office urinalysis results reviewed with the patient today. PVR 10 mL. When asked she denies urinary urgency, urinary frequency, incontinence, nocturia, hematuria, dysuria, foul smelling urine, changes to urinary stream, flank pain, fever, and or chills. She is happy with her current voiding parameters while on oxybutynin. Discussed and stressed the importance of managing diabetes for improvement in urinary symptoms as well as overall health and well-being. She otherwise offers no other issues or concerns at this time. [facility] Medical History Post-cholecystectomy syndrome Chronic diarrhea Nausea Physical exam Adult general medical exam Ear congestion Well woman exam Viral gastroenteritis Hospital discharge follow-up Elevated hemoglobin COVID-19 Gastroparesis Post-menopausal Hearing loss in right ear Obese Dry skin Long-term use of aspirin therapy Urge urinary incontinence GERD (gastroesophageal reflux disease) Essential hypertension Glaucoma Diabetes mellitus Surgical History History of esophagogastroduodenoscopy (EGD) History of colonoscopy Tubal ligation status History of knee replacement procedure of right knee History of cholecystectomy H/O arthroscopy of right knee History of nasal surgery History of Family History Father Cancer Mother Hypertension Social History Housing: House Are you a primary healthcare insurance sales agent to a significant other at home: No Do you presently have visiting nurse or other home services: No Alcohol intake: current Alcohol intake frequency: holidays/special occasions only Alcohol type: wine Patient Tobacco Use Status: Never used Tobacco e-Cigarette/Vaping Use: Never Used Second Hand Smoke Exposure: No service: No Current occupational status: retired Cognitive needs: No Hearing needs: No Vision needs: No Female Reproductive History Menstrual Age of Menarche: 11 Review of Systems Const Reports no additional complaints Eyes Reports as per HPI ENT Reports as per HPI Card Reports as per HPI Resp Reports no additional complaints GI Reports as per HPI Reports as per HPI Musc Reports no additional complaints Neuro Reports no additional complaints Psych Reports no additional complaints Endo Reports as per HPI Nuno/Lymph Reports no additional complaints Aller/Immun Reports no additional complaints Physical Exam Const General: cooperative, healthy appearing, comfortable, no acute distress, well developed, alert and awake Orientation/consciousness: patient oriented x3 Limitations: language barrier HEENT Head: Yes normal to inspection, Yes normocephalic and Yes atraumatic Ears: hearing grossly normal bilaterally Eyes General: appearance normal, both eyes and all related structures Neck Neck: Yes normal visual inspection and Yes trachea midline Chest Chest palpation & inspection: normal inspection of the chest Resp Effort & Inspection: normal respiratory effort and able to speak in complete sentences Cardio Rate: regular rate GI Inspection: Yes normal to inspection General: Yes no CVA tenderness Back/Spine/Pelvis Back: no CVA tenderness Skin General skin exam: no rashes or lesions noted Neuro General: patient oriented x3 Extrem General: Yes normal to inspection Psych Appearance: grossly normal and well kempt Mental Status: mental status grossly normal Speech and movement: Normal speech and movement present and Clear speech present Affect: normal affect Attitude: cooperative Thought process: Normal thought process present Thought content: Normal thought content present Insight: Fair insight present (Psych) Judgement: Fair judgement present (Psych) Office Procedures Post Void Residual Post Residual Void Post Void Residual (PVR): 10 03688-Pilw Void Residual by ultrasound Results AMB Urinalysis, Automated UA Leukoctes 0 Tapan/uL Last Edit by ROBLES Barahona on 01/10/25 10:56 UA Nitrite Last Edit by ROBLES Barahona on 01/10/25 10:56 UA Urobilinogen 0.2 mg/dL Last Edit by [facility]ined[facility], [facility] on 01/10/25 10:5 6 UA Protein 0 mg/dL Last Edit by Isreal Mckeon, [facility] on 01/10/25 10:56 UA pH 6.0 Last Edit by Isreal Mckeon, [facility] on 01/10/25 10:56 UA Blood 0 Adama/uL [facility], [facility] on 01/10/25 10:56 UA Specific [place] 1.010 Last Edit by [facility], [facility] on 01/10/25 10: 56 UA Ketone Last Edit [facility], [facility] on 01/10/25 10:56 UA Bilirubin 0 mg/dL Last Edit by Isreal Mckeon, [facility] on 01/10/25 10:56 UA Glucose 0 mg/dL Last Edit [facility], [facility] on 01/10/25 10:56 Assessment & Plan Assessment & Plan (1) Nocturia: Code(s): R35.1 - Nocturia Category: Medical (2) Overactive bladder: Code(s): N32.81 - Overactive bladder Category: Medical (3) Urge urinary incontinence: Code(s): N39.41 - Urge incontinence Category: Medical Plan In office urinalysis results reviewed with the patient today; as noted above. PVR 10 mL. She currently denies any bothersome urinary issues or concerns. She reports be happy with current voiding parameters. We discussed importance of management and diabetes for improvement in lower urinary tract symptoms as well as overall health and well-being. Will continue with surveillance monitoring. Continue oxybutynin as discussed and prescribed; refill provided. All questions were answered. Follow-up in 1 year with PVR; or sooner with any issues, concerns, and or questions. Orders: Orders AMB Post Void Residual by ultrasound Today R35.1 - Nocturia AMB Urinalysis Automated Today Z13.9 - Encounter for screening, unspecified Patient Instructions: The patient had an opportunity to ask questions regarding the treatment plan. All questions were answered. Physical exam, labs, and imaging were discussed and reviewed in detail. As well as risks, benefits, and discussion of treatment choices. No major barriers to understanding were identified. The patient expressed understanding and agreement with the above treatment plan. The patient was made aware they should contact our office by phone for worsening of their current condition, the appearance of new symptoms, or with any questions or concerns. Compliance is encouraged with any medications and follow up testing that is ordered. It is a privilege to be allowed the opportunity to participate in? your urological care.? Again, if you have any questions or concerns If you have any questions or concerns please do not hesitate to contact me. The office is [phone]. This note is constructed using voice recognition software. While every effort has been made to ensure accuracy heel molder errors may have been included. Yours sincerely, MELISSA Perez Coding Level of Care Code Est Pt Level 3 (84899) Complex EM visit Add On G2211 Diagnoses Nocturia R35.1 Overactive bladder N32.81 Urge urinary incontinence N39.41 CPT Codes Post Residual Void - PVR CPT Code: 55588-Pdec Void Residual by ultrasound ([id number])
--- OUTSIDE RECORDS SUMMARY | 2025-01-10 11:47 | XMS_ITS ---
Author Organization [facility] Address [address] [place] [id number] Care Team Providers Care Nonprofit Financial Controller Name Role Phone Melvi Paz Primary Care Provider Unavailab Balta Anglin Jr [phone] REASON FOR VISIT pathology Encounters Encounter Location Date Provider Diagnosis [facility] [address] [place] [address] 07/20/2024 Balta Crowe Jr Plan Of Treatment No Information Progress Notes * AWAIS GRAY VDOB: [birth year] (69 yo F)Acc No.[id number]:07/20/2024 Patient:?AWAIS GRAY V :1955???Age:69 Y???Sex:Female Address:[address] [place] [id number] * true * Date:? Generated for Immanuel vidal/Jose Antonio/eTransmitting on:?01/10/2025 11:47 AM EDT
== END 2025-01-10 10:57 | disposition home or self-care (01) ==
LOC: HO.HUSH 10:30
PROVIDERS: PCP Internal Medicine; Visit Provider Nurse Practitioner Family
DX: R35.1 Nocturia (principal); N32.81 Overactive bladder; N39.41 Urge incontinence; Z13.9 Encounter for screening, unspecified
CPT/HCPCS: 99213; G2211

== ENCOUNTER → 2025-01-10 10:29 | Outpatient (BNVA) | payer OTHER, SELFPAY | PROVIDERS: PCP Internal Medicine; Visit Provider Nurse Practitioner Family | DX: R35.1 Nocturia (principal) | CPT/HCPCS: 51798; 81003 ==

== ENCOUNTER 2025-01-20 00:24 | Emergency (ER) | payer OTHER, MEDICAID, SELFPAY ==
--- OUTSIDE RECORDS SUMMARY | 2024-07-20 11:47 | XMS_ITS ---
Author Organization [facility] Address [address] [place] [id number] Care Team Providers Care Air Quality Technician Name Role Phone Melvi Paz Primary Care Provider Unavailab Balta Anglin Jr REASON FOR VISIT pathology Encounters Encounter Location Date Provider Diagnosis [facility] [address] [place] [address] 07/20/2024 Blata Crowe Jr Plan Of Treatment No Information Progress Notes * AWAIS GRAY VDOB: [birth year] (69 yo F)Acc No.[id number]:07/20/2024 Patient: Gisela AWAIS DISLA V :1955 A ge:69 Y S ex:Female Address:[address] [place] [id number] * true * Date: Generated for Immanuel vidal/Jose Antonio/eTransmitting on: 0 01/20/2025 01:09 AM EDT
--- NOTE | ~2025-01-20 | CT_ITS ---
CLINICAL HISTORY: pain CT cervical spine without contrast Comparison: None Findings: There is minimal degenerative anterolisthesis of C4 on C5 due to facet osteoarthritis. There is no fracture. There is moderate to severe C3-4 degenerative disc disease and multilevel mild degenerative disc disease. Posterior disc osteophyte complex at C3-4 probably causes mild central canal stenosis. There is multilevel facet and uncovertebral joint osteoarthritis with associated neuroforaminal stenoses. 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 There is a subcentimeter left thyroid nodule which does not meet size criteria for follow-up. IMPRESSION: 1. No acute findings. 2. Cervical spondylosis. This document has been electronically signed by: Galen Garcia MD on 01/20/2025 03:00:15
[2025-01-20 00:39] VITALS: BP 159/78; PULSE 104; RESP 20; TEMP 36.8; O2SAT 94; BMI 28.1
--- NOTE | 2025-01-20 03:09 | ED_ITS ---
HPI - General Adult General Chief complaint: Neck Pain/Injury Stated complaint: Neck Pain Time Seen by Provider: 01/20/25 03:11 Source: patient Limitations: language barrier History of Present Illness ED Provider: Kimberly De Jesus PA-C HPI narrative: 69 year old female with a known chronic neck pain, migraine, hyperlipidemia, hypertension, diabetes, GERD presents with acute on chronic neck pain x3 days. Patient states she woke Friday morning with pain. She has been attending physical therapy for her neck pain and migraines, she received some relief. Patient states she is prescribed baclofen, this medication is not helping her symptoms. No heavy lifting, or trauma that could have exacerbated her symptoms. Denies radiation of pain down either extremity, no paresthesia or weakness. Denies headache or visual changes. Related Data Home Medications ?Medication ?Instructions ?Recorded ?Confirmed latanoprost 0.005 % eye drops 1 drp ophthalmic (eye) B EDTIME 05/09/20 01/10/25 ammonium lactate 12 % topical cream appl topical BID 0 02/22/21 01/10/25 dorzolamide 22.3 mg-timolol 6.8 1 drp ophthalmic (eye) 10/10/22 01/10/25 mg/mL eye drops Previous Rx's ?Medication ?Instructions ?Recorded blood-glucose meter (OATSystemsuch #1 ea 05/17/22 Ultra2 Meter kit) lidocaine 5 % topical patch 1 patch topical DAILY #15 ea 05/20/23 aspirin 81 mg tablet,delayed 81 mg PO DAILY 90 days #9 0 tabs 12/04/23 release oxybutynin chloride 10 mg 10 mg PO BID 90 days #180 ta bs 01/13/24 tablet,extended release 24 hr blood sugar diagnostic (SymcircleTouch #100 strips 01/28/24 Ultra Test strips) baclofen 10 mg tablet 10 mg PO TID 30 days #90 tab s 03/25/24 metformin 850 mg tablet 850 mg PO BID 90 days #180 t abs 10/15/24 lisinopril 40 mg tablet 40 mg PO DAILY 30 days #30 t abs 11/14/24 rosuvastatin 5 mg tablet 5 mg PO DAILY 90 days #90 ta bs 12/01/24 dicyclomine 20 mg tablet 20 mg PO QID PRN abdominal p ain 30 12/15/24 days #120 tabs magnesium oxide 400 mg (241.3 mg 400 mg PO DAILY 90 da ys #90 tabs 12/15/24 magnesium) tablet metoclopramide HCl 5 mg tablet 5 mg PO .tidac #120 tab s 12/15/24 (Reglan) pantoprazole 40 mg tablet,delayed 40 mg PO DAILY #90 t abs 12/15/24 release riboflavin (vitamin B2) 400 mg 400 mg PO DAILY 90 days #90 tabs 12/15/24 tablet rimegepant 75 mg disintegrating 75 mg PO ONCE PRN migr janeth 12/15/24 tablet (Nurtec ODT) headache 30 days #16 tabs amlodipine 2.5 mg tablet 2.5 mg PO DAILY 90 days #90 tabs 12/20/24 lancets 30 gauge (OneTouch Delica #100 ea 12/26/24 Plus Lancet) diazepam 5 mg tablet (Valium) 5 mg PO BID PRN muscle s pasm #10 01/20/25 tabs ketorolac 10 mg tablet 10 mg PO Q6H PRN pain #20 ta bs 01/20/25 Allergies Allergy/AdvReac Type Severity Reaction Status Date / Time chlorzoxazone (From Parafon Allergy Intermediate RASH/SWELLING, Verified 01/20/25 00:42 Forte DSC) rash Iodinated Contrast Media (IV Allergy Intermediate THROAT Verified 01/20/25 00:42 Dye, Iodine Containing) CLOSED Penicillins (PENICILLINS) Allergy Intermediate HIVES Verified 01/20/25 00:42 pollen extracts (POLLEN) Allergy Intermediate RASH Verified 01/20/25 00:42 cephalexin Allergy Mild Rash Verified 01/20/25 00:42 From KEFLEX Allergy Severe HIVES Uncoded 01/20/25 00:42 Review of Systems Review of Systems: Yes all other systems are reviewed and are negative Constitutional: Constitutional: Denies fatigue, Denies fever(s) and Denies headache(s) ENT: Denies dizziness, Denies headache(s) and Reports neck pain Cardiovascular: Cardiovascular: Denies chest pain Gastrointestinal: Gastrointestinal: Denies abdominal pain, Denies nausea and Denies vomiting Musculoskeletal: Musculoskeletal: Denies muscle weakness, Reports neck pain, Denies numbness and Denies tingling Neurologic: Denies dizziness, Denies headache(s), Denies numbness and Denies tingling Endocrine: Endocrine: Denies fatigue PMFSH Past Medical History Attestation statement: The following information was validated with the patient. Medical History Post-cholecystectomy syndrome Chronic diarrhea Nausea Physical exam Adult general medical exam Ear congestion Well woman exam Viral gastroenteritis Hospital discharge follow-up Elevated hemoglobin COVID-19 Gastroparesis Post-menopausal Hearing loss in right ear Obese Dry skin Long-term use of aspirin therapy Urge urinary incontinence GERD (gastroesophageal reflux disease) Essential hypertension Glaucoma Diabetes mellitus Surgical History History of esophagogastroduodenoscopy (EGD) History of colonoscopy Tubal ligation status History of knee replacement procedure of right knee History of cholecystectomy H/O arthroscopy of right knee History of nasal surgery History of Family History Family History Father Cancer Mother Hypertension Social History Social History Housing: House Are you a primary transitions rn care coordinator to a significant other at home: No Do you presently have visiting nurse or other home services: No Alcohol intake: current Alcohol intake frequency: holidays/special occasions only Alcohol type: wine Patient Tobacco Use Status: Never used Tobacco e-Cigarette/Vaping Use: Never Used Second Hand Smoke Exposure: No Advance Directives Date on File: 02/17/17 service: No Current occupational status: retired Cognitive needs: No Hearing needs: No Vision needs: No Physical Exam ED Vital Signs: Vital Signs - 24 hr 01/20/25 00:39 01/20/25 04:07 Temperature 98.2 F 98.2 F Pulse Rate 104 H 104 H Respiratory Rate 20 20 Blood Pressure 159/78 H 154/78 H Pulse Oximetry 94 94 Oxygen Delivery Method Room Air Room Air BMI result Body Mass Index 28.1 Const Other: Alert, appears uncomfortable Orientation/consciousness: patient oriented x3 Neck Other: Limited range of motion of the neck, secondary to pain Resp Effort & Inspection: normal respiratory effort Cardio Other: Normal peripheral perfusion Skin Other: Warm dry no rash Neuro General: patient oriented x3, gait normal, no focal motor deficits and CN's II- XI intact bilaterally Psych Other: Cooperative Medications Administered Discontinued Medications Generic Name Dose Route Start Last Admin Trade Name Freq PRN Reason Stop Dose Admin Diazepam 5 mg 01/20/25 03:10 01/20/25 03:16 Diazepam 5 Mg Tablet PO 01/20/25 03:11 5 mg ONCE ONE Administration Ketorolac Tromethamine 15 mg 01/20/25 03:10 01/20/25 03:16 Ketorolac Tromethamine 15 Mg/Ml Vial IM 01/20/25 03:11 15 mg ONCE ONE Administration Medical Decision Making Medical Decision Making MDM Narrative: 69 year old female with a known chronic neck pain, migraine, hyperlipidemia, hypertension, diabetes, GERD presents with acute on chronic neck pain x3 days. Patient states she woke Friday morning with pain. She has been attending physical therapy for her neck pain and migraines, she received some relief. Patient states she is prescribed baclofen, this medication is not helping her symptoms. No heavy lifting, or trauma that could have exacerbated her symptoms. Denies radiation of pain down either extremity, no paresthesia or weakness. Denies headache or visual changes. Problem: Chronic neck pain History: Per patient I have considered the following differential diagnoses: Cervical strain, cervical radiculopathy, VAD, torticollis, compression fracture Plan: Patient has known chronic neck pain, she is currently attending physical therapy, perhaps a physical therapy was too much in exacerbated her pain. We will give her Toradol and Valium. She is not having any radicular symptoms. She has movement of the neck this is not torticollis. Thought about VAD, however she is neurologically intact and there was no preceding heavy lifting mechanism. CT scan of the neck was ordered from triage. I have independently reviewed the following tests: CT cervical spine:Findings: There is minimal degenerative anterolisthesis of C4 on C5 due to facet osteoarthritis. There is no fracture. There is moderate to severe C3-4 degenerative disc disease and multilevel mild degenerative disc disease. Posterior disc osteophyte complex at C3-4 probably causes mild central canal stenosis. There is multilevel facet and uncovertebral joint osteoarthritis with associated neuroforaminal stenoses. 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 There is a subcentimeter left thyroid nodule which does not meet size criteria for follow-up. IMPRESSION: 1. No acute findings. 2. Cervical spondylosis. Discharge Plan Discharge Clinical Impression: Cervicalgia Patient Disposition: Home, Self-Care Instructions: Chronic Neck Pain (DC) Additional Instructions: The CT scan revealed that you have significant arthritis of your cervical spine, see home care instructions. Use the ketorolac as directed this is an anti- inflammatory take it with food. Use the Valium as needed this is a muscle relaxant, it will cause drowsiness, do not drive while taking the medication. Continue to follow up with your primary care provider, continue to attend physical therapy. I am also providing you with the contact for our orthopedic service, you can have discussion with the specialist about potential joint injections for your arthritis. Prescriptions: New diazepam [Valium] 5 mg tablet 5 mg PO BID PRN (Reason: muscle spasm) Qty: 10 0RF ketorolac 10 mg tablet 10 mg PO Q6H PRN (Reason: pain) Qty: 20 0RF Rx Instructions: maximum total duration of 5 days from all oral, intranasal, or parenteral formulations. The patient received an intramuscular dose of Toradol here in the emergency department No Action (DME) blood-glucose meter [SymcircleTouch Ultra2 Meter] Kit See Rx Instructions .Route Qty: 1 0RF Rx Instructions: As directed aspirin 81 mg tablet,delayed release (DR/EC) 81 mg PO DAILY 90 Days Qty: 90 4RF (DME) OneTouch Ultra Test Strip See Rx Instructions .ROUTE .COMPLEX Qty: 100 11RF Dose Instruction: USE TO TEST ONCE DAILY Rx Instructions: USE TO TEST ONCE DAILY metformin 850 mg tablet 850 mg PO BID 90 Days Qty: 180 1RF lisinopril 40 mg tablet 40 mg PO DAILY 30 Days Qty: 30 2RF rosuvastatin 5 mg tablet 5 mg PO DAILY 90 Days Qty: 90 1RF amlodipine 2.5 mg tablet 2.5 mg PO DAILY 90 Days Qty: 90 0RF (DME) lancets [OneTouch Delica Plus Lancet] 30 gauge misc See Rx Instructions .ROUTE .COMPLEX Qty: 100 0RF Dose Instruction: USE 1 LANCET ONCE A DAY Rx Instructions: USE 1 LANCET ONCE A DAY lidocaine 5 % adhesive patch,medicated 1 patch topical DAILY Qty: 15 0RF Rx Instructions: leave on most painful area for up to 12 hrs latanoprost 0.005 % drops 1 drp ophthalmic (eye) BEDTIME ammonium lactate 12 % cream topical BID baclofen 10 mg tablet 10 mg PO TID 30 Days Qty: 90 0RF dorzolamide-timolol 22.3-6.8 mg/mL drops 1 drp ophthalmic (eye) riboflavin (vitamin B2) 400 mg tablet 400 mg PO DAILY 90 Days Qty: 90 3RF magnesium oxide 400 mg (241.3 mg magnesium) tablet 400 mg PO DAILY 90 Days Qty: 90 3RF Rx Instructions: In the morning per pt preference. may hold for loose stools Nurtec ODT 75 mg tablet,disintegrating 75 mg PO ONCE MDD 1 tab PRN (Reason: migraine headache) 30 Days Qty: 16 6RF metoclopramide HCl [Reglan] 5 mg tablet 5 mg PO .tidac Qty: 120 6RF pantoprazole 40 mg tablet,delayed release (DR/EC) 40 mg PO DAILY Qty: 90 0RF dicyclomine 20 mg tablet 20 mg PO QID PRN (Reason: abdominal pain) 30 Days Qty: 120 3RF oxybutynin chloride 10 mg tablet extended release 24hr 10 mg PO BID 90 Days Qty: 180 4RF Referrals: Emerson Glass MD [Physician, Orthopedics] Referral Note: Cervicalgia, potential cortisone injections Interventions: ED Discharge Assessment Last Done: 01/20/25 04:07 Discharge Date/Time: 01/20/25 04:08 Print Language: Ukrainian
[2025-01-20] MEDS: Ketorolac Tromethamine 15 MG/ML VIAL IM (03:16)
[2025-01-20] MEDS: diazePAM 5 MG TABLET PO (03:16)
[2025-01-20 04:07] VITALS: BP 154/78; PULSE 104; RESP 20; TEMP 36.8; O2SAT 94
== END 2025-01-20 04:08 | disposition home or self-care (01) ==
PROVIDERS: Emergency Provider Emergency Medicine; PCP Internal Medicine
DX: G43.909 Migraine, unspecified, not intractable, without status migrainosus (principal); M54.2 Cervicalgia; I10 Essential (primary) hypertension; Z79.899 Other long term (current) drug therapy
CPT/HCPCS: 72125; 96372; 99284; J1885

== ENCOUNTER → 2025-01-20 01:34 | Outpatient (BNV) | payer OTHER, MEDICAID, SELFPAY | PROVIDERS: Emergency Provider Emergency Medicine; PCP Internal Medicine; Visit Provider Radiology Diagnostic Radiology | DX: M47.812 Spondylosis without myelopathy or radiculopathy, cervical region (principal) | CPT/HCPCS: 72125 ==

== ENCOUNTER 2025-01-25 10:00 | Outpatient (RCR) | payer OTHER, SELFPAY ==
--- NOTE | 2025-01-04 15:47 | MHC.PT.EP ---
[facility] [place] Office [place] Office [place] Office [address] Jd Amezquita [address] [phone] F: [phone] F: [phone] F: [phone] F: [phone] Physical Therapy Plan of Care Date of Evaluation: 01/04/25 Date of Surgery: NA Diagnosis: ATLANTO-OCCIPITAL MALFORMATION MIGRAINE Assessment: Pt IS 69 YO F REFERRED TO PT FROM SAL NGUYEN (GRINDER SET UP OPERATOR FROM [facility]) WITH MIGRAINE AND CERVICAL MM TIGHTNESS OF CHRONIC NATURE. Pt PRESENTS WITH POOR POSTURE AND DECREASED CERVICAL ROM AND UPPER BODY STRENGTH. SHOULD BENEFIT FROM PT TO ADDRESS THESE ISSUES Frequency and Duration: The patient will be seen 1X/WK X 6 WKS Short Term Goals: 1. INCREASED POSTURE AWARENESS AND AWARENESS NECK CARE . [facility] Goals: 1. IMPROVED CERV ROM AT LEAST 5 DEGREES T/O 2. I HEP WITH DC EX PLAN 3. DECREASED NECK PAIN AT LEAST 50% WITH ADLS Treatment Plan: Modalities to reduce pain, spasms and effusion. Manual therapy to restore motion and function. Therapeutic exercise to improve strength and flexibility. Neuromuscular re-education for posture and balance. Therapeutic activities to return to functional activities of daily living. Electronically signed by: JERICHO SALAZAR PT Please sign and return to therapist. Thank you for your referral.
--- NOTE | 2025-01-04 15:49 | MHC.PT.EP ---
[facility] [place] Office [place] Office [place] Office [address] Jd Amezquita [address] [phone] F: [phone] F: [phone] F: [phone] F: [phone] Physical Therapy Plan of Care Date of Evaluation: 01/04/25 Date of Surgery: NA Diagnosis: ATLANTO-OCCIPITAL MALFORMATION MIGRAINE Assessment: Pt IS 69 YO F REFERRED TO PT FROM CHERRIE KHALIL(BUSINESS RELATIONS MANAGER FROM [facility]) WITH MIGRAINE AND CERVICAL MM TIGHTNESS OF CHRONIC NATURE. Pt PRESENTS WITH POOR POSTURE AND DECREASED CERVICAL ROM AND UPPER BODY STRENGTH. SHOULD BENEFIT FROM PT TO ADDRESS THESE ISSUES Frequency and Duration: The patient will be seen 1X/WK X 6 WKS Short Term Goals: 1. INCREASED POSTURE AWARENESS AND AWARENESS NECK CARE . [employer] Goals: 1. IMPROVED CERV ROM AT LEAST 5 DEGREES T/O 2. I HEP WITH DC EX PLAN 3. DECREASED NECK PAIN AT LEAST 50% WITH ADLS Treatment Plan: Modalities to reduce pain, spasms and effusion. Manual therapy to restore motion and function. Therapeutic exercise to improve strength and flexibility. Neuromuscular re-education for posture and balance. Therapeutic activities to return to functional activities of daily living. Electronically signed by: JERICHO SALAZAR PT Please sign and return to therapist. Thank you for your referral.
--- NOTE | 2025-03-25 16:24 | MHC.PT.DC ---
[facility] [place] [facility] [place] Office [place] [facility] [address] Jd Amezquita [address] [phone] F: [phone] F: [phone] F: [phone] F: [phone] Physical Therapy Discharge Report Diagnosis: ATLANTO-OCCIPITAL MALFORMATION MIGRAINE Date of Surgery: NA Date of Evaluation: 01/04/25 Date of Discharge: 03/25/25 Treatments to Date: 3 Cancellations to Date: No Shows to Date: Discharge Status: Independent with HEP Patient Elected to Stop Recommend MD Follow-up Discharge Summary: Pt SEEN FOR INIT EVAL AND 2 VISITS. THEN PUT ON HOLD. PER ASSESSMENT FROM LAST SESSION 01/25 pt with tight right UT. Went to ED on 01/20>meds, Cerv CT. Pt was going to [place] until February. PT on hold. NO FURTHER APPTS SCHEDULED Electronically signed by: JERICHO SALAZAR PT Please sign and return to therapist. Thank you for your referral.
== END 2025-03-25 16:24 | disposition home or self-care (01) ==
LOC: HO.PT 10:00
PROVIDERS: PCP Internal Medicine; Visit Provider Nurse Practitioner Family
DX: Q76.49 Other congenital malformations of spine, not associated with scoliosis (principal); G43.009 Migraine without aura, not intractable, without status migrainosus
CPT/HCPCS: 97110; 97140; 97161

== ENCOUNTER 2025-03-15 11:03 | Outpatient (AMB) | payer OTHER, SELFPAY ==
--- OUTSIDE RECORDS SUMMARY | 2024-02-18 05:20 | XMS_ITS ---
Author Organization [facility] Address [address] [place] [phone] Care Team Providers Care Pathology Collector Name Role Phone Melvi Paz Primary Care Provider UnavailBalta Gomez Jr REASON FOR VISIT Patient presents today for a colon screening Encounters Encounter Location Date Provider Diagnosis [facility] [address] [facility] [address] [place] [phone] 02/18/2024 Balta Crowe Jr Plan Of Treatment No Information Progress Notes * ISAAC AWAIS VDOB: [birth year] (69 yo F)Acc No.[id number]:02/18/2024 Progress Notes Patient: AWAIS BARTHOLOMEW V Provider: Juan A Crowe MD :1955 A ge:68 Y S ex:Female Date:02/18/2024 Address:[address] [place], [place] [id number] Pcp:Melvi Lawrence Subjective: * Chief Complaints: * [...] 02/18/2024 Generated for Printi ng/Faxing/eTransmitting on: 0 03/15/2025 12:10 PM EDT
[2025-03-15 11:07] VITALS: BP 137/60; PULSE 58; BMI 27.1
--- NOTE | 2025-03-15 11:07 | A.OFFVIS_ITS ---
Vital Signs 03/15/25 11:07 Height 5 ft Weight 138 lb 14.259 oz BMI 27.1 BP 137/60 Blood Pressure Location Lt brachial Position Sitting Pulse 58 Intake Visit Reasons: paresis, GERD Intake Note: Betsey presents in the office as a follow up for paresis and GERD. CC: She states that she is feeling good and not having any concerns. Customer Engineer Required: Yes Allergies chlorzoxazone (From Parafon Forte DSC) Allergy (Intermediate, Verified 03/15/25 11:08) RASH/SWELLING, rash Iodinated Contrast Media (IV Dye, Iodine Containing) Allergy (Intermediate, Verified 03/15/25 11:08) THROAT CLOSED Penicillins (PENICILLINS) Allergy (Intermediate, Verified 03/15/25 11:08) HIVES pollen extracts (POLLEN) Allergy (Intermediate, Verified 03/15/25 11:08) RASH cephalexin Allergy (Mild, Verified 03/15/25 11:08) Rash From KEFLEX Allergy (Severe, Uncoded 03/15/25 11:08) HIVES HPI HPI paresis, GERD: Details: Assessment & Plan (1) Abdominal cramping: Code(s): R10.9 - Unspecified abdominal pain Category: Medical (2) Gastroparesis: Comment: abnormal study 2021 but pt absolutely denies sx, will watch. Code(s): K31.84 - Gastroparesis Category: Medical (3) GERD (gastroesophageal reflux disease): Code(s): K21.9 - Gastro-esophageal reflux disease without esophagitis Category: Medical Qualifiers: Esophagitis presence: esophagitis presence not specified Qualified Code(s): K21.9 - Gastro-esophageal reflux disease without esophagitis Plan [place] # translates per pt request. No signs of rheum disease, so RLQ pain is of uncertain cause. Will give trial of bentyl to see if it is bowel spasm. Her sx resolved with reglan 5mg and her GERD is well controlled, she also continues on her pantoprazole. ROV 3 mos. Medications: New dicyclomine 20 mg PO QID PRN 120 tabs 3RF abdominal pain 30 days R10.9 - Unspecified abdominal pain Refilled metoclopramide HCl (Reglan) 5 mg PO .tidac 120 tabs 6RF K21.9 - Gastro- esophageal reflux disease without esophagitis, K31.84 - Gastroparesis pantoprazole 40 mg PO DAILY 90 tabs 0RF Discontinued famotidine Discontinued Reason: Doctor's Order 40 mg PO DAILY PRN 30 tabs 3RF for heartburn TODAY'S VISIT [place] #family member translates per pt request. Her current GI regimen consists of reglan 5mg and pantoprazole bid. She received the bentyl but has not taken it because now taking the reglan tid has resolved the RLQ pain. She is not happy with her GI regimen. Return office visit in 6 months [facility] Medical History Post-cholecystectomy syndrome Chronic diarrhea Nausea Physical exam Adult general medical exam Ear congestion Well woman exam Viral gastroenteritis Hospital discharge follow-up Elevated hemoglobin COVID-19 Gastroparesis Post-menopausal Hearing loss in right ear Obese Dry skin Long-term use of aspirin therapy Urge urinary incontinence GERD (gastroesophageal reflux disease) Essential hypertension Glaucoma Diabetes mellitus Surgical History History of esophagogastroduodenoscopy (EGD) History of colonoscopy Tubal ligation status History of knee replacement procedure of right knee History of cholecystectomy H/O arthroscopy of right knee History of nasal surgery History of Family History Father Cancer Mother Hypertension Social History Housing: House Are you a primary customer care consultant to a significant other at home: No Do you presently have visiting nurse or other home services: No Alcohol intake: current Alcohol intake frequency: holidays/special occasions only Alcohol type: wine Patient Tobacco Use Status: Never used Tobacco e-Cigarette/Vaping Use: Never Used Second Hand Smoke Exposure: No Advance Directives Date on File: 02/17/17 service: No Current occupational status: retired Cognitive needs: No Hearing needs: No Vision needs: No Female Reproductive History Menstrual Age of Menarche: 11 Review of Systems Const Denies fatigue, Denies fever(s), Denies night sweats, Denies poor appetite and Denies weight loss ENT Reports Normal hearing present, Denies dental pain, Denies dysphagia, Denies hearing loss, Denies mouth pain, Denies odynophagia, Denies throat swelling, Denies tongue swelling and Reports other (Dentition adequate) Card Reports no additional complaints Resp Reports no additional complaints GI Details: Denies abdominal pain, Denies melena, Denies bloating, Denies hematochezia, Denies constipation, Denies GI cramping, Denies dysphagia, Denies excessive flatus, Reports early satiety, Reports heartburn, Denies diarrhea, Denies nausea, Denies odynophagia, Denies vomiting and Denies hematemesis Skin/Breast Denies pruritus, Denies lesions, Denies rash and Denies jaundice Neuro Reports Normal hearing present and Denies Abnormal speech present Endo Denies fatigue Aller/Immun Denies throat swelling and Denies tongue swelling Physical Exam Vital Signs: Last Vital Signs Pulse 58 03/15/25 11:07 BP 137/60 03/15/25 11:07 BMI result Body Mass Index 27.1 Const General: cooperative, no acute distress, well developed and well groomed Nutritional Appearance: average body habitus and well nourished Orientation/consciousness: oriented to person, oriented to place and oriented to time Limitations: language barrier HEENT Head: Yes normocephalic and Yes atraumatic Eyes General: appearance normal, both eyes and all related structures Pupils: Equal, round and reactive pupils present Neck Neck: Yes normal visual inspection and Yes no lymphadenopathy Thyroid: Thyroid normal Resp Effort & Inspection: normal respiratory effort and able to speak in complete sentences Auscultation: clear to auscultation bilaterally Cardio Rate: regular rate Rhythm: regular rhythm Heart sounds: Normal, physiologic split S2 sound present Peripheral pulses: radial pulses present and posterior tibial pulses present GI Inspection: No distended and No Abdominal panniculus present Palpation (GI): Soft to palpation, nontender, no guarding, not rigid and No hepatosplenomegaly present Percussion: Yes normal to percussion Auscultation: normal bowel sounds Rectal Exam - Female: deferred Skin General skin exam: no rashes or lesions noted, turgor normal, skin not dry, no jaundice, No spider nevi and no striae Rashes: no rashes Nails: normal Neuro General: oriented to person, oriented to place and oriented to time Cranial nerves: Yes Equal, round and reactive pupils present and Yes Normal hearing present Speech: No Abnormal speech present Extrem General: Yes normal to inspection, No clubbing, No cyanosis and No edema Psych Appearance: grossly normal and well kempt Mental Status: mental status grossly normal Speech and movement: Normal speech and movement present Affect: normal affect Attitude: cooperative Thought process: Normal thought process present and not confabulating Thought content: Normal thought content present Insight: Fair insight present (Psych) Judgement: Fair judgement present (Psych) Assessment & Plan Assessment & Plan (1) GERD (gastroesophageal reflux disease): Code(s): K21.9 - Gastro-esophageal reflux disease without esophagitis Category: Medical Qualifiers: Esophagitis presence: esophagitis presence not specified Qualified Code(s): K21.9 - Gastro-esophageal reflux disease without esophagitis (2) Gastroparesis: Comment: abnormal study 2021 but pt absolutely denies sx, will watch. Code(s): K31.84 - Gastroparesis Category: Medical (3) Abdominal cramping: Code(s): R10.9 - Unspecified abdominal pain Category: Medical Plan [place] #family member translates per pt request. Her current GI regimen consists of reglan 5mg and pantoprazole bid. She received the bentyl but has not taken it because now taking the reglan tid has resolved the RLQ pain. She is not happy with her GI regimen. Return office visit in 6 month Medications: Refilled pantoprazole 40 mg PO DAILY 90 tabs 1RF metoclopramide HCl (Reglan) 5 mg PO .tidac 120 tabs 6RF K21.9 - Gastro- esophageal reflux disease without esophagitis, K31.84 - Gastroparesis Discontinued dicyclomine Discontinued Reason: Doctor's Order 20 mg PO QID 30 days PRN 120 tabs 3RF abdominal pain R10.9 - Unspecified abdominal pain Coding Level of Care Code Est Pt Level 3 (16773) Diagnoses Gastroesophageal reflux disease, unspecified whether esophagitis present K21.9 Esophagitis presence: esophagitis presence not specified Gastroparesis K31.84 Abdominal cramping R10.9
== END 2025-03-15 11:39 | disposition home or self-care (01) ==
LOC: HO.HGI 11:04
PROVIDERS: PCP Internal Medicine; Visit Provider Nurse Practitioner
DX: K21.9 Gastro-esophageal reflux disease without esophagitis (principal); K31.84 Gastroparesis; R10.9 Unspecified abdominal pain
CPT/HCPCS: 99213

== ENCOUNTER → 2025-03-15 11:03 | Outpatient (BNVA) | payer OTHER, SELFPAY | PROVIDERS: PCP Internal Medicine; Visit Provider Nurse Practitioner | DX: K21.9 Gastro-esophageal reflux disease without esophagitis (principal); K31.84 Gastroparesis; R10.9 Unspecified abdominal pain; K91.5 Postcholecystectomy syndrome | CPT/HCPCS: 99212 ==

== ENCOUNTER 2025-03-30 10:37 | Outpatient (AMB) | payer OTHER, SELFPAY ==
--- OUTSIDE RECORDS SUMMARY | 2024-02-18 05:20 | XMS_ITS ---
Author Organization [facility] Address [address] [place] [phone] Care Team Providers Care Spectroscopist Name Role Phone Melvi Paz Primary Care Provider UnavailBalta Gomez Jr [phone] REASON FOR VISIT Patient presents today for a colon screening Encounters Encounter Location Date Provider Diagnosis [facility] [address] [facility] [address] [place] [phone] 02/18/2024 Balta Crowe Jr Plan Of Treatment No Information Progress Notes * ISAAC AWAIS VDOB: [birth year] (69 yo F)Acc No.[id number]:02/18/2024 Progress Notes Patient: AWAIS BARTHOLOMEW V Provider: Juan A Crowe MD :1955 A ge:68 Y S ex:Female Date:02/18/2024 Address:[address] [place], [place] [phone] Pcp:Melvi Lawrence Subjective: * Chief Complaints: * [...] 02/18/2024 Generated for Printi ng/Faxing/eTransmitting on: 0 03/30/2025 11:28 AM EDT
--- OUTSIDE RECORDS SUMMARY | 2024-07-09 06:00 | XMS_ITS ---
Author Organization [facility] Address [address] [place] [phone] Care Team Providers Care Agricultural Inspector Name Role Phone Melvi Paz Primary Care Provider UnavailBalta Gomez Jr Unavailable REASON FOR VISIT screening,gerd Problems Problem Type SNOMED Code ICD Code Onset Dates Problem Status W/U Status Risk Notes Problem Gastroesophageal reflux disease (K21.9) Active confirmed Encounters Encounter Location Date Provider Diagnosis [facility] Outpatient [address] [place], [place] [phone] 07/09/2024 Balta Crowe Jr Colon cancer screening [...] AWAIS GRAY VDOB: [birth year] (69 yo F)Acc No.[id number]:07/09/2024 EGD and COL/MAC Patient: Gisela AWAIS DISLA V Provider: Juan A Crowe MD :1955 A ge:69 Y S ex:Female Date:07/09/2024 Address:[address] [place], [place] [phone] Pcp:Melvi Lawrence Subjective: * Chief Complaints: * 1 . Screening,gerd. * Medical History: Objective: * Vitals: Assessment: * Assessment: 1. C olon cancer screening - Z12.11 (Primary) 2 . P ersonal history of colonic polyps - Z86.0100 3 . C olon polyps - K63.5 4 . G astroesophageal reflux disease - K21.9 Plan: * Treatment: * Procedure Codes: 4 5385 LESION REMOVAL COLONOSCOPY, 85500 COLONOSCOPY AND BIOPSY, Modifiers: 59 , 0529F INTRVL 3+YRS PTS CLNSCP DOCD, [address]870 UPPER GI ENDOSCOPY, BIOPSY * * The named appointment provid er may or may not be the originator of this progress note, and it is not deemed complete until electronically signed by the appointment provider. Sign off status: Pending * Provider: Juan A Crowe MD Date: 1 09/09/2023 Generated for Immanuel vidal/Jose Antonio/Joshuaitting on: 0 03/30/2025 11:28 AM EDT
--- NOTE | 2025-03-30 10:43 | MHC.PC.OV ---
Vital Signs 03/30/25 10:44 Height 5 ft Weight 143 lb 4 oz BMI 28.0 BP 120/80 Blood Pressure Location Lt brachial Position Sitting Pulse 65 Pulse Source Pulse Oximeter Pulse Oximetry (%) 97 Oxygen Delivery Method Room Air Intake Visit Reasons: cataract surgery 04/11 and 04/25 Rug Washer Required: No Accompanied by: Self / Same As Patient Allergies chlorzoxazone (From Parafon Forte DSC) Allergy (Intermediate, Verified 03/30/25 10:52) RASH/SWELLING, rash Iodinated Contrast Media (IV Dye, Iodine Containing) Allergy (Intermediate, Verified 03/30/25 10:52) THROAT CLOSED Penicillins (PENICILLINS) Allergy (Intermediate, Verified 03/30/25 10:52) HIVES pollen extracts (POLLEN) Allergy (Intermediate, Verified 03/30/25 10:52) RASH cephalexin Allergy (Mild, Verified 03/30/25 10:52) Rash From KEFLEX Allergy (Severe, Uncoded 03/30/25 10:52) HIVES Medication List - Last Reconciled 03/30/25 by Melvi Lawrence MD amlodipine 2.5 mg PO DAILY 90 days ammonium lactate 12% appl topical BID aspirin 81 mg PO DAILY 90 days baclofen 10 mg PO TID 30 days blood sugar diagnostic (Pongr Ultra Test strips) USE TO TEST ONCE DAILY blood-glucose meter (Pongr Ultra2 Meter kit) As directed diazepam (Valium) 5 mg PO BID PRN dorzolamide-timolol 22.3-6.8 mg/mL 1 drp ophthalmic (eye) ketorolac 10 mg PO Q6H PRN lancets ([employer] Delica Plus Lancet) USE 1 LANCET ONCE A DAY latanoprost 0.005% 1 drp ophthalmic (eye) BEDTIME lidocaine 5% 1 patch topical DAILY lisinopril 40 mg PO DAILY 30 days magnesium oxide 400 mg PO DAILY 90 days metformin 850 mg PO BID 90 days metoclopramide HCl (Reglan) 5 mg PO .tidac oxybutynin chloride ER 10 mg PO BID 90 days pantoprazole 40 mg PO DAILY riboflavin (vitamin B2) 400 mg PO DAILY 90 days rimegepant (Nurtec ODT) 75 mg PO ONCE PRN 30 days MDD 1 tab rosuvastatin 5 mg PO DAILY 90 days Tobacco use date assessed: 03/30/25 Last assessed Fall Risk: 03/30/25 Dental Screening Dental Screen Date: 03/30/25 HPI HPI Comments History of Present Illness Details The patient is a 69-year-old female presenting with a preoperative evaluation for cataract extraction and intraocular lens implant scheduled for April 11 in the left eye and April 25 in the right eye. She has 5-7 Mets of ADLs. This is a low risk surgery and she is a low risk patient. EKG and labs are pending for medical clearance. She has a history of hypertension, currently managed with amlodipine, which is reported to be effective. Additionally, she experiences muscle spasms for which she takes baclofen as needed, a medication initially prescribed during a hospital visit. The patient has diabetes mellitus, managed with metformin, and gastroesophageal reflux disease, for which she takes pantoprazole. She also takes oxybutynin for urinary incontinence. Her A1c is 6.2% which is within goal. She also has hyperlipidemia and her LDL is less than 70 with a low-dose statin. Her migraine condition is treated with Nurtec, although she only uses it when the pain is severe. She is on rosuvastatin for hyperlipidemia, which is reported to be effective. Her surgical history includes knee replacement, cholecystectomy, nasal surgery, and section. She has a family history of cancer and hypertension. The patient does not smoke and consumes alcohol only on special occasions. She is scheduled for laboratory tests and an electrocardiogram as part of her preoperative evaluation. [facility] Medical History (Updated 03/30/25 @ 11:00 by Melvi Lawrence MD) Post-cholecystectomy syndrome Chronic diarrhea Nausea Physical exam Adult general medical exam Ear congestion Well woman exam Viral gastroenteritis Hospital discharge follow-up Elevated hemoglobin COVID-19 Gastroparesis Post-menopausal Hearing loss in right ear Obese Dry skin Long-term use of aspirin therapy Urge urinary incontinence GERD (gastroesophageal reflux disease) Essential hypertension Glaucoma Diabetes mellitus Surgical History History of esophagogastroduodenoscopy (EGD) History of colonoscopy Tubal ligation status History of knee replacement procedure of right knee History of cholecystectomy H/O arthroscopy of right knee History of nasal surgery History of Family History Father Cancer Mother Hypertension Social History Housing: House Are you a primary acute care nursing assistant to a significant other at home: No Do you presently have visiting nurse or other home services: No Alcohol intake: current Alcohol intake frequency: holidays/special occasions only Alcohol type: wine Patient Tobacco Use Status: Never used Tobacco e-Cigarette/Vaping Use: Never Used Second Hand Smoke Exposure: No Advance Directives Date on File: 02/17/17 service: No Current occupational status: retired Cognitive needs: No Hearing needs: No Vision needs: No Female Reproductive History Menstrual Age of Menarche: 11 Questionnaire PHQ-9 Over the last 2 weeks, how often have you been bothered by any of the following problems? 1. Little interest or pleasure in doing things: not at all 2. Feeling down, depressed, or hopeless: not at all 3. Trouble falling or staying asleep, or sleeping too much: not at all 4. Feeling tired or having little energy: not at all 5. Poor appetite or overeating: not at all 6. Feeling bad about yourself - or that you are a failure or have let yourself or your family down: not at all 7. Trouble concentrating on things, such as reading the newspaper or watching television: not at all 8. Moving or speaking so slowly that other people could have noticed. Or the opposite - being so fidgety or restless that you have been moving around a lot more than usual: not at all 9. Thoughts that you would be better off or of hurting yourself in some way: not at all Total score: 0 Depression Screening Interpretation: Negative Depression Screening Done: Yes 18659 - PHQ-9 Billing: Yes Source: Developed by Drs. Travon Rosales, Toña Wood, Francisco Marie and colleagues, with an educational yu from [employer] Thrive Questionnaire Date Thrive assessed: 03/30/25 I am a: Patient What is your living situation today?: I have a steady place to live Within the past 12 months, did the food you bought not last and you didn't have the money to get more?: Never true Within the past 12 months, did you worry whether your food would run out before you got money to buy more?: Never true Do you have trouble paying for medicines?: No Do you have trouble getting transportation to medical appointments?: No Do you have trouble paying your heating and electricity bill?: No Do you have trouble taking care of your child, family member or friend?: No Do you have trouble with day-to-day activities such as bathing, preparing meals, shopping, managing finances, etc.?: No Are you currently unemployed and looking for a job?: No Are you interested in more education?: No Please select the resources that you would like help with: None Currently or been in a relationship where the following occur: No concerns reported THRIVE Score: 0 AUDIT C Alcohol Use Questionnaire (AUDIT-C) 1. How often do you have a drink containing alcohol?: Monthly or less 2. How many drinks containing alcohol do you have on a typical day when you are drinking?: 1 or 2 3. How often do you have six or more drinks on one occasion?: Never Total Score: 1 Score Reviewed/Action Taken: No DIANE-7 AMB Questionnaire DIANE-7 Date DIANE - 7 assessed: 03/30/25 Feeling nervous, anxious, or on edge: 0 = Not at all Not being able to stop or control worryin = Not at all Worrying too much about different things: 0 = Not at all Trouble relaxin = Not at all Being so restless that it is hard to sit still: 0 = Not at all Becoming easily annoyed or irritable: 0 = Not at all Feeling afraid as if something awful might happen: 0 = Not at all Total DIANE-7 score (0-4 normal; 5-9 mild; 10-14 moderate; 15-21 severe): 0 Source: Developed by Drs. Travon Rosales, Toña Wood, Francisco Marie and colleagues, with an educational yu from [employer] DIANE-7 Assessment Billing DIANE-7 Assessment Tool: DIANE-7 Assessment 32743 Review of Systems Const All systems reviewed & are unremarkable except as noted in HPI and below Card Denies chest pain at rest, Denies chest pain with activity, Denies edema, Denies irregular heart rhythm, Denies claudication, Denies dyspnea, Denies dyspnea on exertion, Denies orthopnea, Denies paroxysmal nocturnal dyspnea and Denies slow heart rate Resp Denies cough, Denies dyspnea and Denies dyspnea on exertion Physical exam (Primary Care) Vital Signs: Last Vital Signs Pulse 65 03/30/25 10:44 BP 120/80 03/30/25 10:44 Pulse Ox 97 03/30/25 10:44 Oxygen Delivery Method Room Air 03/30/25 10:44 BMI result Body Mass Index 28.0 Tobacco/Smoking Status: Tobacco use Status Tobacco use date assessed 03/30/25 03/30/25 10:48 Patient Tobacco Use Status Never used Tobacco 03/30/25 10:48 e-Cigarette/Vaping Use Never Used 03/30/25 10:48 PHQ-9: PHQ-9 Score PHQ-9: Total score 0 03/30/25 10:48 Depression Screening Interpretation: Negative Thrive Assessment: Date of Thrive Assessment Date Thrive assessed 03/30/25 03/30/25 10:48 Currently or been in a relationship where the following occur: No concerns reported Resp Effort & Inspection: normal respiratory effort Auscultation: clear to auscultation bilaterally Cardio Jugular venous distension: no JVD Rate: regular rate Rhythm: regular rhythm Heart sounds: S1 normal heart sound present and S2 normal heart sound present Extrem General: Yes full ROM Coding Level of Care Code Est Pt Level 4 (08368) Complex EM visit Add On G2211 Diagnoses Pre-op evaluation Z01.818 Type 2 diabetes mellitus with hyperglycemia, without long-term current use of insulin E11.65 Diabetes mellitus type: type 2 Diabetes mellitus nursing home insulin use: without senior laboratory technician use Diabetes mellitus complication status: with hyperglycemia Essential hypertension I10 Hyperlipidemia LDL goal <70 E78.5 Neck muscle spasm M62.838 Migraine without aura and without status migrainosus, not intractable G43.009 Status migrainosus presence: without status migrainosus Intractability: not intractable Additional Codes PHQ-9 - 64388 - PHQ-9 Billing: Yes ([id number]) DIANE-7 Assessment Billing - DIANE-7 Assessment Tool: DIANE-7 Assessment 40374 ([id number]) Time Spent (min) 23 Assessment & Plan Assessment & Plan (1) Pre-op evaluation: Code(s): Z01.818 - Encounter for other preprocedural examination Category: Medical (2) Diabetes mellitus: Code(s): E11.9 - Type 2 diabetes mellitus without complications Category: Medical Qualifiers: Diabetes mellitus type: type 2 Diabetes mellitus nursing home insulin use: without senior laboratory technician use Diabetes mellitus complication status: with hyperglycemia Qualified Code(s): E11.65 - Type 2 diabetes mellitus with hyperglycemia (3) Essential hypertension: Code(s): I10 - Essential (primary) hypertension Category: Medical (4) Hyperlipidemia LDL goal <70: Code(s): E78.5 - Hyperlipidemia, unspecified Category: Medical (5) Neck muscle spasm: Code(s): M62.838 - Other muscle spasm Category: Medical (6) Migraine without aura: Code(s): G43.009 - Migraine without aura, not intractable, without status migrainosus Category: Medical Qualifiers: Status migrainosus presence: without status migrainosus Intractability: not intractable Qualified Code(s): G43.009 - Migraine without aura, not intractable, without status migrainosus Plan Plan Patient was informed and verbally consented to the use of an ambient scribe for clinic note documentation during this visit. 1. Encounter for other preprocedural examination Z01.818 The patient is scheduled for cataract extraction and intraocular lens implant on April 11 for the left eye and April 25 for the right eye. Preoperative laboratory tests and an electrocardiogram are required to ensure medical clearance for the procedure. 2. Essential (primary) hypertension I10 The patient's hypertension is managed with amlodipine, which is reported to be effective. 3. Other muscle spasm M62.838 Muscle spasms are managed with baclofen as needed, initially prescribed during a hospital visit. 4. Type 2 diabetes mellitus without complications E11.9 HCC 19 Diabetes mellitus is managed with metformin, taken twice daily. 5. Gastro-esophageal reflux disease without esophagitis K21.9 Gastroesophageal reflux disease is managed with pantoprazole. 6. Migraine, unspecified, not intractable, without status migrainosus G43.909 Migraine is treated with Nurtec, used only when the pain is severe. 7. Hyperlipidemia, unspecified E78.5 Hyperlipidemia is managed with rosuvastatin, which is reported to be effective. Orders: Orders Lipid Panel Today E78.5 - Hyperlipidemia, unspecified Microalbumin, Random (w Creat) Today R80.9 - Proteinuria, unspecified Complete Blood Count Auto Diff Today D64.9 - Anemia, unspecified Comprehensive Flushing. Panel Fast Today I10 - Essential (primary) hypertension AMB Hemoglobin A1c Today Z13.9 - Encounter for screening, unspecified ECG 12 lead EKG Today Z01.818 - Encounter for other preprocedural examination Vitamin D 25-OH Total Today E55.9 - Vitamin D deficiency, unspecified Medications: Refilled baclofen 10 mg PO TID 90 tabs 0RF 30 days ketorolac maximum total duration of 5 days from all oral, intranasal, or parenteral formulations. The patient received an intramuscular dose of Toradol here in the emergency department 10 mg PO Q6H PRN 20 tabs 0RF pain
[2025-03-30 10:44] VITALS: BP 120/80; PULSE 65; O2SAT 97; BMI 28.0
--- OUTSIDE RECORDS SUMMARY | 2025-03-30 11:28 | XMS_ITS | Encounter Summary ---
Author Organization [employer] [facility] Address [address] [place] [address] Care Team Providers Care Neuropathologist Name Role Phone Unavailable Primary Care Provider Unavailabl e Encounter Details Date Type Department Care Team (Latest Contact Info) Description 08/18/2018 Abstract [facility] CONVERSIONS Dental, Provider, DDS Social History [...]
--- OUTSIDE RECORDS SUMMARY | 2025-03-30 11:29 | XMS_ITS | Clinical Summary ---
Author Organization [employer] Address [address] [place] [address] Care Team Providers Care Environmental Emergencies Assistant Name Role Phone Unavailable Primary Care [...] FIT DNA/Cologuard 1954 FIT 1954 FOBT 1954 SDOH Screening 1954 Sigmoidoscopy 1954 Alcohol/Substance Use Screening 1966 Tobacco Screening 1966 Hepatitis C Screening 1972 Mammogram 1994 Zoster Vaccines (1 of 2) 2004 COVID-19 Vaccine ( season) 2024 09/03/2021, 11/15/2020, 10/25/2020 Influenza Vaccine (#1) 2025 , 07/23/2022, 05/31/2013, Additional history exists RSV Patients and Patients Aged 60 years or older (1 - 1-dose 75+ series) 2029 DTaP/Tdap/Td Vaccines (3 - Td or Tdap) 11/25/2034 11/25/2024, 09/13/2013, 07/03/2012, Additional history exists Pneumococcal Vaccine: 50+ Years Completed 11/25/2024 HIB Vaccines Aged Out No longer eligi [...] patient's age to complete this topic Meningococcal B Vaccine Aged Out No l onger eligible based on patient's age to complete [...]
--- OUTSIDE RECORDS SUMMARY | 2025-03-30 11:29 | XMS_ITS | Encounter Summary ---
Author Organization [employer] [facility] Address [address] [place] [address] Care Team Providers Care Float Phlebotomist Name Role Phone Unavailable Primary Care Provider Unavailabl e Encounter Details Date Type Department Care Team (Latest Contact Info) Description 06/17/2022 Abstract [facility] CONVERSIONS Dental, Provider, DDS Social History [...]
--- OUTSIDE RECORDS SUMMARY | 2025-03-30 11:29 | XMS_ITS | Encounter Summary ---
Author Organization [employer] [facility] Address [address] [place] [address] Care Team Providers Care Grain Roaster Name Role Phone Unavailable Primary Care Provider [...]
--- OUTSIDE RECORDS SUMMARY | 2025-03-30 11:29 | XMS_ITS | Patient Health Record ---
Author Organization [facility] Address [address] [place] [address] Care Team Providers Care Appeals Board Referee Name Role Phone Melvi Paz Primary Care [...] Blood Reviewed date:07/09/2024 02:59:54 PM Interpretation: Performing Lab:[address] [id number] Notes/Report: Glucose, Whole Blood 135 60-115 mg/dL METER # : [id number] Pathology Reviewed date:07/14/2024 08:33:38 AM Interpretation: Performing Lab:[address] [id number] Notes/Report: Pathology Reviewed date:07/20/2024 03:48:54 PM Interpretation: Performing Lab:[address] [id number] Notes/Report: Reason For Referral No Information Medications Medication [...] Problem Status W/U Status Risk Notes Problem 581758241 Colon cancer screening (Z12.11) Active confirmed Problem 26797224 Rectal bleeding (K62.5) Active confirmed 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 (Z79.82) Active confirmed Problem Gastroesophageal reflux disease (K21.9) Active confirmed Problem 301295757 Encounter for long-term (current) use of high-risk medication (Z79.899) Active confirmed Problem 716905581 Gastroesophageal reflux disease, unspecified whether esophagitis present (K21.9) Active confirmed Vital Signs Temperature 97.5 degrees Fahrenheit 05/31/2024 Blood pressure diastolic 00 mm Hg 05/31/2024 Height 59 in 05/31/2024 Blood pressure systolic 000 mm Hg 05/31/2024 Weight 143 lbs 05/31/2024 BMI 28.88 kg/m2 05/31/2024 Encounters Encounter Location Date Provider Diagnosis [facility] [address], [place] [id number] 07/09/2024 Balta Crowe Jr Colon cancer screening Z12.11 ; Personal history of colonic polyps Z86.0100 ; Colon polyps K63.5 and Gastroesophageal reflux disease K21.9 [facility] [address] [place] [address] 05/31/2024 Balta Crowe Jr Gastroesophageal reflux disease, unspecified whether esophagitis present K21.9 and Colon cancer screening Z12.11 [facility] [address] [place] [address] 07/20/2024 Balta Crowe Jr Assessments Encounter Date [...] Insured Coverage Start Date Coverage End Date [facility] [address] [address] [place] [address] [id number] AWAIS GRAY Self - patient is the insured Medical (General) History Medical History History ICD Code Colonoscopy 2019, tubular adenoma, five- year followup glaucoma benign breast biopsy onychomycosis urinary incontinence diabetes mellitus hypertension esophageal reflux Surgical History Surgery Date(Month/Year) right knee replacement
== END 2025-03-30 11:06 | disposition home or self-care (01) ==
LOC: HO.HMCH 10:37
PROVIDERS: PCP Internal Medicine; Visit Provider Internal Medicine
DX: Z01.818 Encounter for other preprocedural examination (principal); E11.65 Type 2 diabetes mellitus with hyperglycemia; I10 Essential (primary) hypertension; E78.5 Hyperlipidemia, unspecified; M62.838 Other muscle spasm; G43.009 Migraine without aura, not intractable, without status migrainosus

== ENCOUNTER → 2025-03-30 10:37 | Outpatient (BNVA) | payer OTHER, SELFPAY | PROVIDERS: PCP Internal Medicine; Visit Provider Internal Medicine | DX: Z01.818 Encounter for other preprocedural examination (principal); I10 Essential (primary) hypertension; E11.65 Type 2 diabetes mellitus with hyperglycemia; E78.5 Hyperlipidemia, unspecified; M62.838 Other muscle spasm; G43.009 Migraine without aura, not intractable, without status migrainosus; K21.9 Gastro-esophageal reflux disease without esophagitis; G43.909 Migraine, unspecified, not intractable, without status migrainosus; D64.9 Anemia, unspecified; E55.9 Vitamin D deficiency, unspecified; Z79.84 Long term (current) use of oral hypoglycemic drugs | CPT/HCPCS: 96127; 99212 ==

== ENCOUNTER 2025-03-31 08:07 | Outpatient (REF) | payer OTHER, SELFPAY ==
[2025-03-31 08:32] LABS: MANUAL DIFF FLAG NO
--- NOTE | 2025-03-31 08:38 | ECG_ITS ---
Test Reason : preop Blood Pressure : */* mmHG Vent. Rate : 62 BPM Atrial Rate : 62 BPM P-R Int : 174 ms QRS Dur : 72 ms QT Int : 414 ms P-R-T Axes : 47 -2 73 degrees QTcB Int : 420 ms Normal sinus rhythm Normal ECG When compared with ECG of 27-Sep-2023 13:52, No significant change was found Referred By: Melvi Lawrence Electronically Signed By: JANICE MOULTON
[2025-03-31 09:03] LABS: Hematocrit 38.1 % (37.0-47.0); Hemoglobin 12.7 g/dl (12.0-16.0); Imm Gran Abs Auto 0.01 X10*3/uL (0.00-0.03); Imm Gran Pct Auto 0.2 % (0.0-0.4); Lymphocytes Absolute Auto 2.3 X10*3/uL (1.2-4.9); Mean Corpuscular HGB Conc 33.3 g/dl (31.0-35.0); Mean Corpuscular Hemoglobin 28.7 pg (27.0-33.0); Mean Corpuscular Volume 86.2 fL (80.0-98.0); NRBC Abs Auto 0.000 X10*3/uL (0.0-0.012); NRBC Pct Auto 0.0 /100WBC (0.0-0.2); Platelet Count 191 X10*3/uL (160-400); Red Blood Count 4.42 X10*6/uL (4.20-5.50); White Blood Count 5.6 X10*3/uL (4.8-10.8)
[2025-03-31 09:47] LABS: Alanine Aminotransferase 22 U/L (0-31); Albumin Level 4.4 g/dL (3.5-5.0); Alkaline Phosphatase 58 U/L (39-117); Anion Gap 9 (12-20); Aspartate Amino Transferase 22 U/L (5-31); Blood Urea Nitrogen 15 mg/dL (9-16); Calcium 9.0 mg/dL (8.4-10.2); Carbon Dioxide 28 mmol/L (22-29); Chloride 107 mmol/L (96-108); Cholesterol 91 mg/dL (<200); Estimated Glomerular Filt Rate 58; HDL Cholesterol 31 mg/dL (>40); Potassium 3.7 mmol/L (3.3-5.1); Sodium 140 mmol/L (135-145); Total Protein 7.2 g/dL (6.5-8.0); Triglycerides 115 mg/dL (<150)
[2025-03-31 10:32] LABS: Microalbum/Creatinine Ratio Ur 5.2 ug/mg cr (<30)
== END 2025-03-31 08:08 | disposition home or self-care (01) ==
LOC: HO.LAB 08:07
PROVIDERS: PCP Internal Medicine; Visit Provider Internal Medicine
DX: Z01.818 Encounter for other preprocedural examination (principal); I10 Essential (primary) hypertension; E55.9 Vitamin D deficiency, unspecified; E78.5 Hyperlipidemia, unspecified; D64.9 Anemia, unspecified; R80.9 Proteinuria, unspecified
CPT/HCPCS: 36415; 80053; 80061; 82043; 82306; 82570; 85025; 93005

== ENCOUNTER → 2025-03-31 08:38 | Outpatient (BNV) | payer OTHER, SELFPAY | PROVIDERS: PCP Internal Medicine; Visit Provider Internal Medicine | DX: Z01.810 Encounter for preprocedural cardiovascular examination (principal) | CPT/HCPCS: 93010 ==

== ENCOUNTER 2025-04-11 11:05 | Day surgery (SDC) | payer OTHER, SELFPAY ==
--- OUTSIDE RECORDS SUMMARY | 2024-10-13 12:01 | XMS_ITS ---
Author Organization [facility] Address [address] [place] [address] Care Team Providers Care Handkerchief Presser Name Role Phone Melvi Paz Primary Care Provider Unavailab Balta Anglin Jr REASON FOR VISIT pathology Encounters Encounter Location Date Provider Diagnosis [facility] [address] [place] [address] 07/20/2024 Balta Crowe Jr Plan Of Treatment No Information Progress Notes * AWAIS GRAY VDOB: [birth year] (69 yo F)Acc No.[id number]:07/20/2024 Patient:?AWAIS GRAY V :1955???Age:69 Y???Sex:Female Address:[address] [place] [address] * true * Date:? Generated for Immanuel vidal/Jose Antonio/eTransmitting on:?10/13/2024 12:01 PM EDT
--- OUTSIDE RECORDS SUMMARY | 2024-10-13 12:01 | XMS_ITS | Encounter Summary ---
Author Organization [facility] Address [address] [facility] [address] [place] [address] Care Team Providers Care Hand Trimmer Name Role Phone Unavailable Primary Care Provider Unavailabl e Encounter Details Date Type Department Care Team (Latest Contact Info) Description 08/18/2018 Abstract [facility] CONVERSIONS Dental, Provider, DDS Social History Tobacco Use Types Packs/Day Years Used Date Smoking Tobacco: Never Assessed Comments Unknown Sex and Gender Information Value Date Recorded Sex Assigned at Female 06/03/2022 10:15 AM EDT Legal Sex Female 10:15 AM EDT Gender Identity Female 06/03/2022 10:15 AM EDT Sexual Orientation Straight 06/03/2022 10 :15 AM EDT documented as of this encounter Plan of Treatment Not on file documented as of this encounter Visit Diagnoses Not on filedocumented in this encounter
--- OUTSIDE RECORDS SUMMARY | 2024-10-13 12:02 | XMS_ITS ---
Author Organization [facility] Address [address] [place] [address] Care Team Providers Care Expander Name Role Phone Melvi Paz Primary Care Provider Unavailab Balta Anglin Jr Unavailable [phone] 2 Allergies Allergen (clinical drug ingredient) Drug/Non Drug Allergy documented on EMR Reaction Allergy Type Onset Date Status Parafon Forte DSC Unknown Drug Allergy Active chlorzoxazone Chlorzoxazone Unknown Drug Allergy Active cephalexin Cephalexin Unknown Drug Allergy Activ e IVP dye (uncoded) Unknown Allergy Ac tive REASON FOR VISIT Patient presents today for a screening colonoscopy Medications Medication SIG (Take, Route, Frequency, Duration) Notes Start Date End Date Status oxyBUTYnin Chloride ER 10 MG TAKE 1 TABLET BY MOUTH TWICE DAILY Oral for 90 N3281,Unavailab erna Active amLODIPine Besylate 2.5 MG TAKE 1 TABLET BY MOUTH DAILY Oral for 90 Active Baclofen 10 MG Oral for 30 Act migue Dorzolamide HCl-Timolol Mal 2-0.5 % INSTILL 1 DROP IN BOTH EYES TWICE DAILY 12 HOURS APART Ophthalmic for 50 Active Lisinopril 2.5 MG 1 tablet Orally Once a day Active metFORMIN HCl 500 MG 1 tablet with a kory l Orally Once a day Active Ammonium Lactate 12 % APPLY TO TRUNK AND LIMBS TWICE DAILY UP TO FOUR TIMES DAILY External for 30 Active Latanoprost 0.005 % Ophthalmic for 75 Active Rosuvastatin Calcium 5 MG Oral for 90 Active Pantoprazole Sodium 40 MG 1 tablet 1/2 to 1 hour before morning meal Orally Once a day for 30 day(s) Active Aspir-81 81 MG 1 tablet Orally Once a day Active Immunizations Vaccine Route Administration Date Status Comme nts Influenza Unknown 05/31/2024 Refused Problems Problem Type SNOMED Code ICD Code Onset Dates Problem Status W/U Status Risk Notes Problem [id number] Gastroesophageal reflux disease, unspecified whether esophagitis present (K21.9) Active confirmed Problem [id number] Colon cancer screening (Z12.11) Active confirmed Vital Signs Temperature 97.5 degrees Fahrenheit 05/31/20 24 Blood pressure systolic 000 mm Hg 05/31/20 24 Blood pressure diastolic 00 mm Hg 024 Height 59 in 05/31/2024 Weight 143 lbs 05/31/2024 BMI 28.88 kg/m2 05/31/2024 Encounters Encounter Location Date Provider Diagnosis [facility] [address] [place] [address] 05/31/2024 Balta Crowe Jr Gastroesophageal reflux disease, unspecified whether esophagitis present K21.9 and Colon cancer screening Z12.11 Assessments Encounter Date Diagnosis (ICD Code) Assessment Notes Treatment Notes Treatment Clinical Notes Section Notes 05/31/2024 Gastroesophageal reflux disease, unspecified whether esophagitis present (ICD-10 - K21.9) We discussed gastroesophageal reflux disease today. We discussed diet, lifestyle modifications, and medical treatments including proton pump inhibitors. She will have further evaluation with upper endoscopy. She is advised stop metformin the day before the procedure. She is due for followup colonoscopy and this will be arranged. She understands risks and benefits of the procedure and agrees to proceed. She should stop aspirin one week before the procedure. 05/31/2024 Colon cancer screening (ICD-10 - Z12.11) We discussed gastroesophageal reflux disease today. We discussed diet, lifestyle modifications, and medical treatments including proton pump inhibitors. She will have further evaluation with upper endoscopy. She is advised stop metformin the day before the procedure. She is due for followup colonoscopy and this will be arranged. She understands risks and benefits of the procedure and agrees to proceed. She should stop aspirin one week before the procedure. Plan Of Treatment Future Test Test Name Order Date UPPER GI ENDOSCOPY 05/31/2024 COLONOSCOPY 05/31/2024 Next Appt Details Follow Up: prn, Reason: Progress Notes * AWAIS GRAY VDOB: [birth year] (68 yo F)Acc No.[id number]:05/31/2024 Progress Notes Patient:?AWAIS GRAY V Provider:?Balta Crowe MD :1955???Age:68 Y???Sex:Female D ate:05/31/2024 Address:[address] [place], [place] [id number] Pcp:Melvi Lawrence Subjective: * Chief Complaints: * ???1. Patient presents today for a screening colonoscopy. * HPI: ???New symptom(s):? Awais is a pleasant 68-year-old woman seen today in consultation. She long-standing history of gastroesophageal reflux disease with substernal burning precipitated by typical foods. This include spicy foods and fatty foods. She has no dysphagia, hematemesis, or melena. Weight and appetite have been stable. Symptoms have been controlled with pantoprazole 40 mg daily although lately she's been getting more breakthrough symptoms of acid reflux. ?She also has a history of colon polyps and last underwent colonoscopy in 2089 with removal of a small tubular adenoma. Followup colonoscopy was recommended for 5 years. She has no complaints of rectal bleeding, rectal pain, or other change in her bowel habits. * ROS:?General/Constitutional:?Change in appetite?denies.?Fatigue?denies.?ENT:?Patient denies?difficulty swallowing.?Respiratory:?Patient denies?shortness of breath.?Cardiovascular:?Patient denies?chest pain.?Gastrointestinal:?Comments?See HPI for details.?Genitourinary:?Difficulty urinating?denies.?Incontinence?denies.?Musculoskeletal:?Patient denies?muscle aches.?Skin:?Patient denies?pruritis.?Neurologic:?Patient denies?low back pain.?Psychiatric:?Patient denies?mental or physical abuse.? * Medical History:?Colonoscopy 2019, tubular adenoma, five-year followup, Glaucoma, Benign breast biopsy, Onychomycosis, Urinary incontinence, Diabetes mellitus, Hypertension, Esophageal reflux. * Surgical History:?right knee replacement . * Family History:?Father: dece ased, cancer.?Mother: , diagnosed with HTN (hypertension).? no history of colon cancer or colon polyps. Sister had liver cancer. * Social History:?Tobacco Use:?Tobacco Use/Smoking?Are you a: nonsmoker.?Drugs/Alcohol:?Alcohol Screen?Points: 0, Interpretation: Negative.?Miscellaneous:?Marital status: . Occupation: unemployed. * Medications:?Taking Pantopra zole Sodium 40 MG Tablet Delayed Release 1 tablet 1/2 to 1 hour before morning meal Orally Once a day, Taking metFORMIN HCl 500 MG Tablet 1 tablet with a meal Orally Once a day, Taking Lisinopril 2.5 MG Tablet 1 tablet Orally Once a day, Taking Rosuvastatin Calcium 5 MG Tablet Oral , Taking Latanoprost 0.005 % Solution Ophthalmic , Taking Ammonium Lactate 12 % Cream APPLY TO TRUNK AND LIMBS TWICE DAILY UP TO FOUR TIMES DAILY External , Taking Dorzolamide HCl-Timolol Mal 2-0.5 % Solution INSTILL 1 DROP IN BOTH EYES TWICE DAILY 12 HOURS APART Ophthalmic , Taking Baclofen 10 MG Tablet Oral , Taking amLODIPine Besylate 2.5 MG Tablet TAKE 1 TABLET BY MOUTH DAILY Oral , Taking oxyBUTYnin Chloride ER 10 MG Tablet Extended Release 24 Hour TAKE 1 TABLET BY MOUTH TWICE DAILY Oral , Notes: N3281,Unavailable, Taking Aspir-81 81 MG Tablet Delayed Release 1 tablet Orally Once a day, Discontinued Omeprazole 20 MG Capsule Delayed Release 1 capsule Orally Once a day, Discontinued Colyte with Flavor Packs 240 GM Solution Reconstituted As directed Orally Over the specified time., Medication List reviewed and reconciled with the patient * Allergies:?Parafon Forte DSC , IVP dye, Cephalexin, Chlorzoxazone. Objective: * Vitals:?Wt: 143 lbs, Ht: 59 in, BMI:28.88 Index, BP: 000/00 mm Hg, Temp: 97.5. * Examination: ???General Examination: ?GENERAL APPEARANCE:?in no acute distress.?HEAD:?normocephalic.?EYES:?sclera non-icteric.?ORAL CAVITY:?mucosa moist.?NECK/THYROID:?no lymphadenopathy.?SKIN:?anicteric.?HEART:?S1, S2 normal, no murmurs.?LUNGS:?clear to auscultation bilaterally.?CHEST:?normal shape and expansion.?ABDOMEN:?soft, nontender, nondistended, bowel sounds present, no organomegaly .?EXTREMITIES:?no clubbing, cyanosis, or edema.?PSYCH:?cognitive function intact.? Assessment: * Assessment: 1.?Gastroesophageal reflux d isease, unspecified whether esophagitis present - K21.9 (Primary)?2.?Colon cancer screening - Z12.11? We discussed gastroesophagea l reflux disease today. We discussed diet, lifestyle modifications, and medical treatments including proton pump inhibitors. She will have further evaluation with upper endoscopy. She is advised stop metformin the day before the procedure. She is due for followup colonoscopy and this will be arranged. She understands risks and benefits of the procedure and agrees to proceed. She should stop aspirin one week before the procedure. Plan: * Treatment: 2.?Colon cancer screening?Procedure: COLONOSCOPY (Ordered for 05/31/2024)* sched for 07/09/24 at 10:50 a mmacmiralax * Immunizations:? Influenza (Not administered - Refused: Patient decision) * Procedure Codes:?3017F COLOR ECTAL CA SCREEN DOC REV, G9903 Pt scrn tbco id as non user, G9745 DOC RSN FOR NOT SCREEN/REC F/U HBP * Preventive Medicine:? ??Counseling:?Care goal follow-up plan:?Above Normal BMI Follow-up?Giving encouragement to exercise,?BMI management provided?Yes.? ??Urinary Incontinence:?Urinary Incontinence?Assessment:?Absent,?Plan of care documented:?No, reason not specified.? ??Screenings:?Fall Risk Screening?Fall Risk Assessment:?No falls in the past year,?Screening:?No falls in the past year,?Assessment:?Not performed, no reason specified,?Plan of Care:?Not documented, no reason specified.? * Follow Up:?prn * * Sign off status: Completed true * Provider:?Balta Crowe MD Date:?1 Generated for Immanuel vidal/Jose Antonio/eTransmitting on:?10/13/2024 12:01 PM EDT History and Physical Notes * HPI (History of Present Illness) Category Sub-Category Detail Notes Category Not es New symptom(s) Awais is a pleasant 68-year-old woman seen today in consultation. She long-standing history of gastroesophageal reflux disease with substernal burning precipitated by typical foods. This include spicy foods and fatty foods. She has no dysphagia, hematemesis, or melena. Weight and appetite have been stable. Symptoms have been controlled with pantoprazole 40 mg daily although lately she's been getting more breakthrough symptoms of acid reflux. She also has a history of colon polyps and last underwent colonoscopy in 2089 with removal of a small tubular adenoma. Followup colonoscopy was recommended for 5 years. She has no complaints of rectal bleeding, rectal pain, or other change in her bowel habits. Examination Category Sub-Category Detail Notes Category Not es General Examination GENERAL APPEARANCE: in no acute di stress HEAD: normocephalic EYES: sclera non-icteric NECK/THYROID: no lymphadenopathy HEART: S1, S2 normal, no mu rmurs CHEST: normal shape and exp ansion LUNGS: clear to auscultatio n bilaterally ABDOMEN: soft, nontender, non distended, bowel sounds present, no organomegaly SKIN: anicteric EXTREMITIES: no clubbing, cyanosi s, or edema PSYCH: cognitive function i ntact ORAL CAVITY: mucosa moist
--- OUTSIDE RECORDS SUMMARY | 2024-10-13 12:02 | XMS_ITS | Encounter Summary ---
Author Organization [employer] Address [address] [facility] 7 [place] [address] Care Team Providers Care Operations Support Manager Name Role Phone Unavailable Primary Care Provider Unavailabl e Encounter Details Date Type Department Care Team (Latest Contact Info) Description 06/17/2022 Abstract [facility] CONVERSIONS Dental, Provider, DDS Social History Tobacco [...]
--- OUTSIDE RECORDS SUMMARY | 2024-10-13 12:02 | XMS_ITS ---
Author Organization [facility] Address [address] [place] [address] Care Team Providers Care Cnc Operator Name Role Phone Melvi Paz Primary Care Provider Balta Rosen Jr REASON FOR VISIT screening,gerd Problems Problem Type SNOMED Code ICD Code Onset Dates Problem Status W/U Status Risk Notes Problem Gastroesophageal reflux disease (124685805) Gastroesophageal reflux disease (K21.9) Active confirmed Encounters Encounter Location Date Provider Diagnosis [facility] Outpatient [address], [place] [id number] 07/09/2024 Balta Crowe Jr Colon cancer screening [...] AWAIS GRAY VDOB: [birth year] (69 yo F)Acc No.[id number]:07/09/2024 EGD and COL/MAC Patient:?AWAIS GRAY V Provider:?Balta Crowe MD :1955???Age:69 Y???Sex:Female D ate:07/09/2024 Address:[address] [place] [address], [id number] Pcp:Melvi Lawrence Subjective: * Chief Complaints: * ???1. Screening,gerd. * Medical History:? Objective: * Vitals:? Assessment: * Assessment: 1.?Colon cancer screening - Z12.11 (Primary)???2.?Personal history of colonic polyps - Z86.0100???3.?Colon polyps - K63.5???4.?Gastroesophageal reflux disease - K21.9??? Plan: * Treatment: * Procedure Codes:?74142 LESIO N REMOVAL COLONOSCOPY, 76993 COLONOSCOPY AND BIOPSY, Modifiers: 59 , 0529F INTRVL 3+YRS PTS CLNSCP DOCD, 07901 UPPER GI ENDOSCOPY, BIOPSY * * The named appointment provid er may or may not be the originator of this progress note, and it is not deemed complete until electronically signed by the appointment provider. Sign off status: Pending * Provider:?Balta Crowe MD Date:?1 09/09/2023 Generated for Immanuel vidal/Jose Antonio/eTransmitting on:?10/13/2024 12:01 PM EDT
--- OUTSIDE RECORDS SUMMARY | 2024-10-13 12:02 | XMS_ITS | Encounter Summary ---
Author Organization [facility] Address [address] [facility] [address] [place] [address] Care Team Providers Care Field Sales Representative Name Role Phone Unavailable Primary Care Provider Unavailabl e Encounter Details Date Type Department Care Team (Latest Contact Info) Description 06/01/2021 Abstract [facility] CONVERSIONS Dental, Provider, DDS Social History Tobacco [...]
--- OUTSIDE RECORDS SUMMARY | 2024-10-13 12:02 | XMS_ITS | Clinical Summary ---
Author Organization [employer] Address [address] [place] [address] [address] [place] [address] Care Team Providers Care Range Operator Name Role Phone Unavailable Primary Care Provider Unavailabl e Social History Tobacco Use Types Packs/Day Years Used Date Smoking Tobacco: Never Assessed Comments Unknown Sex and Gender Information Value Date Recorded Sex Assigned at Female 06/03/2022 10:15 AM EDT Legal Sex Female 10:15 AM EDT Gender Identity Female 06/03/2022 10:15 AM EDT Sexual Orientation Straight 06/03/2022 10 :15 AM EDT Plan of Treatment Health Maintenance Due Date Last Done Comments CT Colonography 1955 Colonoscopy 1955 Colorectal Cancer Screening 1954 Depression Screening 1955 FIT DNA/Cologuard 1955 FIT 1955 FOBT 1955 Sigmoidoscopy 1955 Alcohol/Substance Use Screening 1966 Tobacco Screening 1966 Mammogram 1994 Pneumococcal Vaccine: 50+ Years (1 of 1 - PCV) 2004 Zoster Vaccines (1 of 2) 2004 DTaP/Tdap/Td Vaccines (2 - Td or Tdap) 09/13/2023 09/13/2013, 07/03/2012, 04/22/2000 COVID-19 Vaccine ( season) 2024 09/03/2021, 11/15/2020, 10/25/2020 Influenza Vaccine (#1) 2024 , 05/31/2013, 04/03/2012, Additional history exists RSV Patients and Patients Aged 60 years or older (1 - 1-dose 75+ series) 2029 HIB Vaccines Aged Out No longer eligi ble based on patient's age to complete this topic HPV Vaccines Aged Out No longer eligi ble based on patient's age to complete this topic Hepatitis A Vaccines Aged Out No long er eligible based on patient's age to complete this topic Hepatitis B Vaccines Aged Out No long er eligible based on patient's age to complete this topic IPV Vaccines Aged Out No longer eligi ble based on patient's age to complete this topic Meningococcal Vaccine Aged Out No ashley oumar eligible based on patient's age to complete this topic RSV under 20 months Aged Out No longe r eligible based on patient's age to complete this topic Rotavirus Vaccines Aged Out No longer eligible based on patient's age to complete this topic
--- OUTSIDE RECORDS SUMMARY | 2024-10-13 12:02 | XMS_ITS | Patient Health Record ---
Author Organization [facility] Address [address] [place] [address] Care Team Providers Care Rolled Oats Mill Operator Name Role Phone Mevli Paz Primary Care Provider Balta Rosne Jr Unavailable Allergies Allergen (clinical drug ingredient) Drug/Non Drug Allergy documented on EMR Reaction Allergy Type Onset Date Status Parafon Forte DSC Unknown Drug Allergy Active chlorzoxazone Chlorzoxazone Unknown Drug Allergy Active cephalexin Cephalexin Unknown Drug Allergy Activ e IVP dye (uncoded) Unknown Allergy Ac tive Results Component Value Reference Range Notes Glucose, Whole Blood Reviewed date:07/09/2024 02:59:54 PM Interpretation: Performing Lab:[facility], [address] [place] [phone] Notes/Report: Glucose, Whole Blood 135 60-115 mg/dL METER # : [id number] Pathology Reviewed date:07/14/2024 08:33:38 AM Interpretation: Performing Lab:[facility], [address] [place] [phone] Notes/Report: ------ Name: Awais Stout Age/Sex: 69/F : 1955 Unit#: [id number] Attend Dr: Balta Crowe MD Re07/09/24 Status : [facility] Location: [facility] Disch: ------ SPEC : [id number] REC STATUS: SUSANA GUZMÁN NUM: [id number] GRACE: 07/09/[address] [facility] DR: Balta Crowe MD ENTERED: 07/09/24 53 SP TYPE: Surgical OTHR DR: Melvi Paz MD ORDERED: HE Stain/12 , Gross Micro L4/4, H. pylori Diagnosis A. Gastric antrum, b iopsy: Gastric antral mucosa with mild reactive changes and minimal chronic inactive gastritis; negative for intestinal metaplasia and dysplasia. B. Esophagogastric junction, biopsy: Squamocolumnar mucosa with mild inflammation and multilayered epithel ium; no intestinal metaplasia seen on initial levels; negative for dysplasia (see comment). C. Colon, cecal poly p: Tubular adenoma; negative for high-grade dysplasia and carcinoma. D. Colon, right, reina yp: Tubular adenoma; negative for high-grade dysplasia and carcinoma. Comment: (A): Immunostain for H. pylori pending; addendum to follow. (B): Multilayered epithelium may be associated with Pichardo's esophagus and follow-up is warranted. Additiona l level with AB/PAS stain pending; addendum to follow. Clinical History Pre-Op Dx: GERD, screening Post-Op Dx: Colon polyps Microscopic Description Microscopic sections reviewed. Material Received A. Antral biopsies B. EG junction C. Cecal polyp D. Polyp right colon Gross Description Received in four parts. Part A: Received in formalin labeled ?antral biopsies? are 2 ray and ray-pink irregular and rectangular tissue fragments measuring 0.25 and 0.4 cm, submitted in toto in a cassette labeled A. CONTINUED ON NEXT PAGE ------ Name: Awais Stout Age/Sex: 69/F : 1955 Unit#: [id number] Attend Dr: Balta Crowe MD Re07/09/24 Status : [facility] Location: [facility] Disch: ------ SPEC : [id number] RECD : 07/09/24 STATUS: SUSANA GUZMÁN NUM: [id number] GRACE: 07/09/[address] [facility] DR: Balta Crowe MD ENTERED: 07/09/24- 53 SP TYPE: Surgical OTHR DR: Melvi Paz MD ORDERED: HE Stain/ , Gross Micro L4/4, H. pylori Gross Description (Continued) Part B: Received in formalin labeled ?EG junction? are 2 medina-white irregular and rectangular tissue fragments measuring 0.3 and 0.4 cm, submitted in toto in a cassette labeled B. Part C: Received in formalin labeled ?cecal polyp? are 2 ray-pink irregular tissue fragments each measu ring 0.2 cm, submitted in toto in a cassette labeled C. Part D: Received in formalin labeled ?polyp right colon? are 3 ray-pink papular tissue fragments ranging fr om 0.25-0.35 cm, submitted in toto in a cassette labeled D. CEDS Special studies orde red and performed: Immunostain for H. pylori on A1; AB/PAS stains on B1. Copies To: Balta Crowe MD [facility] [address] [place] [address] Melvi Paz MD [facility] [place] [place] Primary Care,[place] [address] [place] [address] ------ Signed (signature on file) Jackelyn [place] 07/12/24 1304 ------ END OF REPORT Pathology Reviewed date:07/20/2024 03:48:54 PM Interpretation: Performing Lab:[facility], [address] [place] [phone] Notes/Report: ------ Name: Bright CorralestadeoAwais branham Age/Sex: 69/F : 1955 Unit#: [id number] Attend Dr: Balta Crowe MD Re07/09/24 Status : [facility] Location: [facility] Disch: ------ SPEC : [id number] RECD : 07/09/24 STATUS: SUSANA GUZMÁN NUM: [id number] GRACE: 07/09/[address] [facility] DR: Balta Crowe MD ENTERED: 07/09/24 53 SP TYPE: Surgical OTHR DR: Melvi Paz MD ORDERED: HE Stain/12 , Gross Micro L4/4, IHC, Special st. 2, H. pylori, AB/PAS Addendum Addendum 1 Entered: 07/14/24 Immunostain for H. p toni on A is negative. Additional level with AB/PAS on B is negative for intestinal metap lasia. Controls stain appropriately. Addendum Signed (signature on file) Jackelyn [place] 07/14/241741 ------ Diagnosis A. Gastric antrum, b iopsy: Gastric antral mucosa with mild reactive changes and minimal chronic inactive gastritis; negative for intestinal metaplasia and dysplasia. B. Esophagogastric junction, biopsy: Squamocolumnar mucosa with mild inflammation and multilayered epithel ium; no intestinal metaplasia seen on initial levels; negative for dysplasia (see comment). C. Colon, cecal poly p: Tubular adenoma; negative for high-grade dysplasia and carcinoma. D. Colon, right, reina yp: Tubular adenoma; negative for high-grade dysplasia and carcinoma. Comment: (A): Immunostain for H. pylori pending; addendum to follow. (B): Multilayered epithelium may be associated with Pichardo's esophagus and follow-up is warranted. Additiona l level with AB/PAS stain pending; addendum to follow. Clinical History Pre-Op Dx: GERD, screening Post-Op Dx: Colon polyps Microscopic Description Microscopic sections reviewed. CONTINUED ON NEXT PAGE ------ Name: Awais Stout Age/Sex: 69/F : 1955 Unit#: [id number] Attend Dr: Balta Crowe MD Re07/09/24 Status : [facility] Location: [facility] Disch: ------ SPEC : [id number] RECD : 07/09/24 STATUS: SUSANA GUZMÁN NUM: [id number] GRACE: 07/09/[address] [facility] DR: Balta Crowe MD ENTERED: 07/09/24-10 53 SP TYPE: Surgical OTHR DR: Melvi Paz MD ORDERED: HE Stain/12 , Gross Micro L4/4, IHC, Special st. 2, H. pylori, AB/PAS Material Received A. Antral biopsies B. EG junction C. Cecal polyp D. Polyp right colon Gross Description Received in four parts. Part A: Received in formalin labeled ?antral biopsies? are 2 ray and ray-pink irregular and rectangular tissue fragments measuring 0.25 and 0.4 cm, submitted in toto in a cassette labeled A. Part B: Received in formalin labeled ?EG junction? are 2 medina-white irregular and rectangular tissue fragments measuring 0.3 and 0.4 cm, submitted in toto in a cassette labeled B. Part C: Received in formalin labeled ?cecal polyp? are 2 ray-pink irregular tissue fragments each measu ring 0.2 cm, submitted in toto in a cassette labeled C. Part D: Received in formalin labeled ?polyp right colon? are 3 ray-pink papular tissue fragments ranging fr om 0.25-0.35 cm, submitted in toto in a cassette labeled D. CEDS Special studies orde red and performed: Immunostain for H. pylori on A1; AB/PAS stains on B1. Copies To: Balta Crowe MD [facility] [address] [place] [address] Melvi Paz MD [facility] [place] [place] Primary Care,[place] [address] [place] [address] CONTINUED ON NEXT PAGE ------ Name: Awais Stout Age/Sex: 69/F : 1955 Unit#: [id number] Attend Dr: Balta Crowe MD Re07/09/24 Status : [facility] Location: [facility] Disch: ------ SPEC : [id number] RECD : 07/09/24 STATUS: SUSANA GUZMÁN NUM: [id number] GRACE: 07/09/[address] [facility] DR: Balta Crowe MD ENTERED: 07/09/24 53 SP TYPE: Surgical OTHR DR: Melvi Paz MD ORDERED: HE Stain/12 , Gross Micro L4/4, IHC, Special st. 2, H. pylori, AB/PAS ------ Signed (signature on file) Jackelyn [place] 07/12/24 1304 ------ END OF REPORT Reason For Referral No Information Medications Medication SIG (Take, Route, Frequency, Duration) Notes Start Date End Date Status Lisinopril 2.5 MG 1 tablet Orally Once a day Active metFORMIN HCl 500 MG 1 tablet with a kory l Orally Once a day Active Pantoprazole Sodium 40 MG 1 tablet 1/2 to 1 hour before morning meal Orally Once a day for 30 day(s) Active Aspir-81 81 MG 1 tablet Orally Once a day Active oxyBUTYnin Chloride ER 10 MG TAKE 1 TABLET BY MOUTH TWICE DAILY Oral for 90 N3281,Unavailab le Active amLODIPine Besylate 2.5 MG TAKE 1 TABLET BY MOUTH DAILY Oral for 90 Active Baclofen 10 MG Oral for 30 Act migue Dorzolamide HCl-Timolol Mal 2-0.5 % INSTILL 1 DROP IN BOTH EYES TWICE DAILY 12 HOURS APART Ophthalmic for 50 Active Ammonium Lactate 12 % APPLY TO TRUNK AND LIMBS TWICE DAILY UP TO FOUR TIMES DAILY External for 30 Active Latanoprost 0.005 % Ophthalmic for 75 Active Rosuvastatin Calcium 5 MG Oral for 90 Active Immunizations Vaccine Route Administration Date Status Comme nts Influenza Unknown 08/19/2018 Refused Influenza Unknown 05/31/2024 Refused Problems Problem Type SNOMED Code ICD Code Onset Dates Problem Status W/U Status Risk Notes Problem 218500148 Colon cancer screening (Z12.11) Active confirmed Problem 10792532 Rectal bleeding (K62.5) Active confirmed 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 t use of aspirin (Z79.82) Active confirmed Problem Gastroesophageal reflux disease (516817783) Gastroesophageal reflux disease (K21.9) Active confirmed Problem 711699621 Encounter for long-term (current) use of high-risk medication (Z79.899) Active confirmed Problem 242421204 Gastroesophageal reflux disease, unspecified whether esophagitis present (K21.9) Active confirmed Vital Signs Temperature 97.5 degrees Fahrenheit 05/31/2024 Blood pressure diastolic 00 mm Hg 05/31/2024 Height 59 in 05/31/2024 Blood pressure systolic 000 mm Hg 05/31/2024 Weight 143 lbs 05/31/2024 BMI 28.88 kg/m2 05/31/2024 Encounters Encounter Location Date Provider Diagnosis [facility] Outpatient [address] [place] [phone] 07/09/2024 Balta Crowe Jr Colon cancer screening Z12.11 ; Personal history of colonic polyps Z86.0100 ; Colon polyps K63.5 and Gastroesophageal reflux disease K21.9 [facility] [address] [place] [phone] 05/31/2024 Balta Crowe Jr Gastroesophageal reflux disease, unspecified whether esophagitis present K21.9 and Colon cancer screening Z12.11 [facility] [address] [place] [phone] 01/01/2024 Balta Crowe Jr [facility] [address] [place] [phone] 02/18/2024 Balta Crowe Jr [facility] [address] [place] [phone] 07/20/2024 Balta Hillord Assessments Encounter Date Diagnosis (ICD Code) Assessment Notes Treatment Notes Treatment Clinical Notes Section Notes 07/09/2024 Colon cancer screening (ICD-10 - Z12.11) 07/09/2024 Personal history of colonic polyps (ICD-10 - Z86.0100) 05/31/2024 Colon cancer screening (ICD-10 - Z12.11) [...] aspirin one week before the procedure. 05/31/2024 Gastroesophageal reflux disease, unspecified whether esophagitis [...] stop aspirin one week before the procedure. 07/09/2024 Colon polyps (ICD-10 - K63.5) 07/09/2024 Gastroesophageal reflux disease (ICD-10 - K21.9) Plan Of Treatment Future Test Test Name Order Date COLONOSCOPY 05/17/2015 COLONOSCOPY 08/21/2018 UPPER GI ENDOSCOPY 05/31/2024 COLONOSCOPY 05/31/2024 Insurance Providers Payer Name Payer Address Payer Phone Subscriber Number Group Number Insured Name Patient Relationship to Insured Coverage Start Date Coverage End Date [facility] [address] [address] [place] [address] [phone] [id number] AWAIS GRAY Self - patient is the insured Medical (General) History Medical History History ICD Code Colonoscopy 2019, tubular adenoma, five- year followup glaucoma benign breast biopsy onychomycosis urinary incontinence diabetes mellitus hypertension esophageal reflux Surgical History Surgery Date(Month/Year) right knee replacement
[2025-04-05 14:53] VITALS: BMI 28.0
--- NOTE | 2025-04-07 14:00 | HO.ANESPROP2 ---
Documented by User: Anayeli Addison NP 04/07/25 14:01 HPI - Anesthesia Eval Consult details Narrative: 69yo F for Left Cataract Extraction IOL Insertion, Trabeculectomy No previous cataract on record PMFSH Active Problems Active Problems: All Active Problems Pre-op evaluation (Acute) Abdominal cramping (Acute) Ichthyosis (Acute) Atlanto-occipital malformation (Acute) Migraine without aura (Acute) Atelectasis (Acute) Dry mouth (Acute) Persistent headaches (Acute) Neck muscle spasm (Acute) Adverse effect of anticholinergic (Acute) Hyperlipidemia LDL goal <70 (Acute) Tubular adenoma of colon (Acute) Breast pain, left (Acute) Nocturia (Acute) Overactive bladder (Acute) Pain of back and lower extremity (Acute) Long-term use of aspirin therapy (Acute) Elevated hemoglobin (Acute) Gastroparesis (Acute) Post-menopausal (Acute) Hearing loss in right ear (Acute) Obese (Acute) Dry skin (Acute) Urge urinary incontinence (Acute) GERD (gastroesophageal reflux disease) (Acute) Essential hypertension (Acute) Diabetes mellitus (Acute) Past Medical History Medical History Post-cholecystectomy syndrome Chronic diarrhea Nausea Ear congestion Viral gastroenteritis Elevated hemoglobin Gastroparesis Post-menopausal Hearing loss in right ear Obese Dry skin Long-term use of aspirin therapy Urge urinary incontinence GERD (gastroesophageal reflux disease) Essential hypertension Glaucoma Diabetes mellitus Family History Family History Father Cancer Mother Hypertension Surgical History Surgical History History of esophagogastroduodenoscopy (EGD) History of colonoscopy Tubal ligation status History of knee replacement procedure of right knee History of cholecystectomy H/O arthroscopy of right knee History of nasal surgery History of History of Problems with Anesthesia: No Social History Social History Housing: House Are you a primary primary care sales representative to a significant other at home: No Do you presently have visiting nurse or other home services: No Alcohol intake: current Alcohol intake frequency: holidays/special occasions only Alcohol type: wine Patient Tobacco Use Status: Never used Tobacco e-Cigarette/Vaping Use: Never Used Second Hand Smoke Exposure: No Use of substances other than those prescribed or required for medical reasons: No Advance Directives: Yes Advance Directives Information Provided: Yes Advance Directives on File: Yes Advance Directives Date on File: 02/17/17 FDLMP: n/a service: No Current occupational status: retired Cognitive needs: No Hearing needs: No Vision needs: No Meds Allergies Allergy/AdvReac Type Severity Reaction Status Date / Time chlorzoxazone (From Parafon Allergy Intermediate RASH/SWELLING, Verified 04/11/25 12:19 Forte DSC) rash Iodinated Contrast Media (IV Allergy Intermediate THROAT Verified 04/11/25 12:19 Dye, Iodine Containing) CLOSED Penicillins (PENICILLINS) Allergy Intermediate HIVES Verified 04/11/25 12:19 pollen extracts (POLLEN) Allergy Intermediate RASH Verified 04/11/25 12:19 cephalexin Allergy Mild Rash Verified 04/11/25 12:19 Home Medications ?Medication ?Instructions ?Recorded ?Confirmed ?Last Taken ?Type latanoprost 0.005 % eye drops 1 drp ophthalmic (eye) BEDTIME 05/09/20 04/05/25 Unknown History ammonium lactate 12 % topical cream 1 appl topical BID 02/22/21 04/05/25 Unknown History dorzolamide 22.3 mg-timolol 6.8 1 drp ophthalmic (eye) DAILY 10/10/22 04/05/25 Unknown History mg/mL eye drops Exam Height,Weight and Vital Signs: Height 5 ft Weight 64.977 kg Assessment and Plan Assessment Anesthesia Assessment: Chart Reviewed Final Anesthetic Review History of Problems with Anesthesia: No Documented by User: Diana Cleveland MD 04/11/25 12:29 [facility] Past Medical History Medical History Post-cholecystectomy syndrome Chronic diarrhea Nausea Ear congestion Viral gastroenteritis Elevated hemoglobin Gastroparesis Post-menopausal Hearing loss in right ear Obese Dry skin Long-term use of aspirin therapy Urge urinary incontinence GERD (gastroesophageal reflux disease) Essential hypertension Glaucoma Diabetes mellitus Family History Family History Father Cancer Mother Hypertension Family history of problems with anesthesia: No Surgical History Surgical History History of esophagogastroduodenoscopy (EGD) History of colonoscopy Tubal ligation status History of knee replacement procedure of right knee History of cholecystectomy H/O arthroscopy of right knee History of nasal surgery History of Social History Social History Housing: House Are you a primary primary care sales representative to a significant other at home: No Do you presently have visiting nurse or other home services: No Alcohol intake: current Alcohol intake frequency: holidays/special occasions only Alcohol type: wine Patient Tobacco Use Status: Never used Tobacco e-Cigarette/Vaping Use: Never Used Second Hand Smoke Exposure: No Use of substances other than those prescribed or required for medical reasons: No Advance Directives: Yes Advance Directives Information Provided: Yes Advance Directives on File: Yes Advance Directives Date on File: 02/17/17 FDLMP: n/a service: No Current occupational status: retired Cognitive needs: No Hearing needs: No Vision needs: No Meds Allergies Allergy/AdvReac Type Severity Reaction Status Date / Time chlorzoxazone (From Parafon Allergy Intermediate RASH/SWELLING, Verified 04/11/25 12:19 Forte DSC) rash Iodinated Contrast Media (IV Allergy Intermediate THROAT Verified 04/11/25 12:19 Dye, Iodine Containing) CLOSED Penicillins (PENICILLINS) Allergy Intermediate HIVES Verified 04/11/25 12:19 pollen extracts (POLLEN) Allergy Intermediate RASH Verified 04/11/25 12:19 cephalexin Allergy Mild Rash Verified 04/11/25 12:19 Home Medications ?Medication ?Instructions ?Recorded ?Confirmed ?Last Taken ?Type latanoprost 0.005 % eye drops 1 drp ophthalmic (eye) BEDTIME 05/09/20 04/05/25 Unknown History ammonium lactate 12 % topical cream 1 appl topical BID 02/22/21 04/05/25 Unknown History dorzolamide 22.3 mg-timolol 6.8 1 drp ophthalmic (eye) DAILY 10/10/22 04/05/25 Unknown History mg/mL eye drops Exam Airway Mallampati Class: II TM Dist: >3cm Neck ROM: Full Heart: rrr Lungs: cta Assessment and Plan Assessment Anesthesia Assessment: Anesthesia Plan Discussed Final Anesthetic Review Family History of Problems with Anesthesia: No NPO: Yes ASA Class: III Final Preanesthetic Review: No Changes in Pt Med Stat, Meds/Allgs Chart Reviewed and Consent Obtained/Reviewed Patient Risk: Low Procedure Risk: Low Anesthetic Plan Anesthetic Plan: MAC: Disposition: Standard PACU
[2025-04-11 12:27] VITALS: BP 148/70; PULSE 68; RESP 16; TEMP 36.3; O2SAT 96
[2025-04-11] MEDS: Tetracaine HCl/PF 0.5% Oph Sol 4 ML DROPS 1 DROP EYE-LEFT (12:39)
[2025-04-11] MEDS: Cyclopentolate 1 % Ophth Sol 2 ML DRPBTL 1 DROP EYE-LEFT ×3 (12:42→12:52)
[2025-04-11] MEDS: Tropicamide 1 % Ophth Sol 3 ML BTL 1 DROP EYE-LEFT ×3 (12:43→12:54)
[2025-04-11] MEDS: Ketorolac Tromethamine 0.5% Op 5 ML DROPS 1 DROP EYE-LEFT ×3 (12:44→12:55)
[2025-04-11] MEDS: Phenylephrine HCL 2.5% Oph SoL 2 ML BOTTLE 1 DROP EYE-LEFT ×3 (12:46→12:56)
[2025-04-11] MEDS: Lactated Ringers 500 ML 50 ML IV (12:50)
[2025-04-11 12:59] LABS: Glucose, Whole Blood 86 mg/dL (60-115)
--- NOTE | 2025-04-11 13:30 | MHC.SHP ---
Pre-Procedural Eval Section A - 24 Hr Update-Section A only Date of Service: 04/11/25 The patient is an INPATIENT: No Changes since office visit: No Cold of Flu in the past 2 weeks, No New Medical Problems, No Changes in Medication and No Patient answered all questions The patient has been examined within 24 hours of the surgical procedure. The History & Physical has been completed within 30 days and I have reviewed it.: Yes Section B - Complete if H&P > 30 days Chief Complaint: Primary open-angle glaucoma, left eye, moderate st Allergies: Allergies Allergy/AdvReac Type Severity Reaction Status Date / Time chlorzoxazone (From Parafon Allergy Intermediate RASH/SWELLING, Verified 04/11/25 12:19 Forte DSC) rash Iodinated Contrast Media (IV Allergy Intermediate THROAT Verified 04/11/25 12:19 Dye, Iodine Containing) CLOSED Penicillins (PENICILLINS) Allergy Intermediate HIVES Verified 04/11/25 12:19 pollen extracts (POLLEN) Allergy Intermediate RASH Verified 04/11/25 12:19 cephalexin Allergy Mild Rash Verified 04/11/25 12:19 Plan Diagnosis/Plan: Unchanged I have reviewed the history and physical and performed a pertinent physical examination on my patient. No changes have occurred unless specified. Time Spent With Patient Time: Total time managing care of this patient today ____ minutes.
--- NOTE | 2025-04-11 13:31 | HO.PNOPHT ---
Ophthalmology Procedure Procedure Date of Service: 04/11/25 Ophthalmology Viscoelastic: Healon Duet Dual Pack Pro Ophthalmology Lenses: IOL Acrysof MP - [id number] (22) Procedure Notes: PREOPERATIVE DIAGNOSIS: Decreased visual acuity left eye secondary to cataract and glaucoma POSTOPERATIVE DIAGNOSIS: Same PROCEDURE: Left cataract extraction with intraocular lens insertion and trabeculectomy, left eye SURGEON: Shmuel Lewis M.D. ANESTHESIA: Topical/MAC ESTIMATED BLOOD LOSS: None COMPLICATIONS: None After obtaining informed consent, the patient was brought to the operating room suite and placed in the supine position. After adequate sedation per anesthesia, topical drops of Tetracaine were given to the left eye. The eye was then prepped and draped in the usual sterile fashion. The operating room microscope was then positioned over the left eye and a lid speculum placed. 2% Lidocaine was instilled subconjunctivally. After awaiting 30 seconds, a paracentesis was created superiorly. Hemostasis was then achieved using wet field cautery. Mitomycin .4mg/ml was then placed in the conjunctival pocket and held in place for two minutes. The subconjunctival pocket was then irrigated copiously with 20 mls of BSS. Paracentesis was then created. Viscoelastic was then instilled into the anterior chamber. A crescent blade was then utilized to create a partial thickness sclera wound followed by advancement to clear cornea with the crescent blade. A keratome was then utilized to enter the anterior chamber. Capsulotomy forceps were then utilized to create a continuous circular tear capsulotomy. Hydrodissection and hydrodelineation were carried out until adequate mobilization of the nucleus occurred. Phacoemulsification was utilized to remove the dense central nucleus followed by removal of remnant cortical material utilizing the automated aspiration irrigation unit. Viscoelastic was then instilled into the posterior capsular bag followed by placement of a posterior chamber intraocular lens. Attention was then directed to create a trabeculectomy. A Alina punch was then utilized to create the trabeculectomy. The residual Viscoelastic was then removed utilizing the automated IA machine. The egress of aqueous was evaluated and found to be appropriate. The conjunctiva was then closed with a 9-0 vicryl suture. BSS was then instilled into the anterior chamber creating a superior bleb, without obvious leakage. Intracameral injection of Vigamox 0.3%, 0.1 ml and subtenon injection of Kenalog-40 0.2 ml was given followed by an atropine drop. The patient tolerated the procedure well and will be followed up in the a.m.
[2025-04-11 14:18] VITALS: BP 139/88; PULSE 72; RESP 18; TEMP 36.6; O2SAT 97
== END 2025-04-11 14:55 | disposition home or self-care (01) ==
PROVIDERS: PCP Internal Medicine; Visit Provider Ophthalmology
PROC: (CPT 66985; principal; 2025-04-11 14:00)
PROC: (CPT 66170; 2025-04-11 14:00)
DX: H25.12 Age-related nuclear cataract, left eye (principal); H40.1122 Primary open-angle glaucoma, left eye, moderate stage; Z83.511 Family history of glaucoma; E11.65 Type 2 diabetes mellitus with hyperglycemia; I10 Essential (primary) hypertension; E78.5 Hyperlipidemia, unspecified; K21.9 Gastro-esophageal reflux disease without esophagitis; R32 Unspecified urinary incontinence; M62.838 Other muscle spasm; G43.009 Migraine without aura, not intractable, without status migrainosus; Z79.82 Long term (current) use of aspirin; Z79.84 Long term (current) use of oral hypoglycemic drugs; Z79.899 Other long term (current) drug therapy; Z91.041 Radiographic dye allergy status; Z88.1 Allergy status to other antibiotic agents; Z88.8 Allergy status to other drugs, medicaments and biological substances; Z98.890 Other specified postprocedural states
CPT/HCPCS: 66984; 66170; 82947; J2003; J2250; J3301; J7315; V2630

== ENCOUNTER 2025-04-17 15:23 | Inpatient (IN) | payer OTHER, SELFPAY ==
--- OUTSIDE RECORDS SUMMARY | 2024-02-18 05:20 | XMS_ITS ---
Author Organization [facility] Address [address] [place] [phone] Care Team Providers Care Chemical Plant Worker Name Role Phone Melvi Paz Primary Care Provider UnavailBalta Gomez Jr [phone] REASON FOR VISIT Patient presents today for a colon screening Encounters Encounter Location Date Provider Diagnosis [facility] [address] [facility] [address] [place] [phone] 02/18/2024 Balta Crowe Jr Plan Of Treatment No Information Progress Notes * ISAAC AWAIS VDOB: [birth year] (69 yo F)Acc No.[id number]:02/18/2024 Progress Notes Patient: AWAIS BARTHOLOMEW V Provider: Juan A Crowe MD :1955 A ge:68 Y S ex:Female Date:02/18/2024 Address:[address] [place], [place] [phone] Pcp:Melvi Lawrence Subjective: * Chief Complaints: * [...] 02/18/2024 Generated for Printi ng/Faxing/eTransmitting on: 0 04/17/2025 04:05 PM EDT
--- OUTSIDE RECORDS SUMMARY | 2024-07-09 06:00 | XMS_ITS ---
Author Organization [facility] Address [address] [place] [phone] Care Team Providers Care Fire Chief Name Role Phone Melvi Paz Primary Care Provider Balta Rosen Jr Unavailable [phone] REASON FOR VISIT screening,gerd Problems Problem Type SNOMED Code ICD Code Onset Dates Problem Status W/U Status Risk Notes Problem Gastroesophageal reflux disease (361524971) Gastroesophageal reflux disease (K21.9) Active confirmed Encounters Encounter Location Date Provider Diagnosis [facility] Outpatient [address] [place], [place] [phone] 07/09/2024 Balta Crowe Jr Colon cancer screening [...] AWAIS GRAY VDOB: [birth year] (69 yo F)Acc No.[id number]:07/09/2024 EGD and COL/MAC Patient: AWAIS BARTHOLOMEW V Provider: Juan A Crowe MD :1955 A ge:69 Y S ex:Female Date:07/09/2024 Address:[address] [place], [place] [phone] Pcp:Melvi Lawrence Subjective: * Chief Complaints: * 1 . Screening,gerd. * Medical History: Objective: * Vitals: Assessment: * Assessment: 1. C olon cancer screening - Z12.11 (Primary) 2 . P ersonal history of colonic polyps - Z86.0100 3 . C olon polyps - K63.5 4 . G astroesophageal reflux disease - K21.9 Plan: * Treatment: * Procedure Codes: 4 5385 LESION REMOVAL COLONOSCOPY, 20724 COLONOSCOPY AND BIOPSY, Modifiers: 59 , 0529F INTRVL 3+YRS PTS CLNSCP DOCD, 28046 UPPER GI ENDOSCOPY, BIOPSY * * The named appointment provid er may or may not be the originator of this progress note, and it is not deemed complete until electronically signed by the appointment provider. Sign off status: Pending * Provider: Juan A Crowe MD Date: 09/09/2023 Generated for Immanuel vidal/Jose Antonio/Alisiasmitting on: 0 04/17/2025 04:05 PM EDT
--- NOTE | ~2025-04-17 | MR_ITS ---
EXAMINATION: MRCP. CLINICAL INFORMATION: Acute pancreatitis. Question retained stone. TECHNIQUE: Axial and coronal T2 haste sequences. Axial and coronal fat-sat haste sequences. Axial in and out 3-D phase. 3-D space MRCP triggered. Coronal oblique T2 fat-sat single slice.. COMPARISON: Correlated to CT abdomen pelvis dated April 17, 2025. FINDINGS: Common hepatic duct measures 8 mm. Common bile duct measures 4 mm. No intraluminal signal abnormality, extrahepatic biliary ductal system. Main pancreatic duct measures 3 mm. There are multifocal, less than 10 mm fluid signal characteristic lesions throughout the body and tail of the pancreatic parenchyma. Gallbladder is absent. No gross intrahepatic biliary ductal dilatation. Peripancreatic edema pattern extending and the lesser sac and into the left paracolic gutter. No fluid collections. Liver measures 17 cm There is a mild drop-off the signal in the hepatic parenchyma. Soft tissue fullness, left adrenal gland without gross nodular lesion. Spleen measures 9 cm without focal mass. Cystic lesions in the right kidney. No gross hydronephrosis in either kidney. Nonspecific perinephric edema pattern. No intestinal obstruction pattern. No ascites. Appendix is normal. Flow-void signal within the main vessels is normal. No aneurysm, abdominal aorta. Bilateral trace pleural effusions. MR/MR MRCP IMPRESSION: No choledocholithiasis. The possibility of stricture at the sphincter of Oddi cannot be excluded. Multiple less than 10 mm cystic lesions, pancreas. Acute pancreatitis without peripancreatic fluid collections or gross vascular abnormality. Electronically signed by: Serjio Negron MD 04/18/2025 09:02 AM EDT
--- NOTE | ~2025-04-17 | CT_ITS ---
CLINICAL HISTORY: n v d CT abdomen and pelvis without contrast Comparison: None provided Findings: Hiatal hernia. Prior cholecystectomy. Peripancreatic edema. No bowel obstruction, pneumoperitoneum, or pneumatosis. No nephroliths identified. The appendix is within normal limits. The uterus demonstrates of the fundus right of midline exophytic mildly hyper attenuated lesion, 5.1 x 3.9 cm. No acute fracture. IMPRESSION: 1. Acute pancreatitis suspected. Clinical correlation suggested. 2. Exophytic subserosal uterine leiomyomas suspected, 5.1 x 3.9 cm, right of midline. 3. Prior cholecystectomy. This document has been electronically signed by: Jayesh Henriquez MD on 04/17/2025 18:00:59
--- NOTE | 2025-04-17 15:39 | ED_ITS ---
HPI - General Adult General Chief complaint: Abdominal Pain Stated complaint: n/v/d badk & abd pain (post eye surgery) Time Seen by Provider: 04/17/25 16:16 History of Present Illness HPI narrative: Patient is a 69-year-old female previously had had cholecystectomy done in the past many years ago recently had cataract surgery done on Friday about 6 days ago presented today with having nausea vomiting the 1st few days then having diarrhea the last few days. There is no travel history. The diarrhea was black in color. Patient denies taking any NSAIDs. Feels very weak and tired came to the ER. No chest pain or shortness breath no diaphoresis. Has a history of diabetes history of reflux. History of hypertension. Patient is from home. Denies taking any NSAIDs. No Motrin or Aleve. Patient is on metformin for diabetes. Related Data Home Medications ?Medication ?Instructions ?Recorded ?Confirmed latanoprost 0.005 % eye drops 1 drp ophthalmic (eye) B EDTIME 05/09/20 04/05/25 ammonium lactate 12 % topical cream 1 appl topical BID 02/22/21 04/05/25 dorzolamide 22.3 mg-timolol 6.8 1 drp ophthalmic (eye) DAILY 10/10/22 04/05/25 mg/mL eye drops Previous Rx's ?Medication ?Instructions ?Recorded blood-glucose meter ([employer] #1 ea 05/17/22 Ultra2 Meter kit) lidocaine 5 % topical patch 1 patch topical DAILY #15 ea 05/20/23 aspirin 81 mg tablet,delayed 81 mg PO DAILY 90 days #9 0 tabs 12/04/23 release rosuvastatin 5 mg tablet 5 mg PO DAILY 90 days #90 ta bs 12/01/24 magnesium oxide 400 mg (241.3 mg 400 mg PO DAILY 90 da ys #90 tabs 12/15/24 magnesium) tablet riboflavin (vitamin B2) 400 mg 400 mg PO DAILY 90 days #90 tabs 12/15/24 tablet rimegepant 75 mg disintegrating 75 mg PO ONCE PRN migr janeth 12/15/24 tablet (Nurtec ODT) headache 30 days #16 tabs lancets 30 gauge ([employer] Delfrank #100 ea 12/26/24 Plus Lancet) diazepam 5 mg tablet (Valium) 5 mg PO BID PRN muscle s pasm #10 01/20/25 tabs lisinopril 40 mg tablet 40 mg PO DAILY 30 days #30 t abs 02/11/25 blood sugar diagnostic (OneTouch #100 strips 02/25/25 Ultra Test strips) oxybutynin chloride 10 mg 10 mg PO BID 90 days #180 ta bs 02/25/25 tablet,extended release 24 hr metoclopramide HCl 5 mg tablet 5 mg PO .tidac #120 tab s 03/15/25 (Reglan) pantoprazole 40 mg tablet,delayed 40 mg PO DAILY #90 t abs 03/15/25 release amlodipine 2.5 mg tablet 2.5 mg PO DAILY 90 days #90 tabs 03/22/25 baclofen 10 mg tablet 10 mg PO TID 30 days #90 tab s 03/30/25 ketorolac 10 mg tablet 10 mg PO Q6H PRN pain #20 ta bs 03/30/25 metformin 850 mg tablet 850 mg PO BID 90 days #180 t abs 04/11/25 Allergies Allergy/AdvReac Type Severity Reaction Status Date / Time chlorzoxazone (From Parafon Allergy Intermediate RASH/SWELLING, Verified 04/17/25 15:42 Forte [facility]) rash Iodinated Contrast Media (IV Allergy Intermediate THROAT Verified 04/17/25 15:42 Dye, Iodine Containing) CLOSED Penicillins (PENICILLINS) Allergy Intermediate HIVES Verified 04/17/25 15:42 pollen extracts (POLLEN) Allergy Intermediate RASH Verified 04/17/25 15:42 cephalexin Allergy Mild Rash Verified 04/17/25 15:42 Review of Systems 2 Review of Systems: Positive generalized malaise weakness positive nausea positive diarrhea Yes all other systems are reviewed and are negative [facility] Past Medical History Attestation statement: The following information was validated with the patient. Medical History Post-cholecystectomy syndrome Chronic diarrhea Nausea Ear congestion Viral gastroenteritis Elevated hemoglobin Gastroparesis Post-menopausal Hearing loss in right ear Obese Dry skin Long-term use of aspirin therapy Urge urinary incontinence GERD (gastroesophageal reflux disease) Essential hypertension Glaucoma Diabetes mellitus Surgical History History of esophagogastroduodenoscopy (EGD) History of colonoscopy Tubal ligation status History of knee replacement procedure of right knee History of cholecystectomy H/O arthroscopy of right knee History of nasal surgery History of Family History Family History Father Cancer Mother Hypertension Social History Social History Housing: House Are you a primary director of career resources to a significant other at home: No Do you presently have visiting nurse or other home services: No Alcohol intake: current Alcohol intake frequency: holidays/special occasions only Alcohol type: wine Patient Tobacco Use Status: Never used Tobacco Smoked in Last 30 Days: No e-Cigarette/Vaping Use: Never Used Second Hand Smoke Exposure: No Use of substances other than those prescribed or required for medical reasons: No Advance Directives: Yes Advance Directives on File: Yes Advance Directives Date on File: 02/17/17 service: No Current occupational status: retired Cognitive needs: No Hearing needs: No Vision needs: No Physical Exam ED Exam Exam: Appearance: Alert. Oriented X3. No acute distress. Eyes: Pupils equal, round and reactive to light. ENT: Pharynx normal. Neck: Normal inspection. Neck supple. No lymph nodes noted. No crepitus CVS: Normal heart rate and rhythm. Pulses normal. Normal S1 and S2 Respiratory: No respiratory distress. Breath sounds normal. No Wheezing. No rales Abdomen: Soft and nontender. No rigidity. No distention. good BS x4 Skin: Skin warm and dry. Normal skin color. Normal skin turgor. Extremities: No lower extremity edema. Neurovascular intact to all extremities. No Lacerations. No Rash Neuro: Oriented X 3. No motor deficit. No sensory deficit. Moving all extermities. No slurred speech Vital Signs: Vital Signs - 24 hr 04/17/25 15:40 04/17/25 16:18 Temperature 97.2 F 97.2 F Pulse Rate 97 97 Respiratory Rate 16 16 Blood Pressure 121/62 121/62 Pulse Oximetry 95 95 Oxygen Delivery Method Room Air Room Air BMI result Body Mass Index 27.3 Course Course Course Narrative: Rapid medical examination performed in triage by Dottie Jensen PA-C. Patient is a 69 year old assigned female at presenting to the emergency department with nausea, vomiting, fever. Detailed physical exam and review of systems are deferred to the senior clinician. Labs ordered. Patient placed back in the waiting room pending room availability and results. Medications Administered Discontinued Medications Generic Name Dose Route Start Last Admin Trade Name Renetta PRN Reason Stop Dose Admin Magnesium Sulfate 2 gm in 50 mls @ 50 mls/hr 04/17/25 16:35 04/17/25 17:48 Magnesium Sulfate/H2o IV 04/17/25 17:34 50 mls/hr ONCE ONE Administration Sodium Chloride 1,000 mls @ 999 mls/hr 04/17/25 16:45 04/17/25 17:30 Ns IV 04/17/25 17:45 999 mls/hr .Q1H1M TOYA Administration Sodium Chloride 1,000 mls @ 999 mls/hr 04/17/25 17:00 04/17/25 17:48 Ns IV 04/17/25 18:00 999 mls/hr .Q1H1M TOYA Administration Magnesium Sulfate 2 gm in 50 mls @ 50 mls/hr 04/17/25 16:46 04/17/25 17:48 Magnesium Sulfate/H2o IV 04/17/25 17:45 50 mls/hr ONCE ONE Administration Potassium Chloride 40 meq 04/17/25 16:36 04/17/25 17:48 Potassium Chloride Packet 20 Meq Packet PO 04/17/25 16:37 40 meq ONCE ONE Administration Medical Decision Making Medical Decision Making MDM Narrative: Positive abdominal pain nausea vomiting diarrhea previously. When we get the patient's electrolytes back patient's potassium was in that is report 1 range. Magnesium was 1.1. More interestingly patient's kidney function has declined. The creatinine was over 3. This is new when compared to previous labs. I repleted patient's magnesium. Will also replete patient's oral potassium. A CT scan of the abdomen was ordered. Patient complaining of black stool I did a rectal exam with tech her Hoda present. There is only mucus there was no blood. Liver function was normal. COVID test was negative. CT scan of the abdomen was ordered. Will likely require admission. CT scan showed question pancreatitis. A lipase was added. Patient will require admission. IV fluids given. No overt post renal insufficiency noted on CT. LFTs are normal. No signs of common duct stone. Status post cholecystectomy. No history of alcohol abuse question etiology. Will require admission for further evaluation. Hospitalist team was contacted. Electrolyte being repleted. Currently in stable condition. Patient's lipase came back at greater than 3000 consistent with pancreatitis. Question etiology. History of cholecystectomy. No history of alcohol use. Patient to be admitted. Differential Diagnosis Differential Diagnoses: The differential diagnosis associated with the presentation includes Consult Healthcare Provider Management of the patient was discussed with: Hospitalist Lab Data MDM Lab Attestation statement: I reviewed the patient's lab results. 04/17/25 15:52 04/17/25 15:52 Labs: Lab Results 04/17/25 04/17/25 Range/Units 15:52 17:53 WBC 9.3 (4.8-10.8) X10*3/uL RBC 4.74 (4.20-5.50) X10*6/uL Hgb 13.8 (12.0-16.0) g/dl Hct 39.0 (37.0-47.0) % MCV 82.3 (80.0-98.0) fL MCH 29.1 (27.0-33.0) pg MCHC 35.4 H (31.0-35.0) g/dl RDW 13.7 (11.0-16.0) % Plt Count 263 D (160-400) X10*3/uL MPV 10.8 (9.4-12.3) fL Immature Gran % (Auto) 0.3 (0.0-0.4) % Neut % (Auto) 61.2 (45-73) % Lymph % (Auto) 24.5 (20-40) % [place]bon % (Auto) 13.1 H (2-11) % Eos % (Auto) 0.5 (0-4) % Baso % (Auto) 0.4 (0-2) % Lymph # (Auto) 2.3 (1.2-4.9) X10*3/uL [place] # (Auto) 1.2 (0.1-1.2) X10*3/uL Eos # (Auto) 0.1 (0.0-0.4) X10*3/uL Baso # (Auto) 0.0 (0.0-0.2) X10*3/uL Abs Immat Gran (auto) 0.03 (0.00-0.03) X10*3/uL Absolute Neuts (auto) 5.7 (2.0-8.3) x10*3/uL Absolute Nucleated RBC 0.000 (0.0-0.012) X10*3/uL Nucleated RBC % (auto) 0.0 (0.0-0.2) /100WBC Sodium 136 (135-145) mmol/L Potassium 3.2 L (3.3-5.1) mmol/L Chloride 106 (96-108) mmol/L Carbon Dioxide 16 L (22-29) mmol/L Anion Gap 17 (12-20) BUN 54 H (9-16) mg/dL Creatinine 3.63 H (0.5-1.4) mg/dL Estim Creat Clear Calc 12.0 Estimated GFR 12 Random Glucose 180 H (60-115) mg/dL Calcium 9.2 (8.4-10.2) mg/dL Magnesium 1.1 L* (1.6-2.6) mg/dL Total Bilirubin 0.3 (0.0-1.0) mg/dL AST 31 (5-31) U/L ALT 20 (0-31) U/L Alkaline Phosphatase 66 (39-117) U/L Total Protein 8.0 (6.5-8.0) g/dL Albumin 4.5 (3.5-5.0) g/dL Lipase > 3000 H (8-78) U/L Stool Occult Blood NEGATIVE (NEGATIVE) COVID-19 (ALTAGRACIA) Negative (Negative) COVID-19 Clin Com See Note Influenza Type A (ELI) Negative (Negative) Influenza Type B (ELI) Negative (Negative) Influenza A & B Note See Note Independent Interpretation I performed an independent interpretation of an: CT Scan Radiology Impression Discussion of test interpretation with radiology: I discussed test interpretation with the radiologist and I have reviewed the radiologist's reading. External Record Review External record reviewed: Inpatient record Chronic Conditions Hypertension Social Determinants Patient?s care significantly limited by Social Determinants of Health including: Problems related to primary support group Critical Care Time Critical Care Time Critical Care Time: Yes Total Critical Care Time: 35 Attestation: I have personally provided 35 minutes of critical care time exclusive of time spent on separately billable procedures. ?Time includes review of lab data, radiology results, discussion with consultants, and monitoring for potential decompensation. ?Interventions were performed as documented above Discharge Plan Discharge Clinical Impression: Acute renal failure, Hypomagnesemia Patient Disposition: Admitted As Inpatient
[2025-04-17 15:40] VITALS: BP 121/62; PULSE 97; RESP 16; TEMP 36.2; O2SAT 95; BMI 27.3
[2025-04-17 15:57] LABS: MANUAL DIFF FLAG NO
[2025-04-17 15:58] LABS: Hematocrit 39.0 % (37.0-47.0); Hemoglobin 13.8 g/dl (12.0-16.0); Imm Gran Abs Auto 0.03 X10*3/uL (0.00-0.03); Imm Gran Pct Auto 0.3 % (0.0-0.4); Lymphocytes Absolute Auto 2.3 X10*3/uL (1.2-4.9); Mean Corpuscular HGB Conc 35.4 g/dl (31.0-35.0); Mean Corpuscular Hemoglobin 29.1 pg (27.0-33.0); Mean Corpuscular Volume 82.3 fL (80.0-98.0); NRBC Abs Auto 0.000 X10*3/uL (0.0-0.012); NRBC Pct Auto 0.0 /100WBC (0.0-0.2); Platelet Count 263 X10*3/uL (160-400); Red Blood Count 4.74 X10*6/uL (4.20-5.50); White Blood Count 9.3 X10*3/uL (4.8-10.8)
--- OUTSIDE RECORDS SUMMARY | 2025-04-17 16:05 | XMS_ITS | Encounter Summary ---
Author Organization [email or web address] [facility] Address [address] [place] [address] Care Team Providers Care Burr Grinder Name Role Phone Unavailable Primary Care Provider Unavailabl e Encounter Details Date Type Department Care Team (Latest Contact Info) Description 06/17/2022 Abstract [facility] CONVERSIONS Dental, Provider, DDS Social [...]
--- OUTSIDE RECORDS SUMMARY | 2025-04-17 16:05 | XMS_ITS | Patient Health Record ---
Author Organization [facility] Address [address] [place] [address] Care Team Providers Care Manager Of Maintenance Name Role Phone Melvi Paz Primary Care [...] Blood Reviewed date:07/09/2024 02:59:54 PM Interpretation: Performing Lab:[address] [address] Notes/Report: Glucose, Whole Blood 135 60-115 mg/dL METER # : [id number] Pathology Reviewed date:07/14/2024 08:33:38 AM Interpretation: Performing Lab:[address] [address] Notes/Report: Pathology Reviewed date:07/20/2024 03:48:54 PM Interpretation: Performing Lab:[address] [address] Notes/Report: Reason For Referral No Information Medications [...] Problem Status W/U Status Risk Notes Problem 044988187 Colon cancer screening (Z12.11) Active confirmed Problem 44941123 Rectal bleeding (K62.5) Active confirmed Problem 475158502 half-way curren t use of aspirin (Z79.82) Active confirmed Problem Gastroesophageal reflux disease (390389991) Gastroesophageal reflux disease (K21.9) Active confirmed Problem 869245059 Encounter for long-term (current) use of high-risk medication (Z79.899) Active confirmed Problem 026946021 Gastroesophageal reflux disease, unspecified whether esophagitis present (K21.9) Active confirmed Vital Signs Temperature 97.5 degrees Fahrenheit 05/31/2024 Blood pressure diastolic 00 mm Hg 05/31/2024 Height 59 in 05/31/2024 Blood pressure systolic 000 mm Hg 05/31/2024 Weight 143 lbs 05/31/2024 BMI 28.88 kg/m2 05/31/2024 Encounters Encounter Location Date Provider Diagnosis [facility] [address] [place], [place] [id number] 07/09/2024 Balta Crowe Jr Colon cancer screening Z12.11 ; Personal history of colonic polyps Z86.0100 ; Colon polyps K63.5 and Gastroesophageal reflux disease K21.9 [facility] [address] [place] [address] 05/31/2024 Balta Crowe Jr Gastroesophageal reflux disease, unspecified whether esophagitis present K21.9 and Colon cancer screening Z12.11 [facility] [address] [place] [address] 07/20/2024 Balta Crowe Jr Assessments Encounter Date [...] Insured Coverage Start Date Coverage End Date [facility] [address] [address] [place] [address] [phone] [id number] AWAIS GRAY Self - patient is the insured Medical (General) History Medical History History ICD Code Colonoscopy 2019, tubular adenoma, five- year followup glaucoma benign breast biopsy onychomycosis urinary incontinence diabetes mellitus hypertension esophageal reflux Surgical History Surgery Date(Month/Year) right knee replacement
--- OUTSIDE RECORDS SUMMARY | 2025-04-17 16:05 | XMS_ITS | Encounter Summary ---
Author Organization [facility] [facility] Address [address] [place] [address] Care Team Providers Care Sand Analyst Name Role Phone Unavailable Primary Care Provider Unavailabl e Encounter Details Date Type Department Care Team (Latest Contact Info) Description 08/18/2018 Abstract [facility] CONVERSIONS Dental, Provider, DDS Social History Tobacco [...]
--- OUTSIDE RECORDS SUMMARY | 2025-04-17 16:05 | XMS_ITS | Encounter Summary ---
Author Organization [facility] Address [address] [place] [address] Care Team Providers Care Insulation Cutter Name Role Phone Unavailable Primary Care Provider Unavailabl e Encounter Details Date Type Department Care Team (Latest Contact Info) Description 06/01/2021 Abstract [facility] CONVERSIONS Dental, Provider, DDS Social [...]
--- OUTSIDE RECORDS SUMMARY | 2025-04-17 16:05 | XMS_ITS | Clinical Summary ---
Author Organization [employer] Address [address] [place] [address] Care Team Providers Care Adoption Coordinator Name Role Phone Unavailable Primary Care Provider [...] Screening 1966 Tobacco Screening 1966 Mammogram 1994 Zoster Vaccines (1 of 2) 2004 COVID-19 Vaccine ( season) 2025 09/03/2021, 11/15/2020, 10/25/2020 Influenza Vaccine (#1) 2025 [...]
--- NOTE | 2025-04-17 16:09 | PC.NURSE ---
Patient presents to ED c/o ABD pain rated 9/10 radiates to her back Patient had cataract surgery on Friday and began feeling nauseous the day after Patient has diarrhea and vomitting. Denies dizziness, SOB, sick contacts at bedside
[2025-04-17 16:14] LABS: Anion Gap 17 (12-20); Blood Urea Nitrogen 54 mg/dL (9-16); Calcium 9.2 mg/dL (8.4-10.2); Carbon Dioxide 16 mmol/L (22-29); Chloride 106 mmol/L (96-108); Creatinine Clr Calc Pharmacy 12.0; Estimated Glomerular Filt Rate 12; Potassium 3.2 mmol/L (3.3-5.1); Sodium 136 mmol/L (135-145)
[2025-04-17 16:15] LABS: COVID-19 Test Negative (Negative); IDNOW Serial# 55D5AD1C; IDNOW Serial# 58CA691E; Influenza B2 Negative (Negative)
[2025-04-17 16:18] VITALS: BP 121/62; PULSE 97; RESP 16; TEMP 36.2; O2SAT 95
[2025-04-17 16:20] LABS: Alanine Aminotransferase 20 U/L (0-31); Albumin Level 4.5 g/dL (3.5-5.0); Alkaline Phosphatase 66 U/L (39-117); Aspartate Amino Transferase 31 U/L (5-31); Magnesium 1.1 mg/dL (1.6-2.6); Total Protein 8.0 g/dL (6.5-8.0)
[2025-04-17] MEDS: Potassium Chloride Packet 20 MEQ PACKET 40 MEQ PO (17:48)
[2025-04-17] MEDS: Magnesium Sulfate/H2O 2 GM/50 ML PIGGYBACK IV ×2 (17:48)
[2025-04-17 18:02] LABS: OBS Int Ctl Valid YES; OBS1 NEGATIVE (NEGATIVE)
[2025-04-17 18:26] LABS: Lipase > 3000 U/L (8-78)
[2025-04-17 18:43] VITALS: BP 121/62; PULSE 97; RESP 16; TEMP 36.2; O2SAT 95
[2025-04-17] MEDS: Lactated Ringers 1,000 ML 125 ML IVCONT (18:46)
--- NOTE | 2025-04-17 18:51 | PM.IMHP ---
History of Present Illness Date of Service: 04/17/25 Chief Complaint: Abdominal pain, nausea and vomiting 69 female with HTN, GERD, s/p CCY, Diabetes, GERD, urinary incontinence who presents to the emergency room with nearly a week of nausea and vomiting and abdominal pain that she described as severe, decreased appetite. She reports subjective fever no urinary symptoms. Workup today with a CT 1. Acute pancreatitis suspected. Clinical correlation suggested. 2. Exophytic subserosal uterine leiomyomas suspected, 5.1 x 3.9 cm, right of midline. 3. Prior cholecystectomy. Lipase level is over 3000. Creatinine is 3.63 , baseline is less than 1, potassium level of 3.2, magnesium of 1 metabolic acidosis with bicarb of 16. Emergency room treatment : Magnesium replacement, IV fluid, potassium replacement, Review of Systems Review of Systems: Gen: no fever Resp: no sob, no cough CV: no chest, no STEWART, no leg edema GI: No n/v, no abd pain Neuro: No confusion [facility] Medical History Post-cholecystectomy syndrome Chronic diarrhea Nausea Ear congestion Viral gastroenteritis Elevated hemoglobin Gastroparesis Post-menopausal Hearing loss in right ear Obese Dry skin Long-term use of aspirin therapy Urge urinary incontinence GERD (gastroesophageal reflux disease) Essential hypertension Glaucoma Diabetes mellitus Family History Father Cancer Mother Hypertension Surgical History History of esophagogastroduodenoscopy (EGD) History of colonoscopy Tubal ligation status History of knee replacement procedure of right knee History of cholecystectomy H/O arthroscopy of right knee History of nasal surgery History of Social History Housing: House Are you a primary transition of care specialist to a significant other at home: No Do you presently have visiting nurse or other home services: No Alcohol intake: current Alcohol intake frequency: holidays/special occasions only Alcohol type: wine Patient Tobacco Use Status: Never used Tobacco Smoked in Last 30 Days: No e-Cigarette/Vaping Use: Never Used Second Hand Smoke Exposure: No Use of substances other than those prescribed or required for medical reasons: No Advance Directives: Yes Advance Directives on File: Yes Advance Directives Date on File: 02/17/17 service: No Current occupational status: retired Cognitive needs: No Hearing needs: No Vision needs: No Meds Allergies Allergy/AdvReac Type Severity Reaction Status Date / Time chlorzoxazone (From Parafon Allergy Intermediate RASH/SWELLING, Verified 04/17/25 15:42 Forte DSC) rash Iodinated Contrast Media (IV Allergy Intermediate THROAT Verified 04/17/25 15:42 Dye, Iodine Containing) CLOSED Penicillins (PENICILLINS) Allergy Intermediate HIVES Verified 04/17/25 15:42 pollen extracts (POLLEN) Allergy Intermediate RASH Verified 04/17/25 15:42 cephalexin Allergy Mild Rash Verified 04/17/25 15:42 Active Medications: Current Medications Acetaminophen (Acetaminophen 325 Mg Tablet) 650 mg PO Q6H PRN PRN Reason: Pain, Mild 1-3,fever,headache Calcium Carbonate (Calcium Carbonate 750 Mg Tab.Chew) 750 mg PO Q4H PRN PRN Reason: Heartburn Lactated Ringer's (Lr) 1,000 mls @ 125 mls/hr IVCONT .Q8H TOYA Last Admin: 04/17/25 18:46 Dose: 125 mls/hr Magnesium Hydroxide (Milk Of Magnesia 30 Ml Oral.Susp) 30 ml PO DAILY PRN PRN Reason: Constipation Melatonin (Melatonin 3 Mg Tablet) 6 mg PO BEDTIME PRN PRN Reason: Insomnia Sodium Chloride (0.9 % Sodium Chloride Flush 3 Ml Syringe) 3 ml IVFLUSH QSHIFT [facility] Home Medications ?Medication ?Instructions ?Recorded ?Confirmed ?Last Taken ?Type latanoprost 0.005 % eye drops 1 drp ophthalmic (eye) BEDTIME 05/09/20 04/18/25 04/17/25 History dorzolamide 22.3 mg-timolol 6.8 1 drp ophthalmic (eye) DAILY 10/10/22 04/18/25 04/17/25 History mg/mL eye drops metoclopramide HCl 5 mg tablet 5 mg PO TIDAC 04/18/25 04/18/25 04/17/25 History (Reglan) neomycin 3.5 mg/g-polymyxin B 1 appl ophthalmic (eye) TID 04/18/25 04/18/25 04/17/25 History 10,000 unit/g-dexameth 0.1 % eye oint pantoprazole 40 mg tablet,delayed 40 mg PO DAILY@0600 04/18/25 04/18/25 04/17/25 History release Physical Exam Vital Signs and Narrative: Vital Signs: Last Vital Signs Temp 97.2 F 04/17/25 18:43 Pulse 97 04/17/25 18:43 Resp 16 04/17/25 18:43 BP 121/62 04/17/25 18:43 Pulse Ox 95 04/17/25 18:43 O2 Del Method Room Air 04/17/25 18:43 BMI result Body Mass Index 27.3 Results Labs 04/18/25 05:42 04/18/25 05:42 Labs: Laboratory Results - last 24 hr 04/17/25 04/17/25 15:52 17:53 MCV 82.3 MCH 29.1 MCHC 35.4 H RDW 13.7 Plt Count 263 D MPV 10.8 Immature Gran % (Auto) 0.3 Neut % (Auto) 61.2 Lymph % (Auto) 24.5 [place] % (Auto) 13.1 H Eos % (Auto) 0.5 Baso % (Auto) 0.4 Lymph # (Auto) 2.3 [place] # (Auto) 1.2 Eos # (Auto) 0.1 Baso # (Auto) 0.0 Abs Immat Gran (auto) 0.03 Absolute Neuts (auto) 5.7 Absolute Nucleated RBC 0.000 Nucleated RBC % (auto) 0.0 Anion Gap 17 Estim Creat Clear Calc 12.0 Estimated GFR 12 Random Glucose 180 H Calcium 9.2 Magnesium 1.1 L* Total Bilirubin 0.3 AST 31 ALT 20 Alkaline Phosphatase 66 Total Protein 8.0 Albumin 4.5 Lipase > 3000 H Stool Occult Blood NEGATIVE COVID-19 (ALTAGRACIA) Negative COVID-19 Clin Com See Note Influenza Type A (ELI) Negative Influenza Type B (ELI) Negative Influenza A & B Note See Note Assessment and Plan (1) Pancreatitis: Status: Acute Plan 69 female with HTN, GERD, s/p CCY, Diabetes, GERD, urinary incontinence who presents to the emergency room with nearly a week of nausea and vomiting and abdominal pain that she described as severe, decreased appetite and found to have HOLLAND, acute pancreaitis, electrolyte abnormalities Acute Pancreatitis, DDx: Retained gallstone, hyperTG -check TG -Get MRCP -GI consult -IV fluid -Pain control with morphine -NPO HOLLAND--likely Pre renal d/t dehydration, decrease oral intake -IVF and reassess, avoid nephrotoxin, recheck in am if not improving, nephro consult Hypomagnesemia, IV replacement and recheck in AM Metabolic acidosis, d/t diarrhea, n/v bicab loss IVF and rechec tomorrow, check lactic acid Hypokalemia, replaced, recheck tomorrow Diabetes, SSI, while NPO HTN, BP normal, hold meds. DVT prophylaxis: [place] Quality Stroke Does the patient have a stroke diagnosis?: No VTE Prior VTE?: No VTE Risk Level:: Medical - moderate - high VTE Device Contraindication: Treatment Not Indicated VTE Drug Contraindication: N/A - Med Ordered
[2025-04-17 19:09] LABS: Triglycerides 268 mg/dL (<150)
[2025-04-17 20:06] LABS: Glucose, Whole Blood 131 mg/dL (60-115)
[2025-04-17 21:51] LABS: Reflex Lactate? Lactic Acid Added
[2025-04-17 22:40] LABS: ~Lactic Acid-LAB USE ONLY 0.8 mmol/L (0.5-2.0)
[2025-04-18] VITALS (9 sets, daily range): BP systolic 133–158; BP diastolic 60–72; PULSE 75–95; RESP 14–20; TEMP 36.3–36.4; O2SAT 94–98; BMI 27.3
[2025-04-18 01:04] LABS: Appearance Urine Clear; Glucose Urine UA Negative (Negative); PH 5.0 (5.0-9.0); Specific Gravity - Urine 1.010 (1.005-1.025)
[2025-04-18] MEDS: Lactated Ringers 1,000 ML 125 ML IVCONT ×3 (02:56→20:14)
[2025-04-18 06:11] LABS: MANUAL DIFF FLAG NO
[2025-04-18 06:15] LABS: Hematocrit 34.9 % (37.0-47.0); Hemoglobin 12.0 g/dl (12.0-16.0); Imm Gran Abs Auto 0.02 X10*3/uL (0.00-0.03); Imm Gran Pct Auto 0.3 % (0.0-0.4); Lymphocytes Absolute Auto 2.3 X10*3/uL (1.2-4.9); Mean Corpuscular HGB Conc 34.4 g/dl (31.0-35.0); Mean Corpuscular Hemoglobin 28.4 pg (27.0-33.0); Mean Corpuscular Volume 82.5 fL (80.0-98.0); NRBC Abs Auto 0.000 X10*3/uL (0.0-0.012); NRBC Pct Auto 0.0 /100WBC (0.0-0.2); Platelet Count 223 X10*3/uL (160-400); Red Blood Count 4.23 X10*6/uL (4.20-5.50); White Blood Count 6.4 X10*3/uL (4.8-10.8)
[2025-04-18 06:29] LABS: Anion Gap 15 (12-20); Blood Urea Nitrogen 36 mg/dL (9-16); Calcium 8.5 mg/dL (8.4-10.2); Carbon Dioxide 17 mmol/L (22-29); Chloride 113 mmol/L (96-108); Creatinine Clr Calc Pharmacy 23.6; Estimated Glomerular Filt Rate 27; Potassium 3.6 mmol/L (3.3-5.1); Sodium 141 mmol/L (135-145)
[2025-04-18 06:48] LABS: Lipase 1053 U/L (8-78)
[2025-04-18 07:24] LABS: Glucose, Whole Blood 106 mg/dL (60-115)
--- NOTE | 2025-04-18 08:07 | PC.NURSE ---
Pt off unit to MRI for MRCP
--- NOTE | 2025-04-18 09:06 | PC.NURSE ---
[facility], GI at bedside for consult okay for clear liquids
--- NOTE | 2025-04-18 10:07 | PHA.MEDREC ---
Addendum entered by Jensen Jean PharmD 04/18/25 10:12: reviewed Original Note: Pharmacy Consult ? Medication Reconciliation Pharmacy has completed the medication reconciliation. Spoke to patient and son at bedside. Son was able to confirm patients medications. Son states patient in not taking Ammonium lactate 2 % cream, Diazepam 5 mg, Ketorolac 10 mg, Lidocain patch, and Vitamin B2 400 mg. Patient states she last had her medications yesterday.
--- NOTE | 2025-04-18 10:55 | P.PNIM_ITS ---
Subjective Subjective Date of Service: 04/18/25 Interval History: Follow-up on acute pancreatitis Pain is considerably much better today Lipase level has dropped down significantly from graded at 3000 to now 1053 Serum creatinine significantly improve as well now 1.84 from 3.63. MRCP showed no evidence of stone, but confirms pancreatitis Review of Systems Gen: no fever Resp: no sob, no cough CV: no chest, no STEWART, no leg edema GI: No n/v, mild abd pain Neuro: No confusion Physical Exam 2 Vital Signs: Vital Signs: Last Vital Signs Temp 97.6 F 04/18/25 06:00 Pulse 75 04/18/25 10:08 Resp 20 04/18/25 10:08 BP 150/66 H 04/18/25 10:08 Pulse Ox 98 04/18/25 10:08 O2 Del Method Room Air 04/18/25 10:08 BMI result Body Mass Index 27.3 Const: Other: General: AO X 3, no acute distress Resp: CTA bilateral CVS: S1,S2,RRR GI: +BS, NT, no distention Skin: No rash Neuro: motor grossly intact Psych: appropriate affect Objective Data Active Medications Acetaminophen (Acetaminophen 325 Mg Tablet) 650 mg PO Q6H PRN PRN Reason: Pain, Mild 1-3,fever,headache Amlodipine Besylate (Amlodipine Besylate 2.5 Mg Tablet) 2.5 mg PO DAILY [facility]; Protocol Calcium Carbonate (Calcium Carbonate 750 Mg Tab.Chew) 750 mg PO Q4H PRN PRN Reason: Heartburn Dextrose (Dextrose 50 % 25 Gm/50 Ml Syringe) 25 gm IVPUSH Q15M PRN; Protocol PRN Reason: per Hypoglycemia Standing Ord. Dorzolamide/Timolol (Dorzolamide/Timolo 2.23%/0.68% 10 Ml Drbtl) 1 drop EYE- BOTH DAILY [facility] Enoxaparin Sodium (Enoxaparin Sodium 30 Mg/0.3 Ml Syringe) 30 mg SUBCUT Q24H [facility] Last Admin: 04/17/25 20:10 Dose: 30 mg Documented By: CORA Glucose (Glucose Gel 15 Gm Gel..Gram.) 15 gm PO Q15M PRN; Protocol PRN Reason: per Hypoglycemia Standing Ord. Lactated Ringer's (Lr) 1,000 mls @ 125 mls/hr IVCONT .Q8H [facility] Last Admin: 04/18/25 09:10 Dose: Not Given Documented By: MAILE Non-Admin Reason: see comment Insulin Human Lispro (Insulin Lispro 100 Unit/Ml 3 Ml Vial) 0 unit SUBCUT QIDACHS [facility]; Protocol Last Admin: 04/18/25 07:29 Dose: Not Given Documented By: MAILE Non-Admin Reason: No Insulin Coverage Latanoprost (Latanoprost 0.005 % Ophth [place] 2.5 Ml Drops) 1 drop EYE-BOTH BEDTIME TOYA Magnesium Hydroxide (Milk Of Magnesia 30 Ml Oral.Susp) 30 ml PO DAILY PRN PRN Reason: Constipation Magnesium Oxide (Magnesium Oxide 400 Mg Tablet) 400 mg PO DAILY TOYA Melatonin (Melatonin 3 Mg Tablet) 6 mg PO BEDTIME PRN PRN Reason: Insomnia Metoclopramide HCl (Metoclopramide Hcl 5 Mg Tablet) 5 mg PO TIDAC [facility] Morphine Sulfate (Morphine Sulfate 2 Mg/Ml Cartridge) 2 mg IVPUSH Q4H PRN; Protocol PRN Reason: Pain, Severe (Pain Scale 7-10) Last Admin: 04/18/25 10:06 Dose: 2 mg Documented By: MAILE Neomycin/Polymyxin/Dexamethasone (Neomy/Polymyx/Dexameth Oph Oin 3.5 Gm Tube) inch EYE-BOTH TID [facility] Non-Formulary Medication (Pantoprazole) 40 mg PO DAILY@0600 [facility] Non-Formulary Medication (Rosuvastatin) 5 mg PO DAILY [facility] Oxybutynin Chloride (Oxybutynin Chloride Er 5 Mg Tab.Er.24) 10 mg PO BID [facility] Sodium Chloride (0.9 % Sodium Chloride Flush 3 Ml Syringe) 3 ml IVFLUSH QSHIFT [facility] Last Admin: 04/18/25 07:43 Dose: Not Given Documented By: MAILE Non-Admin Reason: IV Running Labs 04/18/25 05:42 04/18/25 05:42 Labs: Laboratory Results - last 24 hr 04/17/25 04/17/25 04/17/25 15:52 17:53 19:47 MCV 82.3 MCH 29.1 MCHC 35.4 H RDW 13.7 Plt Count 263 D MPV 10.8 Immature Gran % (Auto) 0.3 Neut % (Auto) 61.2 Lymph % (Auto) 24.5 [place] % (Auto) 13.1 H Eos % (Auto) 0.5 Baso % (Auto) 0.4 Lymph # (Auto) 2.3 [place] # (Auto) 1.2 Eos # (Auto) 0.1 Baso # (Auto) 0.0 Abs Immat Gran (auto) 0.03 Absolute Neuts (auto) 5.7 Absolute Nucleated RBC 0.000 Nucleated RBC % (auto) 0.0 Anion Gap 17 Estim Creat Clear Calc 12.0 Estimated GFR 12 POC Glucose Random Glucose 180 H Lactic Acid 2.2 H* Lactic Acid F/U @ 2Hr Calcium 9.2 Magnesium 1.1 L* Total Bilirubin 0.3 AST 31 ALT 20 Alkaline Phosphatase 66 Total Protein 8.0 Albumin 4.5 Triglycerides 268 H Lipase > 3000 H Urine Color Urine Appearance Urine pH Ur Specific [place] Urine Protein Urine Glucose (UA) Urine Ketones Urine Blood Urine Nitrite Ur Leukocyte Esterase Stool Occult Blood NEGATIVE COVID-19 (ALTAGRACIA) Negative COVID-19 Clin Com See Note Influenza Type A (ELI) Negative Influenza Type B (ELI) Negative Influenza A & B Note See Note 04/17/25 04/17/25 04/18/25 20:02 22:19 00:59 MCV MCH MCHC RDW Plt Count MPV Immature Gran % (Auto) Neut % (Auto) Lymph % (Auto) [place] % (Auto) Eos % (Auto) Baso % (Auto) Lymph # (Auto) [place] # (Auto) Eos # (Auto) Baso # (Auto) Abs Immat Gran (auto) Absolute Neuts (auto) Absolute Nucleated RBC Nucleated RBC % (auto) Anion Gap Estim Creat Clear Calc Estimated GFR POC Glucose 131 H Random Glucose Lactic Acid Lactic Acid F/U @ 2Hr 0.8 Calcium Magnesium Total Bilirubin AST ALT Alkaline Phosphatase Total Protein Albumin Triglycerides Lipase Urine Color Yellow Urine Appearance Clear Urine pH 5.0 Ur Specific [place] 1.010 Urine Protein Negative Urine Glucose (UA) Negative Urine Ketones Negative Urine Blood Negative Urine Nitrite Negative Ur Leukocyte Esterase Negative Stool Occult Blood COVID-19 (ALTAGRACIA) COVID-19 Clin Com Influenza Type A (ELI) Influenza Type B (ELI) Influenza A & B Note 04/18/25 04/18/25 04/18/25 05:42 05:43 07:20 MCV 82.5 MCH 28.4 MCHC 34.4 RDW 13.9 Plt Count 223 MPV 10.5 Immature Gran % (Auto) 0.3 Neut % (Auto) 47.4 Lymph % (Auto) 36.0 [place] % (Auto) 14.9 H Eos % (Auto) 0.9 Baso % (Auto) 0.5 Lymph # (Auto) 2.3 [place] # (Auto) 1.0 Eos # (Auto) 0.1 Baso # (Auto) 0.0 Abs Immat Gran (auto) 0.02 Absolute Neuts (auto) 3.0 Absolute Nucleated RBC 0.000 Nucleated RBC % (auto) 0.0 Anion Gap 15 Estim Creat Clear Calc 23.6 Estimated GFR 27 POC Glucose 106 Random Glucose 121 H Lactic Acid Lactic Acid F/U @ 2Hr Calcium 8.5 D Magnesium Total Bilirubin AST ALT Alkaline Phosphatase Total Protein Albumin Triglycerides Lipase 1053 H Urine Color Urine Appearance Urine pH Ur Specific [place] Urine Protein Urine Glucose (UA) Urine Ketones Urine Blood Urine Nitrite Ur Leukocyte Esterase Stool Occult Blood COVID-19 (ALTAGRACIA) COVID-19 Clin Com Influenza Type A (ELI) Influenza Type B (ELI) Influenza A & B Note Assessment and Plan Plan 69 female with HTN, GERD, s/p CCY, Diabetes, GERD, urinary incontinence who presents to the emergency room with nearly a week of nausea and vomiting and abdominal pain that she described as severe, decreased appetite and found to have HOLLAND, acute pancreaitis, electrolyte abnormalities Acute Pancreatitis, DDx: Retained gallstone, hyperTG -TG 268 - MRCP = No choledocholithiasis, pancreatitis confirmed -suspected passed stone given signficant reduction in lipase level overnight -GI consult pending -IV fluid -Pain control with morphine -start liquid diet HOLLAND--likely Pre renal d/t dehydration, decrease oral intake. Creat 3.63 to 1.84 continue IVF and monitor Hypomagnesemia, Replaced, recheck level Metabolic acidosis, d/t diarrhea, n/v bicab loss IVF and rechec tomorrow, hold bicab replacement for now Hypokalemia, replaced, and resolved. Diabetes, SSI, hold Metformin HTN, BP normal, hold meds. DVT prophylaxis: Lovenox Quality Stroke Does the patient have a stroke diagnosis?: No VTE Prior VTE?: No VTE Risk Level:: Medical - moderate - high VTE Device Contraindication: Treatment Not Indicated VTE Drug Contraindication: N/A - Med Ordered
[2025-04-18 11:36] LABS: Glucose, Whole Blood 104 mg/dL (60-115)
[2025-04-18 12:06] LABS: Magnesium 2.3 mg/dL (1.6-2.6)
--- NOTE | 2025-04-18 14:53 | P.CNGI_ITS ---
History of Present Illness Data of Consult Service Date: 04/18/25 Primary Care Provider: Melvi Lawrence MD HPI Reason for consult: pancreatitis 69 female with HTN, GERD, s/p CCY, Diabetes, GERD, urinary incontinence who I am seeing for assessment for acute pancreatitis. Patient had 1 week of worsening appetite with nausea and non bloody emesis. She noted 10/10 epigastric pain, going into the back, worse with food. she felt feverish. she never had this pain before. No jaundice, no sick contacts. No new meds, denies taking nsaids. she is feeling much more relaxed now and pain is diminished, feels hungry. Review of Systems 2 Review of Systems: Constitutional : No Weight loss, No Fever, No Chills ENT/Mouth : No sore throat, No Rhinorrhea Eyes: No Swelling, No Redness Cardiovascular : No Chest Pain, No SOB, No Edema Respiratory : No Cough, No Sputum, No Wheezing Gastrointestinal : see HPI Genitourinary : NO Dysuria, No Urinary Frequency, No Hematuria, No Urgency Musculoskeletal : + joint pain, No Myalgias, No Joint Swelling Skin : No Skin Lesions, No rash Neuro : No Weakness, No Numbness, No Dizziness, No Headache Psych : No Anxiety/Panic, No Depression Heme/Lymph: No Bruising, No Lymphadenopathy Endocrine : No Polyuria, No Polydipsia All other systems reviewed and are negative. [facility] Past Medical History Medical History Post-cholecystectomy syndrome Chronic diarrhea Nausea Ear congestion Viral gastroenteritis Elevated hemoglobin Gastroparesis Post-menopausal Hearing loss in right ear Obese Dry skin Long-term use of aspirin therapy Urge urinary incontinence GERD (gastroesophageal reflux disease) Essential hypertension Glaucoma Diabetes mellitus Family History Family History Father Cancer Mother Hypertension Surgical History Surgical History History of esophagogastroduodenoscopy (EGD) History of colonoscopy Tubal ligation status History of knee replacement procedure of right knee History of cholecystectomy H/O arthroscopy of right knee History of nasal surgery History of Social History Social History Housing: House Are you a primary care transitions manager to a significant other at home: No Do you presently have visiting nurse or other home services: No Alcohol intake: current Alcohol intake frequency: holidays/special occasions only Alcohol type: wine Patient Tobacco Use Status: Never used Tobacco Smoked in Last 30 Days: No e-Cigarette/Vaping Use: Never Used Second Hand Smoke Exposure: No Use of substances other than those prescribed or required for medical reasons: No Advance Directives: Yes Advance Directives on File: Yes Advance Directives Date on File: 02/17/17 service: No Current occupational status: retired Cognitive needs: No Hearing needs: No Vision needs: No Meds Allergies Allergy/AdvReac Type Severity Reaction Status Date / Time chlorzoxazone (From Parafon Allergy Intermediate RASH/SWELLING, Verified 04/17/25 15:42 Forte DSC) rash Iodinated Contrast Media (IV Allergy Intermediate THROAT Verified 04/17/25 15:42 Dye, Iodine Containing) CLOSED Penicillins (PENICILLINS) Allergy Intermediate HIVES Verified 04/17/25 15:42 pollen extracts (POLLEN) Allergy Intermediate RASH Verified 04/17/25 15:42 cephalexin Allergy Mild Rash Verified 04/17/25 15:42 Active Medications: Current Medications Acetaminophen (Acetaminophen 325 Mg Tablet) 650 mg PO Q6H PRN PRN Reason: Pain, Mild 1-3,fever,headache Amlodipine Besylate (Amlodipine Besylate 2.5 Mg Tablet) 2.5 mg PO DAILY TOYA; Protocol Last Admin: 04/18/25 11:41 Dose: 2.5 mg Atorvastatin Calcium (Atorvastatin Calcium 10 Mg Tablet) 10 mg PO DAILY [facility] Calcium Carbonate (Calcium Carbonate 750 Mg Tab.Chew) 750 mg PO Q4H PRN PRN Reason: Heartburn Dextrose (Dextrose 50 % 25 Gm/50 Ml Syringe) 25 gm IVPUSH Q15M PRN; Protocol PRN Reason: per Hypoglycemia Standing Ord. Dorzolamide/Timolol (Dorzolamide/Timolo 2.23%/0.68% 10 Ml Drbtl) 1 drop EYE- BOTH DAILY [facility] Enoxaparin Sodium (Enoxaparin Sodium 30 Mg/0.3 Ml Syringe) 30 mg SUBCUT Q24H TOYA Last Admin: 04/17/25 20:10 Dose: 30 mg Glucose (Glucose Gel 15 Gm Gel..Gram.) 15 gm PO Q15M PRN; Protocol PRN Reason: per Hypoglycemia Standing Ord. Lactated Ringer's (Lr) 1,000 mls @ 125 mls/hr IVCONT .Q8H [facility] Last Admin: 04/18/25 11:40 Dose: 125 mls/hr Insulin Human Lispro (Insulin Lispro 100 Unit/Ml 3 Ml Vial) 0 unit SUBCUT QIDACHS [facility]; Protocol Last Admin: 04/18/25 11:41 Dose: Not Given Latanoprost (Latanoprost 0.005 % Ophth [place] 2.5 Ml Drops) 1 drop EYE-BOTH BEDTIME [facility] Magnesium Hydroxide (Milk Of Magnesia 30 Ml Oral.Susp) 30 ml PO DAILY PRN PRN Reason: Constipation Magnesium Oxide (Magnesium Oxide 400 Mg Tablet) 400 mg PO DAILY [facility] Melatonin (Melatonin 3 Mg Tablet) 6 mg PO BEDTIME PRN PRN Reason: Insomnia Metoclopramide HCl (Metoclopramide Hcl 5 Mg Tablet) 5 mg PO TIDAC [facility] Last Admin: 04/18/25 11:41 Dose: 5 mg Morphine Sulfate (Morphine Sulfate 2 Mg/Ml Cartridge) 2 mg IVPUSH Q4H PRN; Protocol PRN Reason: Pain, Severe (Pain Scale 7-10) Last Admin: 04/18/25 10:06 Dose: 2 mg Neomycin/Polymyxin/Dexamethasone (Neomy/Polymyx/Dexameth Oph Oin 3.5 Gm Tube) 0.5 inch EYE-BOTH TID [facility] Omeprazole (Omeprazole 20 Mg Capsule.Dr) 20 mg PO DAILY@0630 [facility] Oxybutynin Chloride (Oxybutynin Chloride Er 5 Mg Tab.Er.24) 10 mg PO BID [facility] Sodium Chloride (0.9 % Sodium Chloride Flush 3 Ml Syringe) 3 ml IVFLUSH QSHIFT [facility] Last Admin: 04/18/25 07:43 Dose: Not Given Home Medications ?Medication ?Instructions ?Recorded ?Confirmed ?Last Taken ?Type latanoprost 0.005 % eye drops 1 drp ophthalmic (eye) B EDTIME 05/09/20 04/18/25 04/17/25 History dorzolamide 22.3 mg-timolol 6.8 1 drp ophthalmic (eye) DAILY 10/10/22 04/18/25 04/17/25 History mg/mL eye drops metoclopramide HCl 5 mg tablet 5 mg PO TIDAC 04/18/25 04/18/25 04/17/25 History (Reglan) neomycin 3.5 mg/g-polymyxin B 1 appl ophthalmic (eye) TID 04/18/25 04/18/25 04/17/25 History 10,000 unit/g-dexameth 0.1 % eye oint pantoprazole 40 mg tablet,delayed 40 mg PO DAILY@0600 04/18/25 04/18/25 04/17/25 History release Physical Exam 2 Exam: Exam: EXAM: GENERAL: The patient is well developed and nontoxic. VITAL SIGNS:see workflow HEENT: Nonicteric sclerae, PERRLA, EOMI. Oropharynx clear. Moist mucous membranes. Conjunctivae appear well perfused. No thyroid mass. CHEST: Chest wall is nontender. HEART: Regular rate and rhythm without murmurs. LUNGS: Clear to auscultation bilaterally. ABDOMEN: Soft, positive bowel sounds, nontender, no organomegaly.no flank tenderness SKIN: No rash, no excessive bruising, petechiae, or purpura. NEUROLOGIC: Cranial nerves II-XII intact without motor/sensory deficit. Psych: normal affect Vital Signs: Vital Signs: Last Vital Signs Temp 97.6 F 04/18/25 06:00 Pulse 75 04/18/25 10:08 Resp 20 04/18/25 10:08 BP 158/61 H 04/18/25 11:41 Pulse Ox 98 04/18/25 10:08 O2 Del Method Room Air 04/18/25 10:08 BMI result Body Mass Index 27.3 Results Labs 04/18/25 05:42 04/18/25 05:42 Labs: Short CBC 04/17/25 04/18/25 Range/Units 15:52 05:42 WBC 9.3 6.4 (4.8-10.8) X10*3/uL Hgb 13.8 12.0 (12.0-16.0) g/dl Hct 39.0 34.9 L (37.0-47.0) % Plt Count 263 D 223 (160-400) X10*3/uL BMP 04/17/25 04/18/25 15:52 05:42 Sodium 136 141 Potassium 3.2 L 3.6 Chloride 106 113 H Carbon Dioxide 16 L 17 L BUN 54 H 36 H Creatinine 3.63 H 1.84 H Calcium 9.2 8.5 D Liver Function 04/17/25 Range/Units 15:52 Total Bilirubin 0.3 (0.0-1.0) mg/dL AST 31 (5-31) U/L ALT 20 (0-31) U/L Alkaline Phosphatase 66 (39-117) U/L Albumin 4.5 (3.5-5.0) g/dL Urine 04/18/25 Range/Units 00:59 Urine Color Yellow Urine Appearance Clear Urine pH 5.0 (5.0-9.0) Ur Specific [place] 1.010 (1.005-1.025) Urine Protein Negative (Neg-Trace) mg/dL Urine Glucose (UA) Negative (Negative) mg/dL Imaging MRI - abdomen: Attestation: I personally reviewed and interpreted this imaging study as follows: (no CBD filling defects, or masses, Pancreas edematous ) Assessment and Plan (1) Pancreatitis: Qualifiers: Chronicity: acute Pancreatitis type: unspecified pancreatitis type A cute pancreatitis complication: no infection or necrosis Qualified Code(s): K 85.90 - Acute pancreatitis without necrosis or infection, unspecified Status: Acute Plan 1/ Acute pancreatitis, uncertain etiology, causes could include SOD, pancreas divisum, microlipthiasis, no new meds started and no drugs use recently--images with small cysts of the pancreas PLAN: 1/ Cont with fluids and analgesi and resus as doing 2/ allow PO diet as tolerated 3/ consider repeat MRI in about 8-12 weeks to make sure no underlying lesion Procedures Date of Service Date of Service: 04/18/25
[2025-04-18 17:17] LABS: Glucose, Whole Blood 120 mg/dL (60-115)
[2025-04-18 20:12] LABS: Glucose, Whole Blood 141 mg/dL (60-115)
[2025-04-18] MEDS: oxyBUTYnin chloride ER 5 MG TAB.ER.24 10 MG PO (20:16)
[2025-04-18] MEDS: NeoMY/Polymyx/Dexameth Oph Oin 3.5 GM TUBE 0.5 INCH EYE-BOTH (20:16)
[2025-04-18] MEDS: LATANOPROST 0.005% 1 EACH EYE-BOTH (21:26)
[2025-04-19 02:41] VITALS: BP 139/65; PULSE 77; RESP 16; TEMP 36; O2SAT 98
[2025-04-19] MEDS: Lactated Ringers 1,000 ML 125 ML IVCONT ×2 (04:14→13:12)
[2025-04-19 06:53] LABS: Anion Gap 9 (12-20); Blood Urea Nitrogen 14 mg/dL (9-16); Calcium 8.8 mg/dL (8.4-10.2); Carbon Dioxide 26 mmol/L (22-29); Chloride 109 mmol/L (96-108); Creatinine Clr Calc Pharmacy 44.4; Estimated Glomerular Filt Rate 56; Potassium 3.5 mmol/L (3.3-5.1); Sodium 140 mmol/L (135-145)
[2025-04-19 07:19] VITALS: BP 142/73; PULSE 78; RESP 16; TEMP 36.2; O2SAT 96
[2025-04-19 07:26] LABS: Glucose, Whole Blood 96 mg/dL (60-115)
[2025-04-19] MEDS: oxyBUTYnin chloride ER 5 MG TAB.ER.24 10 MG PO ×2 (07:35→20:28)
[2025-04-19] MEDS: NeoMY/Polymyx/Dexameth Oph Oin 3.5 GM TUBE 0.5 INCH EYE-BOTH ×3 (07:36→20:29)
[2025-04-19] MEDS: Dorzolamide/Timolo 2.23%/0.68% 10 ML DRBTL 1 DROP EYE-BOTH (08:54)
[2025-04-19 11:35] LABS: Glucose, Whole Blood 98 mg/dL (60-115)
--- NOTE | 2025-04-19 13:26 | P.CONGS_ITS ---
History of Present Illness Consult details Consult date: 04/19/25 Reason for consult: other (pancreatitis) Narrative: 69-year-old female with PMH significant for diabetes mellitus, hypertension, GERD who presented to the ED on Friday with complaints of severe abdominal pain and nausea/vomiting. She apparently had cataract surgery performed last Friday and soon after developed abdominal pain, nausea and vomiting and then diarrhea. Work up in the ED included CBC, BMP, LFTs which was significant for a lipase >3000. She also have hypertriglyceridemia as well as lactic acidosis and HOLLAND. CT scan abd pelvis was obtained which showed peripancreatic edema. She was admitted to the hospitalist service for further treatment of her acute pancreatitis and HOLLAND. MRCP was performed which again showed peripancreatitic edema without peripancreatic fluid collections, note of multiple cystic lesions >10mm. No CBD stone, no intra or extrahepatic biliary ductal dilatation. She feels improved this morning with less abdominal pain. She denies prior episodes of similar pain. She denies change in skin, urine or stool color. Lipase has improved significantly. She is tolerating clear liquids. She reports cholecystectomy over 10 years ago. She denies any other abd surgery. Review of Systems 2 Constitutional: Constitutional: Denies chills and Denies fever(s) Cardiovascular: Cardiovascular: Denies chest pain and Denies dyspnea Respiratory: Respiratory: Denies dyspnea Gastrointestinal: Gastrointestinal: Reports as per HPI, Denies hematochezia and Denies hematemesis Integumentary/Breasts: Skin/Breast: Denies rash and Denies jaundice PMFSH Past Medical History Medical History Post-cholecystectomy syndrome Chronic diarrhea Nausea Ear congestion Viral gastroenteritis Elevated hemoglobin Gastroparesis Post-menopausal Hearing loss in right ear Obese Dry skin Long-term use of aspirin therapy Urge urinary incontinence GERD (gastroesophageal reflux disease) Essential hypertension Glaucoma Diabetes mellitus Family History Family History Father Cancer Mother Hypertension Surgical History Surgical History History of esophagogastroduodenoscopy (EGD) History of colonoscopy Tubal ligation status History of knee replacement procedure of right knee History of cholecystectomy H/O arthroscopy of right knee History of nasal surgery History of Social History Social History Household Members: Children Housing: House Are you a primary care partner to a significant other at home: No Do you presently have visiting nurse or other home services: Yes (every 6 months) Alcohol intake: current Alcohol intake frequency: holidays/special occasions only Alcohol type: wine Patient Tobacco Use Status: Never used Tobacco e-Cigarette/Vaping Use: Never Used Second Hand Smoke Exposure: No Advance Directives Date on File: 02/17/17 service: No Current occupational status: retired Cognitive needs: No Hearing needs: No Vision needs: No Meds Allergies Allergy/AdvReac Type Severity Reaction Status Date / Time chlorzoxazone (From Parafon Allergy Intermediate RASH/SWELLING, Verified 04/17/25 15:42 Forte DSC) rash Iodinated Contrast Media (IV Allergy Intermediate THROAT Verified 04/17/25 15:42 Dye, Iodine Containing) CLOSED Penicillins (PENICILLINS) Allergy Intermediate HIVES Verified 04/17/25 15:42 pollen extracts (POLLEN) Allergy Intermediate RASH Verified 04/17/25 15:42 cephalexin Allergy Mild Rash Verified 04/17/25 15:42 Active Medications: Current Medications Acetaminophen (Acetaminophen 325 Mg Tablet) 650 mg PO Q6H PRN PRN Reason: Pain, Mild 1-3,fever,headache Last Admin: 04/18/25 17:51 Dose: 650 mg Amlodipine Besylate (Amlodipine Besylate 2.5 Mg Tablet) 2.5 mg PO DAILY TOYA; Protocol Last Admin: 04/19/25 07:35 Dose: 2.5 mg Atorvastatin Calcium (Atorvastatin Calcium 10 Mg Tablet) 10 mg PO DAILY TOYA Last Admin: 04/19/25 07:35 Dose: 10 mg Calcium Carbonate (Calcium Carbonate 750 Mg Tab.Chew) 750 mg PO Q4H PRN PRN Reason: Heartburn Dextrose (Dextrose 50 % 25 Gm/50 Ml Syringe) 25 gm IVPUSH Q15M PRN; Protocol PRN Reason: per Hypoglycemia Standing Ord. Dorzolamide/Timolol (Dorzolamide/Timolo 2.23%/0.68% 10 Ml Drbtl) 1 drop EYE- BOTH DAILY TOYA Last Admin: 04/19/25 08:54 Dose: 1 drop Enoxaparin Sodium (Enoxaparin Sodium 30 Mg/0.3 Ml Syringe) 30 mg SUBCUT Q24H [facility] Last Admin: 04/18/25 20:15 Dose: 30 mg Glucose (Glucose Gel 15 Gm Gel..Gram.) 15 gm PO Q15M PRN; Protocol PRN Reason: per Hypoglycemia Standing Ord. Lactated Ringer's (Lr) 1,000 mls @ 125 mls/hr IVCONT .Q8H [facility] Last Admin: 04/19/25 13:12 Dose: 125 mls/hr Insulin Human Lispro (Insulin Lispro 100 Unit/Ml 3 Ml Vial) 0 unit SUBCUT QIDACHS [facility]; Protocol Last Admin: 04/19/25 11:30 Dose: Not Given Magnesium Hydroxide (Milk Of Magnesia 30 Ml Oral.Susp) 30 ml PO DAILY PRN PRN Reason: Constipation Magnesium Oxide (Magnesium Oxide 400 Mg Tablet) 400 mg PO DAILY [facility] Last Admin: 04/19/25 07:35 Dose: 400 mg Melatonin (Melatonin 3 Mg Tablet) 6 mg PO BEDTIME PRN PRN Reason: Insomnia Metoclopramide HCl (Metoclopramide Hcl 5 Mg Tablet) 5 mg PO TIDAC [facility] Last Admin: 04/19/25 11:36 Dose: 5 mg Morphine Sulfate (Morphine Sulfate 2 Mg/Ml Cartridge) 2 mg IVPUSH Q4H PRN; Protocol PRN Reason: Pain, Severe (Pain Scale 7-10) Last Admin: 04/19/25 11:09 Dose: 2 mg Neomycin/Polymyxin/Dexamethasone (Neomy/Polymyx/Dexameth Oph Oin 3.5 Gm Tube) 0.5 inch EYE-BOTH TID [facility] Last Admin: 04/19/25 07:36 Dose: 0.5 inch Pt Own (Latanoprost (0.005% Ophth Gaviota'N)) 1 each EYE-BOTH BEDTIME [facility] Last Admin: 04/18/25 21:26 Dose: 1 each Omeprazole (Omeprazole 20 Mg Capsule.Dr) 20 mg PO DAILY@0630 [facility] Last Admin: 04/19/25 06:54 Dose: Not Given Oxybutynin Chloride (Oxybutynin Chloride Er 5 Mg Tab.Er.24) 10 mg PO BID [facility] Last Admin: 04/19/25 07:35 Dose: 10 mg Sodium Chloride (0.9 % Sodium Chloride Flush 3 Ml Syringe) 3 ml IVFLUSH QSHIFT [facility] Last Admin: 04/19/25 06:56 Dose: Not Given Home Medications ?Medication ?Instructions ?Recorded ?Confirmed ?Last Taken ?Type latanoprost 0.005 % eye drops 1 drp ophthalmic (eye) B EDTIME 05/09/20 04/18/25 04/17/25 History dorzolamide 22.3 mg-timolol 6.8 1 drp ophthalmic (eye) DAILY 10/10/22 04/18/25 04/17/25 History mg/mL eye drops metoclopramide HCl 5 mg tablet 5 mg PO TIDAC 04/18/25 04/18/25 04/17/25 History (Reglan) neomycin 3.5 mg/g-polymyxin B 1 appl ophthalmic (eye) TID 04/18/25 04/18/25 04/17/25 History 10,000 unit/g-dexameth 0.1 % eye oint pantoprazole 40 mg tablet,delayed 40 mg PO DAILY@0600 04/18/25 04/18/25 04/17/25 History release Physical Exam 2 Vital Signs: Vital Signs: Last Vital Signs Temp 97.2 F 04/19/25 07:19 Pulse 78 04/19/25 07:19 Resp 16 04/19/25 07:19 BP 142/73 H 04/19/25 07:19 Pulse Ox 96 04/19/25 07:19 O2 Del Method Room Air 04/19/25 07:19 BMI result Body Mass Index 27.3 Const: General: comfortable, no acute distress and alert O rientation/consciousness: patient oriented x3 Resp: Effort & Inspection: normal respiratory effort and able to speak in complete sentences GI: Other: abd mildly distended, soft mild epigastric/LUQ tenderness Inspection: Yes scar (very small well healed port sites surrounding RUQ) Palpation (GI): no guarding Skin: General skin exam: no rashes or lesions noted and no jaundice Neuro: General: patient oriented x3 and moves all extremities Results Labs 04/18/25 05:42 04/19/25 06:08 Labs: Abnormal lab results 04/18/25 04/18/25 04/19/25 Range/Units 17:13 20:09 06:08 Chloride 109 H (96-108) mmol/L Anion Gap 9 L (12-20) POC Glucose 120 H 141 H (60-115) mg/dL Random Glucose 116 H (60-115) mg/dL BMP 04/19/25 06:08 Sodium 140 Potassium 3.5 Chloride 109 H Carbon Dioxide 26 BUN 14 Creatinine 0.98 Calcium 8.8 Urine 04/18/25 Range/Units 00:59 Urine Color Yellow Urine Appearance Clear Urine pH 5.0 (5.0-9.0) Ur Specific [place] 1.010 (1.005-1.025) Urine Protein Negative (Neg-Trace) mg/dL Urine Glucose (UA) Negative (Negative) mg/dL All other labs normal. Imaging Abdomen CT scan report/results: report reviewed and image reviewed Additional studies: MRCP reviewed labs reviewed Assessment and Plan (1) Pancreatitis: Qualifiers: Chronicity: acute Pancreatitis type: unspecified pancreatitis type A cute pancreatitis complication: no infection or necrosis Qualified Code(s): K 85.90 - Acute pancreatitis without necrosis or infection, unspecified Status: Acute Plan 69-year-old female with PMH significant for diabetes mellitus, hypertension, GERD presenting with acute onset abd pain, nausea/vomiting admitted for acute pancreatitis, [place]. Etiology of pancreatitis is currently uncertain. She is not presenting like a passed CBD stone as she had no ductal dilatation on imaging and LFTs have been normal. At this point there is no surgical intervention necessary. She is s/p cholecystectomy over 10 years ago and if there was a passed stone it would be a primary CBD stone and would defer management to GI. She is improving clinically, can continue supportive measures. Procedures Date of Service Date of Service: 04/19/25
--- NOTE | 2025-04-19 15:38 | MHC.CM.PN ---
IMM DELIVERED PT LIVES WITH FAMILY AND IS FUNCTIONALLY INDEPENDENT. NO SERVICES OR DME. + HCP ON FILE AND VERIFIED. PCP DR. MACHUCA AT [facility] [place]. DP: HOME, NO SERVICES ANTICIPATED. PT 'S FAMILY WILL TRANSPORT HOME. CM WILL CONTINUE TO FOLLOW FOR ANY CHANGE TO DC PLAN/NEEDS.
[2025-04-19 15:56] VITALS: BP 163/74; PULSE 82; RESP 16; TEMP 36.6; O2SAT 95
[2025-04-19 16:12] LABS: Glucose, Whole Blood 112 mg/dL (60-115)
--- NOTE | 2025-04-19 16:35 | P.PNIM_ITS ---
Subjective Subjective Date of Service: 04/19/25 Interval History: Patient reports mild improvement in her abdominal pain has compared to yesterday. Reports her appetite is minimal, however has 1 now, compared to no appetite yesterday. The patient reports drinking water, urinating and stooling. She is not eager to eat p.o. as of yet Review of Systems Review of Systems: Yes all other systems are reviewed and are negative Physical Exam 2 Exam: Exam: General: A&O x3, oriented to time place person and situation, comfortable, no pain Cardiac: S1, S2 auscultated with no S3/4, no MRG. Well perfused. Respiratory: Normal breath sounds auscultated throughout all lung zones, without wheezing, rales. Normal rate. GI/ : No abdominal pain on palpation, no masses or distentions. MSK: Normal ambulation without pain at bony prominences or musculature Neurological: Normal neurological examination on overview, without obvious CN II-XII abnormalities. Vital Signs: Vital Signs: Last Vital Signs Temp 97.9 F 04/19/25 15:56 Pulse 82 04/19/25 15:56 Resp 16 04/19/25 15:56 BP 163/74 H 04/19/25 15:56 Pulse Ox 95 04/19/25 15:56 O2 Del Method Room Air 04/19/25 15:56 BMI result Body Mass Index 27.3 Objective Data Active Medications Acetaminophen (Acetaminophen 325 Mg Tablet) 650 mg PO Q6H PRN PRN Reason: Pain, Mild 1-3,fever,headache Last Admin: 04/18/25 17:51 Dose: 650 mg Documented By: BERTA Amlodipine Besylate (Amlodipine Besylate 2.5 Mg Tablet) 2.5 mg PO DAILY [facility]; Protocol Last Admin: 04/19/25 07:35 Dose: 2.5 mg Documented By: BERTA Atorvastatin Calcium (Atorvastatin Calcium 10 Mg Tablet) 10 mg PO DAILY [facility] Last Admin: 04/19/25 07:35 Dose: 10 mg Documented By: BERTA Calcium Carbonate (Calcium Carbonate 750 Mg Tab.Chew) 750 mg PO Q4H PRN PRN Reason: Heartburn Dextrose (Dextrose 50 % 25 Gm/50 Ml Syringe) 25 gm IVPUSH Q15M PRN; Protocol PRN Reason: per Hypoglycemia Standing Ord. Dorzolamide/Timolol (Dorzolamide/Timolo 2.23%/0.68% 10 Ml Drbtl) 1 drop EYE- BOTH DAILY [facility] Last Admin: 04/19/25 08:54 Dose: 1 drop Documented By: BERTA Enoxaparin Sodium (Enoxaparin Sodium 30 Mg/0.3 Ml Syringe) 30 mg SUBCUT Q24H [facility] Last Admin: 04/18/25 20:15 Dose: 30 mg Documented By: RACHEL Glucose (Glucose Gel 15 Gm Gel..Gram.) 15 gm PO Q15M PRN; Protocol PRN Reason: per Hypoglycemia Standing Ord. Lactated Ringer's (Lr) 1,000 mls @ 125 mls/hr IVCONT .Q8H [facility] Last Admin: 04/19/25 13:12 Dose: 125 mls/hr Documented By: BERTA Insulin Human Lispro (Insulin Lispro 100 Unit/Ml 3 Ml Vial) 0 unit SUBCUT QIDACHS [facility]; Protocol Last Admin: 04/19/25 16:15 Dose: Not Given Documented By: BERTA Non-Admin Reason: No Insulin Coverage Magnesium Hydroxide (Milk Of Magnesia 30 Ml Oral.Susp) 30 ml PO DAILY PRN PRN Reason: Constipation Magnesium Oxide (Magnesium Oxide 400 Mg Tablet) 400 mg PO DAILY [facility] Last Admin: 04/19/25 07:35 Dose: 400 mg Documented By: BERTA Melatonin (Melatonin 3 Mg Tablet) 6 mg PO BEDTIME PRN PRN Reason: Insomnia Metoclopramide HCl (Metoclopramide Hcl 5 Mg Tablet) 5 mg PO TIDAC [facility] Last Admin: 04/19/25 15:42 Dose: 5 mg Documented By: BERTA Morphine Sulfate (Morphine Sulfate 2 Mg/Ml Cartridge) 2 mg IVPUSH Q4H PRN; Protocol PRN Reason: Pain, Severe (Pain Scale 7-10) Last Admin: 04/19/25 15:42 Dose: 2 mg Documented By: BERTA Neomycin/Polymyxin/Dexamethasone (Neomy/Polymyx/Dexameth Oph Oin 3.5 Gm Tube) 0.5 inch EYE-BOTH TID [facility] Last Admin: 04/19/25 15:03 Dose: 0.5 inch Documented By: BERTA Pt Own (Latanoprost (0.005% Ophth Gaviota'N)) 1 each EYE-BOTH BEDTIME [facility] Last Admin: 04/18/25 21:26 Dose: 1 each Documented By: RACHEL Omeprazole (Omeprazole 20 Mg Capsule.Dr) 20 mg PO DAILY@0630 [facility] Last Admin: 04/19/25 06:54 Dose: Not Given Documented By: BERTA Non-Admin Reason: already given Oxybutynin Chloride (Oxybutynin Chloride Er 5 Mg Tab.Er.24) 10 mg PO BID [facility] Last Admin: 04/19/25 07:35 Dose: 10 mg Documented By: BERTA Sodium Chloride (0.9 % Sodium Chloride Flush 3 Ml Syringe) 3 ml IVFLUSH QSHIFT [facility] Last Admin: 04/19/25 15:06 Dose: Not Given Documented By: BERTA Non-Admin Reason: IV Running Labs 04/18/25 05:42 04/19/25 06:08 Labs: Laboratory Results - last 24 hr 04/18/25 04/18/25 04/19/25 17:13 20:09 06:08 Anion Gap 9 L Estim Creat Clear Calc 44.4 Estimated GFR 56 POC Glucose 120 H 141 H Random Glucose 116 H Calcium 8.8 04/19/25 04/19/25 04/19/25 07:22 11:28 16:03 Anion Gap Estim Creat Clear Calc Estimated GFR POC Glucose 96 98 112 Random Glucose Calcium Assessment and Plan (1) Essential hypertension: Status: Acute (2) Diabetes mellitus: Status: Acute (3) GERD (gastroesophageal reflux disease): Status: Acute (4) Pancreatitis: Status: Acute (5) Acute renal failure: Status: Acute (6) Overactive bladder: Status: Acute (7) Urge urinary incontinence: Status: Acute Plan 69-year-old female with a history of HTN, GERD, T2 DM, urinary urge incontinence, who presents to emergency room with 1 week of nausea, vomiting, decreased appetite and abdominal pain, admitted with acute interstitial pancreatitis c/b prerenal acute kidney injury in the setting of dehydration and electrolyte abnormalities in the setting of poor p.o. intake. Acute interstitial pancreatitis, without necrosis S/p cholecystectomy due to cholelithiasis 2011 Non infective etiology No ETOH No new medication Patient has history of retained gallstone s/p cholecystectomy in 2011. Triglycerides 268, unlikely to be etiologically cause of pancreatitis MRCP revealing no choledocholithiasis - however, suspected passed stone given significant reduction in lipase level overnight PLAN - gastroenterology recommendations greatly appreciated - IVF - analgesia with morphine - encourage liquid diet Prerenal acute kidney injury Increase in creatinine likely 2/2 dehydration in the setting of 1 week of nausea vomiting and poor p.o. intake. Has been improving significantly from 3.63-1.84. Baseline creatinine 1.0. Continue IVF and monitor closely Replete electrolytes as needed Hypomagnesemia Replete to 4 Continue magnesium oxide Hyperchloremic metabolic acidosis Diarrhea Vomiting 2/2 acute interstitial pancreatitis. Resolved Continue to monitor closely CHRONIC MEDICAL ISSUES - HTN: Continue Norvasc - HLD: Continue atorvastatin - Urge urinary incontinence: Continue oxybutynin - T2 DM: Insulin sliding scale, POC glucose TID & nocte [employer] - VTE: Enoxaparin - CODE STATUS: Full code - DIET: Clear liquid diet Total time managing care of this patient today: 35 minutes. Quality Stroke Does the patient have a stroke diagnosis?: No VTE Prior VTE?: No VTE Risk Level:: Medical - moderate - high VTE Device Contraindication: Treatment Not Indicated VTE Drug Contraindication: N/A - Med Ordered
[2025-04-19 19:16] VITALS: BP 172/81; PULSE 83; RESP 18; TEMP 36.4; O2SAT 96
[2025-04-19 20:07] LABS: Glucose, Whole Blood 136 mg/dL (60-115)
[2025-04-19] MEDS: LATANOPROST 0.005% 1 EACH EYE-BOTH (20:29)
[2025-04-20 03:52] VITALS: BP 142/67; PULSE 73; RESP 18; TEMP 36.1; O2SAT 95
[2025-04-20 06:23] LABS: Anion Gap 10 (12-20); Blood Urea Nitrogen 7 mg/dL (9-16); Calcium 8.6 mg/dL (8.4-10.2); Carbon Dioxide 29 mmol/L (22-29); Chloride 106 mmol/L (96-108); Creatinine Clr Calc Pharmacy 50.0; Estimated Glomerular Filt Rate > 60; Potassium 3.0 mmol/L (3.3-5.1); Sodium 142 mmol/L (135-145)
[2025-04-20 07:38] LABS: Glucose, Whole Blood 116 mg/dL (60-115)
[2025-04-20 08:00] VITALS: BP 141/65; PULSE 74; RESP 18; TEMP 36.3; O2SAT 97
[2025-04-20] MEDS: oxyBUTYnin chloride ER 5 MG TAB.ER.24 10 MG PO ×2 (08:42→20:17)
[2025-04-20] MEDS: 0.9 % Sodium Chloride Flush 3 ML SYRINGE IVFLUSH ×3 (08:43→20:17)
[2025-04-20] MEDS: Dorzolamide/Timolo 2.23%/0.68% 10 ML DRBTL 1 DROP EYE-BOTH (08:45)
[2025-04-20] MEDS: NeoMY/Polymyx/Dexameth Oph Oin 3.5 GM TUBE 0.5 INCH EYE-BOTH ×3 (09:33→20:18)
--- NOTE | 2025-04-20 11:15 | MHC.CM.PN ---
Patient not medically cleared for dc. CM will continue to follow.
[2025-04-20 11:23] LABS: Glucose, Whole Blood 172 mg/dL (60-115)
[2025-04-20 15:11] VITALS: BP 146/71; PULSE 69; RESP 18; TEMP 36.5; O2SAT 95
[2025-04-20 16:14] LABS: Glucose, Whole Blood 115 mg/dL (60-115)
--- NOTE | 2025-04-20 17:34 | PC.NURSE ---
Pt feeling better this am, denied pain, n/v. After breakfast began to have increased abdominal discomfort and stated she had an episode of diarrhea. Medicated with IV morphine for c/o abdominal pain with good effect. States her pain is improved. Ambulates independently in room.
--- NOTE | 2025-04-20 17:37 | P.PNIM_ITS ---
Subjective Subjective Date of Service: 04/20/25 Interval History: Patient endorsing abdominal pain has significantly improved. Has a diet, however unable to eat large quantities of food. Otherwise comfortable. No nausea or vomiting postprandially. No diarrhea. Review of Systems Review of Systems: Yes all other systems are reviewed and are negative Physical Exam 2 Exam: Exam: General: A&O x3, oriented to time place person and situation, comfortable, no pain Cardiac: S1, S2 auscultated with no S3/4, no MRG. Well perfused. Respiratory: Normal breath sounds auscultated throughout all lung zones, without wheezing, rales. Normal rate. GI/ : No abdominal pain on palpation, no masses or distentions. MSK: Normal ambulation without pain at bony prominences or musculature Neurological: Normal neurological examination on overview, without obvious CN II-XII abnormalities. Vital Signs: Vital Signs: Last Vital Signs Temp 97.7 F 04/20/25 15:11 Pulse 69 04/20/25 15:11 Resp 18 04/20/25 15:11 BP 146/71 H 04/20/25 15:11 Pulse Ox 95 04/20/25 15:11 O2 Del Method Room Air 04/20/25 15:11 BMI result Body Mass Index 27.3 Objective Data Active Medications Acetaminophen (Acetaminophen 325 Mg Tablet) 650 mg PO Q6H PRN PRN Reason: Pain, Mild 1-3,fever,headache Last Admin: 04/18/25 17:51 Dose: 650 mg Documented By: BERTA Amlodipine Besylate (Amlodipine Besylate 2.5 Mg Tablet) 2.5 mg PO DAILY [facility]; Protocol Last Admin: 04/20/25 08:43 Dose: 2.5 mg Documented By: DEE Atorvastatin Calcium (Atorvastatin Calcium 10 Mg Tablet) 10 mg PO DAILY [facility] Last Admin: 04/20/25 08:43 Dose: 10 mg Documented By: DEE Calcium Carbonate (Calcium Carbonate 750 Mg Tab.Chew) 750 mg PO Q4H PRN PRN Reason: Heartburn Dextrose (Dextrose 50 % 25 Gm/50 Ml Syringe) 25 gm IVPUSH Q15M PRN; Protocol PRN Reason: per Hypoglycemia Standing Ord. Dorzolamide/Timolol (Dorzolamide/Timolo 2.23%/0.68% 10 Ml Drbtl) 1 drop EYE- BOTH DAILY [facility] Last Admin: 04/20/25 08:45 Dose: 1 drop Documented By: DEE Enoxaparin Sodium (Enoxaparin Sodium 30 Mg/0.3 Ml Syringe) 30 mg SUBCUT Q24H [facility] Last Admin: 04/19/25 20:31 Dose: 30 mg Documented By: ZEUS Glucose (Glucose Gel 15 Gm Gel..Gram.) 15 gm PO Q15M PRN; Protocol PRN Reason: per Hypoglycemia Standing Ord. Insulin Human Lispro (Insulin Lispro 100 Unit/Ml 3 Ml Vial) 0 unit SUBCUT QIDACHS [facility]; Protocol Last Admin: 04/20/25 16:22 Dose: Not Given Documented By: DEE Non-Admin Reason: No Insulin Coverage Magnesium Hydroxide (Milk Of Magnesia 30 Ml Oral.Susp) 30 ml PO DAILY PRN PRN Reason: Constipation Magnesium Oxide (Magnesium Oxide 400 Mg Tablet) 400 mg PO DAILY [facility] Last Admin: 04/20/25 08:43 Dose: 400 mg Documented By: DEE Melatonin (Melatonin 3 Mg Tablet) 6 mg PO BEDTIME PRN PRN Reason: Insomnia Metoclopramide HCl (Metoclopramide Hcl 5 Mg Tablet) 5 mg PO TIDAC [facility] Last Admin: 04/20/25 16:22 Dose: 5 mg Documented By: DEE Morphine Sulfate (Morphine Sulfate 2 Mg/Ml Cartridge) 2 mg IVPUSH Q4H PRN; Protocol PRN Reason: Pain, Severe (Pain Scale 7-10) Last Admin: 04/20/25 14:21 Dose: 2 mg Documented By: DEE Neomycin/Polymyxin/Dexamethasone (Neomy/Polymyx/Dexameth Oph Oin 3.5 Gm Tube) 0.5 inch EYE-BOTH TID [facility] Last Admin: 04/20/25 14:16 Dose: 0.5 inch Documented By: DEE Pt Own (Latanoprost (0.005% Ophth Gaviota'N)) 1 each EYE-BOTH BEDTIME [facility] Last Admin: 04/19/25 20:29 Dose: 1 each Documented By: ZEUS Omeprazole (Omeprazole 20 Mg Capsule.Dr) 20 mg PO DAILY@0630 [facility] Last Admin: 04/20/25 05:42 Dose: 20 mg Documented By: ZEUS Oxybutynin Chloride (Oxybutynin Chloride Er 5 Mg Tab.Er.24) 10 mg PO BID [facility] Last Admin: 04/20/25 08:42 Dose: 10 mg Documented By: DEE Sodium Chloride (0.9 % Sodium Chloride Flush 3 Ml Syringe) 3 ml IVFLUSH QSHIFT [facility] Last Admin: 04/20/25 14:24 Dose: 3 ml Documented By: DEE Labs 04/18/25 05:42 04/20/25 05:41 Labs: Laboratory Results - last 24 hr 04/19/25 04/20/25 04/20/25 20:03 05:41 07:32 Hold Purple Top SEE NOTE Anion Gap 10 L Estim Creat Clear Calc 50.0 Estimated GFR > 60 POC Glucose 136 H 116 H Random Glucose 117 H Calcium 8.6 04/20/25 04/20/25 11:18 16:11 Hold Purple Top Anion Gap Estim Creat Clear Calc Estimated GFR POC Glucose 172 H 115 Random Glucose Calcium Assessment and Plan (1) Essential hypertension: Status: Acute (2) Hyperlipidemia LDL goal <70: Status: Acute (3) Diabetes mellitus: Status: Acute (4) Gastroparesis: Status: Acute (5) Pancreatitis: Status: Acute (6) GERD (gastroesophageal reflux disease): Status: Acute (7) Acute renal failure: Status: Acute (8) Hypomagnesemia: Status: Acute Plan 69-year-old female with a history of HTN, GERD, T2 DM, urinary urge incontinence, who presents to emergency room with 1 week of nausea, vomiting, decreased appetite and abdominal pain, admitted with acute interstitial pancreatitis c/b prerenal acute kidney injury in the setting of dehydration and electrolyte abnormalities in the setting of poor p.o. intake. Acute interstitial pancreatitis, without necrosis S/p cholecystectomy due to cholelithiasis 2011 Non infective etiology No ETOH No new medication Patient has history of retained gallstone s/p cholecystectomy in 2011. Triglycerides 268, unlikely to be etiologically cause of pancreatitis MRCP revealing no choledocholithiasis - however, suspected passed stone given significant reduction in lipase level overnight PLAN - gastroenterology recommendations greatly appreciated - IVF - analgesia with morphine - encourage liquid diet Prerenal acute kidney injury Increase in creatinine likely 2/2 dehydration in the setting of 1 week of nausea vomiting and poor p.o. intake. Has been improving significantly from 3.63-1.84. Baseline creatinine 1.0. Continue IVF and monitor closely Replete electrolytes as needed Hypomagnesemia Replete to 4 Continue magnesium oxide Hyperchloremic metabolic acidosis Diarrhea Vomiting 2/2 acute interstitial pancreatitis. Resolved Continue to monitor closely CHRONIC MEDICAL ISSUES - HTN: Continue Norvasc - HLD: Continue atorvastatin - Urge urinary incontinence: Continue oxybutynin - T2 DM: Insulin sliding scale, POC glucose TID & nocte [employer] - VTE: Enoxaparin - CODE STATUS: Full code - DIET: Clear liquid diet Quality Stroke Does the patient have a stroke diagnosis?: No VTE Prior VTE?: No VTE Risk Level:: Medical - moderate - high VTE Device Contraindication: Treatment Not Indicated VTE Drug Contraindication: N/A - Med Ordered
[2025-04-20 19:05] VITALS: BP 159/72; PULSE 79; RESP 18; TEMP 36.8; O2SAT 95
[2025-04-20] MEDS: LATANOPROST 0.005% 1 EACH EYE-BOTH (20:18)
[2025-04-20 20:39] LABS: Glucose, Whole Blood 141 mg/dL (60-115)
[2025-04-21 03:10] VITALS: BP 152/72; PULSE 72; RESP 16; TEMP 36.7; O2SAT 92
[2025-04-21 05:56] LABS: Anion Gap 15 (12-20); Blood Urea Nitrogen 6 mg/dL (9-16); Calcium 8.9 mg/dL (8.4-10.2); Carbon Dioxide 29 mmol/L (22-29); Chloride 102 mmol/L (96-108); Creatinine Clr Calc Pharmacy 48.4; Estimated Glomerular Filt Rate > 60; Potassium 3.2 mmol/L (3.3-5.1); Sodium 143 mmol/L (135-145)
[2025-04-21 07:24] VITALS: BP 154/71; PULSE 74; RESP 16; TEMP 36.4; O2SAT 94
[2025-04-21 07:42] LABS: Glucose, Whole Blood 122 mg/dL (60-115)
[2025-04-21] MEDS: oxyBUTYnin chloride ER 5 MG TAB.ER.24 10 MG PO ×2 (07:57→21:11)
[2025-04-21] MEDS: Dorzolamide/Timolo 2.23%/0.68% 10 ML DRBTL 1 DROP EYE-BOTH (07:58)
[2025-04-21] MEDS: 0.9 % Sodium Chloride Flush 3 ML SYRINGE IVFLUSH ×3 (07:58→21:11)
[2025-04-21] MEDS: NeoMY/Polymyx/Dexameth Oph Oin 3.5 GM TUBE 0.5 INCH EYE-BOTH ×3 (07:58→21:14)
[2025-04-21 11:56] LABS: Glucose, Whole Blood 168 mg/dL (60-115)
--- NOTE | 2025-04-21 14:42 | P.PNIM_ITS ---
Subjective Subjective Date of Service: 04/21/25 Interval History: No oral clinically. The patient endorses that her abdominal pain has improved postprandially. She would like to progress to a complete liquid diet. Discussed possibility for discharge if she can tolerate intake PO postprandially - plan for discharge tomorrow Review of Systems Review of Systems: Yes all other systems are reviewed and are negative Physical Exam 2 Exam: Exam: General: A&O x3, oriented to time place person and situation, comfortable, no pain Cardiac: S1, S2 auscultated with no S3/4, no MRG. Well perfused. Respiratory: Normal breath sounds auscultated throughout all lung zones, without wheezing, rales. Normal rate. GI/ : No abdominal pain on palpation, no masses or distentions. MSK: Normal ambulation without pain at bony prominences or musculature Neurological: Normal neurological examination on overview, without obvious CN II-XII abnormalities. Vital Signs: Vital Signs: Last Vital Signs Temp 97.5 F 04/21/25 07:24 Pulse 74 04/21/25 07:24 Resp 16 04/21/25 07:24 BP 154/71 H 04/21/25 07:24 Pulse Ox 94 04/21/25 07:24 O2 Del Method Room Air 04/21/25 07:24 BMI result Body Mass Index 27.3 Objective Data Active Medications Acetaminophen (Acetaminophen 325 Mg Tablet) 650 mg PO Q6H PRN PRN Reason: Pain, Mild 1-3,fever,headache Last Admin: 04/18/25 17:51 Dose: 650 mg Documented By: BERTA Amlodipine Besylate (Amlodipine Besylate 2.5 Mg Tablet) 2.5 mg PO DAILY [facility]; Protocol Last Admin: 04/21/25 07:56 Dose: 2.5 mg Documented By: DEE Atorvastatin Calcium (Atorvastatin Calcium 10 Mg Tablet) 10 mg PO DAILY [facility] Last Admin: 04/21/25 07:56 Dose: 10 mg Documented By: DEE Calcium Carbonate (Calcium Carbonate 750 Mg Tab.Chew) 750 mg PO Q4H PRN PRN Reason: Heartburn Dextrose (Dextrose 50 % 25 Gm/50 Ml Syringe) 25 gm IVPUSH Q15M PRN; Protocol PRN Reason: per Hypoglycemia Standing Ord. Dorzolamide/Timolol (Dorzolamide/Timolo 2.23%/0.68% 10 Ml Drbtl) 1 drop EYE- BOTH DAILY [facility] Last Admin: 04/21/25 07:58 Dose: 1 drop Documented By: DEE Enoxaparin Sodium (Enoxaparin Sodium 30 Mg/0.3 Ml Syringe) 30 mg SUBCUT Q24H [facility] Last Admin: 04/20/25 20:17 Dose: 30 mg Documented By: BRIT Glucose (Glucose Gel 15 Gm Gel..Gram.) 15 gm PO Q15M PRN; Protocol PRN Reason: per Hypoglycemia Standing Ord. Insulin Human Lispro (Insulin Lispro 100 Unit/Ml 3 Ml Vial) 0 unit SUBCUT QIDACHS [facility]; Protocol Last Admin: 04/21/25 12:02 Dose: 2 unit Documented By: DEE Magnesium Hydroxide (Milk Of Magnesia 30 Ml Oral.Susp) 30 ml PO DAILY PRN PRN Reason: Constipation Magnesium Oxide (Magnesium Oxide 400 Mg Tablet) 400 mg PO DAILY [facility] Last Admin: 04/21/25 07:56 Dose: 400 mg Documented By: DEE Melatonin (Melatonin 3 Mg Tablet) 6 mg PO BEDTIME PRN PRN Reason: Insomnia Metoclopramide HCl (Metoclopramide Hcl 5 Mg Tablet) 5 mg PO TIDAC [facility] Last Admin: 04/21/25 12:02 Dose: 5 mg Documented By: DEE Morphine Sulfate (Morphine Sulfate 2 Mg/Ml Cartridge) 2 mg IVPUSH Q4H PRN; Protocol PRN Reason: Pain, Severe (Pain Scale 7-10) Last Admin: 04/20/25 14:21 Dose: 2 mg Documented By: DEE Neomycin/Polymyxin/Dexamethasone (Neomy/Polymyx/Dexameth Oph Oin 3.5 Gm Tube) 0.5 inch EYE-BOTH TID [facility] Last Admin: 04/21/25 14:33 Dose: 0.5 inch Documented By: DEE Pt Own (Latanoprost (0.005% Ophth Gaviota'N)) 1 each EYE-BOTH BEDTIME [facility] Last Admin: 04/20/25 20:18 Dose: 1 each Documented By: BRIT Omeprazole (Omeprazole 20 Mg Capsule.Dr) 20 mg PO DAILY@0630 [facility] Last Admin: 04/21/25 05:32 Dose: 20 mg Documented By: BRIT Oxybutynin Chloride (Oxybutynin Chloride Er 5 Mg Tab.Er.24) 10 mg PO BID [facility] Last Admin: 04/21/25 07:57 Dose: 10 mg Documented By: DEE Sodium Chloride (0.9 % Sodium Chloride Flush 3 Ml Syringe) 3 ml IVFLUSH QSHIFT [facility] Last Admin: 04/21/25 14:34 Dose: 3 ml Documented By: DEE Labs 04/18/25 05:42 04/21/25 05:24 Labs: Laboratory Results - last 24 hr 04/20/25 04/20/25 04/21/25 16:11 20:27 05:24 Hold Purple Top SEE NOTE Anion Gap 15 Estim Creat Clear Calc 48.4 Estimated GFR > 60 POC Glucose 115 141 H Random Glucose 126 H Calcium 8.9 04/21/25 04/21/25 07:39 11:51 Hold Purple Top Anion Gap Estim Creat Clear Calc Estimated GFR POC Glucose 122 H 168 H Random Glucose Calcium Assessment and Plan (1) Gastroparesis: Status: Acute (2) GERD (gastroesophageal reflux disease): Status: Acute (3) Pancreatitis: Status: Acute Plan 69-year-old female with a history of HTN, GERD, T2 DM, urinary urge incontinence, who presents to emergency room with 1 week of nausea, vomiting, decreased appetite and abdominal pain, admitted with acute interstitial pancreatitis c/b prerenal acute kidney injury in the setting of dehydration and electrolyte abnormalities in the setting of poor p.o. intake. Acute interstitial pancreatitis, without necrosis S/p cholecystectomy due to cholelithiasis 2011 Non infective etiology No ETOH No new medication Patient has history of retained gallstone s/p cholecystectomy in 2011. Triglycerides 268, unlikely to be etiologically cause of pancreatitis MRCP revealing no choledocholithiasis - however, suspected passed stone given significant reduction in lipase level overnight PLAN - gastroenterology recommendations greatly appreciated - IVF - analgesia with morphine - encourage liquid diet Prerenal acute kidney injury Increase in creatinine likely 2/2 dehydration in the setting of 1 week of nausea vomiting and poor p.o. intake. Has been improving significantly from 3.63-1.84. Baseline creatinine 1.0. Continue IVF and monitor closely Replete electrolytes as needed Hypomagnesemia Replete to 4 Continue magnesium oxide Hyperchloremic metabolic acidosis Diarrhea Vomiting 2/2 acute interstitial pancreatitis. Resolved Continue to monitor closely CHRONIC MEDICAL ISSUES - HTN: Continue Norvasc - HLD: Continue atorvastatin - Urge urinary incontinence: Continue oxybutynin - T2 DM: Insulin sliding scale, POC glucose TID & nocte [employer] - VTE: Enoxaparin - CODE STATUS: Full code - DIET: FULL liquid diet Total time managing care of this patient today: 35 minutes. Quality Stroke Does the patient have a stroke diagnosis?: No VTE Prior VTE?: No VTE Risk Level:: Medical - moderate - high VTE Device Contraindication: Treatment Not Indicated VTE Drug Contraindication: N/A - Med Ordered
[2025-04-21 15:52] VITALS: BP 151/70; PULSE 85; RESP 18; TEMP 36.7; O2SAT 95
[2025-04-21 16:06] LABS: Glucose, Whole Blood 142 mg/dL (60-115)
[2025-04-21 19:33] VITALS: BP 158/81; PULSE 88; RESP 17; TEMP 37.1; O2SAT 94
--- NOTE | 2025-04-21 19:50 | PC.NURSE ---
Pt tolerating full liquids today. Denied pain, n/v. Hoping to be discharged home in the morning
[2025-04-21 20:39] LABS: Glucose, Whole Blood 159 mg/dL (60-115)
[2025-04-21] MEDS: LATANOPROST 0.005% 1 EACH EYE-BOTH (21:14)
[2025-04-22 03:40] VITALS: BP 133/66; PULSE 80; RESP 15; TEMP 36.8; O2SAT 92
--- NOTE | 2025-04-22 06:01 | PC.NURSE ---
Pt alert and oriented, denies any pain, ambu ad tammy in room, slept fairly.
[2025-04-22 07:29] VITALS: BP 136/78; PULSE 79; RESP 16; TEMP 36.6; O2SAT 96
[2025-04-22 07:35] LABS: Glucose, Whole Blood 120 mg/dL (60-115)
[2025-04-22] MEDS: oxyBUTYnin chloride ER 5 MG TAB.ER.24 10 MG PO (08:34)
[2025-04-22 08:35] VITALS: BP 136/78
[2025-04-22] MEDS: 0.9 % Sodium Chloride Flush 3 ML SYRINGE IVFLUSH (08:36)
[2025-04-22] MEDS: Dorzolamide/Timolo 2.23%/0.68% 10 ML DRBTL 1 DROP EYE-BOTH (08:37)
[2025-04-22] MEDS: NeoMY/Polymyx/Dexameth Oph Oin 3.5 GM TUBE 0.5 INCH EYE-BOTH (08:38)
[2025-04-22 11:16] LABS: Glucose, Whole Blood 181 mg/dL (60-115)
--- NOTE | 2025-04-22 13:10 | PM.DS ---
DS: Providers Provider Date of Service: 04/22/25 Date of admission: 04/17/25 18:14 Date of discharge: 04/22/25 Primary care physician: Melvi Lawrence MD Consults: 04/17/25 19:06 Consult to Gastroenterology Routine Consulting Provider: [facility] [place] Gastroenterology Services Reason for consultation: acute pancreatitis 04/19/25 08:18 Consult to General Surgery Routine Consulting Provider: [facility] [place] General Surgeons Reason for consultation: acute pancreatitis-MRCP passed gallstone-?cholecystectomy outpt DS: Diagnosis Discharge Diagnosis (1) Gastroparesis: Status: Acute (2) GERD (gastroesophageal reflux disease): Status: Acute (3) Pancreatitis: Status: Acute DS: Summary Hospital Course Hospital Course: 69-year-old female with a history of HTN, GERD, T2 DM, urinary urge incontinence, who presents to emergency room with 1 week of nausea, vomiting, decreased appetite and abdominal pain, admitted with acute interstitial pancreatitis c/b prerenal acute kidney injury in the setting of dehydration and electrolyte abnormalities in the setting of poor p.o. intake. Acute interstitial pancreatitis, without necrosis S/p cholecystectomy due to cholelithiasis 2011 Non infective etiology No ETOH No new medication No hypercalcemia Patient has history of retained gallstone s/p cholecystectomy in 2011. Triglycerides 268, unlikely to be etiologically cause of pancreatitis MRCP revealing no choledocholithiasis - however, suspected passed stone given significant reduction in lipase level. The patient's pain continued to improve, and eventually was able to eat a regular diet. Prerenal acute kidney injury - Resolved Hypomagnesemia - Resolved Hyperchloremic metabolic acidosis - Resolved Increase in creatinine likely 2/2 dehydration in the setting of 1 week of nausea vomiting and poor p.o. intake. Has been improving significantly from 3.63-1.84. Baseline creatinine 1.0. Currently at baseline Status at Discharge Functional status at discharge: independent ambulation Overall status at discharge: patient is back to baseline Time Attestation Total time managing care of this patient today: 35 mintues. Discharge Coordination Time (in mins): 15 Quality: Safe Use of Opioids Does Pt have an Active Cancer Diagnosis on the Problem List?: No Quality: Stroke Does the patient have a stroke diagnosis?: No Physical Exam Exam: Exam: General: A&O x3, oriented to time place person and situation, comfortable, no pain Cardiac: S1, S2 auscultated with no S3/4, no MRG. Well perfused. Respiratory: Normal breath sounds auscultated throughout all lung zones, without wheezing, rales. Normal rate. GI/ : No abdominal pain on palpation, no masses or distentions. MSK: Normal ambulation without pain at bony prominences or musculature Neurological: Normal neurological examination on overview, without obvious CN II-XII abnormalities. Vital Signs: Vital Signs: Last Vital Signs Temp 97.9 F 04/22/25 07:29 Pulse 79 04/22/25 07:29 Resp 16 04/22/25 07:29 BP 136/78 04/22/25 08:35 Pulse Ox 96 04/22/25 07:29 O2 Del Method Room Air 04/22/25 07:29 BMI result Body Mass Index 27.3 DS: Data Data Completed and Pending Labs on day of discharge: Laboratory Results - last 24 hr 04/21/25 04/21/25 04/22/25 16:02 20:36 07:28 POC Glucose 142 H 159 H 120 H 04/22/25 11:13 POC Glucose 181 H Discharge Plan Discharge Anticipated Discharge Date/Time: 04/22/25 13:15 Patient Disposition: Home, Self-Care Discharge Diagnosis: Acute interstitial pancreatitis without necrosis or infection Referrals: Melvi Paz MD [Primary Care Provider, Internal Medicine] - 1 Week Discharge Medications: Continued (DME) blood-glucose meter [OneTouch Ultra2 Meter] Kit See Rx Instructions .Route Qty: 1 0RF Rx Instructions: As directed rosuvastatin 5 mg tablet 5 mg PO DAILY 90 Days Qty: 90 1RF (DME) lancets [OneTouch Delica Plus Lancet] 30 gauge misc See Rx Instructions .ROUTE .COMPLEX Qty: 100 0RF Dose Instruction: USE 1 LANCET ONCE A DAY Rx Instructions: USE 1 LANCET ONCE A DAY lisinopril 40 mg tablet 40 mg PO DAILY 30 Days Qty: 30 2RF oxybutynin chloride 10 mg tablet extended release 24hr 10 mg PO BID 90 Days Qty: 180 4RF (DME) OneTouch Ultra Test Strip See Rx Instructions .ROUTE .COMPLEX Qty: 100 11RF Dose Instruction: USE TO TEST ONCE DAILY Rx Instructions: USE TO TEST ONCE DAILY amlodipine 2.5 mg tablet 2.5 mg PO DAILY 90 Days Qty: 90 0RF metformin 850 mg tablet 850 mg PO BID 90 Days Qty: 180 1RF neomycin-polymyxin B-dexameth 3.5 mg/g-10,000 unit/g-0.1 % ointment 1 appl ophthalmic (eye) TID pantoprazole 40 mg tablet,delayed release (DR/EC) 40 mg PO DAILY@0600 metoclopramide HCl [Reglan] 5 mg tablet 5 mg PO TIDAC latanoprost 0.005 % drops 1 drp ophthalmic (eye) BEDTIME dorzolamide-timolol 22.3-6.8 mg/mL drops 1 drp ophthalmic (eye) DAILY magnesium oxide 400 mg (241.3 mg magnesium) tablet 400 mg PO DAILY 90 Days Qty: 90 3RF Rx Instructions: In the morning per pt preference. may hold for loose stools Nurtec ODT 75 mg tablet,disintegrating 75 mg PO ONCE MDD 1 tab PRN (Reason: migraine headache) 30 Days Qty: 16 6RF baclofen 10 mg tablet 10 mg PO TID 30 Days Qty: 90 0RF Discharge Orders: Discharge Order (Routine); Ordered 04/22/25 Ordered By: Ilir Melton Diet: Advance to usual diet Activity on Discharge: As tolerated Stand Alone Forms: Patient Portal Discharge page Print Language: South Korean Care Plan Goals: As above Health Concerns: As above Plan of Treatment: Follow up with PCP within 1 week of discharge Assessment: Patient is hemodynamically stable, returning to baseline. She is able to tolerate a regular diet, counseled on low-fat diet. If she is unable to tolerate a regular diet, the patient was counseled on maintaining a full liquid diet at home, low-fat, and attempting a regular diet a week after
--- NOTE | 2025-04-22 13:21 | MHC.CM.PN ---
PT WILL DC HOME TODAY WITH NO SERVICES VIA FAMILY TRANSPORT
== END 2025-04-22 14:04 | disposition home or self-care (01) | DRG 439 ==
LOC: HO.ED 16:16 → HO.EDOVER 18:19 → HO.S3 04-18 15:05
PROVIDERS: Physician Assistant Medical; Admitting Provider Internal Medicine; Emergency Provider Emergency Medicine Emergency Medical Services; PCP Internal Medicine; Visit Provider Hospitalist
DX: K85.80 Other acute pancreatitis without necrosis or infection (principal); E87.20 Acidosis, unspecified; N17.9 Acute kidney failure, unspecified; E83.42 Hypomagnesemia; N39.41 Urge incontinence; I10 Essential (primary) hypertension; E86.0 Dehydration; E11.9 Type 2 diabetes mellitus without complications; E87.6 Hypokalemia; E87.8 Other disorders of electrolyte and fluid balance, not elsewhere classified; Z90.49 Acquired absence of other specified parts of digestive tract; Z20.822 Contact with and (suspected) exposure to COVID-19; Z79.899 Other long term (current) drug therapy
CPT/HCPCS: 36415; 74176; 74181; 80048; 80053; 81003; 82272; 82947; 83605; 83690; 83735; 84478; 85025; 87502; 87635; 99285; J1650; J2270; J3475; J7120

== ENCOUNTER → 2025-04-17 16:45 | Outpatient (BNV) | payer OTHER, SELFPAY | PROVIDERS: Admitting Provider Internal Medicine; Emergency Provider Emergency Medicine Emergency Medical Services; PCP Internal Medicine; Visit Provider Radiology Diagnostic Radiology | DX: R11.2 Nausea with vomiting, unspecified (principal); R19.7 Diarrhea, unspecified | CPT/HCPCS: 74176 ==

== ENCOUNTER 2025-04-17 18:14 | Outpatient (BNV) | payer OTHER, SELFPAY | END 2025-04-18 08:14 | PROVIDERS: Admitting Provider Internal Medicine; Emergency Provider Emergency Medicine Emergency Medical Services; PCP Internal Medicine; Visit Provider Radiology Diagnostic Radiology | DX: K85.90 Acute pancreatitis without necrosis or infection, unspecified (principal); K86.2 Cyst of pancreas | CPT/HCPCS: 74181 ==

== ENCOUNTER → 2025-04-17 18:14 | Outpatient (BNV) | payer OTHER, SELFPAY | PROVIDERS: Admitting Provider Internal Medicine; Emergency Provider Emergency Medicine Emergency Medical Services; PCP Internal Medicine; Visit Provider Internal Medicine | DX: K31.84 Gastroparesis (principal); K21.9 Gastro-esophageal reflux disease without esophagitis; K85.90 Acute pancreatitis without necrosis or infection, unspecified | CPT/HCPCS: 99223; 99232; 99239 ==

== ENCOUNTER → 2025-04-17 18:14 | Outpatient (BNV) | payer OTHER, SELFPAY | PROVIDERS: Admitting Provider Internal Medicine; Emergency Provider Emergency Medicine Emergency Medical Services; PCP Internal Medicine; Visit Provider Physician Assistant Surgical | DX: K85.90 Acute pancreatitis without necrosis or infection, unspecified (principal) | CPT/HCPCS: 99222 ==

== ENCOUNTER → 2025-04-17 18:14 | Outpatient (BNV) | payer OTHER, SELFPAY | PROVIDERS: Admitting Provider Internal Medicine; Emergency Provider Emergency Medicine Emergency Medical Services; PCP Internal Medicine; Visit Provider Internal Medicine Gastroenterology | DX: K85.90 Acute pancreatitis without necrosis or infection, unspecified (principal) | CPT/HCPCS: 99223 ==

== ENCOUNTER 2025-04-26 23:36 | Emergency (ER) | payer OTHER, SELFPAY ==
--- OUTSIDE RECORDS SUMMARY | 2024-02-18 05:20 | XMS_ITS ---
Author Organization [facility] Address [address] [place] [id number] Care Team Providers Care Coating And Baking Operator Name Role Phone Melvi Paz Primary Care Provider Balta Rosen Jr REASON FOR VISIT Patient presents today for a colon screening Encounters Encounter Location Date Provider Diagnosis [facility] [address] [facility] [address] [place] [phone] 02/18/2024 Balta Crowe Jr Plan Of Treatment No Information Progress Notes * ISAAC AWAIS VDOB: [birth year] (69 yo F)Acc No.[id number]:02/18/2024 Progress Notes Patient: AWAIS BARTHOLOMEW V Provider: Juan A Crowe MD :1955 A ge:68 Y S ex:Female Date:02/18/2024 Address:[address] [place], [place] [id number] Pcp:Melvi Lawrence Subjective: * Chief Complaints: * [...] 02/18/2024 Generated for Printi ng/Faxing/eTransmitting on: 0 04/27/2025 12:55 AM EDT
--- OUTSIDE RECORDS SUMMARY | 2024-07-09 06:00 | XMS_ITS ---
Author Organization [facility] Address [address] [place] [id number] Care Team Providers Care Special Machine Operator Name Role Phone Melvi Paz Primary Care Provider Balta Rosen Jr Unavailable REASON FOR VISIT screening,gerd Problems Problem Type SNOMED Code ICD Code Onset Dates Problem Status W/U Status Risk Notes Problem Gastroesophageal reflux disease (264513233) Gastroesophageal reflux disease (K21.9) Active confirmed Encounters Encounter Location Date Provider Diagnosis [facility] [place] Outpatient [address] [place], [place] [phone] 07/09/2024 Balta Crowe Jr Colon cancer screening Z12.11 ; Personal history of colonic polyps Z86.0100 ; Colon polyps K63.5 and Gastroesophageal reflux disease K21.9 Assessments Encounter Date Diagnosis (ICD Code) Assessment Notes Treatment Notes Treatment Clinical Notes Section Notes 07/09/2024 Colon cancer screening (ICD-10 - Z12.11) 07/09/2024 Personal history of colonic polyps (ICD-10 - Z86.0100) 07/09/2024 Colon polyps (ICD-10 - K63.5) 07/09/2024 Gastroesophageal reflux disease (ICD-10 - K21.9) Plan Of Treatment No Information Progress Notes * AWAIS GRAY VDOB: [birth year] (69 yo F)Acc No.[id number]:07/09/2024 EGD and COL/MAC Patient: AWAIS BARTHOLOMEW V Provider: Juan A Crowe MD :1955 A ge:69 Y S ex:Female Date:07/09/2024 Address:[address] [place], [place] [phone] Pcp:Melvi Lawrence Subjective: * Chief Complaints: * 1 . Screening,gerd. * Medical History: Objective: * Vitals: Assessment: * Assessment: 1. C olon cancer screening - Z12.11 (Primary) 2 . P ersonal history of colonic polyps - Z86.0100 3 . C olon polyps - K63.5 4 . G astroesophageal reflux disease - K21.9 Plan: * Treatment: * Procedure Codes: 4 5385 LESION REMOVAL COLONOSCOPY, 48228 COLONOSCOPY AND BIOPSY, Modifiers: 59 , 0529F INTRVL 3+YRS PTS CLNSCP DOCD, 31636 UPPER GI ENDOSCOPY, BIOPSY * * The named appointment provid er may or may not be the originator of this progress note, and it is not deemed complete until electronically signed by the appointment provider. Sign off status: Pending * Provider: Juan A Crowe MD Date: 09/09/2023 Generated for Immanuel vidal/Jose Antonio/Alisiasmitting on: 0 04/27/2025 12:55 AM EDT
[2025-04-26 23:47] VITALS: BP 165/72; PULSE 64; RESP 18; TEMP 36.7; O2SAT 99; BMI 26.3
--- OUTSIDE RECORDS SUMMARY | 2025-04-27 00:55 | XMS_ITS | Encounter Summary ---
Author Organization [facility] Address [address] [place] [address] Care Team Providers Care Ancillary Services Manager Name Role Phone Unavailable Primary Care Provider Unavailabl e Encounter Details Date Type Department Care Team (Latest Contact Info) Description 08/18/[address] [facility] CONVERSIONS Dental, Provider, DDS Social History [...]
--- OUTSIDE RECORDS SUMMARY | 2025-04-27 00:56 | XMS_ITS | Encounter Summary ---
Author Organization [employer] [facility] Address [address] [place] [address] Care Team Providers Care Polysomnographic Tech Name Role Phone Unavailable Primary Care Provider Unavailabl e Encounter Details Date Type Department Care Team (Latest Contact Info) Description 06/01/2021 Abstract [facility] CONVERSIONS Dental, Provider, DDS Social History [...]
--- OUTSIDE RECORDS SUMMARY | 2025-04-27 00:56 | XMS_ITS | Clinical Summary ---
Author Organization [employer] Address [address] [place] [address] Care Team Providers Care Local Area Network Administrator Name Role Phone Unavailable Primary Care [...]
--- OUTSIDE RECORDS SUMMARY | 2025-04-27 00:56 | XMS_ITS | Encounter Summary ---
Author Organization [employer] [facility] Address [address] [place] [address] Care Team Providers Care Photocomposing Keyboard Operator Name Role Phone Unavailable Primary Care Provider Unavailabl e Encounter Details Date Type Department Care Team (Latest Contact Info) Description 06/17/2022 Abstract [facility] CONVERSIONS Dental, Provider, DDS Social History [...]
--- OUTSIDE RECORDS SUMMARY | 2025-04-27 00:56 | XMS_ITS | Patient Health Record ---
Author Organization [facility] Address [address] [place] [address] Care Team Providers Care Aircraft Instrument Engineer Name Role Phone Melvi Paz Primary Care [...] Blood Reviewed date:07/09/2024 02:59:54 PM Interpretation: Performing Lab:[address] [address] Notes/Report: Glucose, Whole Blood 135 60-115 mg/dL METER # : [id number] Pathology Reviewed date:07/14/2024 08:33:38 AM Interpretation: Performing Lab:[address] [id number] Notes/Report: Pathology Reviewed date:07/20/2024 03:48:54 PM Interpretation: Performing Lab:[address] [address] Notes/Report: Reason For Referral No Information Medications [...] Problem Status W/U Status Risk Notes Problem 916056130 Colon cancer screening (Z12.11) Active confirmed Problem 79871819 Rectal bleeding (K62.5) Active confirmed Problem 924784131 [facility] curren t use of aspirin (Z79.82) Active confirmed Problem Gastroesophageal reflux disease (651609533) Gastroesophageal reflux disease (K21.9) Active confirmed Problem 834753280 Encounter for long-term (current) use of high-risk medication (Z79.899) Active confirmed Problem 944334858 Gastroesophageal reflux disease, unspecified whether esophagitis present (K21.9) Active confirmed Vital Signs Temperature 97.5 degrees Fahrenheit 05/31/2024 Blood pressure diastolic 00 mm Hg 05/31/2024 Height 59 in 05/31/2024 Blood pressure systolic 000 mm Hg 05/31/2024 Weight 143 lbs 05/31/2024 BMI 28.88 kg/m2 05/31/2024 Encounters Encounter Location Date Provider Diagnosis [facility] [address] [place] [id number] 07/09/2024 Balta Crowe Jr Colon cancer screening Z12.11 ; Personal history of colonic polyps Z86.0100 ; Colon polyps K63.5 and Gastroesophageal reflux disease K21.9 [facility] [address] [place] [address] 05/31/2024 Balta Crowe Jr Gastroesophageal reflux disease, unspecified whether esophagitis present K21.9 and Colon cancer screening Z12.11 [facility] [address] [place] [address] 07/20/2024 Balta Crowe Jr Assessments Encounter Date [...] Insured Coverage Start Date Coverage End Date [facility] [address] [address] [place] [address] [phone] [id number] AWAIS GRAY Self - patient is the insured Medical (General) History Medical History History ICD Code Colonoscopy 2019, tubular adenoma, five- year followup glaucoma benign breast biopsy onychomycosis urinary incontinence diabetes mellitus hypertension esophageal reflux Surgical History Surgery Date(Month/Year) right knee replacement
[2025-04-27 01:17] VITALS: BP 158/78; PULSE 62; RESP 18; TEMP 36.8; O2SAT 96
--- NOTE | 2025-04-27 03:49 | ED_ITS ---
HPI - Eye Problem General Chief complaint: Eye Problems Stated complaint: eyes are swollen Time Seen by Provider: 04/27/25 02:36 Source: patient Mode of arrival: ambulatory Limitations: no limitations History of Present Illness ED Provider: Bronson AGUIRRE HPI Narrative: The patient is a 69-year-old female presenting to the ED for evaluation of increased left eye redness and swelling. The patient reports she underwent cataract extraction on the left eye by Dr. Lewis on 04/11. Patient reports she was discharged with instructions to apply polymyxin to the postoperative left eye, and continue latanoprost and dorzolamide timolol drops only in the right eye. The patient was subsequently admitted to this hospital on 04/17 for [place], while in the hospital the patient reports she was receiving latanoprost and dorzolamide timolol drops in both eyes, upon discharge on the the patient states she continued using the drops in both eyes since that was how the drops were administered while inpatient. Patient reports she stopped using polymyxin in the left eye on Friday. Since Friday she has had worsening swelling, erythema, and discomfort of the left eye with a sandpaper/gritty sensation. The patient reports associated eyelid edema without associated periorbital cellulitis, vision changes, painful EOMs, fever/chills, nausea, vomiting or other systemic complaint. Patient denies any injury to the affected eye. The patient is scheduled to follow up with Ophthalmology on 04/28 but presents to the ED for evaluation of worsening swelling this evening. Related Data Home Medications ?Medication ?Instructions ?Recorded ?Confirmed latanoprost 0.005 % eye drops 1 drp ophthalmic (eye) B EDTIME 05/09/20 04/25/25 dorzolamide 22.3 mg-timolol 6.8 1 drp ophthalmic (eye) DAILY 10/10/22 04/25/25 mg/mL eye drops metoclopramide HCl 5 mg tablet 5 mg PO TIDAC 04/18/25 04/25/25 (Reglan) neomycin 3.5 mg/g-polymyxin B 1 appl ophthalmic (eye) TID 04/18/25 04/25/25 10,000 unit/g-dexameth 0.1 % eye oint pantoprazole 40 mg tablet,delayed 40 mg PO DAILY@0600 04/18/25 04/25/25 release Previous Rx's ?Medication ?Instructions ?Recorded blood-glucose meter (OneTouch #1 ea 05/17/22 Ultra2 Meter kit) rosuvastatin 5 mg tablet 5 mg PO DAILY 90 days #90 ta bs 12/01/24 magnesium oxide 400 mg (241.3 mg 400 mg PO DAILY 90 da ys #90 tabs 12/15/24 magnesium) tablet rimegepant 75 mg disintegrating 75 mg PO ONCE PRN migr janeth 12/15/24 tablet (Nurtec ODT) headache 30 days #16 tabs lancets 30 gauge (OneTouch Delica #100 ea 12/26/24 Plus Lancet) lisinopril 40 mg tablet 40 mg PO DAILY 30 days #30 t abs 02/11/25 blood sugar diagnostic (OneTouch #100 strips 02/25/25 Ultra Test strips) oxybutynin chloride 10 mg 10 mg PO BID 90 days #180 ta bs 02/25/25 tablet,extended release 24 hr amlodipine 2.5 mg tablet 2.5 mg PO DAILY 90 days #90 tabs 03/22/25 baclofen 10 mg tablet 10 mg PO TID 30 days #90 tab s 03/30/25 metformin 850 mg tablet 850 mg PO BID 90 days #180 t abs 04/11/25 neomycin 3.5 mg/g-polymyxin B 1 appl ophthalmic (eye) Q8H #3.5 04/27/25 10,000 unit/g-dexameth 0.1 % eye grams oint Allergies Allergy/AdvReac Type Severity Reaction Status Date / Time chlorzoxazone (From Parafon Allergy Intermediate RASH/SWELLING, Verified 04/26/25 23:50 Forte DSC) rash Iodinated Contrast Media (IV Allergy Intermediate THROAT Verified 04/26/25 23:50 Dye, Iodine Containing) CLOSED Penicillins (PENICILLINS) Allergy Intermediate HIVES Verified 04/26/25 23:50 pollen extracts (POLLEN) Allergy Intermediate RASH Verified 04/26/25 23:50 cephalexin Allergy Mild Rash Verified 04/26/25 23:50 Review of Systems Review of Systems: Yes all other systems are reviewed and are negative [facility] Past Medical History Medical History Post-cholecystectomy syndrome Chronic diarrhea Nausea Ear congestion Viral gastroenteritis Elevated hemoglobin Gastroparesis Post-menopausal Hearing loss in right ear Obese Dry skin Long-term use of aspirin therapy Urge urinary incontinence GERD (gastroesophageal reflux disease) Essential hypertension Glaucoma Diabetes mellitus Surgical History History of esophagogastroduodenoscopy (EGD) History of colonoscopy Tubal ligation status History of knee replacement procedure of right knee History of cholecystectomy H/O arthroscopy of right knee History of nasal surgery History of Family History Family History Father Cancer Mother Hypertension Social History Social History Household Members: Children Housing: House Are you a primary director of primary care to a significant other at home: No Do you presently have visiting nurse or other home services: Yes (every 6 months) Alcohol intake: current Alcohol intake frequency: holidays/special occasions only Alcohol type: wine Patient Tobacco Use Status: Never used Tobacco Smoked in Last 30 Days: No e-Cigarette/Vaping Use: Never Used Second Hand Smoke Exposure: No Use of substances other than those prescribed or required for medical reasons: No Advance Directives: Yes Advance Directives on File: Yes Advance Directives Date on File: 02/17/17 Do you have a plan to hurt others: No Plan service: No Current occupational status: retired Cognitive needs: No Hearing needs: No Vision needs: No Physical Exam Vital Signs: Vital Signs: Last Vital Signs Temp 98.3 F 04/27/25 01:17 Pulse 62 04/27/25 01:17 Resp 18 04/27/25 01:17 BP 158/78 H 04/27/25 01:17 Pulse Ox 96 04/27/25 01:17 O2 Del Method Room Air 04/27/25 01:17 BMI result Body Mass Index 26.3 CONSTITUTIONAL: The patient appears non-toxic, well nourished and in no acute distress. Vital signs as documented. HEAD: Atraumatic, normocephalic. EYES: EOMs intact and nonpainful, pupils equal, round, and reactive to light, mild conjunctival injection of the left eye, with upper and lower left eyelid edema, no proptosis. Right eye conjunctiva is clear. Intra-ocular pressures are 28 on the right and 29 on the left. ENT: Nares patent, no discharge. Airway patent, no audible stridor, visible mucosa is pink and moist without noted lesions. NECK: trachea is midline, no obvious masses or gross abnormalities. CHEST: Symmetric movement, normal appearance. LUNGS: Non-labored work of breathing. CARDIAC: No evidence of hypoperfusion. ABDOMEN: Nondistended, no obvious injury. : Deferred. EXTREMITIES: Moves all extremities spontaneously without reported pain. No obvious injury or deformity noted. NEURO: Alert and oriented x3, CN II-XII appear grossly intact. Cerebellar Functioning grossly intact. Speech clear and appropriate. SKIN: Warm, dry, color appropriate. No rashes or lesions noted. Medications Administered Discontinued Medications Generic Name Dose Route Start Last Admin Trade Name Freq PRN Reason Stop Dose Admin Tetracaine HCl 3 drop 04/27/25 03:39 04/27/25 04:10 Tetracaine Hcl 0.5% Oph [place] 5 Ml Drops EYE-BOTH 04/27/25 03:40 Not Given ONCE ONE Medical Decision Making Medical Decision Making MDM Narrative: 4:24 AM 04/27/2025 (Cass AGUIRRE): The patient is a 69-year-old female presenting to the ED for evaluation of increased left eye redness and swelling. The patient reports she underwent cataract extraction on the left eye by Dr. Lewis on 04/11. Patient reports she was discharged with instructions to apply polymyxin to the postoperative left eye, and continue latanoprost and dorzolamide timolol drops only in the right eye. The patient was subsequently admitted to this hospital on 04/17 for [place], while in the hospital the patient reports she was receiving latanoprost and dorzolamide timolol drops in both eyes, upon discharge on the the patient states she continued using the drops in both eyes since that was how the drops were administered while inpatient. Patient reports she stopped using polymyxin in the left eye on Friday. Since Friday she has had worsening swelling, erythema, and discomfort of the left eye with a sandpaper/gritty sensation. The patient reports associated eyelid edema without associated periorbital cellulitis, vision changes, painful EOMs, fever/chills, nausea, vomiting or other systemic complaint. Patient denies any injury to the affected eye. The patient is scheduled to follow up with Ophthalmology on 04/28 but presents to the ED for evaluation of worsening swelling this evening. In the ED patient has mild conjunctival injection of the left eye, with upper and lower left eyelid edema, EOMs are intact and nonpainful. Patient's presentation concerning for bacterial conjunctivitis, no symptoms or presentation consistent with iritis, periorbital cellulitis, or orbital cellulitis. The patient's case was discussed with on-call systems eng Dr. Lewis who recommended obtaining IOPs, and agreed with the plan for patient to re-initiate polymyxin and follow up with his office. The patient's intra-ocular pressures were mildly elevated but equal, 28 on the right, 29 on the left. Patient will be discharged with polymyxin to be given only in the left eye, and instructions to continue dorzolamide timolol and latanoprost only in the right eye as originally instructed postoperatively, until instructed otherwise by Ophthalmology. Admission/Observation Consideration of admission/observation: Escalation of care including admission/observation considered Discharge Plan Discharge Clinical Impression: Bacterial conjunctivitis Patient Disposition: Home, Self-Care Instructions: Conjunctivitis (ED) Additional Instructions: Thank you for choosing [facility]'s Emergency Department for your care today. Thankfully your intra-ocular pressures are equal on each side and within normal ranges. At this time there is no indication for admission to the hospital or continued ED observation, and it is safe to discharge you home. Your symptoms may be due to a bacterial infection of your left eye. It is very important that you again begin applying polymyxin ointment to your left eye every 8 hours as previously directed. Please continue applying dorzolamide timolol and latanoprost to only your right eye, until instructed otherwise by your systems eng. Please follow up with the your systems eng at your appointment . Please also follow up with your primary care physician for re-evaluation, additional management of your symptoms, and continued preventative care. If you do not have a primary care physician, please call the [facility] at [phone] to establish a new primary care physician. While waiting to establish your new primary care physician, you can call our Walk-in Care [facility] at [phone] for non-emergency needs. Please return to the emergency department if you develop a severe or sudden c hange in your symptoms, a fever over 100.4 that does not improve with Tylenol or Ibuprofen, recurrent vomiting, or any other new or worsening symptoms or concerns. Prescriptions: New neomycin-polymyxin B-dexameth 3.5 mg/g-10,000 unit/g-0.1 % ointment 1 appl ophthalmic (eye) Q8H Qty: 3.5 0RF No Action (DME) blood-glucose meter [OneTouch Ultra2 Meter] Kit See Rx Instructions .Route Qty: 1 0RF Rx Instructions: As directed rosuvastatin 5 mg tablet 5 mg PO DAILY 90 Days Qty: 90 1RF (DME) lancets [OneTouch Delica Plus Lancet] 30 gauge misc See Rx Instructions .ROUTE .COMPLEX Qty: 100 0RF Dose Instruction: USE 1 LANCET ONCE A DAY Rx Instructions: USE 1 LANCET ONCE A DAY lisinopril 40 mg tablet 40 mg PO DAILY 30 Days Qty: 30 2RF oxybutynin chloride 10 mg tablet extended release 24hr 10 mg PO BID 90 Days Qty: 180 4RF (DME) OneTouch Ultra Test Strip See Rx Instructions .ROUTE .COMPLEX Qty: 100 11RF Dose Instruction: USE TO TEST ONCE DAILY Rx Instructions: USE TO TEST ONCE DAILY amlodipine 2.5 mg tablet 2.5 mg PO DAILY 90 Days Qty: 90 0RF metformin 850 mg tablet 850 mg PO BID 90 Days Qty: 180 1RF neomycin-polymyxin B-dexameth 3.5 mg/g-10,000 unit/g-0.1 % ointment 1 appl ophthalmic (eye) TID pantoprazole 40 mg tablet,delayed release (DR/EC) 40 mg PO DAILY@0600 metoclopramide HCl [Reglan] 5 mg tablet 5 mg PO TIDAC latanoprost 0.005 % drops 1 drp ophthalmic (eye) BEDTIME dorzolamide-timolol 22.3-6.8 mg/mL drops 1 drp ophthalmic (eye) DAILY magnesium oxide 400 mg (241.3 mg magnesium) tablet 400 mg PO DAILY 90 Days Qty: 90 3RF Rx Instructions: In the morning per pt preference. may hold for loose stools Nurtec ODT 75 mg tablet,disintegrating 75 mg PO ONCE MDD 1 tab PRN (Reason: migraine headache) 30 Days Qty: 16 6RF baclofen 10 mg tablet 10 mg PO TID 30 Days Qty: 90 0RF Referrals: Melvi Paz MD [Primary Care Provider, Internal Medicine] Clinical Impression: Bacterial conjunctivitis Shmuel Lewis [Physician, Ophthalmology] Clinical Impression: Bacterial conjunctivitis Print Language: Malay
[2025-04-27 04:51] VITALS: BP 158/78; PULSE 62; RESP 18; TEMP 36.8; O2SAT 96
== END 2025-04-27 04:52 | disposition home or self-care (01) ==
PROVIDERS: Emergency Provider Emergency Medicine; PCP Internal Medicine
DX: H10.89 Other conjunctivitis (principal); I10 Essential (primary) hypertension; Z79.899 Other long term (current) drug therapy; Z98.42 Cataract extraction status, left eye
CPT/HCPCS: 99283; 99284

== ENCOUNTER 2025-04-29 10:41 | Outpatient (AMB) | payer OTHER, SELFPAY ==
--- OUTSIDE RECORDS SUMMARY | 2024-02-18 05:20 | XMS_ITS ---
Author Organization [facility] Address [address] [place] [phone] Care Team Providers Care Dray Truck Driver Name Role Phone Melvi Paz Primary Care Provider UnavailBalta Gomez Jr REASON FOR VISIT Patient presents today for a colon screening Encounters Encounter Location Date Provider Diagnosis [facility] [address] [facility] [address] [place] [phone] 02/18/2024 Balta Crowe Jr Plan Of Treatment No Information Progress Notes * ISAAC AWAIS VDOB: [birth year] (69 yo F)Acc No.[id number]:02/18/2024 Progress Notes Patient: AWAIS BARTHOLOMEW V Provider: Juan A Crowe MD :1955 A ge:68 Y S ex:Female Date:02/18/2024 Address:[address] [place], [place] [id number] Pcp:Melvi Lawrence Subjective: * Chief Complaints: * 1 . Patient presents today for a colon screening. * Medical History: Objective: * Vitals: Assessment: Plan: * Treatment: * * The named appointment provid er may or may not be the originator of this progress note, and it is not deemed complete until electronically signed by the appointment provider. Sign off status: Pending * Provider: Juan A Crowe MD Date: 0 02/18/2024 Generated for Printi ng/Faxing/eTransmitting on: 0 04/29/2025 12:11 PM EDT
--- OUTSIDE RECORDS SUMMARY | 2024-07-09 06:00 | XMS_ITS ---
Author Organization [facility] Address [address] [place] [phone] Care Team Providers Care Area Intelligence Technician Name Role Phone Melvi Paz Primary Care Provider Balta Rosen Jr Unavailable [phone] REASON FOR VISIT screening,gerd Problems Problem Type SNOMED Code ICD Code Onset Dates Problem Status W/U Status Risk Notes Problem Gastroesophageal reflux disease (196732873) Gastroesophageal reflux disease (K21.9) Active confirmed Encounters Encounter Location Date Provider Diagnosis [facility] [place] Outpatient [address] [place], [place] [phone] 07/09/2024 Balta Crowe Jr Colon cancer screening [...] AWAIS GRAY VDOB: [birth year] (69 yo F)Acc No.[id number]:07/09/2024 EGD and COL/MAC Patient: AWAIS BARTHOLOMEW V Provider: Juan A Crowe MD :1955 A ge:69 Y S ex:Female Date:07/09/2024 Address:[address] [place], [place] [phone] Pcp:Melvi Lawrence Subjective: * Chief Complaints: * 1 . Screening,gerd. * Medical History: Objective: * Vitals: Assessment: * Assessment: 1. C olon cancer screening - Z12.11 (Primary) 2 . P ersonal history of colonic polyps - Z86.0100 3 . C olon polyps - K63.5 4 . G astroesophageal reflux disease - K21.9 Plan: * Treatment: * Procedure Codes: 4 5385 LESION REMOVAL COLONOSCOPY, 80009 COLONOSCOPY AND BIOPSY, Modifiers: 59 , 0529F INTRVL 3+YRS PTS CLNSCP DOCD, 98307 UPPER GI ENDOSCOPY, BIOPSY * * The named appointment provid er may or may not be the originator of this progress note, and it is not deemed complete until electronically signed by the appointment provider. Sign off status: Pending * Provider: Juan A Crowe MD Date: 09/09/2023 Generated for Immanuel vidal/Jose Antonio/Joshuaitting on: 0 04/29/2025 12:11 PM EDT
--- NOTE | 2025-04-29 10:51 | A.OFFPC_ITS ---
Vital Signs 04/29/25 10:52 Height 5 ft Weight 135 lb BMI 26.4 BP 110/70 Blood Pressure Location Lt brachial Position Sitting Pulse 71 Pulse Source Pulse Oximeter Temp 97.3 F Temp Source Temporal Artery Scan Pulse Oximetry (%) 94 Oxygen Delivery Method Room Air Intake Visit Reasons: TCM 04/22 Intake Note: Patient is here for hospital discharge and TCM follow up. Patient was discharged from [facility] on 04/22/25. Tie Inspector Required: Yes Tie Inspector Language: Bottom Scrubber Name: Karsten (spouse) Information Interpreted: non-clinical & clinical (pt decline pick up operator service prefer spouse to translate) Cement Breaker: Present Accompanied by: Spouse Allergies chlorzoxazone (From Parafon Forte DSC) Allergy (Intermediate, Verified 04/29/25 10:52) RASH/SWELLING, rash Iodinated Contrast Media (IV Dye, Iodine Containing) Allergy (Intermediate, Verified 04/29/25 10:52) THROAT CLOSED Penicillins (PENICILLINS) Allergy (Intermediate, Verified 04/29/25 10:52) HIVES pollen extracts (POLLEN) Allergy (Intermediate, Verified 04/29/25 10:52) RASH cephalexin Allergy (Mild, Verified 04/29/25 10:52) Rash Tobacco use date assessed: 04/29/25 Fall risk assessment: No Falls in past year Last assessed Fall Risk: 04/29/25 Dental Screening Dental Screen Date: 03/30/25 [facility] TCM TCM Information Date of Discharge 04/22/25 Discharged From [facility] Interactive Contact Date (Reference documentation from this date) 04/25/25 HPI Comments History of Present Illness Details 69 y/o Female patient who presents to [facility] today for HDF. Pt was admitted at [facility] on 04/17 - 04/22 for an evaluation due to nausea, Vomiting, decreased appetite and abdominal pain. She was treated for Acute Interstitial Pancreatitis, Acute Kidney Injury in the setting of Dehydration and Electrolyte abnormalities in the setting of Poor Oral intake. Pt did have MRCP in the hospital which showed no Choledocholithiasis, and possibly she passed the Stone. Pt was readmitted back at [facility] on 04/27 for an evaluation of increased left eye redness and swelling. Reports she underwent cataract extraction on the left eye by Dr. Lewis on 04/11. Patient reports she was discharged with instructions to apply polymyxin to the postoperative left eye, and continue latanoprost and dorzolamide timolol drops only in the right eye. Pt was re-evaluated by her Eye Doctor yesterday (Dr. Lewis) and was told everything was fine. [facility] Medical History (Updated 04/29/25 @ 11:49 by Alina Harden NP) Pancreatitis without necrosis or infection Post-cholecystectomy syndrome Chronic diarrhea Nausea Ear congestion Viral gastroenteritis Elevated hemoglobin Gastroparesis Post-menopausal Hearing loss in right ear Obese Dry skin Long-term use of aspirin therapy Urge urinary incontinence GERD (gastroesophageal reflux disease) Essential hypertension Glaucoma Diabetes mellitus Surgical History (Updated 04/29/25 @ 10:57 by YOUSIF Alvarado) History of cataract surgery History of esophagogastroduodenoscopy (EGD) History of colonoscopy Tubal ligation status History of knee replacement procedure of right knee History of cholecystectomy H/O arthroscopy of right knee History of nasal surgery History of Family History Father Cancer Mother Hypertension Social History Household Members: Children Housing: House Are you a primary day care attendant to a significant other at home: No Do you presently have visiting nurse or other home services: Yes (every 6 months) Alcohol intake: current Alcohol intake frequency: holidays/special occasions only Alcohol type: wine Patient Tobacco Use Status: Never used Tobacco e-Cigarette/Vaping Use: Never Used Second Hand Smoke Exposure: No Advance Directives Date on File: 02/17/17 service: No Current occupational status: retired Cognitive needs: No Hearing needs: No Vision needs: No Female Reproductive History Menstrual Age of Menarche: 11 Questionnaire Thrive Questionnaire Date Thrive assessed: 04/19/25 DIANE-7 AMB Questionnaire DIANE-7 Date DIANE - 7 assessed: 03/30/25 Source: Developed by Drs. Travon Rosales, Toña Wood, Francisco Marie and colleagues, with an educational yu from [employer] Review of Systems Const All systems reviewed & are unremarkable except as noted in HPI and below Physical exam (Primary Care) Vital Signs: Last Vital Signs Temp 97.3 F 04/29/25 10:52 Pulse 71 04/29/25 10:52 BP 110/70 04/29/25 10:52 Pulse Ox 94 04/29/25 10:52 Oxygen Delivery Method Room Air 04/29/25 10:52 BMI result Body Mass Index 26.4 Tobacco/Smoking Status: Tobacco use Status Tobacco use date assessed 04/29/25 04/29/25 10:58 Patient Tobacco Use Status Never used Tobacco 04/29/25 10:58 e-Cigarette/Vaping Use Never Used 04/29/25 10:58 Thrive Assessment: Date of Thrive Assessment Date Thrive assessed 04/19/25 04/29/25 10:58 Const General: no acute distress Nutritional Appearance: overweight Orientation/consciousness: patient oriented x3 Eyes Other: Mild conjunctival injection of the left eye, with upper and lower left eyelid edema, no proptosis. Pupils: Equal, round and reactive pupils present EOM: EOMs intact bilaterally Resp Effort & Inspection: normal respiratory effort Auscultation: clear to auscultation bilaterally Cardio Heart sounds: S1 normal heart sound present and S2 normal heart sound present Neuro General: patient oriented x3, gait normal and moves all extremities Cranial nerves: Yes Equal, round and reactive pupils present Psych Speech and movement: Normal speech and movement present Coding Level of Care Code TCM Mod MDM <= 14 Days Diagnoses Pancreatitis without necrosis or infection K85.90 Bacterial conjunctivitis H10.9 Time Spent (min) 20 Assessment & Plan Assessment & Plan (1) Pancreatitis without necrosis or infection: Code(s): K85.90 - Acute pancreatitis without necrosis or infection, unspecified Category: Medical Plan: Stable, resolved. (2) Bacterial conjunctivitis: Code(s): H10.9 - Unspecified conjunctivitis Category: Medical Plan: Continue using Polymyxin in the left eye, and dorzolamide timolol and latanoprost only in the right eye F/U with Dr. Lewis Medications: Refilled lancets (OneTouch Delica Plus Lancet) USE 1 LANCET ONCE A DAY 100 ea 0RF E11.65 - Type 2 diabetes mellitus with hyperglycemia
[2025-04-29 10:52] VITALS: BP 110/70; PULSE 71; TEMP 36.3; O2SAT 94; BMI 26.4
--- OUTSIDE RECORDS SUMMARY | 2025-04-29 12:11 | XMS_ITS | Encounter Summary ---
Author Organization [facility] Address [address] [place] [address] Care Team Providers Care Freight Broker Name Role Phone Unavailable Primary Care Provider Unavailabl e Encounter Details Date Type Department Care Team (Latest Contact Info) Description 08/18/2018 Abstract [facility] CONVERSIONS Dental, Provider, DDS Social History [...]
--- OUTSIDE RECORDS SUMMARY | 2025-04-29 12:11 | XMS_ITS | Patient Health Record ---
Author Organization [facility] Address [address] [place] [address] Care Team Providers Care Coal Tower Operator Name Role Phone Melvi Paz Primary [...] Blood Reviewed date:07/09/2024 02:59:54 PM Interpretation: Performing Lab:[address] [address] Notes/Report: Glucose, Whole Blood 135 60-115 mg/dL METER # : [id number] Pathology Reviewed date:07/14/2024 08:33:38 AM Interpretation: Performing Lab:[address] [address] Notes/Report: Pathology Reviewed date:07/20/2024 03:48:54 PM Interpretation: Performing Lab:[address] [address] Notes/Report: Reason For Referral No Information Medications [...] Problem Status W/U Status Risk Notes Problem 453520315 Colon cancer screening (Z12.11) Active confirmed Problem 79834726 Rectal bleeding (K62.5) Active confirmed Problem 510126107 jail curren t use of aspirin (Z79.82) Active confirmed Problem Gastroesophageal reflux disease (314534625) Gastroesophageal reflux disease (K21.9) Active confirmed Problem 603003029 Encounter for long-term (current) use of high-risk medication (Z79.899) Active confirmed Problem 884054537 Gastroesophageal reflux disease, unspecified whether esophagitis present (K21.9) Active confirmed Vital Signs Temperature 97.5 degrees Fahrenheit 05/31/2024 Blood pressure diastolic 00 mm Hg 05/31/2024 Height 59 in 05/31/2024 Blood pressure systolic 000 mm Hg 05/31/2024 Weight 143 lbs 05/31/2024 BMI 28.88 kg/m2 05/31/2024 Encounters Encounter Location Date Provider Diagnosis [facility] Outpatient [address] [place], [place] [phone] 07/09/2024 Balta Crowe Jr Colon cancer screening Z12.11 ; Personal history of colonic polyps Z86.0100 ; Colon polyps K63.5 and Gastroesophageal reflux disease K21.9 [facility] [address] [place] [address] 05/31/2024 Balta Crowe Jr Gastroesophageal reflux disease, unspecified whether esophagitis present K21.9 and Colon cancer screening Z12.11 [facility] [address] [place] [address] 07/20/2024 Balta Crowe Jr Assessments Encounter Date [...] Insured Coverage Start Date Coverage End Date [facility] [address] [address] [place] [address] [phone] [id number] AWAIS GRAY Self - patient is the insured Medical (General) History Medical History History ICD Code Colonoscopy 2019, tubular adenoma, five- year followup glaucoma benign breast biopsy onychomycosis urinary incontinence diabetes mellitus hypertension esophageal reflux Surgical History Surgery Date(Month/Year) right knee replacement
--- OUTSIDE RECORDS SUMMARY | 2025-04-29 12:11 | XMS_ITS | Clinical Summary ---
Author Organization [employer] Address [address] [place] [address] Care Team Providers Care City Carrier Assistant Name Role Phone Unavailable Primary Care [...]
--- OUTSIDE RECORDS SUMMARY | 2025-04-29 12:11 | XMS_ITS | Encounter Summary ---
Author Organization [facility] Address [address] [place] [address] Care Team Providers Care Gandy Dancer Name Role Phone Unavailable Primary Care Provider Unavailabl e Encounter Details Date Type Department Care Team (Latest Contact Info) Description 06/17/2022 Abstract [facility] CONVERSIONS Dental, Provider, DDS Social History Tobacco [...]
--- OUTSIDE RECORDS SUMMARY | 2025-04-29 12:11 | XMS_ITS | Encounter Summary ---
Author Organization [facility] Address [address] [place] [address] Care Team Providers Care Rivet Spinner Name Role Phone Unavailable Primary Care Provider Unavailabl e Encounter Details Date Type Department Care Team (Latest Contact Info) Description 06/01/2021 Abstract [facility] CONVERSIONS Dental, Provider, DDS Social History Tobacco [...]
== END 2025-04-29 11:20 | disposition home or self-care (01) ==
LOC: HO.HMCH 10:41
PROVIDERS: PCP Internal Medicine; Visit Provider Nurse Practitioner Family
DX: K85.90 Acute pancreatitis without necrosis or infection, unspecified (principal); H10.9 Unspecified conjunctivitis

== ENCOUNTER → 2025-04-29 10:41 | Outpatient (BNVA) | payer OTHER, SELFPAY | PROVIDERS: PCP Internal Medicine; Visit Provider Nurse Practitioner Family | DX: E11.65 Type 2 diabetes mellitus with hyperglycemia (principal); K85.90 Acute pancreatitis without necrosis or infection, unspecified; H10.9 Unspecified conjunctivitis | CPT/HCPCS: 99495 ==